=== PATIENT | male | born 1945 | race Caucasian/White ===

== ENCOUNTER 2019-12-17 10:03 | Outpatient (CLI) | payer MEDICARE, SELFPAY ==
--- NOTE | ~2019-12-17 | CT_ITS ---
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 The dose-length product (DLP) was 268.22 mGy-cm. Ite rative reconstruction was used. COMPARISON: 08/22/2019 FINDINGS: There are changes of esophagectomy and gastric pull-through. A 9 mm nodule of the right low er lobe on image 97 demonstrates slight increase in size. There is a stable 5 mm subpleural nodule of the right lower lobe on image 101. Dependent atelectasis is noted. The heart size is normal. There a re no pathologically enlarged thoracic lymph nodes. A left subclavian central venous catheter ends wi th its tip in the superior vena cava. Healed fractures of the right second through sixth ribs are not ed. A healed left fifth rib fracture is also noted. There is mild thoracic spondylosis. The gallblad greta is surgically absent. There is a 5 mm nonobstructing stone of the right kidney upper pole. IMPRESSION: 1. 9 mm nodule of the right lower lobe with slight interval increase in size which remains indetermin ate. Interval PET/CT did not demonstrate associated FDG uptake however that finding could be related to small nodule size. 2. Changes of esophagectomy with gastric pull-through. Reviewed, dictated and finalized at location A. HOUSE ENGINEER IMPRESSION: 1. 9 mm nodule of the right lower lobe with slight interval increase in size wh ich remains indeterminate. Interval PET/CT did not demonstrate associated FDG u ptake however that finding could be related to small nodule size. 2. Changes of esophagectomy with gastric pull-through.
[2019-12-17 10:42] LABS: Blood Urea Nitrogen 19 mg/dL (8-26); Estimated Glomerular Filt Rate 59
== END 2019-12-17 10:04 | disposition home or self-care (01) ==
PROVIDERS: Visit Provider Internal Medicine Hematology & Oncology
DX: C15.5 Malignant neoplasm of lower third of esophagus (principal); R91.1 Solitary pulmonary nodule
CPT/HCPCS: 71260; Q9967

== ENCOUNTER 2020-03-26 08:02 | Outpatient (CLI) | payer MEDICARE, SELFPAY ==
--- NOTE | ~2020-03-26 | CT_ITS ---
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 The dose-length product (DLP) was 457.57 mGy-cm. Ite rative reconstruction was used. COMPARISON: 12/17/2019 FINDINGS: There are changes of esophagectomy and gastric pull-through. There is increasing atelectasi s of the right lower lobe adjacent to the gastric pull-through. The previously described 9 mm nodule of the right lower lobe (image 95) appears stable but the margins are somewhat obscured by the increa sed atelectasis. A stable 5 mm subpleural nodule is present in the right lower lobe on image 99. Ther e are trace pleural effusions. No pneumothorax is identified. No pathologically enlarged thoracic lym ph nodes are identified. The heart size is normal. A left subclavian central venous catheter ends wit h its tip in the superior vena cava. Healed bilateral rib fractures are noted. There is mild thoracic spondylosis. IMPRESSION: 1. Grossly stable 9 mm nodule of the right lower lobe, margins slightly obscured by adjacent atelecta sis. 2. Stable changes of esophagectomy and gastric pull-through. Reviewed, dictated and finalized at location A. IMPRESSION: 1. Grossly stable 9 mm nodule of the right lower lobe, margins slightly obscure d by adjacent atelectasis. 2. Stable changes of esophagectomy and gastric pull-through.
[2020-03-26 08:33] LABS: Estimated Glomerular Filt Rate > 60
== END 2020-03-26 08:03 | disposition home or self-care (01) ==
PROVIDERS: PCP Family Medicine; Visit Provider Internal Medicine Hematology & Oncology
DX: C15.5 Malignant neoplasm of lower third of esophagus (principal); R91.1 Solitary pulmonary nodule
CPT/HCPCS: 36415; 71260; Q9967

== ENCOUNTER 2020-04-05 07:41 | Outpatient (CLI) | payer MEDICARE, SELFPAY ==
--- NOTE | ~2020-04-05 | MR_ITS ---
EXAMINATION: MR lumbar spine wo/w con DATE: 04/05/2020 09:31 INDICATION: Back pain. Postlaminectomy syndrome. TECHNIQUE: Magnetic resonance imaging (MRI) of the lumbar spine was performed without and with 16 mL MultiHance intravenous contrast. Sequences included sagittal T2-weighted FSE, sagittal T2-weighted FS FSE, and sagittal and axial T1-weighted FSE. Postcontrast sequences included axial T2-weighted FSE a nd axial and sagittal T1-weighted FS FSE. COMPARISON: Lumbar spine MRI 08/11/2016 FINDINGS: There is 9 degrees dextrocurvature of lumbar spine. There is 3 mm anterolisthesis of L4 on L5 and 4 mm retrolisthesis of L5 on S1. There is interbody fusion at L3-L4. Vertebral body heights ar e normal. Again seen is a benign bone island in the sacrum. There is severely decreased disc height a t L2-L3, L4-L5, and L5-S1. The distal spinal cord signal intensity is normal. The conus medullaris is at T12-L1. The following disc levels are specifically discussed: L1-L2: The disc is bulging. There is mild bilateral facet joint osteoarthritis. There is no neural fo raminal stenosis. There is no central canal stenosis. L2-L3: The disc is bulging and has an annular fissure. There is mild bilateral facet joint osteoarthr itis. There is mild right and moderate left neural foraminal stenosis. There is mild central canal st enosis. L3-L4: There is severe bilateral facet joint hypertrophy. There is moderate right and mild left neura l foraminal stenosis. There is mild central canal stenosis. L4-L5: The disc is bulging and has an annular fissure. There is severe bilateral facet joint osteoart hritis. There is moderate bilateral neural foraminal stenosis. There is mild central canal stenosis. L5-S1: The disc is bulging and has an annular fissure. There is mild right and severe left facet join t osteoarthritis. There is moderate bilateral neural foraminal stenosis. There is mild central canal stenosis. IMPRESSION: 1. Severe lumbar spondylosis, stable from 08/11/2016. Reviewed, dictated and finalized at location A.
--- NOTE | ~2020-04-05 | MR_ITS ---
EXAMINATION: MR thoracic spine wo con DATE: 04/05/2020 09:31 INDICATION: Postlaminectomy syndrome. Other spondylosis and radiculopathy. TECHNIQUE: Magnetic resonance imaging (MRI) of the thoracic spine was performed without intravenous c ontrast. Sagittal localizer T1-weighted FSE of the cervical spine was obtained. Thoracic spine sequen anatoly included sagittal T2-weighted FSE, sagittal T1-weighted FSE, sagittal STIR FSE, and axial T2-weig hted FSE. COMPARISON: Chest CT 03/26/2020 FINDINGS: There is 8 degrees dextrocurvature of thoracic spine. There are Schmorl's nodes at most lev els. There is mildly decreased disc height at T5-T6 and T6-T7. At T1-T2, there is a central protrusio n with mild central canal stenosis. At T3-T4, there is a right central extrusion with mild central ca nal stenosis. At T4-T5, there is a left central protrusion with mild central canal stenosis. At T5-T6 , there is a right central protrusion with mild central canal stenosis. At T6-T7, there is a right ce ntral protrusion with mild central canal stenosis. At T9-T10, there is a central protrusion with mild central canal stenosis. At T10-T11, there is a central extrusion with mild central canal stenosis. T here is multilevel mild facet joint osteoarthritis. No neural foraminal stenosis. The spinal cord sig nal intensity is normal. There are changes of esophagectomy and gastric pull-through procedure. IMPRESSION: 1. Mild thoracic spondylosis. Reviewed, dictated and finalized at location A.
[2020-04-05 08:25] LABS: Estimated Glomerular Filt Rate > 60
== END 2020-04-05 07:42 | disposition home or self-care (01) ==
PROVIDERS: PCP Family Medicine
DX: M96.1 Postlaminectomy syndrome, not elsewhere classified (principal); M47.27 Other spondylosis with radiculopathy, lumbosacral region; M47.814 Spondylosis without myelopathy or radiculopathy, thoracic region; M47.816 Spondylosis without myelopathy or radiculopathy, lumbar region
CPT/HCPCS: 36415; 72146; 72158; A9577

== ENCOUNTER 2020-05-08 10:24 | Outpatient (CLI) | payer MEDICARE, SELFPAY ==
--- NOTE | 2020-05-08 | ECG_ITS ---
Measurements Intervals [place] Rate: 57 P: -15 MN: 140 QRS: -29 QRSD: 97 T: -18 QT: 412 QTc: 402 Interpretive Statements SINUS BRADYCARDIA INFERIOR INFARCT, AGE INDETERMINATE BASELINE ARTIFACT- V6 ABNORMAL ECG Electronically Signed On 05-08-2020 12:10:12 CDT by Kenji Bucio D.O.
[2020-05-08 11:01] LABS: Basophils Absolute Auto 0.1 K/mm3 (0.0-0.1); Basophils Percent Auto 0.9 % (0.2-1.2); Eosinophils Absolute Auto 0.3 K/mm3 (0-0.3); Eosinophils Percent Auto 4.2 % (0-4.4); Hematocrit 40.4 % (42.0-52.0); Hemoglobin 13.1 g/dL (14.0-18.0); Immature Granulocyte Absolute 0.02 K/mm3 (0.00-0.031); Immature Granulocyte Percent A 0.3 % (0-0.5); Lymphocytes Absolute Auto 1.17 K/mm3 (0.9-3.2); Lymphocytes Percent Auto 18.2 % (18.3-44.2); Mean Corpuscular HGB Conc 32.4 g/dl (32-36); Mean Corpuscular Hemoglobin 30.1 pg (26-34); Mean Corpuscular Volume 92.9 fl (80-100); Mean Platelet Volume 12.7 fl (7.4-10.4); Monocytes Absolute Auto 0.9 K/mm3 (0.1-0.6); Monocytes Percent Auto 13.2 % (2.6-8.5); Neutrophils Absolute Auto 4.1 K/mm3 (1.3-6.7); Neutrophils Percent Auto 63.2 % (45.5-73.1); Platelet Count Result 103 k/mm3 (150-375); Red Blood Count 4.35 M/mm3 (4.6-6.20); Red Cell Distribution Width 13.1 % (11.5-14.5); White Blood Count 6.4 K/mm3 (4.5-10.0)
[2020-05-08 11:10] LABS: Add Urine Microscopic? YES; Appearance Urine Cloudy (Clear); Bacteria Urine Trace /hpf; Bilirubin Urine Negative (Negative); Blood Urine 2+ (Negative); Color Urine Yellow (Yellow); Glucose Urine UA 1+ mg/dL (Negative); Ketones Urine Negative (Negative); Leukocyte Esterase Ur 3+ LEU/UL (NEGATIVE); Mucus Urine Rare /lpf; Nitrate Urine Negative (Negative); Protein Urine Negative (Negative); RBC Urine 21-50 /hpf (0-2); Specific Grav Ur 1.018 (1.001-1.035); Squamous Epithelial Cell Urine Rare /hpf (Few); Urobilinogen Urine Negative mg/dL (<2.0); WBC Clumps Urine Present /HPF; WBC Urine >75 /hpf (0-3)
[2020-05-08 11:13] LABS: Alanine Aminotransferase 34 U/L (4-50); Albumin Level 3.2 g/dL (3.5-5.1); Alkaline Phosphatase 192 U/L (38-126); Aspartate Amino Transferase 52 U/L (17-59); Bilirubin,Total 0.3 mg/dL (0.2-1.3); Blood Urea Nitrogen 19 mg/dL (9-20); Calcium 8.5 mg/dL (8.4-10.2); Carbon Dioxide 27 mmol/L (22-30); Chloride 104 mmol/L (98-107); Estimated Glomerular Filt Rate > 60; Glucose 168 mg/dL (75-110); Potassium 4.2 mmol/L (3.4-5.0); Sodium 138 mmol/L (137-145)
[2020-05-12 15:55] LABS: Reference Lab Test Result Not Detected
== END 2020-05-08 10:25 | disposition home or self-care (01) ==
PROVIDERS: PCP Family Medicine
DX: M96.1 Postlaminectomy syndrome, not elsewhere classified (principal); R94.31 Abnormal electrocardiogram [ECG] [EKG]
CPT/HCPCS: 36415; 80053; 81001; 85025; 87641; 93005

== ENCOUNTER 2020-09-30 12:01 | Outpatient (NON) | payer MEDICARE, SELFPAY ==
[2020-10-03 17:04] LABS: SARS-CoV-2 RNA PCR Negative
== END 2020-09-30 12:02 ==
LOC: ANHCOVIDDT 12:02
PROVIDERS: PCP Family Medicine; Visit Provider Family Medicine
DX: Z20.828 Contact with and (suspected) exposure to other viral communicable diseases (principal); R05 Cough
CPT/HCPCS: 87635; C9803; U0003

== ENCOUNTER 2020-10-07 09:36 | Outpatient (CLI) | payer MEDICARE, SELFPAY ==
--- NOTE | ~2020-10-07 | CT_ITS ---
EXAMINATION: CT chest w con DATE: 10/07/2020 10:19 INDICATION: Pulmonary nodule TECHNIQUE: Computed tomography (CT) of the chest was performed with 75 cc Omnipaque 350 intravenous c ontrast. The dose-length product was 257.36 mGy-cm. Automated exposure control and iterative reconstr uction technique were employed. COMPARISON: None FINDINGS: There are stable surgical changes of esophagectomy with gastric pull-through. There is automotive worker foreman brittani right lower lobe atelectasis/scarring. No endobronchial lesions. The right lower lobe nodule seen on prior examination is not appreciated on the current study. There is crowding of the pulmonary vas culature in the right lower lobe. No significant pleural or pericardial effusion. No mediastinal lymp hadenopathy. No evidence for aortic aneurysm or dissection. There is renal atrophy. There are nonobst ructing bilateral renal stones. Stable 3-4 mm right lower lobe nodule, image 87. There are a few patc hy areas of groundglass opacification in the right upper lobe, likely small airway disease. There is right apical pleural thickening with pleural calcifications, nonspecific. There are scattered calcifi ed granulomas. There are healed bilateral rib fractures. Mild thoracic spondylosis. IMPRESSION: 1. Stable 3-4 mm subpleural right lower lobe nodule, image 87. 2: Stable changes of esophagectomy with gastric pull-through. Reviewed, dictated and finalized at location B. RVISOR/PORT DIRECTOR
[2020-10-07 10:16] LABS: Estimated Glomerular Filt Rate > 60
== END 2020-10-07 09:37 | disposition home or self-care (01) ==
PROVIDERS: PCP Family Medicine; Visit Provider Nurse Practitioner Adult Health
DX: R91.1 Solitary pulmonary nodule (principal); J98.11 Atelectasis; N20.0 Calculus of kidney; M47.814 Spondylosis without myelopathy or radiculopathy, thoracic region
CPT/HCPCS: 71260; Q9967

== ENCOUNTER 2020-10-15 11:17 | Outpatient (CLI) | payer MEDICARE, SELFPAY ==
[2020-10-15 11:39] LABS: Basophils Absolute Auto 0.1 K/mm3 (0.0-0.1); Basophils Percent Auto 0.8 % (0.2-1.2); Eosinophils Absolute Auto 0.8 K/mm3 (0-0.3); Hematocrit 38.1 % (42.0-52.0); Hemoglobin 12.3 g/dL (14.0-18.0); Immature Granulocyte Absolute 0.06 K/mm3 (0.00-0.031); Immature Granulocyte Percent A 0.6 % (0-0.5); Lymphocytes Absolute Auto 1.99 K/mm3 (0.9-3.2); Lymphocytes Percent Auto 18.6 % (18.3-44.2); Mean Corpuscular HGB Conc 32.3 g/dl (32-36); Mean Corpuscular Hemoglobin 29.6 pg (26-34); Mean Corpuscular Volume 91.8 fl (80-100); Mean Platelet Volume 11.7 fl (7.4-10.4); Monocytes Absolute Auto 1.2 K/mm3 (0.1-0.6); Neutrophils Absolute Auto 6.6 K/mm3 (1.3-6.7); Platelet Count Result 125 k/mm3 (150-375); Red Blood Count 4.15 M/mm3 (4.6-6.20); Red Cell Distribution Width 13.6 % (11.5-14.5); White Blood Count 10.7 K/mm3 (4.5-10.0)
[2020-10-15 12:28] LABS: Alanine Aminotransferase 40 U/L (4-50); Albumin Level 2.8 g/dL (3.5-5.1); Alkaline Phosphatase 175 U/L (38-126); Anion Gap 5 mmol/L (8-16); Aspartate Amino Transferase 53 U/L (17-59); Bilirubin,Total 0.4 mg/dL (0.2-1.3); Blood Urea Nitrogen 16 mg/dL (9-20); Calcium 8.7 mg/dL (8.4-10.2); Carbon Dioxide 32 mmol/L (22-30); Chloride 102 mmol/L (98-107); Estimated Glomerular Filt Rate > 60; Glucose 91 mg/dL (75-110); Potassium 4.2 mmol/L (3.4-5.0); Sodium 139 mmol/L (137-145)
[2020-10-15 12:33] LABS: Hemoglobin A1C 7.1 % (<5.7)
[2020-10-16 10:01] LABS: Blood Urea Nitrogen 14 mg/dL (8-26); Carbon Dioxide 32 mmol/L (22-30); Chloride 101 mmol/L (98-109); Estimated Glomerular Filt Rate > 60; Glucose 91 mg/dL (70-105); Potassium 4.3 mmol/L (3.5-4.9); Sodium 141 mmol/L (138-146)
== END 2020-10-15 11:18 | disposition home or self-care (01) ==
PROVIDERS: PCP Family Medicine; Referring Provider Internal Medicine Hematology & Oncology; Visit Provider Family Medicine
DX: C15.5 Malignant neoplasm of lower third of esophagus (principal); E11.9 Type 2 diabetes mellitus without complications; I10 Essential (primary) hypertension
CPT/HCPCS: 36415; 80048; 80053; 83036; 85025

== ENCOUNTER 2021-01-13 09:37 | Outpatient (CLI) | payer MEDICARE, SELFPAY ==
--- NOTE | ~2021-01-13 | CT_ITS ---
EXAMINATION: CT diagnostic chest w con EXAM DATE: 01/13/2021 10:18 INDICATION: Cancer of the distal 3rd of esophagus. TECHNIQUE: Spiral CT of the chest following intravenous injection of 75 mL Omnipaque 350. Axial, cor onal and sagittal images were reviewed. Coronal maximum intensity pixel images of chest reviewed. Micky hamlin dose-length product (DLP) for this examination was 349.92 mGy-cm. The exposure was tailored accor ding to patient size (auto mA exposure control), and iterative reconstruction (ASIR) was used as greta tional dose reduction technique. Comparison is made to prior examination from 10/07/2020. FINDINGS: Surgical changes from gastric pull-through. There is a left-sided Chemo-Port. Multi segmen jeanne right lower lobe atelectasis, compressive from the thoracic stomach. Small chronic right pleural effusion. Unchanged right lower lobe pleural-based 3 mm nodule. Some other scattered postinfectious r esidua. Mild emphysema. There are no pleural or pericardial effusions. Tracheobronchial tree is patent. There is no media stinal, hilar or axillary lymphadenopathy. There is no pneumothorax. Heart normal in size. Ther e is mild to moderate coronary arterial calcification, arterial sclerosis. There are cholecystectomy clips. Bilateral nephrolithiasis. There is mild thoracic spondylosis without osteoblastic or osteo lytic lesions identified. Spine stimulator lead tips at thoracic level. IMPRESSION: 1. Stable surgical changes, gastric pull-through with adjacent right lower lobe multisegmental atele ctasis. 2. Mild emphysema. 3. Nephrolithiasis Reviewed, dictated and finalized at location B. ER TEACHER IMPRESSION: 1. Stable surgical changes, gastric pull-through with adjacent right lower lob e multisegmental atelectasis. 2. Mild emphysema. 3. Nephrolithiasis
[2021-01-13 10:10] LABS: Estimated Glomerular Filt Rate > 60
== END 2021-01-13 09:38 | disposition home or self-care (01) ==
PROVIDERS: PCP Family Medicine; Visit Provider Internal Medicine Hematology & Oncology
DX: C15.5 Malignant neoplasm of lower third of esophagus (principal); J43.9 Emphysema, unspecified; N20.0 Calculus of kidney; Z98.890 Other specified postprocedural states
CPT/HCPCS: 71260; Q9967

== ENCOUNTER → 2021-01-31 02:08 | Outpatient (CLI) | payer MEDICARE, SELFPAY ==
[2021-01-31 20:23] LABS: SARS-CoV-2 RNA PCR Negative
== END ==
PROVIDERS: PCP Family Medicine; Visit Provider Neurological Surgery
DX: Z01.812 Encounter for preprocedural laboratory examination (principal); Z20.822 Contact with and (suspected) exposure to COVID-19
CPT/HCPCS: C9803; U0003; U0005

== ENCOUNTER 2021-02-04 08:57 | Outpatient (CLI) | payer MEDICARE, SELFPAY ==
[2021-01-30 11:08] VITALS: BMI 24.4
[2021-02-04] VITALS (9 sets, daily range): BP systolic 123–144; BP diastolic 61–71; PULSE 56–70; RESP 14–20; O2SAT 94–99
--- NOTE | ~2021-02-04 | XR_ITS ---
EXAMINATION: XR_MY2+_CR EXAM DATE: 02/04/2021 10:48 INDICATION: Cervical, thoracic and lumbar spondylosis with out myelopathy. TECHNIQUE: Informed consent was obtained from the patient for doing this procedure. I discussed alicia efits and risks including bleeding, infection, backache, headache and seizure. Alternatives also disc ussed. The DAP for this procedure was 0.8 Gycm2. Pulsed dose reduction fluoroscopy was used with fluo roscopic time of 0.3 minutes. A total of 22 images obtained for the exam. Correlation made with CT c ervical, thoracic and lumbar spine obtained immediately following this. Time out procedure was performed. Thermal Intelligence Analyst radiograph was obtained. An entry site was chosen at the L4 -5 level. A left paracentral approach was used. Standard sterile prep was done with Betadine. Entr y site was infiltrated with 5 cc 1% lidocaine. A 3.5 22G spinal needle was then inserted into the s vick canal. 10 milliliters Omnipaque 300 were then injected into the thecal sac. The table was placed in Trendelenburg position to allow contrast to flow to the cervical region. Limited frontal images of the lumbar, thoracic and cervical spine were obtained. Patient had difficul ty rotating on the table for any oblique or lateral images of the spine. There are no immediate compl ications. FINDINGS: There are 12 rib-bearing thoracic vertebral bodies. There are 5 nonrib-bearing lumbar verte bral bodies. Images demonstrate no myelographic block. Contrast did reach the cervical region. Spine stimulator device with leads at 2 different midthoracic levels, the T7-8 endplate level in the T9-10 endplate level. IMPRESSION: Successful intrathecal injection of Omnipaque with contrast confirmed at cervical, thora cic and lumbar regions. Reviewed, dictated and finalized at location A. IMPRESSION: Successful intrathecal injection of Omnipaque with contrast confir med at cervical, thoracic and lumbar regions.
--- NOTE | ~2021-02-04 | CT_ITS ---
EXAMINATION: CT thoracic lumbar w con EXAM DATE: 02/04/2021 11:05 INDICATION: Cervical, thoracici and lumbar spondylosis w/o myelopathy. TECHNIQUE: Spiral CT thoracic spine was performed with intrathecal contrast. Axial, coronal and sagit jeanne images of the thoracic spine were reviewed. The amount of intrathecal contrast in the thoracic spine was assessed. Patient was then asked to sit for a minute to allow more contrast down to the lumbar region. Spiral CT lumbar spine was performed w ith intrathecal contrast. Axial, coronal and sagittal images of the lumbar spine were reviewed. The dose-length product (DLP) for this examination was 2613.36 mGy-cm. The exposure was tailored acc ording to patient size (auto mA exposure control), and iterative reconstruction (ASIR) was used as ad ditional dose reduction technique. A total of 10 mL Omnipaque 300 solution was injected. Correlation was made with lumbar and thoracic MR examination 04/05/2020. FINDINGS: THORACIC SPINE: There are 12 rib-bearing vertebral bodies. Spine stimulator lead tips in the posterio r epidural space at the T7-8 level and the T9-10 level. There is good intrathecal opacification. Ther e is mild diffuse thoracic disc disease and facet arthropathy. Only minimal disc bulges are present, Central canal is widely patent throughout the thoracic spine. The neural foramen also appear widely p atent. Vertebral body heights relatively well-maintained. Surgical changes from gastric pull-through. Small right pleural effusion. Large left nephrolithiasis. LUMBAR SPINE: Good intrathecal opacification. There is osseous fusion of the L3-4 levels. There is ri ght L4 hemilaminotomy. Left sacral all of bone island. No sacral insufficiency fractures. There is se orlando disc disease at L4-5 and L5-S1. There is 6 mm retrolisthesis L5 on S1. The vertebral bodies are otherwise aligned. Conus terminates at the L1-2 level. This is also a level at which the epidural spi ne stimulator leads enter. Moderate disc disease at L2-3, and mild at L1-2. Mild lumbar scoliosis. Level by level evaluation: T12-L1: Disc does not extend beyond the endplate margin. Facet arthropathy: None. Neural foraminal stenosis: No stenosis. Central canal stenosis: No stenosis. L1-L2: There is a minimal diffuse disc bulge. Facet arthropathy: Mild. Neural foraminal stenosis: No stenosis. Central canal stenosis: No stenosis. L2-L3: There is a mild to moderate diffuse disc bulge. Facet arthropathy: Mild to moderate. Neural foraminal stenosis: Mild to moderate left, mild right. Central canal stenosis: Mild. L3-L4: There is osseous fusion of these vertebral bodies. Facet arthropathy: Moderate to severe. Neural foraminal stenosis: Moderate right, mild to moderate left. Central canal stenosis: Mild to moderate. L4-L5: There is a moderate diffuse disc bulge. Facet arthropathy: Severe right, moderate left. Neural foraminal stenosis: Severe right, mild to moderate left. Central canal stenosis: Mild. L5-S1: There is a mild to moderate diffuse disc bulge. Facet arthropathy: Moderate to severe left, moderate right. Neural foraminal stenosis: Severe bilateral. Central canal stenosis: Mild. IMPRESSION: 1. L5-S1 grade 1 retrolisthesis, severe bilateral neural foraminal stenosis. 2. L4-5 severe right neural foraminal stenosis. 3. Advanced lumbar spondylosis as above. Reviewed, dictated and finalized at location A.
--- NOTE | ~2021-02-04 | CT_ITS ---
EXAMINATION: CT cervical spine w con EXAM DATE: 02/04/2021 11:05 INDICATION: Cervical, thoracici and lumbar spondylosis w/o myelopathy . TECHNIQUE: Spiral CT of the cervical spine was performed with contrast (a total of 10 mL Omnipaque 30 0). Axial images were reviewed. Coronal and sagittal reformatted images were also reviewed. The dos e-length product (DLP) for this examination was 501.38 mGy-cm. The exposure was tailored according t o patient size (auto mA exposure control), and iterative reconstruction (ASIR) was used as additional dose reduction technique. There is no prior study for comparison. FINDINGS: There is good intrathecal opacification within the spinal canal. There is moderate to sever e disc disease C5-T1, moderate at C3-4. Patient has had bilateral laminectomies at the C3 and C4 leve ls. No endplate erosive change. The vertebral bodies are aligned in the AP dimension. There are no ac camille fractures identified. Left-sided portacatheter. Level by level evaluation: C2-C3: Disc does not extend beyond the endplate margin. Uncovertebral joint arthropathy: Mild bilateral. Facet joint arthropathy: Moderate to severe right, mild to moderate left. Neural foraminal stenosis: No stenosis. Central canal stenosis: No stenosis. C3-C4: There is posterior disc osteophyte complex. Uncovertebral joint arthropathy: Moderate bilateral. Facet joint arthropathy: Severe right, moderate left. Neural foraminal stenosis: Moderate to severe right, moderate left. Central canal stenosis: No stenosis. Posterior decompression. C4-C5: There is posterior disc osteophyte complex. Uncovertebral joint arthropathy: Mild to moderate right, mild left. Facet joint arthropathy: Severe bilateral. Neural foraminal stenosis: Mild to moderate bilateral. Central canal stenosis: No stenosis. Posterior decompression C5-C6: There is posterior disc osteophyte complex. Uncovertebral joint arthropathy: Moderate to severe left, moderate right. Facet joint arthropathy: Mild to moderate bilateral. Neural foraminal stenosis: Mild bilateral. Central canal stenosis: Mild. C6-C7: There is posterior disc osteophyte complex. Uncovertebral joint arthropathy: Moderate to severe bilateral. Facet joint arthropathy: Moderate bilateral. Neural foraminal stenosis: Moderate bilateral. Central canal stenosis: Mild. C7-T1: There is posterior disc osteophyte complex. Uncovertebral joint arthropathy: Moderate to severe left, moderate right. Facet joint arthropathy: Mild to moderate bilateral. Neural foraminal stenosis: Mild left. Central canal stenosis: No stenosis. IMPRESSION: Advanced cervical spondylosis with the neural foramen most narrowed at C3-4. Reviewed, dictated and finalized at location A.
[2021-02-04 09:26] LABS: Basophils Absolute Auto 0.1 K/mm3 (0.0-0.1); Basophils Percent Auto 0.9 % (0.2-1.2); Eosinophils Absolute Auto 1.3 K/mm3 (0-0.3); Eosinophils Percent Auto 11.6 % (0-4.4); Hematocrit 36.4 % (42.0-52.0); Hemoglobin 11.7 g/dL (14.0-18.0); Immature Granulocyte Absolute 0.09 K/mm3 (0.00-0.031); Immature Granulocyte Percent A 0.8 % (0-0.5); Lymphocytes Percent Auto 13.9 % (18.3-44.2); Mean Corpuscular HGB Conc 32.1 g/dl (32-36); Mean Corpuscular Hemoglobin 30.1 pg (26-34); Mean Corpuscular Volume 93.6 fl (80-100); Monocytes Absolute Auto 1.3 K/mm3 (0.1-0.6); Monocytes Percent Auto 12.4 % (2.6-8.5); Neutrophils Absolute Auto 6.5 K/mm3 (1.3-6.7); Neutrophils Percent Auto 60.4 % (45.5-73.1); Platelet Count Result 114 k/mm3 (150-375); Red Blood Count 3.89 M/mm3 (4.6-6.20); Red Cell Distribution Width 14.3 % (11.5-14.5); White Blood Count 10.8 K/mm3 (4.5-10.0)
[2021-02-04 12:52] LABS: Glucose Point of Care 124 (65-105)
--- NOTE | 2021-02-04 13:05 | SUR.PHASEII ---
1240 dr estes at bedside to see pt and give him disk for doctor. pt vss, no pain on roomair. pt ok for discharge per dr estes
== END 2021-02-04 08:58 | disposition home or self-care (01) ==
PROVIDERS: Radiology Diagnostic Radiology; PCP Family Medicine; Visit Provider Neurological Surgery
DX: M47.812 Spondylosis without myelopathy or radiculopathy, cervical region (principal); M47.816 Spondylosis without myelopathy or radiculopathy, lumbar region; M47.814 Spondylosis without myelopathy or radiculopathy, thoracic region
CPT/HCPCS: 36415; 62305; 72126; 72129; 72132; 85025; 85610; Q9967

== ENCOUNTER 2021-03-17 11:45 | Outpatient (CLI) | payer MEDICARE, SELFPAY ==
--- NOTE | ~2021-03-17 | US_ITS ---
EXAMINATION: US venous doppler LE RT DATE: 03/17/2021 12:08 INDICATION: Right lower limb swelling. TECHNIQUE: Grayscale ultrasound images without and with compression and Doppler ultrasound images of the right lower extremity veins were obtained. COMPARISON: None. FINDINGS: The visualized portions of right common femoral vein, profunda (deep) femoral vein, femoral vein, pop liteal vein, peroneal veins, posterior tibial veins, and greater saphenous vein outflow are patent. IMPRESSION: 1. No deep venous thrombosis. Reviewed, dictated and finalized at location B.
[2021-03-17 13:50] LABS: Basophils Absolute Auto 0.1 K/mm3 (0.0-0.1); Basophils Percent Auto 0.8 % (0.2-1.2); Eosinophils Percent Auto 7.8 % (0-4.4); Hematocrit 33.9 % (42.0-52.0); Hemoglobin 10.8 g/dL (14.0-18.0); Immature Granulocyte Absolute 0.14 K/mm3 (0.00-0.031); Immature Granulocyte Percent A 1.1 % (0-0.5); Lymphocytes Absolute Auto 1.59 K/mm3 (0.9-3.2); Lymphocytes Percent Auto 12.6 % (18.3-44.2); Mean Corpuscular HGB Conc 31.9 g/dl (32-36); Mean Corpuscular Hemoglobin 28.9 pg (26-34); Mean Corpuscular Volume 90.6 fl (80-100); Mean Platelet Volume 12.4 fl (7.4-10.4); Monocytes Absolute Auto 1.6 K/mm3 (0.1-0.6); Monocytes Percent Auto 12.4 % (2.6-8.5); Neutrophils Absolute Auto 8.2 K/mm3 (1.3-6.7); Neutrophils Percent Auto 65.3 % (45.5-73.1); Platelet Count Result 144 k/mm3 (150-375); Red Blood Count 3.74 M/mm3 (4.6-6.20); Red Cell Distribution Width 14.4 % (11.5-14.5); White Blood Count 12.6 K/mm3 (4.5-10.0)
[2021-03-17 14:02] LABS: Alanine Aminotransferase 27 U/L (4-50); Albumin Level 2.7 g/dL (3.5-5.1); Alkaline Phosphatase 165 U/L (38-126); Anion Gap 3 mmol/L (8-16); Aspartate Amino Transferase 40 U/L (17-59); Bilirubin,Total 0.3 mg/dL (0.2-1.3); Blood Urea Nitrogen 17 mg/dL (9-20); Calcium 8.7 mg/dL (8.4-10.2); Carbon Dioxide 32 mmol/L (22-30); Chloride 102 mmol/L (98-107); Cholesterol 66 mg/dL (0-200); Estimated Glomerular Filt Rate > 60; Glucose 135 mg/dL (75-110); HDL Direct 20 mg/dL; Potassium 4.4 mmol/L (3.4-5.0); Sodium 137 mmol/L (137-145); Triglycerides 63 mg/dL (<150)
[2021-03-17 14:13] LABS: LDL Cholesterol Direct 37 mg/dL
[2021-03-17 14:15] LABS: Hemoglobin A1C 6.4 % (<5.7)
[2021-03-17 14:30] LABS: Prostate Specific Antigen 4.3 ng/mL (< OR = 4.0)
[2021-03-17 14:37] LABS: Creatinine Urine 104.3 mg/dL
[2021-03-17 14:43] LABS: MALB Creatinine Ratio 18.8 mg/g (0-30); Microalbumin Urine Random 19.6 mg/L (0-16.7)
[2021-03-17 15:01] LABS: Vitamin B12 > 1000.0 pg/mL (239-931)
[2021-03-17 16:12] LABS: Vitamin D 25 Hydroxy 49.1 ng/mL
[2021-03-17 17:04] LABS: Iron 36 ug/dL (49-181)
[2021-03-17 17:12] LABS: Percent Iron Saturation 15 % (20-50)
== END 2021-03-17 11:46 | disposition home or self-care (01) ==
PROVIDERS: PCP Family Medicine; Visit Provider Family Medicine
DX: Z12.5 Encounter for screening for malignant neoplasm of prostate (principal); E11.9 Type 2 diabetes mellitus without complications; E78.5 Hyperlipidemia, unspecified; I10 Essential (primary) hypertension; E53.8 Deficiency of other specified B group vitamins; E55.9 Vitamin D deficiency, unspecified; D64.9 Anemia, unspecified; M79.89 Other specified soft tissue disorders; Z00.00 Encounter for general adult medical examination without abnormal findings
CPT/HCPCS: 36415; 80053; 80061; 82043; 82306; 82607; 82728; 83036; 83540; 83550; 84153; 84443; 85025; 93971; G0103

== ENCOUNTER 2021-04-17 08:32 | Outpatient (CLI) | payer MEDICARE, SELFPAY ==
--- NOTE | 2021-04-17 08:49 | ECHO_ITS ---
Patient Info Name: Nilo Barney Age: 76 years : 1945 Gender: Male Ht: 72 in Wt: 180 lbs BSA: 2.04 m2 HR: 64 bpm BP: 134 / 68 mmHg Heart Rhythm: Sinus Rhythm Exam Date: 04/17/2021 9:00 AM Exam Location: [facility] Patient Status: Outpatient Admit Date: 04/17/2021 Staff Ordering Physician: Brenna Rosario MD Importer Exporter: Mayra Harp RDCS Attending Provider: Brenna Rosario MD Exam Type: CA echo doppler color flow Study Info Indications I10 - Essential (primary) hypertension Complete two-dimensional, color flow and Doppler transthoracic echocardiogram is performed. Summary 1. Complete two-dimensional, color flow and Doppler transthoracic echocardiogram is performed. 2. Left ventricular chamber dimension is normal. 3. Left ventricular systolic function is normal, estimated at 60-65%. 4. The left ventricular diastolic function is grade I diastolic dysfunction. 5. E/e' 7 is not elevated. 6. There is mild aortic valve sclerosis. Left Ventricle E/e' 7 is not elevated. Left ventricular chamber dimension is normal. Left ventricular systolic function is normal, estimated at 60-65%. The left ventricular diastolic function is grade I diastolic dysfunction. Right Ventricle Right ventricular systolic function is normal with normal TAPSE 2.9 cm. Right ventricular chamber dimension is normal. Left Atria Left atrial chamber dimension is normal. Right Atria Right atrial chamber dimension is normal. Aortic Valve The aortic valve is trileaflet. There is mild aortic valve sclerosis. There is no aortic valve stenosis. There is no aortic valve regurgitation. Pulmonic Valve There is no pulmonic regurgitation. Mitral Valve There is no mitral valve stenosis. There is no mitral valve regurgitation. Tricuspid Valve There is no tricuspid valve regurgitation. Pericardium/Pleural There is no pericardial effusion. Inferior Vena Cava Normal inferior vena cava with >50% collapse upon inspiration consistent with normal right atrial pressure, 5 mmHg. Aorta The aortic root size at the sinus of Valsalva is normal. Left Ventricular Outflow Tract Name Value Normal LVOT 2D LVOT Diameter 1.8 cm LVOT Doppler LVOT Peak Gradient 2 mmHg LVOT Mean Gradient 1 mmHg LVOT VTI 18 cm LVOT VTI/AV VTI Ratio 0.7 LVOT Stroke Volume 48 ml LVOT CO 2.7 l/min LVOT CI 1.3 l/min/m2 Pulmonic Valve Name Value Normal RVOT Doppler RVOT Peak Gradient 1 mmHg PV Doppler PV Peak Gradient 3 mmHg Mitral Valve ------
== END 2021-04-17 08:33 | disposition home or self-care (01) ==
PROVIDERS: PCP Family Medicine; Visit Provider Family Medicine
DX: R60.0 Localized edema (principal); I10 Essential (primary) hypertension; I35.8 Other nonrheumatic aortic valve disorders
CPT/HCPCS: 93306

== ENCOUNTER 2021-05-22 07:23 | Outpatient (CLI) | payer MEDICARE, SELFPAY ==
--- NOTE | ~2021-05-22 | CT_ITS ---
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 Automated exposure control and iterative reconstruction technique were employed. Exam dose: 744.39 mGy-cm total exam DLP. COMPARISON: 01/13/2021 CT chest PET/CT scan 01/01/2019 CT chest abdomen pelvis FINDINGS: CHEST CT: Status post esophagectomy and gastric pull-through procedure. Left Port-A-Cath catheter in superior v shanika cava. There is interval circumferential soft tissue thickening of the esophagus, measuring up to 6 to 7 mm with compared to approximately 2.5 mm width on 01/13/2021. Differential diagnosis includes esophagitis or tumor recurrence. Consider endoscopic correlation with biopsy if necessary. There is mild to moderate right pleural effusion, increased since 01/13/2021, with compressive atelecta sis of the right lower lobe. There is minimal infiltrate or atelectasis at the left lung base, left lower lobe. Stable approximately 11 mm hypoenhancing lesion of the lower pole of the right lobe of the thyroid gl and. No interval hilar or mediastinal lymph node enlargement since 01/13/2021. Normal heart size. No pericardial effusion. There is coronary artery calcification. No thoracic aortic aneurysm or dissection. ABDOMEN/PELVIS CT: Status post cholecystectomy. No hepatic, splenic, pancreatic, adrenal space-occupying mass lesion. Bi lateral nephrolithiasis, particularly prominent on the left, with lower pole staghorn prominent calcu axel. 1.4 cm lower pole left renal cyst. No ureteral calculus or hydroureteronephrosis. Normal caliber of the abdominal aorta. No intraperitoneal or retroperitoneal or pelvic mass lesion or adenopathy or ascites. There is prostate enlargement and minimal calcification. There is moderate thickening of the urinary bladder wall. Minimal diverticulosis of the colon. No evidence of bowel obstruction, small or large bowel wall thic kening, pneumatosis or intraperitoneal free air. Status post right total hip arthroplasty. 10 x 16 mm osteosclerotic lesion of the left sacrum, unchanged since 01/01/2019, most consistent with prominent bone island. Old healed anterior left second rib fracture deformity. Old healed anterior right second, third, four th, fifth and sixth rib fractures. Severe degenerative disease at C7-T1. Diffuse idiopathic skeletal hyperostosis of the mid to lower th oracic spine. Fusion of the third and fourth lumbar vertebral bodies. There is severe degenerative disease at L2-3, L4-5 and L5-S1 with retrolisthesis at the L5-S1 level. Prominent degenerative changes apophyseal joints of the lumbar and lumbosacral spine. IMPRESSION: Status post gastric pull-through procedure for esophageal cancer; left Port-A-Cath again noted Interval prominent circumferential soft tissue thickening of the wall of the esophagus since 01/13/2021 , measuring up to 7 mm thickness versus 2.5 mm on 01/13/2021; differential diagnosis includes esophagit is, recurrent esophageal malignancy. Consider endoscopic visualization and possible biopsy as clinica lly appropriate Reviewed, dictated and finalized at [facility]. Reviewed, dictated and finalized at [facility]. IMPRESSION: Status post gastric pull-through procedure for esophageal cancer; left Port-A-Cath again noted Interval prominent circumferential soft tissue thickening of the wall of the es ophagus since 01/13/2021, measuring up to 7 mm thickness versus 2.5 mm on ; differential diagnosis includes esophagitis, recurrent esophageal malignancy . Consider endoscopic visualiza
== END 2021-05-22 07:24 | disposition home or self-care (01) ==
LOC: ANHIMG 07:24
PROVIDERS: PCP Family Medicine; Visit Provider Internal Medicine Hematology & Oncology
DX: C15.5 Malignant neoplasm of lower third of esophagus (principal); Z98.890 Other specified postprocedural states; Z95.828 Presence of other vascular implants and grafts
CPT/HCPCS: 71260; 74177; Q9967

== ENCOUNTER 2021-06-25 07:58 | Outpatient (CLI) | payer MEDICARE, SELFPAY ==
--- NOTE | 2021-06-25 | ECG_ITS ---
Measurements Intervals [place] Rate: 70 P: 51 TX: 142 QRS: -15 QRSD: 92 T: 23 QT: 388 QTc: 421 Interpretive Statements SINUS RHYTHM POSSIBLE LEFT ATRIAL ENLARGEMENT BORDERLINE ECG Electronically Signed On 06-25-2021 8:34:32 CDT by Kenji Bucio D.O.
== END 2021-06-25 07:59 | disposition home or self-care (01) ==
LOC: ANHCARD 08:01
PROVIDERS: PCP Family Medicine; Visit Provider Anesthesiology
DX: M96.1 Postlaminectomy syndrome, not elsewhere classified (principal)
CPT/HCPCS: 93005

== ENCOUNTER 2021-07-16 16:22 | Outpatient (CLI) | payer MEDICARE, SELFPAY ==
--- NOTE | ~2021-07-16 | XR_ITS ---
XR foot RT min 3V 07/16/2021 17:07 Indication: Right foot pain after recent trauma Procedure: 4 views right foot Comparison: No prior studies for comparison. Findings: There is a probable nondisplaced fracture first distal phalanx. There is advanced osteoarth ritis of the first MTP joint. There is a nondisplaced fracture of the medial malleolus. Lisfranc join t intact. There are degenerative calcaneal enthesophytes. Osteopenia. Impression: 1: Nondisplaced fracture of the medial malleolus. 2: Probable nondisplaced fracture right first distal phalanx. Reviewed, dictated and finalized at [facility]. Impression: 1: Nondisplaced fracture of the medial malleolus. 2: Probable nondisplaced fracture right first distal phalanx.
--- NOTE | ~2021-07-16 | US_ITS ---
EXAMINATION:US venous doppler LE RT INDICATION:Right lower extremity wound. Swelling. TECHNIQUE: Multiple grayscale, color flow and Doppler images of the right lower extremity deep venous systems were obtained and reviewed. COMPARISON:03/17/2021 FINDINGS: The common femoral, superficial femoral and popliteal veins demonstrate normal respiratory variation, augmentation and compressibility. Color flow is also seen within the posterior tibial, pe roneal, greater saphenous and profunda veins. IMPRESSION: 1: No lower extremity deep venous thrombosis. Reviewed, dictated and finalized at location [facility].
== END 2021-07-16 16:23 | disposition home or self-care (01) ==
LOC: ANHIMG 16:23
PROVIDERS: PCP Family Medicine; Visit Provider Family Medicine
DX: M79.89 Other specified soft tissue disorders (principal); S82.54XA Nondisplaced fracture of medial malleolus of right tibia, initial encounter for closed fracture
CPT/HCPCS: 73630; 93971

== ENCOUNTER 2021-07-18 18:36 | Observation (INO) | payer MEDICARE, SELFPAY ==
--- NOTE | ~2021-07-18 | XR_ITS ---
EXAMINATION: XR retrograde pyelo w/stent RT DATE: 07/19/2021 10:46 INDICATION: An internal ureteral stent placement TECHNIQUE: Fluoroscopic images from a right internal ureteral stent placement are submitted for jameson martínez. 75 seconds of fluoroscopy of fluoroscopy time. 5 fluoroscopic images. FINDINGS: There is a right double-J internal ureteral stent projecting in expected position, with proximal [place] loop at the level of the renal pelvis and distal loop in the pelvis within the bladder lumen. IMPRESSION: 1. Right internal ureteral stent placement. Please refer to real-time procedural findings for pratibha ls. Reviewed, dictated and finalized at location [facility]. IMPRESSION: 1. Right internal ureteral stent placement. Please refer to real-time procedu ral findings for details.
--- NOTE | ~2021-07-18 | CT_ITS ---
EXAMINATION: CT abdomen pelvis w con DATE: 07/18/2021 21:01 INDICATION: Nausea and vomiting TECHNIQUE: Computed tomography (CT) of the abdomen and pelvis was performed without intravenous contr ast. The dose-length product was 1133.77 mGy-cm. Automated exposure control and iterative reconstruct ion technique were employed. COMPARISON: CT dated 05/22/2021. FINDINGS: There are changes of esophagectomy with gastric pull-through. There is a right pleural effu srikanth with underlying airspace consolidation in the right lower lobe. Heart size normal. Status post cholecystectomy. The spleen, pancreas, adrenal glands are unremarkable. There are nonobst ructing bilateral renal stones. There is a right UPJ stone measuring 8 x 5 mm. Colonic diverticulosis without evidence for diverticulitis. Moderate atherosclerosis of the aorta. There are low-density le sions in the kidneys, most likely benign cysts. Nonobstructive bowel gas pattern. There is a right to jeanne hip arthroplasty. There is severe degenerative change of the lumbar spine there is a sclerotic le srikanth in the left ilium, unchanged, likely bone island. IMPRESSION: 1. Right UPJ stone measuring 8 x 5 mm. 2: Bilateral nonobstructing nephrolithiasis. 3: Surgical changes of esophagectomy with gastric pull-through. 4: Right basilar airspace disease which may represent atelectasis or pneumonia. 5: Small right pleural effusion. Reviewed, dictated and finalized at location [facility].
--- NOTE | ~2021-07-18 | XR_ITS ---
EXAMINATION: XR abdomen/kub 1V INDICATION: Urolithiasis TECHNIQUE: Supine views of the abdomen were obtained on 2 radiographs. COMPARISON: CT, 07/18/2021 FINDINGS: A right internal ureteral stent is in expected position. There appears to be an 8 mm stone projecting near the coiled aspect of the stent. Stones measuring up to 3 mm are present in the right kidney. No stones are identified along the course of the right internal ureteral stent. There are sto adeel measuring up to 2.4 cm in lower pole calyces of the left kidney. A bone island is noted in the le ft sacrum. There is severe lumbar spondylosis. Patchy opacities are noted in the lung bases. There ar e changes of right hip arthroplasty. IMPRESSION: 1. Right internal ureteral stent in expected position with apparent stone projecting near the coiled portion in the renal pelvis. 2. Bilateral nephrolithiasis. Reviewed, dictated and finalized at location [facility]. IMPRESSION: 1. Right internal ureteral stent in expected position with apparent stone proje cting near the coiled portion in the renal pelvis. 2. Bilateral nephrolithiasis.
[2021-07-18 18:29] VITALS: BP 145/66; PULSE 96; RESP 30; TEMP 36.6; O2SAT 100
[2021-07-18 18:35] VITALS: BP 145/66; PULSE 96; RESP 30; TEMP 36.6; O2SAT 100
[2021-07-18 18:49] VITALS: BP 137/58; PULSE 82; RESP 20; O2SAT 100
[2021-07-18 19:03] LABS: Basophils Absolute Auto 0.1 K/mm3 (0.0-0.1); Basophils Percent Auto 0.5 % (0.2-1.2); Eosinophils Absolute Auto 0.2 K/mm3 (0-0.3); Eosinophils Percent Auto 1.9 % (0-4.4); Hematocrit 31.2 % (42.0-52.0); Hemoglobin 10.1 g/dL (14.0-18.0); Immature Granulocyte Absolute 0.11 K/mm3 (0.00-0.031); Immature Granulocyte Percent A 1.1 % (0-0.5); Immature Platelet Fraction Pct 10.8 % (0.9-11.2); Lymphocytes Absolute Auto 1.27 K/mm3 (0.9-3.2); Lymphocytes Percent Auto 12.6 % (18.3-44.2); Mean Corpuscular HGB Conc 32.4 g/dl (32-36); Mean Corpuscular Hemoglobin 29.6 pg (26-34); Mean Corpuscular Volume 91.5 fl (80-100); Mean Platelet Volume 12.1 fl (7.4-10.4); Monocytes Absolute Auto 1.2 K/mm3 (0.1-0.6); Monocytes Percent Auto 11.6 % (2.6-8.5); Neutrophils Absolute Auto 7.3 K/mm3 (1.3-6.7); Neutrophils Percent Auto 72.3 % (45.5-73.1); Platelet Count Result 146 k/mm3 (150-375); Red Blood Count 3.41 M/mm3 (4.6-6.20); Red Cell Distribution Width 15.9 % (11.5-14.5); White Blood Count 10.1 K/mm3 (4.5-10.0)
[2021-07-18 19:14] LABS: Alanine Aminotransferase 18 U/L (4-50); Albumin Level 2.7 g/dL (3.5-5.1); Alkaline Phosphatase 147 U/L (38-126); Anion Gap 9 mmol/L (8-16); Aspartate Amino Transferase 30 U/L (17-59); Bilirubin,Total 0.6 mg/dL (0.2-1.3); Blood Urea Nitrogen 14 mg/dL (9-20); Calcium 7.8 mg/dL (8.4-10.2); Carbon Dioxide 23 mmol/L (22-30); Chloride 104 mmol/L (98-107); Estimated CRCL calculation 85 ml/min; Estimated Glomerular Filt Rate > 60; Glucose 141 mg/dL (65-110); Potassium 3.4 mmol/L (3.4-5.0); Sodium 136 mmol/L (137-145)
[2021-07-18 19:39] LABS: Lipase < 10 U/L (23-300)
[2021-07-18] MEDS: SODIUM CHLORIDE 0.9% IV 1,000 ML 999 ML IV CONT (20:30)
[2021-07-18] MEDS: ONDANSETRON INJ 4 MG/2 ML VIAL IV PUSH ×2 (20:31→23:55)
[2021-07-18 20:32] VITALS: BP 124/50; PULSE 85; RESP 20; O2SAT 99
[2021-07-18 20:45] LABS: Magnesium 1.7 mg/dL (1.6-2.3)
[2021-07-18 20:46] LABS: Lactic Acid Reflex 2.1 mmol/L (0.7-2.1)
[2021-07-18 20:58] LABS: Troponin I < 0.012 ng/mL (0.000-0.034)
[2021-07-18 22:32] VITALS: BP 155/80; PULSE 117; RESP 18; O2SAT 100
[2021-07-18 22:53] LABS: Add Urine Microscopic? YES; Appearance Urine Clear (Clear); Bacteria Urine Trace /hpf; Bilirubin Urine Negative (Negative); Blood Urine 2+ (Negative); Color Urine Yellow (Yellow); Glucose Urine UA Negative (Negative); Ketones Urine 1+ mg/dL (Negative); Leukocyte Esterase Ur Negative LEU/UL (Negative); Mucus Urine Rare /lpf; Nitrate Urine Negative (Negative); Protein Urine 1+ mg/dL (Negative); RBC Urine 51-75 /hpf (0-2); Specific Grav Ur 1.027 (1.001-1.035); Squamous Epithelial Cell Urine Rare /hpf (Few)
[2021-07-18 23:32] LABS: Reflex Lactic Acid Yes or No Add Lactic
[2021-07-18] MEDS: PROCHLORPERAZINE EDISYLATE 10 MG/2 ML VIAL IV PUSH (23:56)
[2021-07-18 23:59] VITALS: BP 102/62; PULSE 90; RESP 24; O2SAT 98
[2021-07-19] VITALS (13 sets, daily range): BP systolic 117–150; BP diastolic 49–67; PULSE 79–116; RESP 16–23; TEMP 36.2–36.8; O2SAT 92–100; BMI 24.1
--- NOTE | 2021-07-19 | ED.GENADULT ---
HPI - General Adult General Chief complaint: Nausea/Vomiting/Diarrhea Stated complaint: n/v chills Time Seen by Provider: 07/18/21 20:02 History of Present Illness HPI narrative: Patient 76-year-old gentleman who presents the emergency department with chief complaint of nausea and vomiting. Patient reports that he started having nausea and vomiting today and reports he has been unable to keep anything down the patient states that she is also not really much over the last several days denies diarrhea states that he has chronic back pain and has not really had any new pain that is developed in his back. Patient states that he has had prior surgery where he had a portion of his esophagus removed. Patient reports symptoms are not improved by anything. Related Data Home Medications Medication Instructions Recorded Confirmed ferrous sulfate 325 mg (65 mg 325 mg PO BID tablet 09/30/20 07/18/21 iron) tablet ascorbate calcium (vitamin C) 500 500 mg PO DAILY 02/12/21 07/18/21 mg tablet glucosamine sulf dipot 1 cap PO DAILY cap 02/12/21 07/18/21 chlr,msm,chond 550 mg-C 30 mg-mich 1 mg capsule loratadine 10 mg tablet 10 mg PO DAILY 02/12/21 07/18/21 aspirin 81 mg tablet,delayed 81 mg PO DAILY 03/17/21 07/18/21 release cholecalciferol (vitamin D3) 50 2,000 unit PO DAILY 03/17/21 07/18/21 mcg (2,000 unit) capsule cyanocobalamin (vitamin B-12) 1,000 mcg PO DAILY 03/17/21 07/18/21 1,000 mcg tablet metoprolol tartrate 50 mg tablet 50 mg PO BID tablet 03/17/21 07/18/21 peg 400-propylene glycol (PF) 0.4 1 drp OPHTHALMIC (EYE) .M,W,F ea 03/17/21 07/18/21 %-0.3 % eye drops in a dropperette prednisolone acetate 1 % eye 1 drp OPHTHALMIC (EYE) DIRECTED 03/17/21 07/18/21 drops,suspension Allergies Allergy/AdvReac Type Severity Reaction Status Date / Time No Known Allergies Allergy Verified 07/18/21 20:19 Review of Systems Review of Systems: A 10 system review of systems was completed on the patient and is negative except for what is stated in the HPI. Nursing and ancillary documentation was reviewed. PMFSH Past Medical History Medical History Chronic back pain CKD (chronic kidney disease) stage 3, GFR 30-59 ml/min Closed fracture of thigh Depression due to physical illness Dyslipidemia Edema of both lower legs due to peripheral venous insufficiency Essential (primary) hypertension GERD (gastroesophageal reflux disease) History of nephrolithiasis History of stasis dermatitis both feet Hx of cataract 2010 & 2012 Insomnia, unspecified Malignant neoplasm of lower third of esophagus TOM (obstructive sleep apnea) Osteoarthritis Type 2 diabetes mellitus with hyperglycemia, with long-term current use of insulin Venous insufficiency (chronic) (peripheral) 03/02/2018 Vitamin B12 deficiency Vitamin D deficiency Surgical History Surgical History H/O esophagectomy (~05/2018) History of cholecystectomy (~1999) History of lumbar laminectomy (~2015) 2015 History of open reduction and internal fixation (ORIF) procedure (~07/12/17) 07/12/2017 History of total hip arthroplasty (~2013) 2014 Hx of cornea transplant (~2013) 2014 Hx of neck surgery (~2008) 2009 Spinal cord stimulator status 06/2020 Family History Family History Sibling Carcinoma of colon Malignant neoplasm of prostate Family history of malignant neoplasm of urinary bladder Social History Social History Smoking packs per day: 2 Smoking cigarettes per day: 40.0 Years smoked: 20 Smoking pack-years: 40.00 Smoking status: Former smoker Second hand tobacco smoke exposure: No Smoking end date: 11/07/84 Alcohol intake: never Substance use: never Substance use type: does not
--- NOTE | 2021-07-19 01:21 | PM.IMHP ---
H&P: HPI History of Present Illness Date/Time: 07/19/21 01:21 Chief Complaint: Nausea and vomiting Narrative: 76-year-old lives with his male with past medical history of diabetes, she states hypertension, obstructive sleep apnea, esophageal cancer, kidney stones, chronic kidney disease and chronic back pain who presented to the ER with nausea vomiting and chills. Source of information is past medical records, patient report and report from patient's . Patient's reports that the patient has been having low-grade temperatures of 100.1 at home with his last temperature on the . The patient began having nausea on the morning of the . He has been having emesis when he does try to eat food. He he has been having some chills. He denies any dysuria or changes in urinary frequency. He has chronic back pain. He has had decreased appetite for the last several days. He denies any diarrhea. He has not noticed any new back pain or flank pain. He recently tripped and ?slipped? injuring his right great toe. Since he injured his right great toe he has not been able to use his support stockings to help with his chronic venous stasis dermatitis subsequently he has had some mild increased swelling. He went to his primary care physician in a venous Doppler couple of days ago that was negative for DVT. He has developed the open dermatitis to his left buttock they have been told is due to yeast. He ambulates with a walker. His reports that he becomes confused when he gets an infection. At the time of my evaluation the patient is alert oriented to person month, place and recent events but thought the year was 2001. He has been having some mild headache. His glucoses have been within his normal range which he reports his between 89 and 250. He did not receive his evening insulin. Review of Systems Review of Systems: 12 systems were reviewed with pertinent positives and negatives per HPI. Except as documented in the HPI, all other systems were reviewed and are negative. [facility] Past Medical History Medical History (Updated 07/19/21 @ 01:33 by Marian Villagomez DO) Chronic back pain CKD (chronic kidney disease) stage 3, GFR 30-59 ml/min Closed fracture of thigh Depression due to physical illness Diabetic peripheral neuropathy Dyslipidemia Edema of both lower legs due to peripheral venous insufficiency Essential (primary) hypertension GERD (gastroesophageal reflux disease) History of nephrolithiasis History of stasis dermatitis both feet Insomnia, unspecified Malignant neoplasm of lower third of esophagus TOM (obstructive sleep apnea) Osteoarthritis Psoriasis Type 2 diabetes mellitus with hyperglycemia, with long-term current use of insulin Vitamin B12 deficiency Vitamin D deficiency Surgical History Surgical History (Updated 07/19/21 @ 01:33 by Marian Villagomez DO) H/O esophagectomy (~05/2018) History of cholecystectomy (~1999) History of lumbar laminectomy (~2015) History of open reduction and internal fixation (ORIF) procedure (~07/12/17) History of total hip arthroplasty (~2013) Hx of cornea transplant (~2013) Hx of neck surgery (~2008) S/P cystoscopy with ureteral stent placement (~2010) Spinal cord stimulator status (06/2020) Status post cataract extraction of both eyes with insertion of intraocular lens 2010 and 2012 Status post laser lithotripsy of ureteral calculus (~2013) Family History Family History Sibling Carcinoma of colon Malignant neoplasm of prostate Family history of malignant neoplasm of urinary bladder Social History Social History (Updated 07/19/21 @ 01:34 by Marian Villagomez DO) Social History: Primary care physician: Dr. Leeroy Rosario Code status: Full code Surrogate decision maker: Smoking packs per day: 2 Smoking cigarettes per day: 40.0 Years smoked: 20 Smoking pack-years: 40.00 Smoking status
--- NOTE | 2021-07-19 02:45 | ADMGEN ---
This patient, Nilo Barney, was admitted to Medical Room 242-01. Patient/family oriented to hospital policies and general routines including ID bracelet, bed and alarms, visiting hours, pain management, procedures, bathroom and other care routines, personal items, smoking policy, room service/diet, and visiting hours. Information on how to activate the Rapid Response Team has been discussed. Patient/Family are encouraged to report perceived risks to care and to ask questions if they do not understand what they are told or what they should do.
[2021-07-19] MEDS: SODIUM CHLORIDE 0.9% IV 1,000 ML 125 ML IV CONT (02:53)
[2021-07-19] MEDS: ONDANSETRON INJ 4 MG/2 ML VIAL IV PUSH ×3 (03:56→11:27)
[2021-07-19 08:10] LABS: Hematocrit 29.9 % (42.0-52.0); Hemoglobin 9.5 g/dL (14.0-18.0); Mean Corpuscular HGB Conc 31.8 g/dl (32-36); Mean Corpuscular Hemoglobin 29.9 pg (26-34); Mean Platelet Volume 12.5 fl (7.4-10.4); Platelet Count Result 130 k/mm3 (150-375); Red Blood Count 3.18 M/mm3 (4.6-6.20); Red Cell Distribution Width 16.2 % (11.5-14.5); White Blood Count 11.4 K/mm3 (4.5-10.0)
[2021-07-19 08:25] LABS: Anion Gap 7 mmol/L (8-16); Blood Urea Nitrogen 13 mg/dL (9-20); Calcium 7.8 mg/dL (8.4-10.2); Carbon Dioxide 23 mmol/L (22-30); Chloride 108 mmol/L (98-107); Estimated CRCL calculation 85 ml/min; Estimated Glomerular Filt Rate > 60; Glucose 131 mg/dL (65-110); Potassium 3.6 mmol/L (3.4-5.0); Sodium 138 mmol/L (137-145)
--- NOTE | 2021-07-19 08:48 | PM.IMPN ---
Progress Note: A&P Assessment and Plan (1) Urinary tract obstruction by kidney stone: Code(s): N20.0 - Calculus of kidney; N13.8 - Other obstructive and reflux uropathy Status: Acute Assessment and Plan: Continue ceftriaxone initiated in the emergency department (07/19- Urine culture ordered Urology consult Pain control Antiemetics as needed Given recurrence of stones, will need stone analysis if extracted and will need evaluation in outpatient by nephrology for risk factor modification, [employer]ol[employer], and education. (2) Nausea: Code(s): R11.0 - Nausea Status: Acute Assessment and Plan: Antiemetics Gentle hydration (3) Type 2 diabetes mellitus with hyperglycemia, with long-term current use of insulin: Code(s): E11.65 - Type 2 diabetes mellitus with hyperglycemia; Z79.4 - manager strategic alliances (current) use of insulin Status: Acute Assessment and Plan: Long-acting insulin decreased to 10 units daily while NPO. Adjust as needed. Moderate sliding scale insulin with Accu-Cheks q.6 hours while NPO and hypoglycemia protocol as needed. (4) Hypertension: Code(s): I10 - Essential (primary) hypertension Status: Acute Assessment and Plan: Continue metoprolol (5) Dyslipidemia: Code(s): E78.5 - Hyperlipidemia, unspecified Status: Acute Assessment and Plan: Continue home atorvastatin (6) Anemia: Code(s): D64.9 - Anemia, unspecified Status: Acute Assessment and Plan: Normocytic, chronic, dating back at least to 2019. Stable. Monitor and outpatient follow-up. (7) Thrombocytopenia: Code(s): D69.6 - Thrombocytopenia, unspecified Status: Acute Assessment and Plan: Chronic, dating back at least to 2019. Stable. Monitor and outpatient follow-up. (8) Cellulitis: Code(s): L03.90 - Cellulitis, unspecified Status: Acute Assessment and Plan: His right lower extremity is erythematous, edematous, tender to palpation. Consistent with cellulitis. Ultrasound assessment on 07/16 showed no DVT. Currently covered with ceftriaxone that was started to cover urine organisms. Will do MRSA swab. Consider Bactrim orally when he tolerates oral intake, to cover both urine and his skin infection. (9) Decubital ulcer: Code(s): L89.90 - Pressure ulcer of unspecified site, unspecified stage Status: Acute Assessment and Plan: Present on admission Wound care consult Q 2 turn and position Additional Plan Code status: DNR DVT proph: SCDs Subjective Date/time seen: 07/19/21 08:48 Since he has been here reports feeling more comfortable. Abdominal pain better. Hemodynamically stable, afebrile. Slightly tachycardic with heart rate around 100. Review of Systems Review of Systems: All systems reviewed & are unremarkable except as noted in HPI and below Exam Narrative: Gen: Alert, NAD Abd: Soft, mildly tender to palpation diffusely. Heart: RRR Lungs: CTAB Ext: RLE 1+ edema. Objective Data Vital Signs Vital Signs: Vital Signs - 24 hr 07/18/21 18:29 07/18/21 18:35 07/18/21 18:49 Temperature 97.8 F 97.8 F Pulse Rate 96 96 82 Respiratory Rate 30 H 30 H 20 Blood Pressure 145/66 H 145/66 H 137/58 L Pulse Oximetry 100 100 100 07/18/21 20:32 07/18/21 22:32 07/18/21 23:59 Temperature Pulse Rate 85 117 H 90 Respiratory Rate 20 18 24 H Blood Pressure 124/50 L 155/80 H 102/62 Pulse Oximetry 99 100 98 07/19/21 02:20 07/19/21 02:29 07/19/21 06:00 Temperature 98.0 F 97.2 F L Pulse Rate 102 H 99 105 H Respiratory Rate 16 20 16 Blood Pressure 122/55 L 135/54 L 147/60 H Pulse Oximetry 98 98 94 Intake/Output Intake/Output: Intake & Output 07/16/21 07/17/21 07/18/21 07/19/21 23:59 23:59 23:59 23:59 Intake Total 1000 50 Balance 1000 50 Meds/Results Medications: Active Medications Generic Name Dose Route Start Last Admin Trade Name Freq PRN Reason Stop D
[2021-07-19 09:11] LABS: Glucose Point of Care 128 mg/dl (65-105)
--- NOTE | 2021-07-19 09:19 | WPDANESEPP ---
Anes - Eval Pre Procedure Procedure: cysto Date/Time: 07/19/21 09:19 Surgeon: sandy Pre Op Diagnosis: Right-sided kidney stone, persistent n/v Patient Data Age: 76 Gender: M Height: 1.83 m Weight: 80.8 kg Last Vital Signs Temp 36.2 C L 07/19/21 06:00 Pulse 105 H 07/19/21 06:00 Resp 16 07/19/21 06:00 BP 147/60 H 07/19/21 06:00 Pulse Ox 94 07/19/21 06:00 Allergies Allergy/AdvReac Type Severity Reaction Status Date / Time No Known Allergies Allergy Verified 07/19/21 03:12 Home Medications Medication Instructions Recorded Confirmed Type ferrous sulfate 325 mg (65 mg 325 mg PO BID tablet 09/30/20 07/18/21 History iron) tablet blood sugar diagnostic See Rx Instructions .ROUTE 12/10/20 07/19/21 Rx .COMPLEX #400 strip ascorbate calcium (vitamin C) 500 500 mg PO DAILY 02/12/21 07/18/21 History mg tablet glucosamine sulf dipot 1 cap PO DAILY cap 02/12/21 07/18/21 History chlr,msm,chond 550 mg-C 30 mg-mich 1 mg capsule loratadine 10 mg tablet 10 mg PO DAILY 02/12/21 07/18/21 History pen needle, diabetic 33 gauge x #100 ea 03/05/21 07/19/21 Rx 1/4 aspirin 81 mg tablet,delayed 81 mg PO DAILY 03/17/21 07/18/21 History release cholecalciferol (vitamin D3) 50 2,000 unit PO DAILY 03/17/21 07/18/21 History mcg (2,000 unit) capsule cyanocobalamin (vitamin B-12) 1,000 mcg PO DAILY 03/17/21 07/18/21 History 1,000 mcg tablet metoprolol tartrate 50 mg tablet 50 mg PO BID tablet 03/17/21 07/18/21 History peg 400-propylene glycol (PF) 0.4 1 drp OPHTHALMIC (EYE) .M,W,F ea 03/17/21 07/18/21 History %-0.3 % eye drops in a dropperette prednisolone acetate 1 % eye 1 drp OPHTHALMIC (EYE) DIRECTED 03/17/21 07/18/21 History drops,suspension blood-glucose meter #1 ea 05/05/21 07/19/21 Rx atorvastatin 10 mg tablet 10 mg PO QHS #90 tablet 05/12/21 07/18/21 Rx insulin degludec 100 unit/mL (3 20 unit SUBCUT DAILY #15 ml 05/12/21 07/18/21 Rx mL) subcutaneous pen insulin lispro 100 unit/mL 10 unit SUBCUT TID #15 syr 05/12/21 07/18/21 Rx subcutaneous pen pen needle, diabetic 31 gauge x #100 ea 05/12/21 07/19/21 Rx 3/16 sertraline 100 mg tablet 100 mg PO DAILY #90 tablet 05/12/21 07/18/21 Rx Lyrica 100 mg capsule 100 mg PO TID #270 cap NS 06/17/21 07/18/21 Rx triamcinolone acetonide 0.5 % 1 applic TOPICAL DAILY #15 g 07/16/21 07/18/21 Rx topical cream pantoprazole 40 mg PO DAILY 07/19/21 07/19/21 History Laboratory Tests 07/18/21 07/18/21 07/18/21 18:56 18:56 18:58 WBC 10.1 K/mm3 H K/mm3 (4.5-10.0) RBC 3.41 M/mm3 L M/mm3 (4.6-6.20) Hgb 10.1 g/dL L g/dL (14.0-18.0) Hct 31.2 % L % (42.0-52.0) MCV 91.5 fl fl (80-100) MCH 29.6 pg pg (26-34) MCHC 32.4 g/dl g/dl (32-36) RDW 15.9 % H % (11.5-14.5) Plt Count 146 k/mm3 L k/mm3 (150-375) MPV 12.1 fl H fl (7.4-10.4) Immature Gran % (Auto) 1.1 % H % (0-0.5) Neut % (Auto) 72.3 % % (45.5-73.1) Lymph % (Auto) 12.6 % L % (18.3-44.2) [place] % (Auto) 11.6 % H % (2.6-8.5) Eos % (Auto) 1.9 % % (0-4.4) Baso % (Auto) 0.5 % % (0.2-1.2) Lymph # (Auto) 1.27 K/mm3 K/mm3 (0.9-3.2) [place] # (Auto) 1.2 K/mm3 H K/mm3 (0.1-0.6) Eos # (Auto) 0.2 K/mm3 K/mm3 (0-0.3) Baso # (Auto) 0.1 K/mm3 K/mm3 (0.0-0.1) Abs Immat Gran (auto) 0.11 K/mm3 H K/mm3 (0.00-0.031) Absolute Neuts (auto) 7.3 K/mm3 H K/mm3 (1.3-6.7) Absolute Nucleated RBC 0.0 K/mm3 K/mm3 (0.0-0.012) Nucleated RBC % 0.0 % % (0.0-0.2) % Immature Plt Fraction 10.8 % % (0.9-11.2) Sodium 136 mmol/L L mmol/L (137-145) Potassium 3.4 mmol/L mmol/L (3.4-5.0) Chloride 104 mmol/L mmol/L (98-107) Carbon Dioxide 23 mmol/L mmol/L (22-30) Anion Gap 9 mmol/L mmol/L
--- NOTE | 2021-07-19 09:28 | WPDURCON ---
Assessment and Plan Assessment and plan (1) Urinary tract obstruction by kidney stone: Code(s): N20.0 - Calculus of kidney; N13.8 - Other obstructive and reflux uropathy Status: Acute Assessment and Plan: he has a left staghorn stone which may require further treatment in future, non obstructing at this time (2) Ureterolithiasis: Code(s): N20.1 - Calculus of ureter Status: Acute Assessment and Plan: right 8 mm stone -plan for cystosocpy, RPG and stent placement -pt understands we are not trating stone today and he will require stone treatment in uture -risks, benefits, alternatives, nature of procedure and potential complications discussed including but not limited to bleeding, inection, trauma to surrounding/adjacent structures, inability to place stent and need for PCN tube by IR, the side effects and temporary nature of the stent was emphasized ( irritative voiding symptoms, pain, need for stent removal otherwise he may experience permanent kidney injury), in addition to anesthesia and positioning complication of PR, stroke blood clots, disability and other unforeseen complications have been discussed and he is agreeable to proceed, all ? answered, he voiced understanding. (3) Nausea: Code(s): R11.0 - Nausea Status: Acute Urology Consult Note HPI Date Seen: 07/19/21 Requesting Physician: Marian Villagomez DO Primary Care Provider: Leeroy Rosario MD Consult Narrative Narrative: Nilo Barney is a 76 year old male with multiple medical problems, esophageal issues, history o kidney stones ( Sees Dr Kuo), admitted from ER for abdominal pain, nausea and vomiting. on CT he has a left staghorn stone and a right 8 mm proximal ureter stone. He has persistent pain, nausea and vomiting.Pain is generalied epigastirc and adiates to the flank. He denies fevers/chills, hematuria or dysuria. Nausea is improved with IV anti-emetics. He has had multiple prior stones treated by Dr Kuo. Last ate yesterday, has been NPO. Review of Systems Constitutional: Constitutional: Reports no additional constitutional complaints Eyes: Eyes: Reports no additional eye complaints ENT: Denies ear discharge and Denies nasal discharge Cardiovascular: Cardiovascular: Denies chest pain and Denies dyspnea Respiratory: Respiratory: Denies dyspnea on exertion and Denies wheezing Gastrointestinal: Gastrointestinal: Reports as per HPI Genitourinary: Genitourinary: Reports no additional male genitourinary complaints and Reports as per HPI Musculoskeletal: Musculoskeletal: Denies back pain and Denies arthralgias Integumentary/Breasts: Skin/Breast: Reports system reviewed and no additional complaints, except as docu Neurologic: Reports system reviewed and no additional complaints, except as documented Psychiatric: Psychiatric: Reports no additional psychiatric complaints Endocrine: Endocrine: Reports no additional endocrine complaints Hematologic/Lymphatic: Hematologic/Lymphatic: Reports no additional hematologic/lymphatic complaints Allergic/Immunologic: Allergic/Immunologic: Reports no additional allergic/immunologic complaints [facility] Past Medical History Medical History (Updated 07/19/21 @ 08:57 by Connor Hair MD) Chronic back pain CKD (chronic kidney disease) stage 3, GFR 30-59 ml/min Closed fracture of thigh Depression due to physical illness Diabetic peripheral neuropathy Dyslipidemia Edema of both lower legs due to peripheral venous insufficiency Essential (primary) hypertension GERD (gastroesophageal reflux disease) History of nephrolithiasis History of stasis dermatitis both feet Insomnia, unspecified Malignant neoplasm of lower third of esophagus TOM (obstructive sleep apnea) Osteoarthritis Psoriasis Type 2 diabetes mellitus with hyperglycemia, with long-term current use of insulin Vitamin B12 deficiency Vitamin D deficiency Surgical History Nicci
--- NOTE | 2021-07-19 09:37 | WPDHPUPDATE1 ---
History and Physical Update Update Date/Time: 07/19/21 09:37 History and Physical has been reviewed, including an updated exam of the patient. There are NO changes in the patient's condition. Risks, benefits, and alternatives have been discussed and questions answered. Patient agrees to proceed with procedure.
--- NOTE | 2021-07-19 10:05 | PC.NURSE ---
To OR per bed, IV left hand. Report given to Katharina ALAN
--- NOTE | 2021-07-19 10:14 | WPDANESEFPP ---
Anes - Eval Final PreProcedure Day of Procedure 07/19/21 10:14 Patient weight: normal Heart: regular rate and rhythm Lungs: clear to auscultation Airway: Mallampati scale class III and special considerations poor dentition Neurological: alert and oriented Last oral intake: >/= 8 hours ASA classification: III Emergent: no Anesthetic plan: proceed Anesthesia type and monitoring: general ETT and standard monitoring Informed Consent: The patient's anesthetic plan and its attendant risks and benefits were discussed with the patient/family/POA. Questions were solicited and answers provided to the satisfaction of the patient/family/POA.
[2021-07-19] MEDS: LIDOCAINE HCL 2% GEL UROJET 10 ML PKG MUCOUS MEM (10:34)
[2021-07-19] MEDS: LACTATED RINGERS 1,000 ML 30 ML IV CONT (10:50)
--- NOTE | 2021-07-19 10:51 | W.PM.PROC2 ---
Procedure Note - Detailed Date of Procedure 07/19/21 Pre-op Diagnosis Right-sided kidney stone, persistent n/v Post-op Diagnosis same Procedure Performed cystoscopy, right retrograde pyelogram, right ureteral stent placement Surgeon Oscar Ramirez MD Anesthesia general Indications right ureter stone, persisent colic Findings expected/anticipated Description of Procedure Patient was brought back to the OR, he was given GETA, he had received IV antibiotics prior with IV rocephin. He was prepped and draped in standard fashion in the dorsal lithotomy position with betadine scrub the the genitalia. After appropriate timeout and pt identifiers were used a 22 Fr cystoscope was inserted into the urethra. The urethra was grossly normal. The prostate had bilobar hyperplasia. He had single ureteral orifices, effluxing clear yellow urine. Medical Billing Representative fluoro showed old contrast from prior CT in the urinary bladder. The bladder had moderate trabeculation, was free of tumor mass or lesion. A [employer] wire was placed up the right ureteral orifice past the stone under fluoroscopy, a 5 Fr open ended catheter was placed over this and a gentle retrograde was performed to outline the collecting system, he had mild to moderate hydronephrosis and hydroureter to the level of the UPJ. A 4.8 Fr variable length stent was then deployed, good curl was seen fluoroscopically in the kidney and both fluoroscopically and endoscopically in the bladder, bladder was drained all instruments and wires removed, patient was awoken and transferred to recovery in stable condition. He will be admitted back to the floor for further management. I discussed with findings and plan over the phone, she understands the stones will need to be treated in the future. Implants right 4.8 Fr variable length ureter stent Estimated Blood Loss 0 Drains No Packing No Pathology none sent Complications No immediate complications Condition stable Disposition PACU
[2021-07-19 11:00] LABS: Glucose Point of Care 124 mg/dl (65-105)
--- NOTE | 2021-07-19 12:08 | PC.NURSE ---
To OR per bed, IV left hand. Report given to Katharina ALAN.
--- NOTE | 2021-07-19 12:10 | PC.NURSE ---
Returned from OR per bed. Report received from Katharina.
[2021-07-19] MEDS: TRIAMCINOLONE ACET 0.5% CREAM 15 GM TUBE 1 APPLIC TOPICAL (12:30)
[2021-07-19] MEDS: ASPIRIN 81 MG ENTERIC TABLET PO (13:10)
[2021-07-19] MEDS: PREGABALIN (*CRX) 50 MG CAPSULE 100 MG PO ×2 (13:10→16:55)
[2021-07-19] MEDS: LORATADINE 10 MG TABLET PO (13:10)
[2021-07-19] MEDS: METOPROLOL TARTRATE 50 MG TAB PO ×2 (13:10→16:56)
[2021-07-19] MEDS: PANTOPRAZOLE 40 MG TABLET PO (13:10)
[2021-07-19] MEDS: CHOLECALCIFEROL 1,000 UNITS TABLET 2000 UNITS PO (13:10)
[2021-07-19] MEDS: SERTRALINE HCL 50 MG TABLET 100 MG PO (13:11)
[2021-07-19] MEDS: CYANOCOBALAMIN 1,000 MCG TABLET 1000 MCG PO (13:11)
[2021-07-19] MEDS: SODIUM CHLORIDE 0.9% IV 1,000 ML 75 ML IV CONT (13:14)
[2021-07-19 13:28] LABS: Glucose Point of Care 142 mg/dl (65-105)
[2021-07-19] MEDS: FERROUS SULFATE 324 MG TABLET PO (16:56)
[2021-07-19 18:10] LABS: Glucose Point of Care 140 mg/dl (65-105)
[2021-07-19] MEDS: MELATONIN 3 MG TABLET PO (21:41)
[2021-07-19] MEDS: ATORVASTATIN 10 MG TABLET PO (21:41)
[2021-07-19 22:30] LABS: Glucose Point of Care 128 mg/dl (65-105)
[2021-07-20] VITALS (8 sets, daily range): BP systolic 109–144; BP diastolic 53–68; PULSE 63–74; RESP 16–18; TEMP 36.2–36.7; O2SAT 94–98
[2021-07-20] MEDS: SODIUM CHLORIDE 0.9% IV 1,000 ML 75 ML IV CONT ×2 (00:30→17:37)
[2021-07-20 05:55] LABS: Basophils Percent Auto 0.4 % (0.2-1.2); Eosinophils Absolute Auto 0.2 K/mm3 (0-0.3); Eosinophils Percent Auto 1.9 % (0-4.4); Hematocrit 27.8 % (42.0-52.0); Hemoglobin 8.5 g/dL (14.0-18.0); Immature Granulocyte Absolute 0.13 K/mm3 (0.00-0.031); Immature Granulocyte Percent A 1.3 % (0-0.5); Lymphocytes Absolute Auto 1.02 K/mm3 (0.9-3.2); Lymphocytes Percent Auto 10.1 % (18.3-44.2); Mean Corpuscular HGB Conc 30.6 g/dl (32-36); Mean Corpuscular Hemoglobin 29.2 pg (26-34); Mean Corpuscular Volume 95.5 fl (80-100); Mean Platelet Volume 11.9 fl (7.4-10.4); Monocytes Absolute Auto 1.4 K/mm3 (0.1-0.6); Neutrophils Absolute Auto 7.3 K/mm3 (1.3-6.7); Neutrophils Percent Auto 72.3 % (45.5-73.1); Platelet Count Result 124 k/mm3 (150-375); Red Blood Count 2.91 M/mm3 (4.6-6.20); Red Cell Distribution Width 16.6 % (11.5-14.5); White Blood Count 10.1 K/mm3 (4.5-10.0)
[2021-07-20 06:06] LABS: Anion Gap 2 mmol/L (8-16); Blood Urea Nitrogen 14 mg/dL (9-20); Calcium 7.7 mg/dL (8.4-10.2); Carbon Dioxide 27 mmol/L (22-30); Chloride 109 mmol/L (98-107); Estimated CRCL calculation 85 ml/min; Estimated Glomerular Filt Rate > 60; Glucose 88 mg/dL (65-110); Potassium 3.5 mmol/L (3.4-5.0); Sodium 138 mmol/L (137-145)
[2021-07-20 07:30] LABS: Glucose Point of Care 81 mg/dl (65-105)
[2021-07-20] MEDS: ARTIFICIAL TEARS OPHTH SOLN 15 ML BOTTLE 1 DROP EACH EYE (08:05)
[2021-07-20] MEDS: ASPIRIN 81 MG ENTERIC TABLET PO (08:06)
[2021-07-20] MEDS: METOPROLOL TARTRATE 50 MG TAB PO ×2 (08:06→16:39)
[2021-07-20] MEDS: LORATADINE 10 MG TABLET PO (08:06)
[2021-07-20] MEDS: CHOLECALCIFEROL 1,000 UNITS TABLET 2000 UNITS PO (08:06)
[2021-07-20] MEDS: CYANOCOBALAMIN 1,000 MCG TABLET 1000 MCG PO (08:06)
[2021-07-20] MEDS: FERROUS SULFATE 324 MG TABLET PO ×2 (08:06→16:38)
[2021-07-20] MEDS: TRIAMCINOLONE ACET 0.5% CREAM 15 GM TUBE 1 APPLIC TOPICAL (08:07)
[2021-07-20] MEDS: SERTRALINE HCL 50 MG TABLET 100 MG PO (08:07)
[2021-07-20] MEDS: PANTOPRAZOLE 40 MG TABLET PO (08:07)
[2021-07-20] MEDS: PREGABALIN (*CRX) 50 MG CAPSULE 100 MG PO ×3 (08:17→17:37)
--- NOTE | 2021-07-20 10:49 | WPDANESPN ---
Anes - Prog Note Post-Op Date/Time: 07/20/21 10:49 Cardiovascular status: normal Respiratory status: normal Airway patency: baseline Mental status: baseline Post-Op hydration status: normal Vital Signs: Last Vital Signs Temp 36.2 C L 07/20/21 05:50 Pulse 74 07/20/21 08:06 Resp 16 07/20/21 08:03 BP 109/58 L 07/20/21 05:50 Pulse Ox 94 07/20/21 10:08 Pain Score (VAS): 0 I/O: Intake & Output 07/19/21 07/20/21 07/20/21 23:59 07:59 15:59 Intake Total 0 1100 Output Total 350 400 Balance -350 700 Laboratory Tests 07/20/21 05:10 07/20/21 05:10 07/19/21 07/19/21 07/19/21 10:58 12:29 16:55 WBC RBC Hgb Hct MCV MCH MCHC RDW Plt Count MPV Immature Gran % (Auto) Neut % (Auto) Lymph % (Auto) [place] % (Auto) Eos % (Auto) Baso % (Auto) Lymph # (Auto) [place] # (Auto) Eos # (Auto) Baso # (Auto) Abs Immat Gran (auto) Absolute Neuts (auto) Absolute Nucleated RBC Nucleated RBC % Sodium Potassium Chloride Carbon Dioxide Anion Gap BUN Creatinine Estim Creat Clear Calc Estimated GFR Glucose POC Capillary Glucose 124 H 142 H 140 H Calcium 07/19/21 07/20/21 07/20/21 22:26 05:10 05:10 WBC 10.1 H RBC 2.91 L Hgb 8.5 L Hct 27.8 L MCV 95.5 MCH 29.2 MCHC 30.6 L RDW 16.6 H Plt Count 124 L MPV 11.9 H Immature Gran % (Auto) 1.3 H Neut % (Auto) 72.3 Lymph % (Auto) 10.1 L [place] % (Auto) 14.0 H Eos % (Auto) 1.9 Baso % (Auto) 0.4 Lymph # (Auto) 1.02 [place] # (Auto) 1.4 H Eos # (Auto) 0.2 Baso # (Auto) 0.0 Abs Immat Gran (auto) 0.13 H Absolute Neuts (auto) 7.3 H Absolute Nucleated RBC 0.0 Nucleated RBC % 0.0 Sodium 138 Potassium 3.5 Chloride 109 H Carbon Dioxide 27 Anion Gap 2 L BUN 14 Creatinine 0.70 Estim Creat Clear Calc 85 Estimated GFR > 60 Glucose 88 POC Capillary Glucose 128 H Calcium 7.7 L 07/20/21 07:10 WBC RBC Hgb Hct MCV MCH MCHC RDW Plt Count MPV Immature Gran % (Auto) Neut % (Auto) Lymph % (Auto) [place] % (Auto) Eos % (Auto) Baso % (Auto) Lymph # (Auto) [place] # (Auto) Eos # (Auto) Baso # (Auto) Abs Immat Gran (auto) Absolute Neuts (auto) Absolute Nucleated RBC Nucleated RBC % Sodium Potassium Chloride Carbon Dioxide Anion Gap BUN Creatinine Estim Creat Clear Calc Estimated GFR Glucose POC Capillary Glucose 81 Calcium Post-procedural complaints: none Patient Feedback: Patient satisfied with anesthetic care.
[2021-07-20 11:56] LABS: Glucose Point of Care 128 mg/dl (65-105)
[2021-07-20 13:04] LABS: Hematocrit 29.8 % (42.0-52.0); Hemoglobin 9.2 g/dL (14.0-18.0)
--- NOTE | 2021-07-20 14:30 | PM.IMPN ---
Progress Note: A&P Assessment and Plan (1) Urinary tract obstruction by kidney stone: Code(s): N20.0 - Calculus of kidney; N13.8 - Other obstructive and reflux uropathy Status: Acute Assessment and Plan: urinalysis negative, no leukocytosis, or symptoms, recovering well after procedure can probably hold antibiotics at this time continue tamsulosin urology on board, appreciate recs (2) Nausea: Code(s): R11.0 - Nausea Status: Acute Assessment and Plan: Antiemetics Gentle hydration (3) Type 2 diabetes mellitus with hyperglycemia, with long-term current use of insulin: Code(s): E11.65 - Type 2 diabetes mellitus with hyperglycemia; Z79.4 - equipment operator [employer] (current) use of insulin Status: Acute Assessment and Plan: Long-acting insulin decreased to 10 units daily while NPO. Adjust as needed. Moderate sliding scale insulin with Accu-Cheks q.6 hours while NPO and hypoglycemia protocol as needed. (4) Hypertension: Code(s): I10 - Essential (primary) hypertension Status: Acute Assessment and Plan: Continue metoprolol (5) Dyslipidemia: Code(s): E78.5 - Hyperlipidemia, unspecified Status: Acute Assessment and Plan: Continue home atorvastatin (6) Anemia: Code(s): D64.9 - Anemia, unspecified Status: Acute Assessment and Plan: Normocytic, chronic, dating back at least to 2019. Stable. Monitor and outpatient follow-up. (7) Thrombocytopenia: Code(s): D69.6 - Thrombocytopenia, unspecified Status: Acute Assessment and Plan: Chronic, dating back at least to 2019. Stable. Monitor and outpatient follow-up. (8) Cellulitis: Code(s): L03.90 - Cellulitis, unspecified Status: Acute Assessment and Plan: His right lower extremity is erythematous, edematous, tender to palpation. Consistent with cellulitis. Ultrasound assessment on 07/16 showed no DVT. Currently covered with ceftriaxone that was started to cover urine organisms. Will do MRSA swab. Consider Bactrim orally when he tolerates oral intake, to cover both urine and his skin infection. (9) Decubital ulcer: Code(s): L89.90 - Pressure ulcer of unspecified site, unspecified stage Status: Acute Assessment and Plan: Present on admission Wound care consult Q 2 turn and position Additional Plan considering discharge today, maybe later if ok with urology only mitigating factor would be continued hematuria & will follow pm hemoglobin to ensure stable Time Spent With Patient Time with patient: less than 15 minutes Subjective Date/time seen: 07/20/21 14:30 Resting comfortably in bed, recovering well from procedure breathing on RA & tolerating diet Review of Systems Review of Systems: All systems reviewed & are unremarkable except as noted in HPI and below Exam Const: General: no acute distress Resp: Effort & Inspection: normal respiratory effort Auscultation: clear to auscultation bilaterally Cardio: Rate: regular rate Rhythm: regular rhythm GI: GI Palp: Yes Soft to palpation and No Tenderness to palpation present (GI) Objective Data Vital Signs Vital Signs: Vital Signs - 24 hr 07/19/21 16:56 07/19/21 21:22 07/20/21 05:50 Temperature 97.3 F L 97.1 F L Pulse Rate 85 79 68 Respiratory Rate 16 16 Blood Pressure 117/67 109/58 L Pulse Oximetry 97 94 07/20/21 08:03 07/20/21 08:06 07/20/21 10:08 Temperature Pulse Rate 68 74 Respiratory Rate 16 Blood Pressure Pulse Oximetry 94 94 Intake/Output Intake/Output: Intake & Output 07/17/21 07/18/21 07/19/21 07/20/21 23:59 23:59 23:59 23:59 Intake Total 1000 1750 1100 Output Total 350 400 Balance 1000 1400 700 Meds/Results Medications: Active Medications Generic Name Dose Route Start Last Admin Trade Name Freq PRN Reason Stop Dose Admin Artificial Tears 1 drop 07/20/21 09:00 07/20/21 08:05 Artificial Tears Oph
--- NOTE | 2021-07-20 16:45 | WPDUROPN2 ---
Progress Note: A&P Assessment and Plan (1) Urinary tract obstruction by kidney stone: Code(s): N20.0 - Calculus of kidney; N13.8 - Other obstructive and reflux uropathy Status: Acute Assessment and Plan: Patient to follow up after discharge to repeat urine culture, will plan to do a right ESWL when infection is cleared. KUB shows stone near the stent coil in the right kidney. Continue IV antibiotics, tailor to culture results. No further evaluation at this time. (2) Ureterolithiasis: Code(s): N20.1 - Calculus of ureter Status: Acute Subjective Subjective Date/Time Seen: 07/20/21 16:45 POD #1 Cystoscope right stent placement Patient doing well, states pain is resolved but seeing some hematuria. Review of Systems Cardiovascular: Cardiovascular: Denies chest pain Respiratory: Respiratory: Reports no additional respiratory complaints Gastrointestinal: Gastrointestinal: Denies abdominal pain, Denies nausea and Denies vomiting Genitourinary: Genitourinary: Denies hematuria, Denies dysuria, Denies flank pain, Denies urinary frequency and Denies urinary urgency Exam Resp: Effort & Inspection: normal respiratory effort Cardio: Rate: regular rate GI: GI Palp: Yes Soft to palpation and No Tenderness to palpation present (GI) : General: Yes no CVA tenderness Extrem: General: no edema Objective Data Vital Signs Vital Signs: Vital Signs - 24 hr 07/19/21 16:56 07/19/21 21:22 07/20/21 05:50 Temperature 97.3 F L 97.1 F L Pulse Rate 85 79 68 Respiratory Rate 16 16 Blood Pressure 117/67 109/58 L Pulse Oximetry 97 94 07/20/21 08:03 07/20/21 08:06 07/20/21 10:08 Temperature Pulse Rate 68 74 Respiratory Rate 16 Blood Pressure Pulse Oximetry 94 94 07/20/21 14:00 07/20/21 16:39 Temperature 97.2 F L Pulse Rate 63 72 Respiratory Rate 18 Blood Pressure 144/68 H Pulse Oximetry 96 Intake/Output Intake/Output: Intake & Output 07/17/21 07/18/21 07/19/21 07/20/21 23:59 23:59 23:59 23:59 Intake Total 1000 1750 1580 Output Total 350 400 Balance 1000 1400 1180 Meds/Results Medications: Active Medications Generic Name Dose Route Start Last Admin Trade Name Freq PRN Reason Stop Dose Admin Artificial Tears 1 drop 07/20/21 09:00 07/20/21 08:05 Artificial Tears Ophth Soln 15 Ml Bottle EACH EYE 1 drop [id number] MIHIR Administration Aspirin 81 mg 07/19/21 09:00 07/20/21 08:06 Aspirin 81 Mg Enteric Tablet PO 81 mg DAILY MIHIR Administration Atorvastatin Calcium 10 mg 07/19/21 21:00 07/19/21 21:41 Atorvastatin 10 Mg Tablet PO 10 mg HS MIHIR Administration Cyanocobalamin 1,000 mcg 07/19/21 09:00 07/20/21 08:06 Cyanocobalamin 1,000 Mcg Tablet PO 1,000 mcg DAILY MIHIR Administration Dextrose 12.5 gm 07/19/21 05:55 Dextrose 50% 25 Gm/50 Ml Syringe IV PUSH PRN PRN Hypoglycemia Protocol Ferrous Sulfate 324 mg 07/19/21 09:00 07/20/21 16:38 Ferrous Sulfate 324 Mg Tablet PO 324 mg BID MIHIR Administration Glucagon 1 mg 07/19/21 05:55 Glucagon For Inj 1 Mg Vial IM PRN PRN Hypoglycemia Protocol Glucose 15 gm 07/19/21 05:55 Glucose Oral Gel 15 Gm Of Glucse In 37.5 Gm Tube PO PRN PRN Hypoglycemia Protocol Ceftriaxone Sodium/Dextrose 1 gm in 50 mls @ 100 mls/hr 07/20/21 01:00 07/20/21 00:25 Rocephin 1 Gm/D5w 50 Ml IVPB 100 mls/hr Q24H MIHIR Administration Sodium Chloride 1,000 mls @ 75 mls/hr 07/19/21 01:05 07/20/21 00:30 Normal Saline Iv IV CONT 75 mls/hr .[id number] MIHIR Administration Dextrose 1,000 mls @ 100 mls/hr 07/19/21 05:55 Dextrose 5% 1,000 Ml IVPB PRN PRN Hypoglycemia Protocol Insulin Aspart 3 - 6 units 07/19/21 08:00 07/20/21 16:38 Insulin Aspart (*Bkc) 100 Units/Ml SUB-Q Not Given TIDWM MIHIR Protocol Loratadine 10 mg 07/19/21 09:00 07/20/21 08:06 Loratadine 10 Mg Tablet P
[2021-07-20 17:35] LABS: Glucose Point of Care 137 mg/dl (65-105)
[2021-07-20] MEDS: ATORVASTATIN 10 MG TABLET PO (21:35)
[2021-07-20] MEDS: MELATONIN 3 MG TABLET PO (21:35)
[2021-07-20 22:58] LABS: Glucose Point of Care 170 mg/dl (65-105)
[2021-07-21 05:09] VITALS: BP 130/50; PULSE 66; RESP 16; TEMP 36.9; O2SAT 93
[2021-07-21 06:09] LABS: Basophils Absolute Auto 0.1 K/mm3 (0.0-0.1); Basophils Percent Auto 0.6 % (0.2-1.2); Eosinophils Absolute Auto 0.5 K/mm3 (0-0.3); Eosinophils Percent Auto 4.8 % (0-4.4); Hematocrit 29.4 % (42.0-52.0); Hemoglobin 9.2 g/dL (14.0-18.0); Immature Granulocyte Absolute 0.12 K/mm3 (0.00-0.031); Immature Granulocyte Percent A 1.3 % (0-0.5); Lymphocytes Absolute Auto 1.11 K/mm3 (0.9-3.2); Lymphocytes Percent Auto 11.6 % (18.3-44.2); Mean Corpuscular HGB Conc 31.3 g/dl (32-36); Mean Corpuscular Hemoglobin 30.2 pg (26-34); Mean Corpuscular Volume 96.4 fl (80-100); Mean Platelet Volume 12.5 fl (7.4-10.4); Monocytes Absolute Auto 1.3 K/mm3 (0.1-0.6); Monocytes Percent Auto 13.3 % (2.6-8.5); Neutrophils Absolute Auto 6.6 K/mm3 (1.3-6.7); Neutrophils Percent Auto 68.4 % (45.5-73.1); Platelet Count Result 116 k/mm3 (150-375); Red Blood Count 3.05 M/mm3 (4.6-6.20); Red Cell Distribution Width 16.5 % (11.5-14.5); White Blood Count 9.6 K/mm3 (4.5-10.0)
[2021-07-21] MEDS: SODIUM CHLORIDE 0.9% IV 1,000 ML 75 ML IV CONT ×2 (06:49→20:48)
[2021-07-21 06:53] LABS: Glucose Point of Care 124 mg/dl (65-105)
[2021-07-21] MEDS: PANTOPRAZOLE 40 MG TABLET PO (08:54)
[2021-07-21] MEDS: PREGABALIN (*CRX) 50 MG CAPSULE 100 MG PO ×3 (08:54→16:57)
[2021-07-21] MEDS: CYANOCOBALAMIN 1,000 MCG TABLET 1000 MCG PO (08:54)
[2021-07-21] MEDS: SERTRALINE HCL 50 MG TABLET 100 MG PO (08:54)
[2021-07-21] MEDS: CHOLECALCIFEROL 1,000 UNITS TABLET 2000 UNITS PO (08:54)
[2021-07-21 08:55] VITALS: PULSE 40
[2021-07-21] MEDS: ASPIRIN 81 MG ENTERIC TABLET PO (08:55)
[2021-07-21] MEDS: METOPROLOL TARTRATE 50 MG TAB PO ×2 (08:55→16:57)
[2021-07-21] MEDS: FERROUS SULFATE 324 MG TABLET PO ×2 (08:55→16:57)
[2021-07-21] MEDS: TRIAMCINOLONE ACET 0.5% CREAM 15 GM TUBE 1 APPLIC TOPICAL (08:56)
[2021-07-21] MEDS: LORATADINE 10 MG TABLET PO (08:56)
[2021-07-21] MEDS: prednisoLONE ACETATE 1% OPHTH 5 ML 1 DROP RIGHT EYE (11:42)
[2021-07-21 12:44] LABS: Glucose Point of Care 150 mg/dl (65-105)
[2021-07-21 14:00] VITALS: BP 152/66; PULSE 63; RESP 18; TEMP 36.7; O2SAT 95
--- NOTE | 2021-07-21 15:36 | PM.IMPN ---
Progress Note: A&P Assessment and Plan (1) Urinary tract obstruction by kidney stone: Code(s): N20.0 - Calculus of kidney; N13.8 - Other obstructive and reflux uropathy Status: Acute Assessment and Plan: urinalysis negative, no leukocytosis, or symptoms, recovering well after procedure can probably hold antibiotics at this time continue tamsulosin urology on board, appreciate recs (2) Nausea: Code(s): R11.0 - Nausea Status: Acute Assessment and Plan: Antiemetics Gentle hydration (3) Type 2 diabetes mellitus with hyperglycemia, with long-term current use of insulin: Code(s): E11.65 - Type 2 diabetes mellitus with hyperglycemia; Z79.4 - long term care pharmacist (current) use of insulin Status: Acute Assessment and Plan: Long-acting insulin decreased to 10 units daily while NPO. Adjust as needed. Moderate sliding scale insulin with Accu-Cheks q.6 hours while NPO and hypoglycemia protocol as needed. (4) Hypertension: Code(s): I10 - Essential (primary) hypertension Status: Acute Assessment and Plan: Continue metoprolol (5) Dyslipidemia: Code(s): E78.5 - Hyperlipidemia, unspecified Status: Acute Assessment and Plan: Continue home atorvastatin (6) Anemia: Code(s): D64.9 - Anemia, unspecified Status: Acute Assessment and Plan: Normocytic, chronic, dating back at least to 2019. Stable. Monitor and outpatient follow-up. (7) Thrombocytopenia: Code(s): D69.6 - Thrombocytopenia, unspecified Status: Acute Assessment and Plan: Chronic, dating back at least to 2019. Stable. Monitor and outpatient follow-up. (8) Cellulitis: Code(s): L03.90 - Cellulitis, unspecified Status: Acute Assessment and Plan: His right lower extremity is erythematous, edematous, tender to palpation. Consistent with cellulitis. Ultrasound assessment on 07/16 showed no DVT. Currently covered with ceftriaxone that was started to cover urine organisms. Will do MRSA swab. Consider Bactrim orally when he tolerates oral intake, to cover both urine and his skin infection. (9) Decubital ulcer: Code(s): L89.90 - Pressure ulcer of unspecified site, unspecified stage Status: Acute Assessment and Plan: Present on admission Wound care consult Q 2 turn and position Additional Plan plan for discharge early tomorrow, may transition to po abx vs d/c aw/o abx based on clinical picture follow hgb discussed csae with urology today Subjective Date/time seen: 07/21/21 15:36 resting comfortably in bed. denies dysuria hematuria, lower abdominal pain Review of Systems Review of Systems: All systems reviewed & are unremarkable except as noted in HPI and below Exam Neck: Neck: no JVD Resp: Effort & Inspection: normal respiratory effort Auscultation: clear to auscultation bilaterally Cardio: Rate: regular rate Rhythm: regular rhythm GI: GI Palp: Yes Soft to palpation and No Tenderness to palpation present (GI) Objective Data Vital Signs Vital Signs: Vital Signs - 24 hr 07/20/21 16:39 07/20/21 20:00 07/20/21 21:33 Temperature 98.1 F Pulse Rate 72 71 71 Respiratory Rate 16 16 Blood Pressure 127/53 L Pulse Oximetry 98 98 07/21/21 05:09 07/21/21 08:55 Temperature 98.4 F Pulse Rate 66 40 L Respiratory Rate 16 Blood Pressure 130/50 L Pulse Oximetry 93 Intake/Output Intake/Output: Intake & Output 07/18/21 07/19/21 07/20/21 07/21/21 23:59 23:59 23:59 23:59 Intake Total 1000 1750 3820 1830 Output Total 350 1500 400 Balance 1000 1400 2320 1430 Meds/Results Medications: Active Medications Generic Name Dose Route Start Last Admin Trade Name Freq PRN Reason Stop Dose Admin Artificial Tears 1 drop 07/20/21 09:00 07/20/21 08:05 Artificial Tears Ophth Soln 15 Ml Bottle EACH EYE 1 drop MoWeFr@0900 MIHIR Administration Aspirin 81 mg 07/19/21 09:00 07/21/21
[2021-07-21 16:57] VITALS: PULSE 84
[2021-07-21 17:06] LABS: Glucose Point of Care 131 mg/dl (65-105)
[2021-07-21] MEDS: ATORVASTATIN 10 MG TABLET PO (20:36)
[2021-07-21 22:29] VITALS: BP 138/65; PULSE 71; RESP 16; TEMP 36.6; O2SAT 98
[2021-07-21 22:47] LABS: Glucose Point of Care 156 mg/dl (65-105)
[2021-07-22 05:00] VITALS: BP 140/56; PULSE 74; RESP 16; TEMP 36.8; O2SAT 95
[2021-07-22 05:32] LABS: Basophils Absolute Auto 0.1 K/mm3 (0.0-0.1); Basophils Percent Auto 0.5 % (0.2-1.2); Eosinophils Absolute Auto 0.7 K/mm3 (0-0.3); Eosinophils Percent Auto 5.9 % (0-4.4); Hematocrit 29.6 % (42.0-52.0); Hemoglobin 9.3 g/dL (14.0-18.0); Immature Granulocyte Absolute 0.12 K/mm3 (0.00-0.031); Immature Platelet Fraction Pct 9.3 % (0.9-11.2); Lymphocytes Absolute Auto 1.16 K/mm3 (0.9-3.2); Lymphocytes Percent Auto 10.1 % (18.3-44.2); Mean Corpuscular HGB Conc 31.4 g/dl (32-36); Mean Corpuscular Hemoglobin 29.3 pg (26-34); Mean Corpuscular Volume 93.4 fl (80-100); Monocytes Absolute Auto 1.4 K/mm3 (0.1-0.6); Monocytes Percent Auto 11.8 % (2.6-8.5); Neutrophils Absolute Auto 8.1 K/mm3 (1.3-6.7); Neutrophils Percent Auto 70.7 % (45.5-73.1); Platelet Count Result 132 k/mm3 (150-375); Red Blood Count 3.17 M/mm3 (4.6-6.20); White Blood Count 11.5 K/mm3 (4.5-10.0)
[2021-07-22 05:52] LABS: Alanine Aminotransferase 19 U/L (4-50); Albumin Level 2.1 g/dL (3.5-5.1); Alkaline Phosphatase 99 U/L (38-126); Anion Gap 3 mmol/L (8-16); Aspartate Amino Transferase 45 U/L (17-59); Bilirubin,Total 0.4 mg/dL (0.2-1.3); Blood Urea Nitrogen 10 mg/dL (9-20); Calcium 7.2 mg/dL (8.4-10.2); Carbon Dioxide 27 mmol/L (22-30); Chloride 104 mmol/L (98-107); Estimated CRCL calculation 98 ml/min; Estimated Glomerular Filt Rate > 60; Glucose 138 mg/dL (65-110); Magnesium 1.3 mg/dL (1.6-2.3); Phosphorus 2.6 mg/dL (2.5-4.5); Potassium 3.7 mmol/L (3.4-5.0); Sodium 134 mmol/L (137-145)
[2021-07-22 07:32] LABS: Glucose Point of Care 123 mg/dl (65-105)
[2021-07-22 08:11] LABS: Glucose Point of Care 118 mg/dl (65-105)
[2021-07-22] MEDS: LORATADINE 10 MG TABLET PO (08:41)
[2021-07-22] MEDS: SERTRALINE HCL 50 MG TABLET 100 MG PO (08:41)
[2021-07-22] MEDS: CHOLECALCIFEROL 1,000 UNITS TABLET 2000 UNITS PO (08:41)
[2021-07-22] MEDS: FERROUS SULFATE 324 MG TABLET PO (08:41)
[2021-07-22 08:42] VITALS: PULSE 74
[2021-07-22] MEDS: METOPROLOL TARTRATE 50 MG TAB PO (08:42)
[2021-07-22] MEDS: PANTOPRAZOLE 40 MG TABLET PO (08:42)
[2021-07-22] MEDS: CYANOCOBALAMIN 1,000 MCG TABLET 1000 MCG PO (08:42)
[2021-07-22] MEDS: ASPIRIN 81 MG ENTERIC TABLET PO (08:42)
[2021-07-22] MEDS: ARTIFICIAL TEARS OPHTH SOLN 15 ML BOTTLE 1 DROP EACH EYE (08:43)
[2021-07-22] MEDS: TRIAMCINOLONE ACET 0.5% CREAM 15 GM TUBE 1 APPLIC TOPICAL (08:43)
[2021-07-22] MEDS: PREGABALIN (*CRX) 50 MG CAPSULE 100 MG PO ×2 (08:49→12:32)
[2021-07-22] MEDS: SODIUM CHLORIDE 0.9% IV 1,000 ML 75 ML IV CONT (08:50)
[2021-07-22] MEDS: MAGNESIUM SULF 2 GM/WATER 50ML 2 GM/50 ML BAG IVPB (10:07)
[2021-07-22] MEDS: INSULIN GLARGINE (*BKC) 100 UNITS/ML 10 UNITS SUB-Q (10:08)
[2021-07-22 12:13] LABS: Glucose Point of Care 157 mg/dl (65-105)
--- NOTE | 2021-08-02 18:27 | PM.DS ---
DS: Admitting Diagnosis Discharge Date 07/22/21 Admitting Diagnosis Right-sided flank pain DS: Discharge Diagnosis Discharge Diagnosis (1) Ureterolithiasis: Code(s): N20.1 - Calculus of ureter Status: Acute DS: Summary Hospital Course Hospital Course: patient is a 76-year-old male with, diabetes, hypertension, dyslipidemia, chronic anemia presenting with flank pain. Imaging showing 8 mm stone with ureteral Obstruction. Urology was consulted, patient was started on broad-spectrum IV antibiotics, cystoscopy performed along with a right retrograde pyelogram, and right ureteral stent placement. Patient is scheduled for shockwave lithotripsy as an outpatient. At the time of discharge, patient was able to ambulate comfortably. Pain well controlled. Also some concern for lower extremity infection, versus DVT, which was ruled out by ultrasound. Patient on Bactrim to treat suspected cellulitis, however the symptoms had abated at time of discharge. Several chronic medical comorbidities including but not limited to thrombocytopenia, anemia, diabetes, dyslipidemia, hypertension. Discussed with patient importance of outpatient follow-up to manage E things. Also discussed time line of shockwave lithotripsy for which she will follow-up with urologist. Instructed to come back to the ER if patient's symptoms return or worsen. Status at Discharge Functional status at discharge: uses cane/walker Time Spent with Patient Time attestation: Total time spent providing and/or coordinating discharge services: Time spent: Less than 30 minutes Exam Const: General: no acute distress Neck: Neck: no JVD Resp: Effort & Inspection: normal respiratory effort Auscultation: clear to auscultation bilaterally Cardio: Rate: regular rate Rhythm: regular rhythm GI: GI Palp: Yes Soft to palpation and No Tenderness to palpation present (GI) Discharge Plan Discharge Attending physician on discharge: Ad Sheppard Consulting providers: Oscar Ramirez ; Roldan Browne ; Daron Vaz ; Waleska Salazar ; Connor Hair Discharging Clinician: Ad Sheppard Patient Disposition: Home Health Service Activity: no shower Diet: as tolerated, heart healthy, diabetic, low sodium and low fat Discharge Instructions: Urology Instructions: You should expect some burning and blood with urination, you may also experience back pain with your stent in place. Call the office to schedule your f/u appt in 1 week to repeat your urine culture and to schedule your stone removal surgery. Call the office or go to the ER if you develop a fever, chills, nausea or vomiting. Per Care Coordination: [facility] will follow at discharge. [facility] will contact you prior to their first visit. [facility] will follow for RN and PT/OT eval and treat. [facility] can be contacted at [phone]. Patient Instructions: Antibiotic Form Stand Alone Forms: General Discharge Information Follow-up/Referrals: Brenna Rosario MD [Primary Care Provider] - Call for Appointment Oscar Ramirez MD [Physician] - Discharge Medications: Continued aspirin [Aspir-81] 81 mg tablet,delayed release (DR/EC) 81 mg PO DAILY RF: 0 cholecalciferol (vitamin D3) 50 mcg (2,000 unit) capsule 2,000 unit PO DAILY RF: 0 cyanocobalamin (vitamin B-12) 1,000 mcg tablet 1,000 mcg PO DAILY RF: 0 Systane (PF) 0.4-0.3 % dropperette 1 drp OPHTHALMIC (EYE) .M,W,F RF: 0 prednisolone acetate 1 % drops,suspension 1 drp ophthalmic (eye) DIRECTED RF: 0 ascorbate calcium (vitamin C) 500 mg tablet 500 mg PO DAILY RF: 0 Glucosamine Chondroitin 550-30-1 mg capsule 1 cap PO DAILY RF: 0 loratadine [Allergy Relief (loratadine)] 10 mg tablet 10 mg PO DAILY RF: 0 (DME) blood-glucose meter [OneTouch Ultra2 Meter] Kit See Rx Instructions .Route Qty: 1 RF: 0 ferrous sulfate 325 mg (65 mg iro
== END 2021-07-22 17:07 | disposition home health service (06) ==
LOC: ANHED 07-19 01:12 → ANH2MED 07-19 09:27
PROVIDERS: Emergency Medicine; Internal Medicine Nephrology; Urology; Admitting Provider Internal Medicine; Emergency Provider Emergency Medicine; PCP Family Medicine; Visit Provider Internal Medicine
PROC: (CPT 52352; principal; 2021-07-19 10:30)
DX: N20.2 Calculus of kidney with calculus of ureter (principal); N13.8 Other obstructive and reflux uropathy; R11.0 Nausea; E11.65 Type 2 diabetes mellitus with hyperglycemia; D64.9 Anemia, unspecified; D69.6 Thrombocytopenia, unspecified; L03.115 Cellulitis of right lower limb; L89.90 Pressure ulcer of unspecified site, unspecified stage; I12.9 Hypertensive chronic kidney disease with stage 1 through stage 4 chronic kidney disease, or unspecified chronic kidney disease; N18.30 Chronic kidney disease, stage 3 unspecified; E78.5 Hyperlipidemia, unspecified; K21.9 Gastro-esophageal reflux disease without esophagitis; G47.33 Obstructive sleep apnea (adult) (pediatric); E11.22 Type 2 diabetes mellitus with diabetic chronic kidney disease; I87.2 Venous insufficiency (chronic) (peripheral); E55.9 Vitamin D deficiency, unspecified; E53.8 Deficiency of other specified B group vitamins; Z87.891 Personal history of nicotine dependence; Z79.4 Long term (current) use of insulin; Z85.01 Personal history of malignant neoplasm of esophagus; Z90.49 Acquired absence of other specified parts of digestive tract; Z79.82 Long term (current) use of aspirin; Z66 Do not resuscitate
CPT/HCPCS: 52332; 36415; 51701; 74018; 74177; 74420; 80048; 80053; 81001; 82948; 83605; 83690; 83735; 84100; 84484; 85014; 85018; 85025; 85027; 85055; 87081; 87086; 96361; 96365; 96375; 96376; 97110; 97116; 97161; 97165; 97530; 99285; A9270; C1758; C1769; C2617; G0378; J0330; J0696; J0780; J1815; J2405; J2704; J3010; J3475; J7030; J7120; Q9966; Q9967

== ENCOUNTER 2021-07-30 10:34 | Outpatient (NON) | payer MEDICARE, SELFPAY ==
[2021-07-30 10:50] LABS: Basophils Absolute Auto 0.1 K/mm3 (0.0-0.1); Basophils Percent Auto 0.6 % (0.2-1.2); Eosinophils Absolute Auto 0.3 K/mm3 (0-0.3); Eosinophils Percent Auto 2.6 % (0-4.4); Hematocrit 31.7 % (42.0-52.0); Hemoglobin 10.4 g/dL (14.0-18.0); Immature Granulocyte Absolute 0.21 K/mm3 (0.00-0.031); Immature Granulocyte Percent A 1.6 % (0-0.5); Lymphocytes Absolute Auto 1.73 K/mm3 (0.9-3.2); Mean Corpuscular HGB Conc 32.8 g/dl (32-36); Mean Corpuscular Hemoglobin 31.1 pg (26-34); Mean Corpuscular Volume 94.9 fl (80-100); Mean Platelet Volume 12.6 fl (7.4-10.4); Monocytes Absolute Auto 1.7 K/mm3 (0.1-0.6); Monocytes Percent Auto 12.6 % (2.6-8.5); Neutrophils Absolute Auto 9.2 K/mm3 (1.3-6.7); Neutrophils Percent Auto 69.6 % (45.5-73.1); Platelet Count Result 123 k/mm3 (150-375); Red Blood Count 3.34 M/mm3 (4.6-6.20); Red Cell Distribution Width 16.9 % (11.5-14.5); White Blood Count 13.3 K/mm3 (4.5-10.0)
[2021-07-30 10:59] LABS: Alanine Aminotransferase 20 U/L (4-50); Albumin Level 2.5 g/dL (3.5-5.1); Alkaline Phosphatase 122 U/L (38-126); Anion Gap 2 mmol/L (8-16); Aspartate Amino Transferase 28 U/L (17-59); Bilirubin,Total 0.4 mg/dL (0.2-1.3); Blood Urea Nitrogen 15 mg/dL (9-20); Calcium 8.1 mg/dL (8.4-10.2); Carbon Dioxide 29 mmol/L (22-30); Chloride 102 mmol/L (98-107); Estimated Glomerular Filt Rate > 60; Glucose 109 mg/dL (65-110); Sodium 133 mmol/L (137-145)
[2021-07-30 11:09] LABS: Add Urine Microscopic? YES; Appearance Urine Clear (Clear); Bilirubin Urine Negative (Negative); Blood Urine 3+ (Negative); Color Urine Yellow (Yellow); Glucose Urine UA Negative (Negative); Ketones Urine Negative (Negative); Leukocyte Esterase Ur 1+ LEU/UL (Negative); Mucus Urine Rare /lpf; Nitrate Urine Negative (Negative); Protein Urine 1+ mg/dL (Negative); RBC Urine >75 /hpf (0-2); Specific Grav Ur 1.013 (1.001-1.035); Squamous Epithelial Cell Urine Rare /hpf (Few); Urobilinogen Urine Negative mg/dL (<2.0)
== END 2021-07-30 10:35 | disposition home or self-care (01) ==
PROVIDERS: PCP Family Medicine; Visit Provider Family Medicine
DX: T85.192A Other mechanical complication of implanted electronic neurostimulator of spinal cord electrode (lead), initial encounter (principal); Z51.81 Encounter for therapeutic drug level monitoring; Z79.899 Other long term (current) drug therapy
CPT/HCPCS: 80053; 81001; 85025; 87086; 87088

== ENCOUNTER 2021-08-12 01:50 | Day surgery (SDC) | payer MEDICARE, SELFPAY ==
[2021-08-06 14:38] VITALS: BMI 24.8
--- NOTE | 2021-08-11 13:02 | WPDANESEPPF ---
Anes - Initial Pre Proc Eval Procedure: Operation Date: 08/12/21 09:30 Proposed Procedures p Esophagogastroduodenoscopy - Artemio Fajardo MD Date/Time: 08/11/21 13:02 Surgeon: Artemio Fajardo MD Pre Op Diagnosis: hx of esophageal ca Patient Data Age: 76 Gender: M Height: 1.83 m Weight: 83.2 kg Allergies Allergy/AdvReac Type Severity Reaction Status Date / Time No Known Allergies Allergy Verified 08/12/21 09:16 Home Medications Medication Instructions Recorded Confirmed Type ferrous sulfate 325 mg (65 mg 325 mg PO BID tablet 09/30/20 08/12/21 History iron) tablet blood sugar diagnostic See Rx Instructions .ROUTE 12/10/20 07/19/21 Rx .COMPLEX #400 strip ascorbate calcium (vitamin C) 500 500 mg PO DAILY 02/12/21 08/12/21 History mg tablet glucosamine sulf dipot 1 cap PO DAILY cap 02/12/21 08/12/21 History chlr,msm,chond 550 mg-C 30 mg-mich 1 mg capsule loratadine 10 mg tablet 10 mg PO DAILY 02/12/21 08/06/21 History pen needle, diabetic 33 gauge x #100 ea 03/05/21 07/19/21 Rx 1/4 aspirin 81 mg tablet,delayed 81 mg PO DAILY 03/17/21 08/12/21 History release cholecalciferol (vitamin D3) 50 2,000 unit PO DAILY 03/17/21 08/12/21 History mcg (2,000 unit) capsule cyanocobalamin (vitamin B-12) 1,000 mcg PO DAILY 03/17/21 08/12/21 History 1,000 mcg tablet metoprolol tartrate 50 mg tablet 50 mg PO BID tablet 03/17/21 08/06/21 History peg 400-propylene glycol (PF) 0.4 1 drp OPHTHALMIC (EYE) .M,W,F ea 03/17/21 08/06/21 History %-0.3 % eye drops in a dropperette prednisolone acetate 1 % eye 1 drp OPHTHALMIC (EYE) DIRECTED 03/17/21 08/06/21 History drops,suspension blood-glucose meter #1 ea 05/05/21 07/19/21 Rx insulin degludec 100 unit/mL (3 20 unit SUBCUT DAILY #15 ml 05/12/21 08/12/21 Rx mL) subcutaneous pen insulin lispro 100 unit/mL 10 unit SUBCUT TID #15 syr 05/12/21 08/06/21 Rx subcutaneous pen pen needle, diabetic 31 gauge x #100 ea 05/12/21 07/19/21 Rx 3/16 sertraline 100 mg tablet 100 mg PO DAILY #90 tablet 05/12/21 08/06/21 Rx Lyrica 100 mg capsule 100 mg PO TID #270 cap NS 06/17/21 08/06/21 Rx triamcinolone acetonide 0.5 % 1 applic TOPICAL DAILY #15 g 07/16/21 08/06/21 Rx topical cream pantoprazole 40 mg PO DAILY 07/19/21 08/06/21 History metoclopramide HCl 10 mg tablet 10 mg PO .tid ac PRN #90 tablet 08/14/21 Rx Patient hx anesthesia problems: none Family hx anesthesia problems: none Results Review: All pre-operative results and documents have been reviewed as part of the pre-operative evaluation. [facility] Past Medical History Medical History (Updated 08/14/21 @ 12:58 by Artemio Fajardo MD) Chronic back pain CKD (chronic kidney disease) stage 3, GFR 30-59 ml/min Closed fracture of thigh COPD (chronic obstructive pulmonary disease) Depression due to physical illness Diabetic peripheral neuropathy Dyslipidemia Edema of both lower legs due to peripheral venous insufficiency Essential (primary) hypertension GERD (gastroesophageal reflux disease) History of nephrolithiasis History of stasis dermatitis both feet Insomnia, unspecified Malignant neoplasm of lower third of esophagus TOM (obstructive sleep apnea) Osteoarthritis Psoriasis Type 2 diabetes mellitus with hyperglycemia, with long-term current use of insulin Vitamin B12 deficiency Vitamin D deficiency Surgical History Surgical History (Updated 07/19/21 @ 01:33 by Marian Villagomez DO) H/O esophagectomy (~05/2018) History of cholecystectomy (~1999) History of lumbar laminectomy (~2015) History of open reduction and internal fixation (ORIF) procedure (~07/12/17) History of total hip arthroplasty (~2013) Hx of cornea transplant (~2013) Hx of neck surgery (~2008) S/P cystoscopy with ureteral stent placement (~2010) Spinal cord stimulator status (06/2020) Status post cataract extraction of both eyes with insertion of intraocular lens 2010 and 2012 Status post laser lithotripsy o
[2021-08-12] MEDS: LACTATED RINGERS 1,000 ML 150 ML IV CONT (09:08)
[2021-08-12] MEDS: DEXTROSE 50% 25 GM/50 ML SYRINGE IV PUSH (09:13)
[2021-08-12 09:18] VITALS: BP 135/64; PULSE 95; RESP 18; TEMP 37.6; O2SAT 96
--- NOTE | 2021-08-12 09:22 | WPDGICN ---
Assessment and Plan Assessment and plan (1) Malignant neoplasm of lower third of esophagus: Code(s): C15.5 - Malignant neoplasm of lower third of esophagus Status: Acute Assessment and Plan: Patient has a history of cancer in the lower esophagus status post chemotherapy radiation and subsequent resection. He presents today for surveillance EGD. Further recommendations will be given after EGD. (2) H/O esophagectomy: Onset Date: ~05/2018 Code(s): Z98.890 - Other specified postprocedural states; Z90.49 - Acquired absence of other specified parts of digestive tract Status: Acute GI Consult Note Consult date/time: 08/12/21 09:22 HPI: Nilo Barney is a 76 year old male Presents for follow-up EGD. Patient has a history of esophageal cancer initially diagnosed in December 2018. He was treated with chemotherapy radiation therapy and subsequent resection of this tumor. He presents today for follow-up examination. He complains of early satiety. Denies any bleeding. His weight apparently has been fairly stable. He was recently hospitalized with a kidney stone. EGD is anticipated to assess current status of esophagus. Review of Systems Review of Systems: All systems reviewed & are unremarkable except as noted in HPI and below PMFSH Past Medical History Medical History (Updated 08/11/21 @ 13:02 by Hi Rosa DO) Chronic back pain CKD (chronic kidney disease) stage 3, GFR 30-59 ml/min Closed fracture of thigh COPD (chronic obstructive pulmonary disease) Depression due to physical illness Diabetic peripheral neuropathy Dyslipidemia Edema of both lower legs due to peripheral venous insufficiency Essential (primary) hypertension GERD (gastroesophageal reflux disease) History of nephrolithiasis History of stasis dermatitis both feet Insomnia, unspecified Malignant neoplasm of lower third of esophagus TOM (obstructive sleep apnea) Osteoarthritis Psoriasis Type 2 diabetes mellitus with hyperglycemia, with long-term current use of insulin Vitamin B12 deficiency Vitamin D deficiency Surgical History Surgical History (Updated 07/19/21 @ 01:33 by Marian Villagomez DO) H/O esophagectomy (~05/2018) History of cholecystectomy (~1999) History of lumbar laminectomy (~2015) History of open reduction and internal fixation (ORIF) procedure (~07/12/17) History of total hip arthroplasty (~2013) Hx of cornea transplant (~2013) Hx of neck surgery (~2008) S/P cystoscopy with ureteral stent placement (~2010) Spinal cord stimulator status (06/2020) Status post cataract extraction of both eyes with insertion of intraocular lens 2010 and 2012 Status post laser lithotripsy of ureteral calculus (~2013) Family History Family History Sibling Carcinoma of colon Malignant neoplasm of prostate Family history of malignant neoplasm of urinary bladder Social History Social History (Updated 07/19/21 @ 08:01 by Marian Villagomez DO) Social History: Primary care physician: Dr. Leeroy Rosario Code status: DNR/DNI Surrogate decision maker: Smoking packs per day: 1 Smoking cigarettes per day: 20.0 Years smoked: 20 Smoking pack-years: 20.00 Smoking status: Former smoker Second hand tobacco smoke exposure: No Smoking end date: 11/07/84 Alcohol intake: never Substance use: never Substance use type: does not use Living arrangements: with family Additional living arrangements comments: He lives with his of 50 years. He ambulates with a walker. 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 Gender identity (if verbalized by the patient): Male Sexual Orientation (if Verbalized by the Patient): Straight or Heterosexual Spiritual care concerns: No Meds Home Medications and Allergies Home Medications Medication Instructions Recorded Confir
[2021-08-12 09:26] LABS: Glucose Point of Care 60 mg/dl (65-105)
[2021-08-12 09:26] LABS: Glucose Point of Care 118 mg/dl (65-105)
[2021-08-12 09:55] VITALS: BP 124/84; PULSE 86; RESP 24; O2SAT 84
[2021-08-12 10:05] VITALS: BP 130/64; PULSE 86; RESP 20; O2SAT 96
[2021-08-12 10:15] VITALS: BP 126/68; PULSE 81; RESP 22; O2SAT 96
[2021-08-12 10:18] LABS: Glucose Point of Care 110 mg/dl (65-105)
[2021-08-12 10:25] VITALS: BP 122/62; PULSE 84; RESP 18; O2SAT 95
[2021-08-12 10:40] VITALS: BP 111/60; PULSE 86; RESP 22; O2SAT 92
--- NOTE | 2021-08-12 11:51 | SUR.PHASEII ---
Reviewed Oxygen Saturations on and off o2 with Dr. Rosa. No new orders received.
== END 2021-08-12 11:20 | disposition home or self-care (01) ==
PROVIDERS: PCP Family Medicine; Visit Provider Internal Medicine Gastroenterology
PROC: 0DJ08ZZ Inspection of Upper Intestinal Tract, Via Natural or Artificial Opening Endoscopic (ICD-10-PCS; CPT 43235; principal; 2021-08-12 09:30)
DX: Z08 Encounter for follow-up examination after completed treatment for malignant neoplasm (principal); K31.84 Gastroparesis; Z98.0 Intestinal bypass and anastomosis status; Z85.01 Personal history of malignant neoplasm of esophagus; Z90.49 Acquired absence of other specified parts of digestive tract; Z92.21 Personal history of antineoplastic chemotherapy; Z92.3 Personal history of irradiation; I12.9 Hypertensive chronic kidney disease with stage 1 through stage 4 chronic kidney disease, or unspecified chronic kidney disease; N18.30 Chronic kidney disease, stage 3 unspecified; E11.22 Type 2 diabetes mellitus with diabetic chronic kidney disease; E11.42 Type 2 diabetes mellitus with diabetic polyneuropathy; E11.51 Type 2 diabetes mellitus with diabetic peripheral angiopathy without gangrene; E78.5 Hyperlipidemia, unspecified; J44.9 Chronic obstructive pulmonary disease, unspecified; K21.9 Gastro-esophageal reflux disease without esophagitis; G47.33 Obstructive sleep apnea (adult) (pediatric); E55.9 Vitamin D deficiency, unspecified; E53.8 Deficiency of other specified B group vitamins; L40.9 Psoriasis, unspecified; Z98.42 Cataract extraction status, left eye; Z98.41 Cataract extraction status, right eye; Z96.1 Presence of intraocular lens; Z87.891 Personal history of nicotine dependence; Z79.82 Long term (current) use of aspirin; Z79.4 Long term (current) use of insulin
CPT/HCPCS: 43235; 82948; J2001; J2704; J7120

== ENCOUNTER 2021-09-08 16:04 | Inpatient (IN) | payer MEDICARE, SELFPAY ==
[2021-08-28 10:52] VITALS: BMI 22.4
[2021-09-08] VITALS (20 sets, daily range): BP systolic 76–134; BP diastolic 30–84; PULSE 78–112; RESP 20–34; TEMP 36.1–37.4; O2SAT 76–100
--- NOTE | ~2021-09-08 | XR_ITS ---
EXAMINATION: XR chest 1V portable DATE: 09/08/2021 13:38 INDICATION: Post extubation coughing. TECHNIQUE: frontal view of the chest was obtained. COMPARISON: Chest radiograph dated 06/18/[address] dated 05/22/2021 FINDINGS: Left subclavian central venous port catheter with distal tip at the caudal superior vena cava. Simila r appearance and configuration to a gastric pull-through for prior esophagectomy which projects over the medial half of the right mid and lower lung zones. Persistent small right pleural effusion which results in blunting at the right costophrenic angle, capping of the right apex and with small amount of loculated fluid along the major fissure image projection of the lateral right midlung zone. New op acities and bronchial wall thickening in the left mid to lower lung zone. No left-sided pleural effus ion. No pneumothorax. Heart size is normal. IMPRESSION: 1. New opacities and bronchial wall thickening the left mid and lower lung zone which could represent aspiration, pneumonia or less likely asymmetric pulmonary edema. 2. Chronic small right pleural effusion small portion of which remain loculated at the apex and along the major fissure. 3. Stable appearance in the right hemithorax of changes of a prior esophagectomy and gastric pull-thr ough in the right hemithorax. Reviewed, dictated and finalized at location A. IMPRESSION: 1. New opacities and bronchial wall thickening the left mid and lower lung zone which could represent aspiration, pneumonia or less likely asymmetric pulmonar y edema. 2. Chronic small right pleural effusion small portion of which remain loculated at the apex and along the major fissure. 3. Stable appearance in the right hemithorax of changes of a prior esophagectom y and gastric pull-through in the right hemithorax.
--- NOTE | ~2021-09-08 | XR_ITS ---
EXAMINATION: XR barium swallow modified EXAM DATE: 09/09/2021 14:50 INDICATION: Aspiration pneumonia. TECHNIQUE: Modified barium esophagram was performed by speech pathologist with radiologist Dr. Cory Rodrigues present to administered fluoroscopy. Speech pathologist administered barium in varying consis tencies as per speech pathologist documentation. This was recorded on tape. There was total fluorosc opic time of 0.7 minutes. The DAP for this procedure was 0.5 Gycm2. A total of 2 images sent to PAC S from the exam. FINDINGS: Oral stage: Adequate function. Pharyngeal phase: Adequate function. Laryngeal penetration: Demonstrated, cleared. Aspiration: None. IMPRESSION: Penetration without aspiration; Please refer to speech pathologist findings and specific feeding recommendations. Reviewed, dictated and finalized at location A.
--- NOTE | ~2021-09-08 | XR_ITS ---
XR abdomen/kub 1V DATE: 09/11/2021 17:03 INDICATION: Abdominal distention and vomiting TECHNIQUE: Portable supine AP views COMPARISON: 09/26/2021 CT chest abdomen pelvis FINDINGS: Infiltrate and/atelectasis in the lower lung zones, including air bronchograms in the right lower lobe, and possible pleural effusions are suggested. There is radiopaque contrast material within the stomach and the lower right chest (status post gastr ic pull-through procedure). Status post cholecystectomy. There is barium in the left and right colon. No bowel obstruction is evident. Right internal urinary stent. There is evidence of a right renal calcified calculus. Bilateral urinar y tract calculi are better demonstrated on 09/09/2021 CT abdomen pelvis examination. Degenerative change of the thoracic and lumbar spine. Status post right hip replacement. IMPRESSION: No bowel obstruction is evident Status post gastric pull-through procedure Bilateral nephrolithiasis Right internal urinary stent Status post cholecystectomy Reviewed, dictated and finalized at Location A. Reviewed, dictated and finalized at location A.
--- NOTE | ~2021-09-08 | US_ITS ---
EXAMINATION: US venous doppler LE EXAM DATE: 09/09/2021 13:16 INDICATION: Bilateral leg edema. TECHNIQUE: Multiple grayscale, color flow and Doppler images of the lower extremity deep venous syste ms bilaterally were obtained and reviewed. Comparison is made to prior examination from 07/16/2021. FINDINGS: Right side: The right common femoral, femoral and profunda veins demonstrate normal color flow, respi ratory variation, augmentation and compressibility. Compressibility, color flow confirmed within the right popliteal, posterior tibial, peroneal, and greater saphenous veins. Left side: The left common femoral, femoral and profunda veins demonstrate normal color flow, respira tory variation, augmentation and compressibility. Compressibility, color flow confirmed within the l eft popliteal, posterior tibial, peroneal, and greater saphenous veins. IMPRESSION: No lower extremity deep venous thrombosis bilaterally. Reviewed, dictated and finalized at location A.
--- NOTE | ~2021-09-08 | CT_ITS ---
EXAMINATION: CT chest abdomen w con DATE: 09/09/2021 12:48 INDICATION: Gastric mass, history of esophageal cancer TECHNIQUE: Transaxial computed tomographic images of the chest and abdomen were obtained after the ad ministration of 100 cc of Omnipaque 350 intravenous contrast. The dose-length product (DLP) was 1028. 94 mGy-cm. Automated exposure control and iterative reconstruction technique were employed. COMPARISON: 07/18/2021 FINDINGS: CHEST CT: There are changes of esophagectomy with gastric pull-through. There are small pleural effusions, left greater than right. There is loculated pleural fluid. The right lung apex. No pneumothorax is identi fied. There are patchy airspace opacities in the mid and upper lung zones, left greater than right. T here is passive dependent atelectasis in the lower lobes. A left subclavian Port-A-Cath ends with its tip in the distal superior vena cava. There is mild mediastinal lymphadenopathy which is likely reac tive. No definite gastric mass is identified. There is mild thoracic spondylosis. Severe lower cervic al spondylosis is noted. There is moderate bilateral gynecomastia. An 11 mm nodule is noted in the ri ght thyroid lobe. ABDOMEN CT: The gallbladder is surgically absent. Punctate calcifications in an otherwise normal spleen likely re present healed granulomatous disease. The liver, pancreas, and adrenal glands are normal. There is a 4 mm nonobstructing stone of the left kidney upper pole. A 1.9 cm stone is present in a lower pole ca lyx of the left kidney. A partially imaged right internal ureteral stent is in expected position. The re are is a 6 mm nonobstructing stone of the right kidney lower pole. A 5 mm stone is present in the right renal pelvis adjacent to the stent. There is a 1.6 cm cyst of the left kidney. There are no pat hologically enlarged abdominal lymph nodes. There is no free intraperitoneal gas or evidence of bowel obstruction. There is severe lumbar spondylosis with anterior fusion L3-4. IMPRESSION: 1. Changes of esophagectomy and gastric pull-through without definite gastric mass identified. 2. Small pleural effusions with passive atelectasis. 3. Patchy opacities of the lungs, likely infectious or inflammatory. 4. Bilateral nephrolithiasis with 5 mm stone in the right renal pelvis adjacent to a right internal u reteral stent. Reviewed, dictated and finalized at location B. IMPRESSION: 1. Changes of esophagectomy and gastric pull-through without definite gastric m ass identified. 2. Small pleural effusions with passive atelectasis. 3. Patchy opacities of the lungs, likely infectious or inflammatory. 4. Bilateral nephrolithiasis with 5 mm stone in the right renal pelvis adjacent to a right internal ureteral stent.
--- NOTE | ~2021-09-08 | XR_ITS ---
EXAMINATION: XR chest 1V portable DATE: 09/15/2021 13:00 INDICATION: Shortness of breath. TECHNIQUE: A single frontal view of the chest was obtained. COMPARISON: Chest single view 09/12/2021, chest CT 09/09/2021 FINDINGS: There are small pleural effusions, loculated on the right. There are patchy airspace opacit ies involving all lung zones, worst in the lower lung zones and right midlung zone. No pneumothorax. The heart size is normal. There are changes of esophagectomy and gastric pull-through procedure. Ther e is a left subclavian port with tip in superior vena cava. There is an old healed fracture of right fifth rib. IMPRESSION: 1. Stable small pleural effusions, loculated on the right. 2. Stable diffuse lung disease, likely pneumonia. Reviewed, dictated and finalized at location A. E FEEDER
--- NOTE | ~2021-09-08 | US_ITS ---
EXAMINATION: US venous doppler UE LT DATE: 09/14/2021 08:39 INDICATION: Left upper limb swelling TECHNIQUE: Grayscale ultrasound images without and with compression and Doppler ultrasound images of the left upper extremity veins were obtained. COMPARISON: None. FINDINGS: The left internal jugular vein, subclavian vein, axillary vein, brachial veins, basilic vein, cephali c vein, radial vein, and ulnar vein are patent. IMPRESSION: 1. No evidence of deep venous thrombosis. Reviewed, dictated and finalized at location B. S VENDOR
--- NOTE | ~2021-09-08 | XR_ITS ---
EXAMINATION: XR chest 1V portable DATE: 09/12/2021 14:06 INDICATION: Tachycardia and tachypnea. TECHNIQUE: frontal view of the chest was obtained. COMPARISON: Chest radiograph dated 09/08/2021 FINDINGS: Airspace opacities throughout both lungs relatively sparing the right upper lung zone. Small bilatera l pleural effusions in the lower lung zones. No pneumothorax. Cardiomegaly. Left subclavian central v enous port catheter with distal tip at the caudal superior vena cava. Postoperative change of prior e sophagectomy with gastric pull-through with residual oral contrast material from the barium swallow s tudy performed 2 days prior within the intrathoracic portion of the stomach. There are bridging osteo phytes at multiple levels in the spine, consistent with diffuse idiopathic skeletal hyperostosis (DIS H). IMPRESSION: 1. Diffuse bilateral lung disease consistent with pneumonia, pulmonary edema, atelectasis or some com bination thereof. 2. Small bilateral pleural effusions. 3. Cardiomegaly. Reviewed, dictated and finalized at location A. IMPRESSION: 1. Diffuse bilateral lung disease consistent with pneumonia, pulmonary edema, a telectasis or some combination thereof. 2. Small bilateral pleural effusions. 3. Cardiomegaly.
--- NOTE | 2021-09-08 11:45 | WPDGICN ---
Assessment and Plan Assessment and plan (1) H/O esophagectomy: Onset Date: ~05/2018 Code(s): Z98.890 - Other specified postprocedural states; Z90.49 - Acquired absence of other specified parts of digestive tract Status: Acute Assessment and Plan: Patient has a history of esophagectomy because of cancer of the esophagus. Plan is for surveillance EGD at this time. Also because of early satiety and nausea. (2) Cancer of distal third of esophagus: Code(s): C15.5 - Malignant neoplasm of lower third of esophagus Status: Acute Assessment and Plan: Patient status post resection of distal esophageal cancer in 2019. (3) Type 2 diabetes mellitus with hyperglycemia, with long-term current use of insulin: Code(s): E11.65 - Type 2 diabetes mellitus with hyperglycemia; Z79.4 - lobsterman (current) use of insulin Status: Acute (4) Nausea: Code(s): R11.0 - Nausea Status: Acute Assessment and Plan: Patient has ongoing nausea, occasional vomiting. In early satiety. Recent EGD limited by delayed gastric emptying and gastric retention. Plan is for follow-up EGD today he has had limited oral intake for several days in anticipation of endoscopy. Further recommendations will be given after EGD. GI Consult Note Consult date/time: 09/08/21 11:45 HPI: Nilo Barney is a 76 year old male Presents for follow-up EGD. Patient has a history of esophageal cancer diagnosed in December 2018. He underwent chemotherapy and radiation followed by resection of the distal esophagus. Most recently is complained of early satiety. A follow-up EGD was scheduled several weeks ago but limited because of marked amount retained food. Visualizing the body of the stomach and the mucosa was not possible. Patient returns today for follow-up EGD. He continues to have some nausea. He denies any overt pain. He has had no vomiting. He has had no bleeding. His weight has been stable Review of Systems Review of Systems: All systems reviewed & are unremarkable except as noted in HPI and below PMFSH Past Medical History Medical History (Updated 08/27/21 @ 13:10 by Brenna Rosario MD) Anxiety Chronic back pain CKD (chronic kidney disease) stage 3, GFR 30-59 ml/min Closed fracture of thigh COPD (chronic obstructive pulmonary disease) Depression due to physical illness Diabetic peripheral neuropathy Dyslipidemia Edema of both lower legs due to peripheral venous insufficiency Essential (primary) hypertension GERD (gastroesophageal reflux disease) History of nephrolithiasis History of stasis dermatitis both feet Insomnia, unspecified Malignant neoplasm of lower third of esophagus TOM (obstructive sleep apnea) Osteoarthritis Psoriasis Type 2 diabetes mellitus with hyperglycemia, with long-term current use of insulin Vitamin B12 deficiency Vitamin D deficiency Surgical History Surgical History (Updated 07/19/21 @ 01:33 by Marian Villagmoez DO) H/O esophagectomy (~05/2018) History of cholecystectomy (~1999) History of lumbar laminectomy (~2015) History of open reduction and internal fixation (ORIF) procedure (~07/12/17) History of total hip arthroplasty (~2013) Hx of cornea transplant (~2013) Hx of neck surgery (~2008) S/P cystoscopy with ureteral stent placement (~2010) Spinal cord stimulator status (06/2020) Status post cataract extraction of both eyes with insertion of intraocular lens 2010 and 2012 Status post laser lithotripsy of ureteral calculus (~2013) Family History Family History Sibling Carcinoma of colon Malignant neoplasm of prostate Family history of malignant neoplasm of urinary bladder Social History Social History (Updated 07/19/21 @ 08:01 by Marian Villagomez DO) Social History: Primary care physician: Dr. Leeroy Rosario Code status: DNR/DNI Surrogate decision maker: S
[2021-09-08] MEDS: LACTATED RINGERS 1,000 ML 150 ML IV CONT (12:03)
[2021-09-08 12:07] LABS: Glucose Point of Care 73 mg/dl (65-105)
--- NOTE | 2021-09-08 12:16 | WPDANESEPPF ---
Anes - Initial Pre Proc Eval Procedure: Operation Date: 09/08/21 13:00 Proposed Procedures p Esophagogastroduodenoscopy - Artemio Fajardo MD Date/Time: 09/08/21 12:16 Surgeon: Artemio Fajardo MD Pre Op Diagnosis: gastric retention / hx of esophageal ca Patient Data Age: 76 Gender: M Height: 1.83 m Weight: 74.2 kg Allergies Allergy/AdvReac Type Severity Reaction Status Date / Time No Known Allergies Allergy Verified 09/08/21 11:59 Home Medications Medication Instructions Recorded Confirmed Type ferrous sulfate 325 mg (65 mg 325 mg PO BID tablet 09/30/20 08/28/21 History iron) tablet blood sugar diagnostic See Rx Instructions .ROUTE 12/10/20 08/28/21 Rx .COMPLEX #400 strip ascorbate calcium (vitamin C) 500 500 mg PO DAILY 02/12/21 08/28/21 History mg tablet glucosamine sulf dipot 1 cap PO DAILY cap 02/12/21 08/28/21 History chlr,msm,chond 550 mg-C 30 mg-mich 1 mg capsule pen needle, diabetic 33 gauge x #100 ea 03/05/21 07/19/21 Rx 1/4 aspirin 81 mg tablet,delayed 81 mg PO DAILY 03/17/21 08/28/21 History release cholecalciferol (vitamin D3) 50 2,000 unit PO DAILY 03/17/21 08/28/21 History mcg (2,000 unit) capsule cyanocobalamin (vitamin B-12) 1,000 mcg PO DAILY 03/17/21 08/28/21 History 1,000 mcg tablet peg 400-propylene glycol (PF) 0.4 1 drp OPHTHALMIC (EYE) .M,W,F karma 03/17/21 08/28/21 History %-0.3 % eye drops in a dropperette prednisolone acetate 1 % eye 1 drp OPHTHALMIC (EYE) DIRECTED 03/17/21 08/28/21 History drops,suspension blood-glucose meter #1 ea 05/05/21 07/19/21 Rx insulin lispro 100 unit/mL 10 unit SUBCUT TID #15 syr 05/12/21 08/28/21 Rx subcutaneous pen pen needle, diabetic 31 gauge x #100 ea 05/12/21 07/19/21 Rx 3/16 sertraline 100 mg tablet 100 mg PO DAILY #90 tablet 05/12/21 08/28/21 Rx Lyrica 100 mg capsule 100 mg PO TID #270 cap NS 06/17/21 08/28/21 Rx pantoprazole 40 mg PO DAILY 07/19/21 08/28/21 History metoclopramide HCl 10 mg tablet 10 mg PO .tid ac PRN #90 tablet 08/14/21 08/28/21 Rx alprazolam 0.5 mg tablet 0.5 mg PO BID PRN #30 tablet 08/27/21 08/28/21 Rx Tresiba FlexTouch U-100 15 unit SUBCUT DAILY 08/28/21 08/28/21 History atorvastatin 10 mg PO DAILY 08/28/21 08/28/21 History lactobacillus combination no.8 2 cell PO DAILY 08/28/21 08/28/21 History [Adult Probiotic] triamcinolone acetonide 1 applic TOPICAL PRN PRN 08/28/21 08/28/21 History metoprolol tartrate 50 mg tablet 50 mg PO BID #180 tablet 09/07/21 09/08/21 Rx Laboratory Tests 09/08/21 12:04 POC Capillary Glucose 73 mg/dl mg/dl (65-105) Patient hx anesthesia problems: none Family hx anesthesia problems: none Results Review: All pre-operative results and documents have been reviewed as part of the pre-operative evaluation. [facility] Past Medical History Medical History (Updated 08/27/21 @ 13:10 by Brenna Rosario MD) Anxiety Chronic back pain CKD (chronic kidney disease) stage 3, GFR 30-59 ml/min Closed fracture of thigh COPD (chronic obstructive pulmonary disease) Depression due to physical illness Diabetic peripheral neuropathy Dyslipidemia Edema of both lower legs due to peripheral venous insufficiency Essential (primary) hypertension GERD (gastroesophageal reflux disease) History of nephrolithiasis History of stasis dermatitis both feet Insomnia, unspecified Malignant neoplasm of lower third of esophagus TOM (obstructive sleep apnea) Osteoarthritis Psoriasis Type 2 diabetes mellitus with hyperglycemia, with long-term current use of insulin Vitamin B12 deficiency Vitamin D deficiency Surgical History Surgical History (Updated 07/19/21 @ 01:33 by Marian Villagomez DO) H/O esophagectomy (~05/2018) History of cholecystectomy (~1999) History of lumbar laminectomy (~2015) History of open reduction and internal fixation (ORIF) procedure (~07/12/17) History of total hip arthroplasty (~2013) Hx of cornea transplant (~2013) Hx of nec
[2021-09-08 13:44] LABS: Glucose Point of Care 86 mg/dl (65-105)
--- NOTE | 2021-09-08 13:55 | SUR.PHASEII ---
Gabriel Benavides CRNA, consulted with anesthesiologist inspector water pollution control. Read the report from the chest x-ray and pt is 96% on 2L face mask. Requested that the patient stay another hour and get an incentive spirometer from respiratory.
--- NOTE | 2021-09-08 14:08 | SUR.PHASEII ---
1406- Respiratory here. Instructed in incentive spirometer use. Verbalizes understanding.
--- NOTE | 2021-09-08 14:20 | SUR.PHASEII ---
1420- Temi Benavides CRNA, in room talking with patient and spouse.
--- NOTE | 2021-09-08 14:58 | SUR.PHASEII ---
1445- Dr. Lowry in room with patient. Continue to monitor patient for another hour. Continue to encourage incentive spirometer and coughing.
--- NOTE | 2021-09-08 15:28 | SUR.PHASEII ---
1508- Sofia Alcantar spoke with house detective about possible admission for patient. Will talk with hospitalist & Dr. Lowry.
[2021-09-08 16:12] LABS: Glucose Point of Care 75 mg/dl (65-105)
--- NOTE | 2021-09-08 16:15 | PM.IMHP ---
H&P: HPI History of Present Illness Date/Time: 09/08/21 16:15 Chief Complaint: Suspected aspiration. Narrative: This is a pleasant 76-year-old male with history of esophageal cancer status post chemoradiation and esophagectomy in 2019, insulin-dependent diabetes, hypertension, hyperlipidemia, sleep apnea, and several other comorbidities who is being directly admitted to the hospitalist service from the GI lab for further treatment evaluation of suspected aspiration. Given his history of esophageal cancer he was scheduled for a surveillance EGD on 08/12/2021 after reports of early satiety and intermittent nausea and vomiting. Stomach and duodenum were not visualized at that time due to a large amount of retained food in the body of the stomach and his EGD was rescheduled for today. He has been on a liquid diet for the past 48 hours in anticipation, to hopefully avoid retention. Unfortunately Dr. Fajardo found malignant appearing gastric masses consistent with recurrent malignancy. He became hypoxic post intubation and a subsequent chest x-ray showed new opacities and bronchial wall thickening of the mid left and lower lung zone which may very well be related to aspiration, and he is being admitted in this setting. At the time my evaluation he reports feeling weak but attributes that to his liquid diet over the past several days. He is feeling perhaps a bit short of breath at this time but not significantly so. He has had a mild cough since his procedure though it is been nonproductive. He reports frequent chills but he has not had fever or sweats. No cold or flu symptoms. No sick contacts. He denies dysphagia and concerns for aspiration with eating and drinking. Review of Systems Review of Systems: Twelve systems were reviewed. He has lost a little bit await but nothing significant. He has been increasingly more weak over the last couple of months and he admits that he spends a lot of time in his recliner, where he sleeps at night since his esophagectomy. More recently he has noticed swelling of his lower legs, right greater than left and he was encouraged to wear compression hose. He endorses some breakdown of the buttocks and on the right heel. He does have discomfort in the buttock region when sitting due to these wounds. He denies melena and hematochezia. Glucose has been stable however he was a bit low post EGD today. No blurry vision, polydipsia, or polyuria. Patient has fallen out of the habit of using his CPAP at nighttime. Except as documented, all other systems were reviewed and are negative. [facility] Past Medical History Medical History (Updated 09/08/21 @ 18:53 by Genet Stearns PA-C) Anxiety Chronic back pain Chronic kidney disease, stage 3 Chronic obstructive pulmonary disease Depression due to physical illness Diabetic peripheral neuropathy Dyslipidemia Essential (primary) hypertension Gastroesophageal reflux disease Insomnia, unspecified Malignant neoplasm of lower third of esophagus Nephrolithiasis Obstructive sleep apnea Osteoarthritis Psoriasis Type 2 diabetes mellitus with hyperglycemia, with long-term current use of insulin Vitamin B12 deficiency Vitamin D deficiency Surgical History Surgical History (Updated 09/08/21 @ 18:48 by Genet Stearns PA-C) History of cholecystectomy (~1999) History of esophagectomy (12/2018) History of lumbar laminectomy (~2015) History of open reduction and internal fixation (ORIF) procedure (~07/12/17) History of total hip arthroplasty (~2013) Hx of cornea transplant (~2013) Hx of neck surgery (~2008) S/P cystoscopy with ureteral stent placement (~2010) Spinal cord stimulator status (06/2020) Status post cataract extraction of both eyes with insertion of intraocular lens 2010 and 2012 Status post laser lithotripsy of ureteral calculus (~2013) Family History Family History Sibling Carcinoma of colon Malignant neoplasm of prostate
--- NOTE | 2021-09-08 16:20 | SUR.PHASEII ---
Pt will be admitted under hospitalist service to room 252. VSS. Pt on O2 at 1L NC to keep O2 sats >92%. Pt's has left hospital; made aware of room pt will be going to. Report called to DAYANNA Mcneill will all questions answered prior to pt transfer. DAYANNA Leahy
[2021-09-08] MEDS: AMPICILLIN SULB 1.5 GM/NS 50ML 1.5 GM/50 ML VIAL IVPB (17:26)
[2021-09-08 17:28] LABS: Lactic Acid Reflex 1.9 mmol/L (0.7-2.1)
[2021-09-08 17:29] LABS: Alanine Aminotransferase 19 U/L (4-50); Albumin Level 2.3 g/dL (3.5-5.1); Alkaline Phosphatase 117 U/L (38-126); Anion Gap 6 mmol/L (8-16); Aspartate Amino Transferase 33 U/L (17-59); Bilirubin,Total 0.7 mg/dL (0.2-1.3); Blood Urea Nitrogen 12 mg/dL (9-20); Calcium 8.2 mg/dL (8.4-10.2); Carbon Dioxide 30 mmol/L (22-30); Chloride 101 mmol/L (98-107); Estimated CRCL calculation 81 ml/min; Estimated Glomerular Filt Rate > 60; Glucose 98 mg/dL (65-110); Magnesium 1.5 mg/dL (1.6-2.3); Potassium 4.5 mmol/L (3.4-5.0); Sodium 137 mmol/L (137-145)
[2021-09-08 17:33] LABS: CRP 6.6 mg/dL (<1.0)
[2021-09-08 17:36] LABS: Glucose Point of Care 70 mg/dl (65-105)
[2021-09-08 17:51] LABS: Glucose Point of Care 69 mg/dl (65-105)
[2021-09-08] MEDS: DEXTROSE 50% 25 GM/50 ML SYRINGE IV PUSH (17:53)
[2021-09-08 18:22] LABS: Hemoglobin A1C 4.9 % (<5.7)
[2021-09-08 18:24] LABS: Glucose Point of Care 109 mg/dl (65-105)
--- NOTE | 2021-09-08 18:49 | ADMGEN ---
This patient, Nilo Barney, was admitted to Medical Room 252-01. Patient/family oriented to hospital policies and general routines including ID bracelet, bed and alarms, visiting hours, pain management, procedures, bathroom and other care routines, personal items, smoking policy, room service/diet, and visiting hours. Information on how to activate the Rapid Response Team has been discussed. Patient/Family are encouraged to report perceived risks to care and to ask questions if they do not understand what they are told or what they should do. Report received from DAYANNA Brunner
[2021-09-08 19:08] LABS: Basophils Absolute Auto 0.1 K/mm3 (0.0-0.1); Basophils Percent Auto 0.5 % (0.2-1.2); Eosinophils Absolute Auto 0.2 K/mm3 (0-0.3); Eosinophils Percent Auto 1.1 % (0-4.4); Hematocrit 31.3 % (42.0-52.0); Hemoglobin 10.5 g/dL (14.0-18.0); Immature Granulocyte Absolute 0.16 K/mm3 (0.00-0.031); Immature Granulocyte Percent A 0.9 % (0-0.5); Lymphocytes Absolute Auto 1.94 K/mm3 (0.9-3.2); Lymphocytes Percent Auto 10.9 % (18.3-44.2); Mean Corpuscular HGB Conc 33.5 g/dl (32-36); Mean Corpuscular Volume 92.3 fl (80-100); Mean Platelet Volume 13.2 fl (7.4-10.4); Monocytes Absolute Auto 1.5 K/mm3 (0.1-0.6); Monocytes Percent Auto 8.6 % (2.6-8.5); Neutrophils Absolute Auto 13.8 K/mm3 (1.3-6.7); Platelet Count Result 162 k/mm3 (150-375); Red Blood Count 3.39 M/mm3 (4.6-6.20); Red Cell Distribution Width 15.2 % (11.5-14.5); White Blood Count 17.7 K/mm3 (4.5-10.0)
[2021-09-08] MEDS: MAGNESIUM SULF 2 GM/WATER 50ML 2 GM/50 ML BAG IVPB (19:54)
[2021-09-08] MEDS: ONDANSETRON INJ 4 MG/2 ML VIAL IV PUSH (19:54)
[2021-09-08] MEDS: SODIUM CHLORIDE 0.9% IV 1,000 ML 75 ML IV CONT (19:54)
[2021-09-08] MEDS: WATER FOR IRRIGATION, STERILE 1,000 ML BOTTLE 1000 ML (20:28)
--- NOTE | 2021-09-08 20:29 | PC.NURSE ---
Patient arrived to the unit at 1627. The SCOREBOARD OPERATOR notified me at 1710 that the patient's oxygen level on 1 L NC was 76%. I increased the patient's oxygen to 5 L NC. The patient's oxygen on 5L NC was only 82%. I then placed the patient on a non-rebreather. I titrated the patient's oxygen up on the non-rebreather to 10L. On 10 L non-rebreather the patient's oxygen was 94%. The patient was very pale and shaky. I obtained a blood sugar at 1721. The reading was 70 so I gave the patient a 4 oz apple juice. The patient was able to be weaned down to 3L non-rebreather; however, when attempting to change patient from non-rebreather to nasal cannula the patient continued to drop into the 70's. I left the patient on a non-rebreather at this time. I rechecked the patient's blood sugar after the 4 oz of apple juice and the blood sugar was 69. At this time I called Genet Stearns for a status update and additional medications. I notified her of the patient's oxygen requirements, blood sugar and physical symptoms. The patient is lightheaded, shaky, pale and nauseated. The patient continues to have emesis. The patient is also having difficulty swallowing and coughs with thin liquids. She requested we make the patient NPO and she will insert hypoglycemic protocol for the patient. She stated I may administer the 12.5gm of dextrose at this time. As for the oxygen, she requested we continue the patient's non-rebreather until the patient's blood sugar is better and the patient is not so shaky and nauseated. She stated that she will come assess the patient shortly. Patient's blood pressure at this time is 140/62 with a heart rate of 109. I administered the 12.5gm dextrose 50% at 1753. I placed the patient on a nasal cannula at 5L at this time. The patient's oxygen was doing well at the 5 L with oxygen saturations around 93%. The patient began vomiting again. With this episode the patient's oxygen dropped to 82%. The patient was placed back on a non-rebreather once the emesis episode was over while we waited for a high flow nasal cannula to be delivered. The patient was then placed on 10 L high flow nasal cannula at 1850. Genet Stearns was paged again at 185 for additional orders for nausea medications and an update on oxygenation status. At 1910 the patient was able to be weaned to 5L high flow nasal cannula and the oxygen is 94% on 5L. While I was in the room with the patient the charge nurse was able to get ahold of Genet and get orders for telemetry, continuous pulse ox, nausea medication and a few additional orders. Genet stated she will come see the patient. Patient stable at this time. Report was given to nightshift.
[2021-09-08 21:34] LABS: Glucose Point of Care 125 mg/dl (65-105)
[2021-09-08] MEDS: SODIUM CHLORIDE 0.9% IV 1,000 ML 999 ML IV CONT (22:53)
[2021-09-09] VITALS (14 sets, daily range): BP systolic 92–140; BP diastolic 30–68; PULSE 97–110; RESP 16–20; TEMP 36.1–36.9; O2SAT 93–99; BMI 24.4
[2021-09-09] MEDS: AMPICILLIN SULB 1.5 GM/NS 50ML 1.5 GM/50 ML VIAL IVPB ×2 (00:23→05:04)
[2021-09-09 00:40] LABS: Glucose Point of Care 119 mg/dl (65-105)
[2021-09-09 00:40] LABS: Glucose Point of Care 109 mg/dl (65-105)
[2021-09-09] MEDS: SODIUM CHLORIDE 0.9% IV 1,000 ML 75 ML IV CONT (01:46)
[2021-09-09 05:15] LABS: Hematocrit 24.1 % (42.0-52.0); Hemoglobin 7.8 g/dL (14.0-18.0); Mean Corpuscular HGB Conc 32.4 g/dl (32-36); Mean Corpuscular Hemoglobin 31.6 pg (26-34); Mean Corpuscular Volume 97.6 fl (80-100); Mean Platelet Volume 12.8 fl (7.4-10.4); Platelet Count Result 122 k/mm3 (150-375); Red Blood Count 2.47 M/mm3 (4.6-6.20); Red Cell Distribution Width 15.4 % (11.5-14.5)
[2021-09-09 05:47] LABS: Band Neutrophils Percent 6 % (0-6); Monocytes Absolute Manual 0.78 K/mm3 (0.1-0.90); Monocytes Percent Manual 3 % (3-9); Neutrophils Absolute Manual 25.22 K/mm3 (1.3-6.7); Neutrophils Percent Manual 91 % (46-73); Total Cells Counted 100
[2021-09-09 05:48] LABS: Platelet Estimate Decreased (Adequate)
[2021-09-09 06:28] LABS: Glucose Point of Care 114 mg/dl (65-105)
--- NOTE | 2021-09-09 07:11 | SUR.PHASEII ---
09/09/21 0700 Transferring nurse last evening enquired with patient if his took his belongings home and he said they went home with his . Patient's belongings discovered this morning in the Endoscopy patient lockers. Belongings brought to patient's room on 2 Med. Glasses given to patient per his request.
--- NOTE | 2021-09-09 07:51 | WPDGIPROGNO ---
Progress Note: A&P Assessment and Plan (1) Gastric mass: Code(s): K31.89 - Other diseases of stomach and duodenum Status: Acute Assessment and Plan: Malignant-appearing gastric mass identified at endoscopy yesterday. Histology pending. Patient will need oncology follow-up. He states he does not wish additional surgery. CT scan of the abdomen would be prudent to evaluate for metastatic disease. Will proceed with this. Consider Oncology evaluation if patient remains hospitalized otherwise this should be accomplished as an outpatient. (2) Malignant neoplasm of lower third of esophagus: Code(s): C15.5 - Malignant neoplasm of lower third of esophagus Status: Acute Assessment and Plan: Patient is status post distal esophagectomy for cancer in 2019. Anastomosis in mid chest. After gastric pull up. (3) Aspiration pneumonia: Code(s): J69.0 - Pneumonitis due to inhalation of food and vomit Status: Acute Assessment and Plan: Infiltrates on x-ray along with leukocytosis suggest patient has pneumonia. Likely on the basis of aspiration. He has frequent vomiting and poor gastric emptying. He should have the head of his bed elevated. Soft diet. Modified barium swallow has been ordered. He would be best remain on soft to liquid diet because of poor stomach emptying with his tumor. (4) Chronic obstructive pulmonary disease: Code(s): J44.9 - Chronic obstructive pulmonary disease, unspecified Status: Acute Subjective Date/time seen: 09/09/21 07:51 Patient alert and comfortable this morning. Has a history of early satiety along with nausea and vomiting. History of distal esophageal carcinoma resected 2019. EGD yesterday performed with preventative intubation to protect his airway. Patient continued to be hypoxic after procedure prompting him to be admitted for observation. Patient was found to have large ulcerated mass in the stomach consistent with recurrent cancer. No obstruction encountered. Suspicion patient may have aspirated. He does have an underlying history of chronic lung disease. Infiltrates were identified on his chest x-ray. Patient now hungry and anxious to eat. Liquid diet advised. Review of Systems Review of Systems: All systems reviewed & are unremarkable except as noted in HPI and below Exam Narrative: Physical exam reveals patient be alert comfortable at rest. HEENT exam reveals no icterus. Lungs reveal a few rhonchi. Heart without murmur. Abdomen bowel sounds present soft nontender with no obvious organomegaly. Objective Data Vital Signs Vital Signs: Vital Signs - 24 hr 09/08/21 13:14 09/08/21 13:24 09/08/21 13:34 Temperature 97.0 F L Pulse Rate 84 88 78 Respiratory Rate 27 H 34 H 30 H Blood Pressure 134/65 133/52 L 124/58 L Pulse Oximetry 92 98 100 09/08/21 13:44 09/08/21 14:04 09/08/21 14:15 Temperature 97.5 F L Pulse Rate 84 83 Respiratory Rate 31 H 28 H Blood Pressure 131/56 L 131/57 L Pulse Oximetry 96 96 92 09/08/21 14:39 09/08/21 14:45 09/08/21 14:54 Temperature Pulse Rate Respiratory Rate 31 H 28 H 26 H Blood Pressure 115/56 L 105/48 L 115/61 Pulse Oximetry 88 L 89 L 87 L 09/08/21 15:05 09/08/21 15:36 09/08/21 16:10 Temperature Pulse Rate Respiratory Rate 21 H 28 H Blood Pressure 100/32 L 114/58 L Pulse Oximetry 95 97 98 09/08/21 17:00 09/08/21 17:10 09/08/21 17:40 Temperature 98.7 F Pulse Rate 102 H Respiratory Rate 20 Blood Pressure 103/73 Pulse Oximetry 76 L 94 09/08/21 18:00 09/08/21 19:00 09/08/21 20:00 Temperature 99.3 F Pulse Rate 112 H 103 H Respiratory Rate 20 20 Blood Pressure 114/84 Pulse Oximetry 94 97 09/08/21 21:58 09/08/21 21:59 09/09/21 00:00 Temperature 97.2 F L 97.0 F L Pulse Rate 84 99 Respiratory Rate 20 20 Blood Pressure 92/30 L 76/43 L 98/30 L Pulse Oximetry 94 96 09/09/21 00:34 09/09/21 02:07 09/09/21 04
[2021-09-09] MEDS: ONDANSETRON INJ 4 MG/2 ML VIAL IV PUSH ×2 (09:25→17:34)
--- NOTE | 2021-09-09 09:26 | WPDANESPN ---
Anes - Prog Note Post-Op Date/Time: 09/09/21 09:26 Cardiovascular status: normal Respiratory status: other (4l nc) Airway patency: baseline Mental status: baseline Post-Op hydration status: normal Vital Signs: Last Vital Signs Temp 36.9 C 09/09/21 09:00 Pulse 100 09/09/21 09:00 Resp 20 09/09/21 09:00 BP 140/68 09/09/21 09:00 Pulse Ox 97 09/09/21 09:00 Pain Score (VAS): 0 I/O: Intake & Output 09/08/21 09/09/21 09/09/21 23:59 07:59 15:59 Intake Total 1550 100 Output Total 150 50 Balance 1400 50 Laboratory Tests 09/09/21 04:33 09/08/21 16:50 09/08/21 09/08/21 09/08/21 12:04 13:42 16:09 WBC RBC Hgb Hct MCV MCH MCHC RDW Plt Count MPV Immature Gran % (Auto) Neut % (Auto) Lymph % (Auto) Clinton % (Auto) Eos % (Auto) Baso % (Auto) Lymph # (Auto) Clinton # (Auto) Eos # (Auto) Baso # (Auto) Abs Immat Gran (auto) Absolute Neuts (auto) Absolute Nucleated RBC Total Counted Neutrophils % (Manual) Band Neutrophils % Monocytes % (Manual) Nucleated RBC % Abs Neuts (Manual) Abs Monocytes (Manual) Platelet Estimate Sodium Potassium Chloride Carbon Dioxide Anion Gap BUN Creatinine Estim Creat Clear Calc Estimated GFR Glucose POC Capillary Glucose 73 86 75 Hemoglobin A1c Lactic Acid Calcium Magnesium Total Bilirubin AST ALT Alkaline Phosphatase C-Reactive Protein Total Protein Albumin 09/08/21 09/08/21 09/08/21 16:49 16:50 16:50 WBC 17.7 H RBC 3.39 L Hgb 10.5 L Hct 31.3 L MCV 92.3 MCH 31.0 MCHC 33.5 RDW 15.2 H Plt Count 162 MPV 13.2 H Immature Gran % (Auto) 0.9 H Neut % (Auto) 78.0 H Lymph % (Auto) 10.9 L Clinton % (Auto) 8.6 H Eos % (Auto) 1.1 Baso % (Auto) 0.5 Lymph # (Auto) 1.94 Clinton # (Auto) 1.5 H Eos # (Auto) 0.2 Baso # (Auto) 0.1 Abs Immat Gran (auto) 0.16 H Absolute Neuts (auto) 13.8 H Absolute Nucleated RBC 0.0 Total Counted Neutrophils % (Manual) Band Neutrophils % Monocytes % (Manual) Nucleated RBC % 0.0 Abs Neuts (Manual) Abs Monocytes (Manual) Platelet Estimate Sodium 137 Potassium 4.5 Chloride 101 Carbon Dioxide 30 Anion Gap 6 L BUN 12 Creatinine 0.70 Estim Creat Clear Calc 81 Estimated GFR > 60 Glucose 98 POC Capillary Glucose Hemoglobin A1c 4.9 Lactic Acid Calcium 8.2 L Magnesium 1.5 L Total Bilirubin 0.7 AST 33 ALT 19 Alkaline Phosphatase 117 C-Reactive Protein Total Protein 6.0 L Albumin 2.3 L 09/08/21 09/08/21 09/08/21 16:50 16:50 17:21 WBC RBC Hgb Hct MCV MCH MCHC RDW Plt Count MPV Immature Gran % (Auto) Neut % (Auto) Lymph % (Auto) Clinton % (Auto) Eos % (Auto) Baso % (Auto) Lymph # (Auto) Clinton # (Auto) Eos # (Auto) Baso # (Auto) Abs Immat Gran (auto) Absolute Neuts (auto) Absolute Nucleated RBC Total Counted Neutrophils % (Manual) Band Neutrophils % Monocytes % (Manual) Nucleated RBC % Abs Neuts (Manual) Abs Monocytes (Manual) Platelet Estimate Sodium Potassium Chloride Carbon Dioxide Anion Gap BUN Creatinine Estim Creat Clear Calc Estimated GFR Glucose POC Capillary Glucose 70 Hemoglobin A1c Lactic Acid 1.9 Calcium Magnesium Total Bilirubin AST ALT Alkaline Phosphatase C-Reactive Protein 6.6 H Total Protein Albumin 09/08/21 09/08/21 09/08/21 17:41 18:19 20:27 WBC RBC Hgb Hct MCV MCH MCHC RDW Plt Count MPV Immature Gran % (Auto) Neut % (Auto) Lymph % (Auto) Clinton % (Auto) Eos % (Auto) Baso % (Auto) Lymph # (Auto) Clinton # (Auto) Eos # (Auto)
--- NOTE | 2021-09-09 10:56 | ECG_ITS ---
Measurements Intervals [place] Rate: 93 P: 54 VT: 137 QRS: -16 QRSD: 84 T: 14 QT: 368 QTc: 459 Interpretive Statements SINUS RHYTHM DELAYED PRECORDIAL R/S TRANSITION BASELINE ARTIFACT- AVR, AVL, AVF, V3 BORDERLINE ECG Electronically Signed On 09-09-2021 11:18:24 CDT by Kenji Bucio D.O.
[2021-09-09] MEDS: prednisoLONE ACETATE 1% OPHTH 5 ML 1 DROP RIGHT EYE (11:51)
[2021-09-09] MEDS: METOCLOPRAMIDE HCL INJ 10 MG/2 ML VIAL 5 MG IV PUSH (12:15)
[2021-09-09 12:34] LABS: Glucose Point of Care 118 mg/dl (65-105)
--- NOTE | 2021-09-09 12:57 | PDONCCN ---
HPI - Date of Consult Date/Time: 09/09/21 12:57 Requesting Physician: Nathan Sandoval MD Primary Care Provider: Leeroy Rosario MD - Consult Narrative Reason for consult: History of esophageal cancer Narrative: Nilo Barney is a 76 year old male with history of esophageal cancer status post chemoradiation therapy and esophagectomy in 2019. Patient has been having difficulty eating and swallowing with almost 20 lb weight loss along with intermittent nausea vomiting. He has been feeling tired and fatigued. Patient had EGD done on September 08 that showed infiltrative mass in the gastric cardia and biopsies were taken. This mass does have some stigmata of bleeding. Pathology report is pending. Labs showed hemoglobin of 7.8. He looks quite tired and fatigued. He denies any bleeding but according to the nursing staff patient has vomitus which is dark brown colored. Review of Systems - Review of Systems All systems reviewed & are unremarkable except as noted in HPI and [facility] Medical History: Medical History (Last Updated 09/08/21 @ 18:48 by Genet Stearns PA-C) Anxiety Chronic back pain Chronic kidney disease, stage 3 Chronic obstructive pulmonary disease Depression due to physical illness Diabetic peripheral neuropathy Dyslipidemia Essential (primary) hypertension Gastroesophageal reflux disease Insomnia, unspecified Malignant neoplasm of lower third of esophagus Nephrolithiasis Obstructive sleep apnea Osteoarthritis Psoriasis Type 2 diabetes mellitus with hyperglycemia, with long-term current use of insulin Vitamin B12 deficiency Vitamin D deficiency Surgical History: Surgical History (Last Updated 09/08/21 @ 18:48 by Genet Stearns PA-C) History of cholecystectomy Onset Date: ~1999 History of esophagectomy Onset Date: 12/2018 History of lumbar laminectomy Onset Date: ~2015 History of open reduction and internal fixation (ORIF) procedure Onset Date: ~07/12/17 History of total hip arthroplasty Onset Date: ~2013 Hx of cornea transplant Onset Date: ~2013 Hx of neck surgery Onset Date: ~2008 S/P cystoscopy with ureteral stent placement Onset Date: ~2010 Spinal cord stimulator status Onset Date: 06/2020 Status post cataract extraction of both eyes with insertion of intraocular lens 2010 and 2012 Status post laser lithotripsy of ureteral calculus Onset Date: ~2013 Family History: Family History (Last Reviewed 09/08/21 @ 18:48 by Genet Stearns PA-C) Sibling Carcinoma of colon Malignant neoplasm of prostate Family history of malignant neoplasm of urinary bladder - Social History Social History: Social History (Last Updated 09/08/21 @ 18:48 by Genet Stearns PA-C) Alcohol Use: Alcohol intake: never Substance Use: Substance use: never Substance use type: does not use Others: Spiritual care concerns: No Living Arrangements: Living arrangements: with family Smoking Status: Smoking status: Former smoker Tobacco type: cigarettes Second hand tobacco smoke exposure: No Smoking end date: 11/07/84 Approximate Smoking End Date: 35 years ago Smoking Pack-years: Smoking packs per day: 1 Smoking cigarettes per day: 20.0 Years smoked: 20 Smoking pack-years: 20.00 Meds Home Medications Medication Instructions Recorded Confirmed Type ferrous sulfate 325 mg (65 mg 325 mg PO BID tablet 09/30/20 08/28/21 History iron) tablet blood sugar diagnostic See Rx Instructions .ROUTE 12/10/20 08/28/21 Rx .COMPLEX #400 strip ascorbate calcium (vitamin C) 500 500 mg PO DAILY 02/12/21 08/28/21 History mg tablet glucosamine sulf dipot 1 cap PO DAILY cap 02/12/21 08/28/21 History chlr,msm,chond 550 mg-C 30 mg-mich 1 mg capsule pen needle, diabetic 33 gauge x #100 ea 03/05/21 09/08/21 Rx 11/10 aspirin 81 mg tablet,delayed 81 mg PO DAILY 03/17/21 08/28/21 Histor
--- NOTE | 2021-09-09 15:04 | PCSTNOTE ---
Please refer to the Modified Barium Swallow Evaluation in the EMR.
[2021-09-09 18:07] LABS: Glucose Point of Care 119 mg/dl (65-105)
--- NOTE | 2021-09-09 19:13 | PM.IMPN ---
Progress Note: A&P Assessment and Plan (1) Aspiration pneumonia: Code(s): J69.0 - Pneumonitis due to inhalation of food and vomit Status: Acute Assessment and Plan: The patient became hypoxic post intubation after EGD today. Chest x-ray shows findings concerning for aspiration for which he has been started on Unasyn. Several hours post EGD he attempted to drink some juice and had difficulties thus he will be NPO for swallow study tomorrow. Aspiration precautions have been initiated. Keep head of bed elevated. (2) Gastric mass: Code(s): K31.89 - Other diseases of stomach and duodenum Status: Acute Assessment and Plan: Malignant appearing gastric masses noted on EGD today. Pathology pending. (3) Edema of both lower extremities: Code(s): R60.0 - Localized edema Status: Acute Assessment and Plan: The patient spends lot of time sitting in his recliner thus there is likely a component of dependent edema however given his history of malignancy I will go ahead an order venous Doppler ultrasounds of the lower legs to rule out clot. (4) Type 2 diabetes mellitus with hyperglycemia, with long-term current use of insulin: Code(s): E11.65 - Type 2 diabetes mellitus with hyperglycemia; Z79.4 - custodial (current) use of insulin Status: Acute Assessment and Plan: Hold basal insulin as he is NPO in his Accu-Cheks have been in the 60s to 70s. Initiate sliding scale insulin, Accu-Cheks, and hypoglycemic protocol. Check hemoglobin A1c. (5) Essential (primary) hypertension: Code(s): I10 - Essential (primary) hypertension Status: Acute Assessment and Plan: Blood pressures were reviewed and they are stable. His antihypertensives will be reviewed and resumed as appropriate. (6) Protein calorie malnutrition: Code(s): E46 - Unspecified protein-calorie malnutrition Status: Acute Assessment and Plan: His oral intake has dropped off quite a bit recently. Dietitian consulted. Additional Plan 09/09/21 History of esophageal cancer status post chemoradiation therapy and esophagectomy in 2019. Patient now came into the hospital with 20 lb weight loss nausea vomiting and poor appetite. MBS cleared for [facility] EGD finding noted that showed mass of the gastric cardia and pathology report from the biopsies pending. CT abdomen and chest was ordered and results are pending. Changes of esophagectomy and gastric pull-through without definite gastric mass identified wet, Small pleural effusions with passive atelectasis, Patchy opacities of the lungs, likely infectious or inflammatory, Bilateral nephrolithiasis with 5 mm stone in the right renal pelvis adjacent to a right internal ureteral stent. antiemetic PRN aspiration precautions Patient will follow-up with oncology outpatient for any further treatment. DNR Subjective Date/time seen: 09/09/21 19:13 pt states that he feels unwell, cont w nausea and vomiting would like to be DNR Exam Narrative: General: chronically ill-appearing male in the semi-Francis position in bed in no acute distress. HEENT: EOMI. Sclerae anicteric. Conjunctiva mildly injected. Oropharynx poorly visualized. Neck: Supple. No adenopathy or JVD. Respiratory: Respirations are even and nonlabored. He is speaking in full sentences. Currently on a2 L nasal cannula. Crackles and scattered rhonchi at the left base. Cardiovascular: Regular rate and rhythm with S1-S2. Gastrointestinal: Abdomen is soft, nontender, and nondistended with positive bowel sounds. Skin: Warm and dry. Generalized pallor. Stasis dermatitis of the lower legs, right greater than left. There are few areas of fluid-filled blisters on the right anterior fajardo. Extremities: No cyanosis or clubbing. 2+ bilateral lower extremity edema, right greater than left. Peripheral pulses intact. Neurological: Alert. Cranial nerves 2-12 are grossly intact. No
[2021-09-09 20:41] LABS: Glucose Point of Care 159 mg/dl (65-105)
[2021-09-10] VITALS (8 sets, daily range): BP systolic 129–133; BP diastolic 48–62; PULSE 79–115; RESP 18; TEMP 36.1–36.8; O2SAT 92–97
[2021-09-10] MEDS: ONDANSETRON INJ 4 MG/2 ML VIAL IV PUSH ×3 (05:05→22:17)
[2021-09-10 05:33] LABS: Basophils Percent Auto 0.3 % (0.2-1.2); Eosinophils Absolute Auto 0.1 K/mm3 (0-0.3); Eosinophils Percent Auto 0.5 % (0-4.4); Hemoglobin 7.8 g/dL (14.0-18.0); Immature Granulocyte Absolute 0.14 K/mm3 (0.00-0.031); Lymphocytes Absolute Auto 1.13 K/mm3 (0.9-3.2); Lymphocytes Percent Auto 8.1 % (18.3-44.2); Mean Corpuscular HGB Conc 31.2 g/dl (32-36); Mean Corpuscular Hemoglobin 31.1 pg (26-34); Mean Corpuscular Volume 99.6 fl (80-100); Mean Platelet Volume 12.8 fl (7.4-10.4); Monocytes Absolute Auto 1.4 K/mm3 (0.1-0.6); Neutrophils Absolute Auto 11.2 K/mm3 (1.3-6.7); Neutrophils Percent Auto 80.1 % (45.5-73.1); Platelet Count Result 120 k/mm3 (150-375); Red Blood Count 2.51 M/mm3 (4.6-6.20); Red Cell Distribution Width 15.9 % (11.5-14.5)
[2021-09-10 05:39] LABS: Alanine Aminotransferase 16 U/L (4-50); Alkaline Phosphatase 102 U/L (38-126); Anion Gap 7 mmol/L (8-16); Aspartate Amino Transferase 30 U/L (17-59); Bilirubin,Total 0.4 mg/dL (0.2-1.3); Blood Urea Nitrogen 19 mg/dL (9-20); Calcium 7.5 mg/dL (8.4-10.2); Carbon Dioxide 25 mmol/L (22-30); Chloride 106 mmol/L (98-107); Estimated CRCL calculation 75 ml/min; Estimated Glomerular Filt Rate > 60; Glucose 134 mg/dL (65-110); Magnesium 1.9 mg/dL (1.6-2.3); Potassium 3.9 mmol/L (3.4-5.0); Sodium 138 mmol/L (137-145)
--- NOTE | 2021-09-10 07:55 | PM.IMPN ---
Progress Note: A&P Assessment and Plan (1) Aspiration pneumonia: Code(s): J69.0 - Pneumonitis due to inhalation of food and vomit Status: Acute Assessment and Plan: . (2) Gastric mass: Code(s): K31.89 - Other diseases of stomach and duodenum Status: Acute (3) Edema of both lower extremities: Code(s): R60.0 - Localized edema Status: Acute (4) Type 2 diabetes mellitus with hyperglycemia, with long-term current use of insulin: Code(s): E11.65 - Type 2 diabetes mellitus with hyperglycemia; Z79.4 - senior care (current) use of insulin Status: Acute (5) Essential (primary) hypertension: Code(s): I10 - Essential (primary) hypertension Status: Acute (6) Protein calorie malnutrition: Code(s): E46 - Unspecified protein-calorie malnutrition Status: Acute Additional Plan 09/08/21 The patient became hypoxic post intubation after EGD today. Chest x-ray shows findings concerning for aspiration for which he has been started on Unasyn. Several hours post EGD he attempted to drink some juice and had difficulties thus he will be NPO for swallow study tomorrow. Aspiration precautions have been initiated. Keep head of bed elevated. The patient spends lot of time sitting in his recliner thus there is likely a component of dependent edema however given his history of malignancy I will go ahead an order venous Doppler ultrasounds of the lower legs to rule out clot. Malignant appearing gastric masses noted on EGD today. Pathology pending. Hold basal insulin as he is NPO in his Accu-Cheks have been in the 60s to 70s. Initiate sliding scale insulin, Accu-Cheks, and hypoglycemic protocol. Check hemoglobin A1c. Blood pressures were reviewed and they are stable. His antihypertensives will be reviewed and resumed as appropriate. His oral intake has dropped off quite a bit recently. Dietitian consulted 09/09/21 History of esophageal cancer status post chemoradiation therapy and esophagectomy in 2019. Patient now came into the hospital with 20 lb weight loss nausea vomiting and poor appetite. MBS cleared for [facility] EGD finding noted that showed mass of the gastric cardia and pathology report from the biopsies pending. CT abdomen and chest shows : Changes of esophagectomy and gastric pull-through without definite gastric mass identified wet, Small pleural effusions with passive atelectasis, Patchy opacities of the lungs, likely infectious or inflammatory, Bilateral nephrolithiasis with 5 mm stone in the right renal pelvis adjacent to a right internal ureteral stent. antiemetic PRN aspiration precautions Patient will follow-up with oncology outpatient for any further treatment. DNR 09/10/21 WBCs down trending reglan for nausea outpt onc follow up calorie count cont abx full liq diet Subjective Date/time seen: 09/10/21 07:55 pt doing ok, daughter is bedside we discussed plan of care. oncology visits during our discussion agrees to calorie count and patient will have ongoing outpatient workup. Anticipate discharge home tomorrow Exam Narrative: General: chronically ill-appearing male sitting up in bed in no acute distress. HEENT: EOMI. Sclerae anicteric. Conjunctiva clear Neck: Supple. No adenopathy or JVD. Respiratory: Respirations are even and nonlabored. He is speaking in full sentences. Currently on a2 L nasal cannula. Crackles and scattered rhonchi at the left base. Cardiovascular: Regular rate and rhythm with S1-S2. Skin: Warm and dry. Extremities: No cyanosis or clubbing. 1+ bilateral lower extremity edema, right greater than left. Peripheral pulses intact. Neurological: Alert. Cranial nerves 2-12 are grossly intact. No gross focal deficits to casual conversation. Psychiatric: Pleasant and cooperative. Appropriate mood and affect Objective Data Vital Signs Vital Signs: Vital Signs - 24 hr 09/09/21 08:00 09/09/21 09:00 09/09/21 09:22 Temperature 98
[2021-09-10] MEDS: IRON SUCROSE COMPLEX 500 MG in SODIUM CHLORIDE 0.9% IV 250 ML 78.57 MG IVPB (07:56)
[2021-09-10 08:37] LABS: Glucose Point of Care 134 mg/dl (65-105)
--- NOTE | 2021-09-10 09:26 | WPDGIPROGNO ---
Progress Note: A&P Assessment and Plan (1) Gastric mass: Code(s): K31.89 - Other diseases of stomach and duodenum Status: Acute Assessment and Plan: Gastric mass identified by endoscopy. Appears to be recurrence of his previous cancer. Patient has been seen by Oncology in should follow up with them after discharge. CT scan fails to identified this suggesting it is early rather than late. Although relatively large size endoscopically. (2) H/O esophagectomy: Onset Date: ~05/2018 Code(s): Z98.890 - Other specified postprocedural states; Z90.49 - Acquired absence of other specified parts of digestive tract Status: Acute Assessment and Plan: Patient has distal esophagectomy for esophageal cancer. Will have him follow up with Oncology as appears to have a recurrence in the stomach. (3) Aspiration pneumonia: Code(s): J69.0 - Pneumonitis due to inhalation of food and vomit Status: Acute Assessment and Plan: Aspiration pneumonia suggested. Likely because of poor gastric emptying. Will continue Reglan for nausea. Soft a liquid diet advised. Elevate head of bed at her eating. Discharge with antibiotics per primary care service. (4) Chronic obstructive pulmonary disease: Code(s): J44.9 - Chronic obstructive pulmonary disease, unspecified Status: Acute Subjective Date/time seen: 09/10/21 09:26 Patient alert comfortable this morning. Nausea appear at [facility] has improved with Reglan. Patient anxious to go home. Review of Systems Review of Systems: All systems reviewed & are unremarkable except as noted in HPI and below Exam Narrative: Physical exam reveals patient to be alert comfortable at rest. HEENT exam reveals anicteric. Lungs are clear. Few rhonchi noted. Heart without murmur. Abdomen is soft nontender with no organomegaly. Objective Data Vital Signs Vital Signs: Vital Signs - 24 hr 09/09/21 12:00 09/09/21 14:20 09/09/21 15:18 Temperature 97.6 F Pulse Rate 97 104 H Respiratory Rate 18 Blood Pressure 111/43 L Pulse Oximetry 99 96 09/09/21 16:00 09/09/21 20:00 09/09/21 22:00 Temperature 98.1 F Pulse Rate 104 H 104 H 110 H Respiratory Rate 16 Blood Pressure 108/44 L Pulse Oximetry 96 97 09/10/21 00:00 09/10/21 04:00 09/10/21 05:59 Temperature 98.3 F Pulse Rate 104 H 111 H 109 H Respiratory Rate 18 Blood Pressure 129/51 L Pulse Oximetry 97 Intake/Output Intake/Output: Intake & Output 09/07/21 09/08/21 09/09/21 09/10/21 23:59 23:59 23:59 23:59 Intake Total 1550 920 500 Output Total 150 225 300 Balance 1400 695 200 Meds/Results Medications: Active Medications Generic Name Dose Route Start Last Admin Trade Name Freq PRN Reason Stop Dose Admin Dextrose 12.5 gm 09/08/21 17:46 09/08/21 17:53 Dextrose 50% 25 Gm/50 Ml Syringe IV PUSH 12.5 gm PRN PRN Administration Hypoglycemia Protocol Glucagon 1 mg 09/08/21 17:46 Glucagon For Inj 1 Mg Vial IM PRN PRN Hypoglycemia Protocol Glucose 15 gm 09/08/21 17:46 Glucose Oral Gel 15 Gm Of Glucse In 37.5 Gm Tube PO PRN PRN Hypoglycemia Protocol Dextrose 1,000 mls @ 100 mls/hr 09/08/21 17:46 Dextrose 5% 1,000 Ml IVPB PRN PRN Hypoglycemia Protocol Piperacillin/Tazobactam/Dextrose 3.375 gm in 50 mls @ 100 mls/hr 09/09/21 12:00 09/10/21 06:29 Zosyn 3.375 Gm/D5w 50ml Pm IVPB Infused Q6HR MIHIR Infusion Iron Sucrose 500 mg/ Sodium 275 mls @ 78.571 mls/hr 09/10/21 09:00 09/10/21 07:56 Chloride IVPB 09/12/21 08:59 78.57 mls/hr DAILY MIHIR Administration Miconazole Nitrate 1 applic 09/09/21 09:00 09/10/21 08:00 Miconazole 2% Antifungal Ointment 56 Gm TOPICAL 1 applic Q12HR MIHIR Administration Ondansetron HCl 4 mg 09/08/21 19:19 09/10/21 05:05 Ondansetron Inj 4 Mg/2 Ml Vial IV PUSH 4 mg Q6H PRN Administration Nausea And V
[2021-09-10 11:44] LABS: Glucose Point of Care 163 mg/dl (65-105)
--- NOTE | 2021-09-10 12:45 | WPDONCPN ---
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 HER2/ragini status pending. CT scan showed changes of esophagectomy with small pleural effusion and no evidence of metastatic disease or enlarged lymphadenopathy. I plan to perform PET scan as an outpatient. Patient is not a good candidate for surgery and he is also not interested. I will refer him for radiation therapy consultation. He would possibly need radiation therapy along with some chemotherapy treatment. Anemia. Patient is receiving IV iron infusion. We will follow-up in the office. - Time Spent With Patient Total time spent is greater than 50% in coordination of care (as documented) at patient's floor/unit and/or counseling patient: 15 - 25 minutes Subjective Interval history: Relapse esophageal cancer Review of Systems - Review of Systems Patient is eating lunch and looks comfortable. Complain of swelling in the left upper extremity. Complain of tiredness and fatigue but denies any diarrhea and constipation. Denies any chest pain and abdominal pain. No other new complaints Exam Vital signs: Temp Pulse Resp BP Pulse Ox 36.8 C 106 H 18 129/51 L 97 09/10/21 05:59 09/10/21 08:00 09/10/21 05:59 09/10/21 05:59 09/10/21 05:59 Narrative: Lungs are clear to auscultation bilaterally Cardiovascular regular rate rhythm no murmurs Abdomen soft nontender nondistended bowel sounds are positive Extremities mild left upper extremity edema PN: Objective Data - Labs CBC & Chem 7: 09/10/21 04:41 09/10/21 04:41 Labs: Laboratory Results - last 24 hr 09/09/21 09/09/21 09/10/21 18:05 20:23 04:41 WBC 14.0 H RBC 2.51 L Hgb 7.8 L Hct 25.0 L MCV 99.6 MCH 31.1 MCHC 31.2 L RDW 15.9 H Plt Count 120 L MPV 12.8 H Immature Gran % (Auto) 1.0 H Neut % (Auto) 80.1 H Lymph % (Auto) 8.1 L Levy % (Auto) 10.0 H Eos % (Auto) 0.5 Baso % (Auto) 0.3 Lymph # (Auto) 1.13 Levy # (Auto) 1.4 H Eos # (Auto) 0.1 Baso # (Auto) 0.0 Abs Immat Gran (auto) 0.14 H Absolute Neuts (auto) 11.2 H Absolute Nucleated RBC 0.0 Nucleated RBC % 0.0 Sodium Potassium Chloride Carbon Dioxide Anion Gap BUN Creatinine Estim Creat Clear Calc Estimated GFR Glucose POC Capillary Glucose 119 H 159 H Calcium Magnesium Total Bilirubin AST ALT Alkaline Phosphatase Total Protein Albumin 09/10/21 09/10/21 09/10/21 04:41 07:51 11:37 WBC RBC Hgb Hct MCV MCH MCHC RDW Plt Count MPV Immature Gran % (Auto) Neut % (Auto) Lymph % (Auto) Levy % (Auto) Eos % (Auto) Baso % (Auto) Lymph # (Auto) Levy # (Auto) Eos # (Auto) Baso # (Auto) Abs Immat Gran (auto) Absolute Neuts (auto) Absolute Nucleated RBC Nucleated RBC % Sodium 138 Potassium 3.9 Chloride 106 Carbon Dioxide 25 Anion Gap 7 L BUN 19 Creatinine 0.80 Estim Creat Clear Calc 75 Estimated GFR > 60 Glucose 134 H POC Capillary Glucose 134 H 163 H Calcium 7.5 L Magnesium 1.9 Total Bilirubin 0.4 AST 30 ALT 16 Alkaline Phosphatase 102 Total Protein 5.0 L Albumin 2.0 L
--- NOTE | 2021-09-10 14:09 | PCOTNOTE ---
Pt. demonstrated poor tolerance, unable to maintain safe O2 saturation due to frequent need to cough. Pt. frequency reduced to .2-3x/wk until demonstration of increased tolerance for therapy
[2021-09-10] MEDS: METOCLOPRAMIDE HCL 5 MG TABLET PO ×2 (15:46→20:20)
[2021-09-10] MEDS: LIDOCAINE/PRILOCAINE CREAM 2.5-2.5% TUBE 1 EACH TOPICAL (15:48)
[2021-09-10] MEDS: BISACODYL 10 MG SUPPOSITORY RECTAL (16:22)
[2021-09-10 16:50] LABS: Glucose Point of Care 169 mg/dl (65-105)
[2021-09-10] MEDS: CENTRAL LINE FLUSH 10 ML IV PUSH ×2 (18:13→20:20)
[2021-09-10 20:43] LABS: Glucose Point of Care 192 mg/dl (65-105)
[2021-09-11] VITALS (10 sets, daily range): BP systolic 135–147; BP diastolic 69–82; PULSE 96–121; RESP 18–20; TEMP 36.6–37; O2SAT 93–97
[2021-09-11] MEDS: ALPRAZolam (*CRX) 0.5 MG TABLET PO ×2 (00:30→16:35)
[2021-09-11] MEDS: ACETAMINOPHEN 325 MG TABLET 650 MG PO (00:30)
[2021-09-11] MEDS: CENTRAL LINE FLUSH 10 ML IV PUSH ×3 (06:08→21:04)
[2021-09-11] MEDS: METOCLOPRAMIDE HCL 5 MG TABLET PO ×4 (06:08→20:56)
[2021-09-11 06:48] LABS: Basophils Absolute Auto 0.1 K/mm3 (0.0-0.1); Basophils Percent Auto 0.6 % (0.2-1.2); Eosinophils Absolute Auto 0.2 K/mm3 (0-0.3); Eosinophils Percent Auto 1.7 % (0-4.4); Hematocrit 25.1 % (42.0-52.0); Immature Granulocyte Absolute 0.11 K/mm3 (0.00-0.031); Lymphocytes Absolute Auto 1.12 K/mm3 (0.9-3.2); Lymphocytes Percent Auto 10.3 % (18.3-44.2); Mean Corpuscular HGB Conc 31.9 g/dl (32-36); Mean Corpuscular Hemoglobin 32.1 pg (26-34); Mean Corpuscular Volume 100.8 fl (80-100); Mean Platelet Volume 12.3 fl (7.4-10.4); Monocytes Absolute Auto 1.4 K/mm3 (0.1-0.6); Neutrophils Percent Auto 73.4 % (45.5-73.1); Platelet Count Result 116 k/mm3 (150-375); Red Blood Count 2.49 M/mm3 (4.6-6.20); White Blood Count 10.9 K/mm3 (4.5-10.0)
[2021-09-11 06:58] LABS: Anion Gap 2 mmol/L (8-16); Blood Urea Nitrogen 15 mg/dL (9-20); Calcium 7.8 mg/dL (8.4-10.2); Carbon Dioxide 31 mmol/L (22-30); Chloride 106 mmol/L (98-107); Estimated CRCL calculation 85 ml/min; Estimated Glomerular Filt Rate > 60; Glucose 150 mg/dL (65-110); Magnesium 1.8 mg/dL (1.6-2.3); Potassium 3.5 mmol/L (3.4-5.0); Sodium 139 mmol/L (137-145)
[2021-09-11 07:54] LABS: Glucose Point of Care 137 mg/dl (65-105)
--- NOTE | 2021-09-11 07:56 | PM.IMPN ---
Progress Note: A&P Assessment and Plan (1) Aspiration pneumonia: Code(s): J69.0 - Pneumonitis due to inhalation of food and vomit Status: Acute Assessment and Plan: . (2) Gastric mass: Code(s): K31.89 - Other diseases of stomach and duodenum Status: Acute (3) Edema of both lower extremities: Code(s): R60.0 - Localized edema Status: Acute (4) Type 2 diabetes mellitus with hyperglycemia, with long-term current use of insulin: Code(s): E11.65 - Type 2 diabetes mellitus with hyperglycemia; Z79.4 - city superintendent (current) use of insulin Status: Acute (5) Essential (primary) hypertension: Code(s): I10 - Essential (primary) hypertension Status: Acute (6) Protein calorie malnutrition: Code(s): E46 - Unspecified protein-calorie malnutrition Status: Acute Additional Plan 09/08/21 The patient became hypoxic post intubation after EGD today. Chest x-ray shows findings concerning for aspiration for which he has been started on Unasyn. Several hours post EGD he attempted to drink some juice and had difficulties thus he will be NPO for swallow study tomorrow. Aspiration precautions have been initiated. Keep head of bed elevated. The patient spends lot of time sitting in his recliner thus there is likely a component of dependent edema however given his history of malignancy I will go ahead an order venous Doppler ultrasounds of the lower legs to rule out clot. Malignant appearing gastric masses noted on EGD today. Pathology pending. Hold basal insulin as he is NPO in his Accu-Cheks have been in the 60s to 70s. Initiate sliding scale insulin, Accu-Cheks, and hypoglycemic protocol. Check hemoglobin A1c. Blood pressures were reviewed and they are stable. His antihypertensives will be reviewed and resumed as appropriate. His oral intake has dropped off quite a bit recently. Dietitian consulted 09/09/21 History of esophageal cancer status post chemoradiation therapy and esophagectomy in 2019. Patient now came into the hospital with 20 lb weight loss nausea vomiting and poor appetite. MBS cleared for [facility] EGD finding noted that showed mass of the gastric cardia and pathology report from the biopsies pending. CT abdomen and chest shows : Changes of esophagectomy and gastric pull-through without definite gastric mass identified wet, Small pleural effusions with passive atelectasis, Patchy opacities of the lungs, likely infectious or inflammatory, Bilateral nephrolithiasis with 5 mm stone in the right renal pelvis adjacent to a right internal ureteral stent. antiemetic PRN aspiration precautions Patient will follow-up with oncology outpatient for any further treatment. DNR 09/10/21 WBCs down trending reglan for nausea outpt onc follow up calorie count cont abx full liq diet 09/11/21 pt unimproved continues to have vomiting and pain poorly controlled Will try p.o. liquid morphine in place of tablets for appropriate pain control that can be continued in the outpatient setting Will continue with Reglan Patient is very resistant to PEG tube. He is discussing with me today comfort care/ hospice. We have agreed to table this discussion until his symptoms are a little bit better controlled to allow him to make his decision with less bias anticipate home on liq PO abx augmentin when discharged Subjective Date/time seen: 09/11/21 07:56 Patient reports that he is in a lot of pain and is suffering. He does not want a PEG tube and he has been unable to tolerate p.o. today. Ongoing vomiting and pain we discussed hospice and patient thinks that he would like to pursue hospice at this time. I advised him that I will try to control his pain on p.o. morphine. And nausea with Reglan and once he started to feel a little bit better we will revisit the topic of hospice. Patient is in agreement. Exam Narrative: General: chronically ill-appearing male sitting up in bed in mild distre
[2021-09-11] MEDS: IRON SUCROSE COMPLEX 500 MG in SODIUM CHLORIDE 0.9% IV 250 ML 79 MG IVPB (08:36)
[2021-09-11] MEDS: prednisoLONE ACETATE 1% OPHTH 5 ML 1 DROP RIGHT EYE (08:37)
[2021-09-11] MEDS: ONDANSETRON INJ 4 MG/2 ML VIAL IV PUSH ×3 (09:15→21:03)
[2021-09-11 11:48] LABS: Glucose Point of Care 150 mg/dl (65-105)
--- NOTE | 2021-09-11 13:10 | PCNFU ---
Nutrition Follow-Up Complete: Swallowing Difficulties as related to hx of esophageal cancer as evidenced by NPO Goal: Meet estimated nutritional needs Patient has limited progress towards goal. We will continue current goal. Pt current nutrition is Full liquids with Ensure Compact BID. Last recorded weight is 87.8 kg, up from 81.8 kg on admit. Bowel Motility:Last BM reported 09/07 Labs Reviewed:Glu 150,Hct 25.1,Hgb 8.0 Meds Noted:Reglan, Heparin, Xanax, Zosyn, Pred Forte, Reglan. Additional Nutritional Information: Patient had MBS on 09/09 recommending Pureed or Minced and Moist diet however he may have difficulty masticating the Minced and Moist Diet. Patient had Calorie Count ordered on 09/10. Only ticket left for evaluation-09/11 breakfast, approx. 30 kcals. Patient vomiting today, not feeling well. Diet supplements of Ensure compact will continue providing patient with an additional 220 kcals and 9 gms protein. Skin: stage 2-coccyx. Agree with diet orders at this time. Monitoring: Will monitor every 3 days.
--- NOTE | 2021-09-11 14:10 | PCPTNOTE ---
Per RN patient is having continues vomiting, and patient is not appropriate for therapy this date.
[2021-09-11] MEDS: MORPHINE SULFATE (*CRX) 2 MG/ML INJ IV PUSH (16:34)
[2021-09-11 17:28] LABS: Glucose Point of Care 160 mg/dl (65-105)
[2021-09-11] MEDS: MORPHINE SULFATE ORAL CONC SOL (*CRX) 10 MG/0.5 ML SYRINGE 5 MG PO (21:04)
[2021-09-11 21:51] LABS: Glucose Point of Care 140 mg/dl (65-105)
[2021-09-12] VITALS (21 sets, daily range): BP systolic 132–151; BP diastolic 61–79; PULSE 96–172; RESP 18–25; TEMP 36.1–36.8; O2SAT 93–100
[2021-09-12] MEDS: CENTRAL LINE FLUSH 10 ML IV PUSH ×3 (05:45→20:32)
[2021-09-12] MEDS: METOCLOPRAMIDE HCL 5 MG TABLET PO ×4 (05:45→20:32)
[2021-09-12 06:12] LABS: Basophils Absolute Auto 0.1 K/mm3 (0.0-0.1); Basophils Percent Auto 0.5 % (0.2-1.2); Eosinophils Absolute Auto 0.2 K/mm3 (0-0.3); Eosinophils Percent Auto 1.3 % (0-4.4); Hematocrit 26.7 % (42.0-52.0); Hemoglobin 8.4 g/dL (14.0-18.0); Immature Granulocyte Absolute 0.22 K/mm3 (0.00-0.031); Immature Granulocyte Percent A 1.8 % (0-0.5); Lymphocytes Absolute Auto 0.92 K/mm3 (0.9-3.2); Lymphocytes Percent Auto 7.7 % (18.3-44.2); Mean Corpuscular HGB Conc 31.5 g/dl (32-36); Mean Corpuscular Hemoglobin 31.3 pg (26-34); Mean Corpuscular Volume 99.6 fl (80-100); Mean Platelet Volume 11.9 fl (7.4-10.4); Monocytes Absolute Auto 1.4 K/mm3 (0.1-0.6); Monocytes Percent Auto 12.1 % (2.6-8.5); Neutrophils Absolute Auto 9.1 K/mm3 (1.3-6.7); Neutrophils Percent Auto 76.6 % (45.5-73.1); Platelet Count Result 125 k/mm3 (150-375); Red Blood Count 2.68 M/mm3 (4.6-6.20); Red Cell Distribution Width 15.9 % (11.5-14.5); White Blood Count 11.9 K/mm3 (4.5-10.0)
[2021-09-12 06:25] LABS: Alanine Aminotransferase 18 U/L (4-50); Albumin Level 2.1 g/dL (3.5-5.1); Alkaline Phosphatase 87 U/L (38-126); Anion Gap 3 mmol/L (8-16); Aspartate Amino Transferase 37 U/L (17-59); Bilirubin,Total 0.3 mg/dL (0.2-1.3); Blood Urea Nitrogen 13 mg/dL (9-20); Calcium 7.3 mg/dL (8.4-10.2); Carbon Dioxide 31 mmol/L (22-30); Chloride 106 mmol/L (98-107); Estimated CRCL calculation 98 ml/min; Estimated Glomerular Filt Rate > 60; Glucose 126 mg/dL (65-110); Magnesium 1.5 mg/dL (1.6-2.3); Phosphorus 2.4 mg/dL (2.5-4.5); Potassium 3.3 mmol/L (3.4-5.0); Sodium 140 mmol/L (137-145)
[2021-09-12 08:43] LABS: Glucose Point of Care 131 mg/dl (65-105)
[2021-09-12] MEDS: ONDANSETRON INJ 4 MG/2 ML VIAL IV PUSH ×2 (08:53→17:12)
[2021-09-12] MEDS: MORPHINE SULFATE ORAL CONC SOL (*CRX) 10 MG/0.5 ML SYRINGE 5 MG PO ×2 (08:53→17:43)
[2021-09-12] MEDS: ALPRAZolam (*CRX) 0.5 MG TABLET PO ×2 (08:54→17:43)
[2021-09-12] MEDS: MAGNESIUM SULF 2 GM/WATER 50ML 2 GM/50 ML BAG IVPB (08:56)
--- NOTE | 2021-09-12 10:05 | PM.IMPN ---
Progress Note: A&P Assessment and Plan (1) Aspiration pneumonia: Code(s): J69.0 - Pneumonitis due to inhalation of food and vomit Status: Acute Assessment and Plan: . (2) Gastric mass: Code(s): K31.89 - Other diseases of stomach and duodenum Status: Acute (3) Edema of both lower extremities: Code(s): R60.0 - Localized edema Status: Acute (4) Type 2 diabetes mellitus with hyperglycemia, with long-term current use of insulin: Code(s): E11.65 - Type 2 diabetes mellitus with hyperglycemia; Z79.4 - terminologist (current) use of insulin Status: Acute (5) Essential (primary) hypertension: Code(s): I10 - Essential (primary) hypertension Status: Acute (6) Protein calorie malnutrition: Code(s): E46 - Unspecified protein-calorie malnutrition Status: Acute Additional Plan 09/08/21 The patient became hypoxic post intubation after EGD today. Chest x-ray shows findings concerning for aspiration for which he has been started on Unasyn. Several hours post EGD he attempted to drink some juice and had difficulties thus he will be NPO for swallow study tomorrow. Aspiration precautions have been initiated. Keep head of bed elevated. The patient spends lot of time sitting in his recliner thus there is likely a component of dependent edema however given his history of malignancy I will go ahead an order venous Doppler ultrasounds of the lower legs to rule out clot. Malignant appearing gastric masses noted on EGD today. Pathology pending. Hold basal insulin as he is NPO in his Accu-Cheks have been in the 60s to 70s. Initiate sliding scale insulin, Accu-Cheks, and hypoglycemic protocol. Check hemoglobin A1c. Blood pressures were reviewed and they are stable. His antihypertensives will be reviewed and resumed as appropriate. His oral intake has dropped off quite a bit recently. Dietitian consulted 09/09/21 History of esophageal cancer status post chemoradiation therapy and esophagectomy in 2019. Patient now came into the hospital with 20 lb weight loss nausea vomiting and poor appetite. MBS cleared for [facility] EGD finding noted that showed mass of the gastric cardia and pathology report from the biopsies pending. CT abdomen and chest shows : Changes of esophagectomy and gastric pull-through without definite gastric mass identified wet, Small pleural effusions with passive atelectasis, Patchy opacities of the lungs, likely infectious or inflammatory, Bilateral nephrolithiasis with 5 mm stone in the right renal pelvis adjacent to a right internal ureteral stent. antiemetic PRN aspiration precautions Patient will follow-up with oncology outpatient for any further treatment. DNR 09/10/21 WBCs down trending reglan for nausea outpt onc follow up calorie count cont abx full liq diet 09/11/21 pt unimproved continues to have vomiting and pain poorly controlled Will try p.o. liquid morphine in place of tablets for appropriate pain control that can be continued in the outpatient setting Will continue with Reglan Patient is very resistant to PEG tube. He is discussing with me today comfort care/ hospice. We have agreed to table this discussion until his symptoms are a little bit better controlled to allow him to make his decision with less bias anticipate home on liq PO abx augmentin when discharged 09/12/21 vomiting improved but not controlled pain improved by not controlled cont current care will add low dose fentanyl patch family meeting this afternoon to discuss plan of care and goals of care Subjective Date/time seen: 09/12/21 10:05 pt unable to tolerate any significant amount of food. Pain is improved w oral morphine and nausea w antiemetic today but neither have resolved. Pt does discuss w me again today hospice. He asks me to call his and speak with her. I have called to his to explain to her that he doesn't want to live in pain, and that he does not want anot
[2021-09-12 12:38] LABS: Glucose Point of Care 142 mg/dl (65-105)
--- NOTE | 2021-09-12 13:46 | ECG_ITS ---
Measurements Intervals [place] Rate: 102 P: 29 MI: 139 QRS: -4 QRSD: 88 T: 34 QT: 345 QTc: 450 Interpretive Statements SINUS TACHYCARDIA LOW QRS VOLTAGE- DIFFUSE LEADS CANNOT RULE OUT SEPTAL INFARCT, AGE INDETERMINATE ABNORMAL ECG Electronically Signed On 09-12-2021 16:26:02 CDT by Kenji Bucio D.O.
[2021-09-12] MEDS: METOPROLOL TARTRATE INJ 5 MG/5 ML VIAL 2.5 MG IV PUSH (13:50)
[2021-09-12] MEDS: ACETAMINOPHEN 325 MG TABLET 650 MG PO (20:31)
[2021-09-12 20:54] LABS: Glucose Point of Care 145 mg/dl (65-105)
[2021-09-12] MEDS: METOPROLOL TARTRATE INJ 5 MG/5 ML VIAL IV PUSH (22:55)
[2021-09-13] VITALS (12 sets, daily range): BP systolic 124–150; BP diastolic 60–64; PULSE 99–112; RESP 18–20; TEMP 36–36.3; O2SAT 91–99
--- NOTE | 2021-09-13 01:14 | PC.NURSE ---
Daylight Savings Time For Daylight Savings Time Ending in the Fall - Clocks are moved back. For Daylight Savings Time Beginning in the Spring - Clocks are moved ahead. For [facility], the time of change occurs at 0200 hrs. Time is taken from the cocktail server. This entry on the patient's chart recognizes the change in time reflected during documentation. Example: 2 entries for vital signs may be charted for 0200 hrs.
[2021-09-13] MEDS: METOCLOPRAMIDE HCL 5 MG TABLET PO ×4 (06:07→20:44)
[2021-09-13] MEDS: CENTRAL LINE FLUSH 10 ML IV PUSH ×3 (06:07→21:22)
[2021-09-13] MEDS: ONDANSETRON INJ 4 MG/2 ML VIAL IV PUSH ×2 (06:11→12:29)
[2021-09-13] MEDS: ALPRAZolam (*CRX) 0.5 MG TABLET PO (07:56)
[2021-09-13 08:36] LABS: Glucose Point of Care 134 mg/dl (65-105)
[2021-09-13 11:59] LABS: Glucose Point of Care 143 mg/dl (65-105)
--- NOTE | 2021-09-13 15:38 | PC.NURSE ---
pt's family is very concerned that the PCP will not be kept in the loop. I was asked to make sure that Dr. Rosario be provided with copies and status updates on pt's condition.
--- NOTE | 2021-09-13 16:23 | PM.IMPN ---
Progress Note: A&P Assessment and Plan (1) Aspiration pneumonia: Code(s): J69.0 - Pneumonitis due to inhalation of food and vomit Status: Acute Assessment and Plan: . (2) Gastric mass: Code(s): K31.89 - Other diseases of stomach and duodenum Status: Acute (3) Edema of both lower extremities: Code(s): R60.0 - Localized edema Status: Acute (4) Type 2 diabetes mellitus with hyperglycemia, with long-term current use of insulin: Code(s): E11.65 - Type 2 diabetes mellitus with hyperglycemia; Z79.4 - terminal make up operator (current) use of insulin Status: Acute (5) Essential (primary) hypertension: Code(s): I10 - Essential (primary) hypertension Status: Acute (6) Protein calorie malnutrition: Code(s): E46 - Unspecified protein-calorie malnutrition Status: Acute Additional Plan 09/08/21 The patient became hypoxic post intubation after EGD today. Chest x-ray shows findings concerning for aspiration for which he has been started on Unasyn. Several hours post EGD he attempted to drink some juice and had difficulties thus he will be NPO for swallow study tomorrow. Aspiration precautions have been initiated. Keep head of bed elevated. The patient spends lot of time sitting in his recliner thus there is likely a component of dependent edema however given his history of malignancy I will go ahead an order venous Doppler ultrasounds of the lower legs to rule out clot. Malignant appearing gastric masses noted on EGD today. Pathology pending. Hold basal insulin as he is NPO in his Accu-Cheks have been in the 60s to 70s. Initiate sliding scale insulin, Accu-Cheks, and hypoglycemic protocol. Check hemoglobin A1c. Blood pressures were reviewed and they are stable. His antihypertensives will be reviewed and resumed as appropriate. His oral intake has dropped off quite a bit recently. Dietitian consulted 09/09/21 History of esophageal cancer status post chemoradiation therapy and esophagectomy in 2019. Patient now came into the hospital with 20 lb weight loss nausea vomiting and poor appetite. MBS cleared for [facility] EGD finding noted that showed mass of the gastric cardia and pathology report from the biopsies pending. CT abdomen and chest shows : Changes of esophagectomy and gastric pull-through without definite gastric mass identified wet, Small pleural effusions with passive atelectasis, Patchy opacities of the lungs, likely infectious or inflammatory, Bilateral nephrolithiasis with 5 mm stone in the right renal pelvis adjacent to a right internal ureteral stent. antiemetic PRN aspiration precautions Patient will follow-up with oncology outpatient for any further treatment. DNR 09/10/21 WBCs down trending reglan for nausea outpt onc follow up calorie count cont abx full liq diet 09/11/21 pt unimproved continues to have vomiting and pain poorly controlled Will try p.o. liquid morphine in place of tablets for appropriate pain control that can be continued in the outpatient setting Will continue with Reglan Patient is very resistant to PEG tube. He is discussing with me today comfort care/ hospice. We have agreed to table this discussion until his symptoms are a little bit better controlled to allow him to make his decision with less bias anticipate home on liq PO abx augmentin when discharged 09/12/21 vomiting improved but not controlled pain improved by not controlled cont current care will add low dose fentanyl patch family meeting this afternoon to discuss plan of care and goals of care 09/13/21 Vomiting has improved however patient still unable to meet caloric requirements Consult surg for feeding tube insertion evaluation (J tube per GI d/t surgical history) Oral morphine q.4 hours p.r.n. (poor PO tolerance) scheduled low-dose fentanyl patch for dx of cancer associated pain antiemetic supportive care Subjective Date/time seen: 09/13/21 12:23 Patient h
[2021-09-13 16:29] LABS: Glucose Point of Care 164 mg/dl (65-105)
[2021-09-13] MEDS: fentaNYL (*CRX) 12 MCG PATCH TRANSDERM (17:07)
[2021-09-13] MEDS: METOPROLOL TARTRATE 12.5 MG TABLET PO (20:44)
[2021-09-13 21:25] LABS: Glucose Point of Care 192 mg/dl (65-105)
[2021-09-14] VITALS (9 sets, daily range): BP systolic 143–160; BP diastolic 73–91; PULSE 92–104; RESP 16–18; TEMP 36.3–37; O2SAT 96–97
[2021-09-14] MEDS: ONDANSETRON INJ 4 MG/2 ML VIAL IV PUSH ×2 (03:18→12:02)
[2021-09-14] MEDS: METOCLOPRAMIDE HCL 5 MG TABLET PO ×4 (05:28→20:01)
[2021-09-14] MEDS: CENTRAL LINE FLUSH 10 ML IV PUSH ×3 (05:28→21:10)
--- NOTE | 2021-09-14 07:27 | ECG_ITS ---
Measurements Intervals [place] Rate: 102 P: 47 GA: 143 QRS: -9 QRSD: 86 T: 30 QT: 344 QTc: 449 Interpretive Statements SINUS TACHYCARDIA LOW QRS VOLTAGE- DIFFUSE LEADS CANNOT RULE OUT SEPTAL INFARCT, AGE INDETERMINATE BASELINE ARTIFACT- I, III, AVR, AVL, AVF, V2 ABNORMAL ECG Electronically Signed On 09-14-2021 9:23:30 PRINCIPAL ADMINISTRATIVE CLERK by Kenji Bucio D.O.
[2021-09-14 08:11] LABS: Glucose Point of Care 181 mg/dl (65-105)
[2021-09-14 08:44] LABS: Basophils Absolute Auto 0.1 K/mm3 (0.0-0.1); Basophils Percent Auto 0.4 % (0.2-1.2); Eosinophils Absolute Auto 0.1 K/mm3 (0-0.3); Eosinophils Percent Auto 0.7 % (0-4.4); Hematocrit 26.9 % (42.0-52.0); Hemoglobin 8.4 g/dL (14.0-18.0); Immature Granulocyte Absolute 0.21 K/mm3 (0.00-0.031); Immature Granulocyte Percent A 1.7 % (0-0.5); Lymphocytes Absolute Auto 0.77 K/mm3 (0.9-3.2); Lymphocytes Percent Auto 6.2 % (18.3-44.2); Mean Corpuscular HGB Conc 31.2 g/dl (32-36); Mean Corpuscular Hemoglobin 31.2 pg (26-34); Monocytes Absolute Auto 1.1 K/mm3 (0.1-0.6); Monocytes Percent Auto 8.7 % (2.6-8.5); Neutrophils Absolute Auto 10.2 K/mm3 (1.3-6.7); Neutrophils Percent Auto 82.3 % (45.5-73.1); Platelet Count Result 143 k/mm3 (150-375); Red Blood Count 2.69 M/mm3 (4.6-6.20); White Blood Count 12.4 K/mm3 (4.5-10.0)
[2021-09-14] MEDS: METOPROLOL TARTRATE 12.5 MG TABLET PO ×2 (08:56→20:00)
[2021-09-14] MEDS: prednisoLONE ACETATE 1% OPHTH 5 ML 1 DROP RIGHT EYE (08:56)
[2021-09-14 09:05] LABS: Alanine Aminotransferase 20 U/L (4-50); Albumin Level 2.2 g/dL (3.5-5.1); Alkaline Phosphatase 91 U/L (38-126); Anion Gap 3 mmol/L (8-16); Aspartate Amino Transferase 34 U/L (17-59); Bilirubin,Total 0.4 mg/dL (0.2-1.3); Blood Urea Nitrogen 17 mg/dL (9-20); Carbon Dioxide 34 mmol/L (22-30); Chloride 102 mmol/L (98-107); Estimated CRCL calculation 115 ml/min; Estimated Glomerular Filt Rate > 60; Glucose 181 mg/dL (65-110); Magnesium 1.7 mg/dL (1.6-2.3); Phosphorus 1.8 mg/dL (2.5-4.5); Potassium 3.4 mmol/L (3.4-5.0); Sodium 139 mmol/L (137-145)
--- NOTE | 2021-09-14 09:27 | PCOTNOTE ---
Attempted to see patient for OT treatment this AM. Patient undergoing various testing - ECG and US. In the meantime he is trying to get some breakfast in. Will continue to attempt.
--- NOTE | 2021-09-14 11:31 | WPDGIPROGNO ---
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 Oncology now following. Because of mass in the wall of the stomach PEG tube is not feasible. If G-tube required than surgical jejunostomy would be necessary. (2) Aspiration pneumonia: Code(s): J69.0 - Pneumonitis due to inhalation of food and vomit Status: Acute (3) H/O esophagectomy: Onset Date: ~05/2018 Code(s): Z98.890 - Other specified postprocedural states; Z90.49 - Acquired absence of other specified parts of digestive tract Status: Acute Assessment and Plan: Patient has previous esophageal cancer status post esophagectomy with gastroesophageal anastomosis in mid chest. This would preclude PEG tube placement. Subjective Date/time seen: 09/14/21 11:31 Patient alert. Has had continued nausea. Difficulty maintaining oral intake. Review of Systems Review of Systems: All systems reviewed & are unremarkable except as noted in HPI and below Exam Narrative: Physical exam reveals lungs have a few rhonchi. Heart without murmur. Abdomen is soft and nontender. Objective Data Vital Signs Vital Signs: Vital Signs - 24 hr 09/13/21 12:00 09/13/21 14:00 09/13/21 16:00 Temperature 97.3 F L Pulse Rate 107 H 112 H 103 H Respiratory Rate 20 Blood Pressure 124/60 Pulse Oximetry 99 09/13/21 19:32 09/13/21 20:00 09/13/21 20:44 Temperature 96.8 F L Pulse Rate 105 H 99 105 H Respiratory Rate 18 18 Blood Pressure 150/61 H Pulse Oximetry 91 92 09/13/21 23:03 09/14/21 00:00 09/14/21 03:06 Temperature 97.5 F L Pulse Rate 96 104 H Respiratory Rate 18 Blood Pressure 147/73 H Pulse Oximetry 92 96 09/14/21 04:00 09/14/21 08:00 Temperature Pulse Rate 98 103 H Respiratory Rate Blood Pressure Pulse Oximetry Intake/Output Intake/Output: Intake & Output 09/12/21 09/13/21 09/13/21 09/14/21 00:59 00:59 23:59 23:59 Intake Total 610 Output Total Balance 610 Meds/Results Medications: Active Medications Generic Name Dose Route Start Last Admin Trade Name Natalia PRN Reason Stop Dose Admin Acetaminophen 650 mg 09/11/21 00:22 09/12/21 20:31 Acetaminophen 325 Mg Tablet PO 650 mg Q4H PRN Administration Mild Pain (1-3) or Fever Alprazolam 0.5 mg 09/11/21 00:22 09/13/21 07:56 Alprazolam (*Crx) 0.5 Mg Tablet PO 0.5 mg BID PRN Administration Anxiety Dextrose 12.5 gm 09/08/21 17:46 09/08/21 17:53 Dextrose 50% 25 Gm/50 Ml Syringe IV PUSH 12.5 gm PRN PRN Administration Hypoglycemia Protocol Fentanyl 12 mcg 09/13/21 16:35 09/13/21 17:07 Fentanyl (*Crx) 12 Mcg Patch TRANSDERM 12 mcg Q72HR MIHIR Administration Glucagon 1 mg 09/08/21 17:46 Glucagon For Inj 1 Mg Vial IM PRN PRN Hypoglycemia Protocol Glucose 15 gm 09/08/21 17:46 Glucose Oral Gel 15 Gm Of Glucse In 37.5 Gm Tube PO PRN PRN Hypoglycemia Protocol Heparin Sodium (Beef Lung) 50 units 09/11/21 09:00 09/14/21 09:02 Heparin Flush 50 Units/5 Ml Syringe IV PUSH 50 units QAM MIHIR Administration Heparin Sodium (Beef Lung) 50 units 09/10/21 12:50 Heparin Flush 50 Units/5 Ml Syringe IV PUSH PRN PRN after intermittent infusion Heparin Sodium (Beef Lung) 50 units 09/10/21 12:50 Heparin Flush 50 Units/5 Ml Syringe IV PUSH PRN PRN after blood draws Heparin Sodium (Porcine) 500 units 09/10/21 12:50 Heparin Sodium Lock Flush 500 Units/5 Ml Vial IV PUSH PRN PRN see comments below Dextrose 1,000 mls @ 100 mls/hr 09/08/21 17:46 Dextrose 5% 1,000 Ml IVPB PRN PRN Hypoglycemia Protocol Piperacillin/Tazobactam/Dextrose 3.375 gm in 50 mls @ 100 mls/hr 09/09/21 12:00 09/14/21 05:57 Zosyn
[2021-09-14 11:51] LABS: Glucose Point of Care 169 mg/dl (65-105)
--- NOTE | 2021-09-14 12:50 | PM.IMPN ---
Progress Note: A&P Assessment and Plan (1) Aspiration pneumonia: Code(s): J69.0 - Pneumonitis due to inhalation of food and vomit Status: Acute (2) Malignant neoplasm of lower third of esophagus: Code(s): C15.5 - Malignant neoplasm of lower third of esophagus Status: Acute (3) Gastric mass: Code(s): K31.89 - Other diseases of stomach and duodenum Status: Acute (4) Edema of both lower extremities: Code(s): R60.0 - Localized edema Status: Acute (5) Type 2 diabetes mellitus with hyperglycemia, with long-term current use of insulin: Code(s): E11.65 - Type 2 diabetes mellitus with hyperglycemia; Z79.4 - terminal carman (current) use of insulin Status: Acute (6) Essential (primary) hypertension: Code(s): I10 - Essential (primary) hypertension Status: Acute (7) Protein calorie malnutrition: Code(s): E46 - Unspecified protein-calorie malnutrition Status: Acute Additional Plan Pathology has returned for the biopsies of the gastric mass and this showing 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 Patient's oral intake is unable to meet his caloric requirements and general surgery has been consulted by the prior provider for possible J-tube placement. Hospice was discussed patient and family do not want pursue this at this time according to the notes. Patient still requiring 3 L O2 nasal cannula. Continue Zosyn for now for the aspiration. Wean oxygen as tolerated. Replace Phos Subjective Date/time seen: 09/14/21 12:50 Interval history: 76yo male with hx of esophageal CA here for aspiration PNA after an EGD. Assuming care. Chart reviewed. Patient denies any chest pain. Still having abdominal pain. He is voiding normally. He does have a urinary stent placed about 1-2 weeks ago. He denies any dysuria or hematuria. He still feeling nauseous with vomiting. No diarrhea. His complaint is left hand swelling which has been present for the past 5-6 days. He is currently on 3 L nasal cannula. Does not wear oxygen at home. Exam Narrative: AF 97.5 147/73 103 18 96% 3L Gen - NARD sitting up in bed Chest -decreased breath sounds bibasilar with egophony. Port that is accessed in the left upper chest. CV - RRR S1/S2. Telemetry showing PVCs. Abd -soft. Nondistended. Mild diffuse tenderness but no guarding. Ext -left upper extremity pitting edema. Record in left lower extremity edema. Psych - Nml mood and affect Skin - Warm and dry Objective Data Vital Signs Vital Signs: Vital Signs - 24 hr 09/13/21 14:00 09/13/21 16:00 09/13/21 19:32 Temperature 97.3 F L 96.8 F L Pulse Rate 112 H 103 H 105 H Respiratory Rate 20 18 Blood Pressure 124/60 150/61 H Pulse Oximetry 99 91 09/13/21 20:00 09/13/21 20:44 09/13/21 23:03 Temperature Pulse Rate 99 105 H Respiratory Rate 18 Blood Pressure Pulse Oximetry 92 92 09/14/21 00:00 09/14/21 03:06 09/14/21 04:00 Temperature 97.5 F L Pulse Rate 96 104 H 98 Respiratory Rate 18 Blood Pressure 147/73 H Pulse Oximetry 96 09/14/21 08:00 Temperature Pulse Rate 103 H Respiratory Rate Blood Pressure Pulse Oximetry Intake/Output Intake/Output: Intake & Output 09/12/21 09/13/21 09/13/21 09/14/21 00:59 00:59 23:59 23:59 Intake Total 610 Output Total Balance 610 Meds/Results Medications: Active Medications Generic Name Dose Route Start Last Admin Trade Name Freq PRN Reason Stop Dose Admin Acetaminophen 650 mg 09/11/21 00:22 09/12/21 20:31 Acetaminophen 325 Mg Tablet PO 650 mg Q4H PRN Administration Mild Pain (1-3) or Fever Alprazolam 0.5 mg 09/11/21 00:22 09/13/21 07:56 Alprazolam (*Crx) 0.5 Mg Tablet PO 0.5 mg BID PRN Administration Anxiety Dextrose 12.5 gm 09/08/21 17:46 09/08/21 17:53 Dextrose 50% 25 Gm/50 Ml Syringe IV PUSH 12.5 gm PRN PRN Administration Hypoglyce
--- NOTE | 2021-09-14 13:31 | PM.CNGS ---
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 He has been dealing with vomiting prior to discharge and continues to vomit daily even with medical treatment. He is not meeting his caloric needs and the Hospitalist has now asked our service to place a jejunostomy tube that would allow to aid in feeding/nutrition. GI feels he is not a candidate for PEG placement and recommends jejunostomy tube placement instead. Per the nurse, the patient and his family agreed on continuing with aggressive treatment of the recurrent cancer and are not considering Hospice. With the patient's permission, I attempted to call his to discuss the option of surgery without an answer, and I left a voicemail. The patient wants to talk with his before making a decision to proceed. I spoke with him about the surgery, description of the procedure, risks, and expected outcomes. He does have multiple co-morbidities that increases his risks for surgery as well. Once the patient makes a decision, we can proceed accordingly. Thank you for allowing us to see the patient in consultation. (2) Protein calorie malnutrition: Code(s): E46 - Unspecified protein-calorie malnutrition Status: Acute Assessment and Plan: See plan above. (3) Aspiration pneumonia: Code(s): J69.0 - Pneumonitis due to inhalation of food and vomit Status: Acute (4) Gastric mass: Code(s): K31.89 - Other diseases of stomach and duodenum Status: Acute Assessment and Plan: Found on recent EGD (09/08/21) with biopsies confirming recurrent adenocarcinoma. GI feels he would not be a candidate for PEG placement. (5) TOM (obstructive sleep apnea): Code(s): G47.33 - Obstructive sleep apnea (adult) (pediatric) Status: Acute (6) Chronic obstructive pulmonary disease: Code(s): J44.9 - Chronic obstructive pulmonary disease, unspecified Status: Acute (7) Hypertension: Code(s): I10 - Essential (primary) hypertension Status: Acute (8) Type 2 diabetes mellitus with hyperglycemia, with long-term current use of insulin: Code(s): E11.65 - Type 2 diabetes mellitus with hyperglycemia; Z79.4 - joint terminal attack controller (current) use of insulin Status: Acute (9) Anemia: Code(s): D64.9 - Anemia, unspecified Status: Acute (10) Thrombocytopenia: Code(s): D69.6 - Thrombocytopenia, unspecified Status: Acute Assessment and Plan: Stable with platelets at 143,000 today. (11) H/O esophagectomy: Onset Date: ~05/2018 Code(s): Z98.890 - Other specified postprocedural states; Z90.49 - Acquired absence of other specified parts of digestive tract Status: Acute Assessment and Plan: 2019 underwent an esophagectomy with chemoradiation therapy for esophageal cancer, and appears to have likely had a jejunostomy tube at that time that has since been removed. (12) CKD (chronic kidney disease) stage 3, GFR 30-59 ml/min: Code(s): N18.3 - Chronic kidney disease, stage 3 (moderate) Status: Acute Additional Plan I have discussed the patient's case and plan of care with Dr. Schmidt. History of Present Illness Consult details Consult date: 09/14/21 Reason for consult: other (Requesting placement of jenunostomy tube) Requesting physician: Anabel Platt MD Narrative: This is a 76-year-old male with a history of esophageal cancer that was treated with chemoradiation therapy and esophagectomy in 2019. He was dealing with nausea, vomiting, weight loss, and fatigue recently, and subsequently underwent an outpatient surveillance EGD on 09/08/21. He became hypoxic post intubation and there was concern for aspiration, therefore he was admitted directly to the hospital from GI lab. The EGD
--- NOTE | 2021-09-14 14:00 | PCNFU ---
Nutrition Follow-Up Complete: Swallowing Difficulties as related to hx of esophageal cancer as evidenced by NPO goal: Meet estimated nutritional needs Patient is having limited progress towards goal. Will continue current goal. Pt current nutrition is Full liquids with ensure compact BID. Last recorded weight is 84.6 kg, up from 81.8 kg on admit. Bowel Motility:Last reported BM 09/07 Labs Reviewed:Glu 150, Hct 25.1,Hgb 8.0 Meds Noted:Heparin, Reglan, Zosyn, Lopressor, Zofran, Pred Forte. Skin: stage 2 PU on coccyx. Additional Notes: Nutrition follow up. Patient has calorie count from the weekend, bites of food reported. No significant intake. Patient continues to vomit. At this time, calore intake is not enough to sustain energy needs. If patient would like to continue aggressive treatment, I would recommend PEG placement to maintain nutritional status. Calorie count has been discontinued. Monitoring: Will monitor every 3 days.
[2021-09-14] MEDS: SODIUM PHOSPHATE 20 MM in DEXTROSE 5% IN WATER 250 ML 50 MM IVPB (14:43)
[2021-09-14] MEDS: MORPHINE SULFATE ORAL CONC SOL (*CRX) 10 MG/0.5 ML SYRINGE 5 MG PO ×2 (16:22→23:02)
[2021-09-14 16:31] LABS: Glucose Point of Care 185 mg/dl (65-105)
[2021-09-14] MEDS: PANTOPRAZOLE SODIUM IV 40 MG VIAL IV PUSH (19:52)
[2021-09-14 21:03] LABS: Glucose Point of Care 196 mg/dl (65-105)
[2021-09-15] VITALS (11 sets, daily range): BP systolic 130–160; BP diastolic 59–77; PULSE 84–100; RESP 17–22; TEMP 36.2–36.7; O2SAT 91–100
[2021-09-15] MEDS: CENTRAL LINE FLUSH 10 ML IV PUSH ×3 (05:45→20:45)
[2021-09-15] MEDS: METOCLOPRAMIDE HCL 5 MG TABLET PO ×3 (05:45→20:34)
[2021-09-15 07:06] LABS: Basophils Absolute Auto 0.1 K/mm3 (0.0-0.1); Basophils Percent Auto 0.5 % (0.2-1.2); Eosinophils Absolute Auto 0.2 K/mm3 (0-0.3); Eosinophils Percent Auto 2.4 % (0-4.4); Hematocrit 24.1 % (42.0-52.0); Hemoglobin 7.7 g/dL (14.0-18.0); Immature Granulocyte Absolute 0.23 K/mm3 (0.00-0.031); Immature Granulocyte Percent A 2.3 % (0-0.5); Lymphocytes Absolute Auto 1.05 K/mm3 (0.9-3.2); Lymphocytes Percent Auto 10.3 % (18.3-44.2); Mean Corpuscular Hemoglobin 30.9 pg (26-34); Mean Corpuscular Volume 96.8 fl (80-100); Mean Platelet Volume 11.5 fl (7.4-10.4); Monocytes Absolute Auto 1.3 K/mm3 (0.1-0.6); Monocytes Percent Auto 12.4 % (2.6-8.5); Neutrophils Absolute Auto 7.4 K/mm3 (1.3-6.7); Neutrophils Percent Auto 72.1 % (45.5-73.1); Platelet Count Result 133 k/mm3 (150-375); Red Blood Count 2.49 M/mm3 (4.6-6.20); Red Cell Distribution Width 16.2 % (11.5-14.5); White Blood Count 10.2 K/mm3 (4.5-10.0)
[2021-09-15 07:17] LABS: Albumin Level 2.2 g/dL (3.5-5.1); Anion Gap 3 mmol/L (8-16); Blood Urea Nitrogen 15 mg/dL (9-20); Calcium 7.6 mg/dL (8.4-10.2); Carbon Dioxide 35 mmol/L (22-30); Chloride 101 mmol/L (98-107); Estimated CRCL calculation 98 ml/min; Estimated Glomerular Filt Rate > 60; Glucose 149 mg/dL (65-110); Magnesium 1.5 mg/dL (1.6-2.3); Phosphorus 2.5 mg/dL (2.5-4.5); Potassium 3.2 mmol/L (3.4-5.0); Sodium 139 mmol/L (137-145)
[2021-09-15 07:53] LABS: Glucose Point of Care 137 mg/dl (65-105)
[2021-09-15] MEDS: METOPROLOL TARTRATE 12.5 MG TABLET PO ×2 (09:45→20:34)
[2021-09-15] MEDS: PANTOPRAZOLE SODIUM IV 40 MG VIAL IV PUSH (09:47)
--- NOTE | 2021-09-15 11:08 | PM.IMPN ---
Progress Note: A&P Assessment and Plan (1) Aspiration pneumonia: Code(s): J69.0 - Pneumonitis due to inhalation of food and vomit Status: Acute (2) Malignant neoplasm of lower third of esophagus: Code(s): C15.5 - Malignant neoplasm of lower third of esophagus Status: Acute (3) Gastric mass: Code(s): K31.89 - Other diseases of stomach and duodenum Status: Acute (4) Edema of both lower extremities: Code(s): R60.0 - Localized edema Status: Acute (5) Type 2 diabetes mellitus with hyperglycemia, with long-term current use of insulin: Code(s): E11.65 - Type 2 diabetes mellitus with hyperglycemia; Z79.4 - manager terminal (current) use of insulin Status: Acute (6) Essential (primary) hypertension: Code(s): I10 - Essential (primary) hypertension Status: Acute (7) Protein calorie malnutrition: Code(s): E46 - Unspecified protein-calorie malnutrition Status: Acute Additional Plan Pathology has returned from the biopsies of the gastric mass and showing adenocarcinoma consistent with recurrent esophageal primary. Patient's oral intake is unable to meet his caloric requirements and general surgery has been consulted for possible J-tube placement. Hospice was discussed but patient and family do not want pursue this at this time. Patient still requiring O2 nasal cannula. Continue Zosyn for now for the aspiration. Wean oxygen as tolerated. Start lasix to try to improve fluid status. Resume some of his home meds via GTube when able. Stop fentanyl patch. Check CXR. Continue maintenance fluids for now. Lovenox. Monitor HH. Subjective Date/time seen: 09/15/21 11:08 Interval history: 76yo male with hx of esophageal CA here for aspiration PNA after an EGD. Feeling okay. Slept well. Mild upper abdominal pain. Not out of bed much. Not walking. Patient not ready for hospice. Oncology will speak with him about next steps for treatment Exam Narrative: AF 97.2 143/72 88 17 97% 2.5L at the wall Gen - NARD sitting up in bed Chest - decreased BS mid and lower lung quesada CV - RRR S1/S2 Abd -soft. mild epigastric pain. Ext - L>R UE edema with trace to 1+ bilateral LE edema Psych - Nml mood and affect neuro - alert, PALA. perseverates on answers. Oriented x3 (except year) Skin - Warm and dry Objective Data Vital Signs Vital Signs: Vital Signs - 24 hr 09/14/21 12:00 09/14/21 15:20 09/14/21 19:46 Temperature 98.6 F 97.4 F L Pulse Rate 100 92 99 Respiratory Rate 18 16 Blood Pressure 160/79 H 143/91 H Pulse Oximetry 97 97 09/14/21 20:00 09/14/21 22:41 09/15/21 03:30 Temperature 97.2 F L Pulse Rate 99 91 Respiratory Rate 16 17 Blood Pressure 143/72 H Pulse Oximetry 97 96 97 09/15/21 09:45 Temperature Pulse Rate 88 Respiratory Rate Blood Pressure Pulse Oximetry Intake/Output Intake/Output: Intake & Output 09/13/21 09/13/21 09/14/21 09/15/21 00:59 23:59 23:59 23:59 Intake Total 946 50 Output Total Balance 946 50 Meds/Results Medications: Active Medications Generic Name Dose Route Start Last Admin Trade Name Freq PRN Reason Stop Dose Admin Acetaminophen 650 mg 09/11/21 00:22 09/12/21 20:31 Acetaminophen 325 Mg Tablet PO 650 mg Q4H PRN Administration Mild Pain (1-3) or Fever Alprazolam 0.5 mg 09/11/21 00:22 09/13/21 07:56 Alprazolam (*Crx) 0.5 Mg Tablet PO 0.5 mg BID PRN Administration Anxiety Dextrose 12.5 gm 09/08/21 17:46 09/08/21 17:53 Dextrose 50% 25 Gm/50 Ml Syringe IV PUSH 12.5 gm PRN PRN Administration Hypoglycemia Protocol Fentanyl 12 mcg 09/13/21 16:35 09/13/21 17:07 Fentanyl (*Crx) 12 Mcg Patch TRANSDERM 12 mcg Q72HR MIHIR Administration Glucagon 1 mg 09/08/21 17:46 Glucagon For Inj 1 Mg Vial IM PRN PRN Hypoglycemia Protocol Glucose 15 gm 09/08/21 17:46 Glucose Oral Gel 15 Gm Of Glucse In 37.5
[2021-09-15] MEDS: KCL 20 MEQ/D5/0.9% SOD CHL 1,000 ML 70 ML IV CONT (11:10)
--- NOTE | 2021-09-15 11:24 | PC.NURSE ---
On 09/15/21, the student, [Gerry Billingsley ], provided care and completed [facility] documentation on this patient. I have reviewed the student's documentation and agree with the findings.
[2021-09-15 11:39] LABS: Glucose Point of Care 138 mg/dl (65-105)
[2021-09-15] MEDS: MAGNESIUM SULF 2 GM/WATER 50ML 2 GM/50 ML BAG IVPB (11:58)
[2021-09-15] MEDS: FUROSEMIDE INJ 40 MG/4 ML VIAL 20 MG IV PUSH (11:58)
--- NOTE | 2021-09-15 12:59 | PC.NURSE ---
To OR per bed, IV intact. Report given to DAYANNA Castillo.
[2021-09-15] MEDS: LACTATED RINGERS 1,000 ML 30 ML IV CONT (13:15)
--- NOTE | 2021-09-15 13:54 | WPDANESEFPP ---
Anes - Eval Final PreProcedure Day of Procedure 09/15/21 13:54 Patient weight: normal Heart: regular rate and rhythm Lungs: clear to auscultation Airway: Mallampati scale class II Neurological: alert and oriented Last oral intake: >/= 8 hours ASA classification: IV Emergent: no Anesthetic plan: proceed Anesthesia type and monitoring: general ETT and standard monitoring Results Review: All pre-operative results and documents have been reviewed as part of the pre-operative evaluation. Informed Consent: The patient's anesthetic plan and its attendant risks and benefits were discussed with the patient/family/POA. Questions were solicited and answers provided to the satisfaction of the patient/family/POA.
--- NOTE | 2021-09-15 14:16 | WPDHPUPDATE1 ---
History and Physical Update Update Date/Time: 09/15/21 14:16 History and Physical has been reviewed, including an updated exam of the patient by Dr. Schmidt. There are NO changes in the patient's condition. Risks, benefits, and alternatives have been discussed and questions answered per Dr. Schmidt. Patient agrees to proceed with procedure.
--- NOTE | 2021-09-15 15:35 | P.OP_ITS ---
Procedure Note - Detailed Date of Procedure 09/15/21 Pre-op Diagnosis recurrent upper GI cancer, malnutrition, failure to thrive Post-op Diagnosis same Procedure Performed open placement jejunostomy tube Surgeon Michelle Schmidt MD Anesthesia general Indications 76-year-old male with recurrent upper GI cancer. The patient had esophageal cancer status post esophagectomy and gastric pull through. The patient is now noted to have recurrent cancer and his gastric pull through. The patient reports very poor p.o. and is malnourished. He also has had failure to thrive. Findings J-tube placed approximately 20 cm from the ligament Treitz Description of Procedure The patient was taken to the operating and placed in the supine position. After adequate induction of general anesthesia, the patient was prepped and draped in the normal sterile fashion. A time-out was then done to verify the patient's identity, as well as the procedure being performed. I began by making a upper midline incision. This incision was carried down into the peritoneal cavity. Upon entering the peritoneum, I was able to find the small intestine. I was able to run the small intestine in its entirety from the ligament of Treitz to the ligament of Treves. No pathology was noted in the small intestine. I then picked an area approximately 20 cm distal to the ligament Treitz. I then placed a 16 Ecuadorean red rubber catheter into the abdominal cavity through an incision in the left upper quadrant. This red rubber catheter was cut to have multiple holes in the distal end including cutting the tip of the catheter. I then placed 2 pursestring sutures around the area of our anticipated enterotomy. An enterotomy was then made and the red rubber catheter was fed through this enterotomy. Once the catheter was in good position, I tied the previously placed sutures. I then made a Witzel tunnel approximately 10 cm. I then sutured the small intestine at the enterotomy site to the anterior abdominal wall. I was able to easily flush and draw back from the jejunostomy catheter. I then closed the fascia of our midline incision with a 0 PDS suture. The skin was closed with 4-0 Monocryl subcuticular suture. Dermabond was placed on the wound. The patient tolerated the procedure well and was extubated in the operating room postoperatively. He will be sent to the recovery room in stable condition. Implants Sixteen Ecuadorean red rubber jejunostomy catheter Estimated Blood Loss 5 Drains No Packing No Pathology none sent Complications No immediate complications Condition stable Disposition PACU
--- NOTE | 2021-09-15 16:45 | PC.NURSE ---
Returned from OR per bed. Report received from DAYANNA Neff.
[2021-09-15] MEDS: FUROSEMIDE INJ 40 MG/4 ML VIAL IV PUSH (17:22)
[2021-09-15 20:54] LABS: Glucose Point of Care 192 mg/dl (65-105)
[2021-09-16] VITALS (10 sets, daily range): BP systolic 101–142; BP diastolic 48–87; PULSE 86–109; RESP 16–18; TEMP 36.3–36.9; O2SAT 91–100
[2021-09-16] MEDS: MORPHINE SULFATE ORAL CONC SOL (*CRX) 10 MG/0.5 ML SYRINGE 5 MG PO ×2 (00:05→05:22)
[2021-09-16] MEDS: CENTRAL LINE FLUSH 10 ML IV PUSH ×3 (05:01→22:20)
[2021-09-16 05:32] LABS: Basophils Percent Auto 0.2 % (0.2-1.2); Hematocrit 26.4 % (42.0-52.0); Hemoglobin 8.6 g/dL (14.0-18.0); Immature Granulocyte Absolute 0.45 K/mm3 (0.00-0.031); Immature Granulocyte Percent A 2.5 % (0-0.5); Lymphocytes Absolute Auto 0.83 K/mm3 (0.9-3.2); Lymphocytes Percent Auto 4.6 % (18.3-44.2); Mean Corpuscular HGB Conc 32.6 g/dl (32-36); Mean Corpuscular Hemoglobin 31.6 pg (26-34); Mean Corpuscular Volume 97.1 fl (80-100); Mean Platelet Volume 11.4 fl (7.4-10.4); Monocytes Absolute Auto 1.6 K/mm3 (0.1-0.6); Monocytes Percent Auto 8.6 % (2.6-8.5); Neutrophils Absolute Auto 15.2 K/mm3 (1.3-6.7); Neutrophils Percent Auto 84.1 % (45.5-73.1); Platelet Count Result 165 k/mm3 (150-375); Red Blood Count 2.72 M/mm3 (4.6-6.20); Red Cell Distribution Width 16.7 % (11.5-14.5); White Blood Count 18.1 K/mm3 (4.5-10.0)
[2021-09-16] MEDS: ONDANSETRON INJ 4 MG/2 ML VIAL IV PUSH (05:33)
[2021-09-16 05:36] LABS: Albumin Level 2.4 g/dL (3.5-5.1); Anion Gap 3 mmol/L (8-16); Blood Urea Nitrogen 14 mg/dL (9-20); Calcium 7.7 mg/dL (8.4-10.2); Carbon Dioxide 37 mmol/L (22-30); Chloride 98 mmol/L (98-107); Estimated CRCL calculation 85 ml/min; Estimated Glomerular Filt Rate > 60; Glucose 261 mg/dL (65-110); Magnesium 1.7 mg/dL (1.6-2.3); Phosphorus 2.3 mg/dL (2.5-4.5); Potassium 3.1 mmol/L (3.4-5.0); Sodium 138 mmol/L (137-145)
[2021-09-16] MEDS: METOCLOPRAMIDE HCL 5 MG TABLET PO ×2 (06:38→11:28)
--- NOTE | 2021-09-16 07:25 | P.PNAN_ITS ---
Anes - Prog Note Post-Op Date/Time: 09/16/21 07:25 Cardiovascular status: normal Respiratory status: other (4l nc) Airway patency: baseline Mental status: baseline Post-Op hydration status: normal Vital Signs: Last Vital Signs Temp 36.5 C 09/16/21 06:00 Pulse 104 H 09/16/21 06:00 Resp 16 09/16/21 06:00 BP 139/86 09/16/21 06:00 Pulse Ox 91 09/16/21 06:00 Pain Score (VAS): 3 I/O: Intake & Output 09/15/21 09/15/21 09/16/21 15:59 23:59 07:59 Intake Total 100 250 100 Output Total 720 650 Balance -620 250 -550 Laboratory Tests 09/16/21 05:11 09/16/21 05:07 09/15/21 09/15/21 09/15/21 07:49 11:36 20:44 WBC RBC Hgb Hct MCV MCH MCHC RDW Plt Count MPV Immature Gran % (Auto) Neut % (Auto) Lymph % (Auto) [place] % (Auto) Eos % (Auto) Baso % (Auto) Lymph # (Auto) [place] # (Auto) Eos # (Auto) Baso # (Auto) Abs Immat Gran (auto) Absolute Neuts (auto) Absolute Nucleated RBC Nucleated RBC % Sodium Potassium Chloride Carbon Dioxide Anion Gap BUN Creatinine Estim Creat Clear Calc Estimated GFR Glucose POC Capillary Glucose 137 H 138 H 192 H Calcium Phosphorus Magnesium Albumin 09/16/21 09/16/21 05:07 05:11 WBC 18.1 H RBC 2.72 L Hgb 8.6 L Hct 26.4 L MCV 97.1 MCH 31.6 MCHC 32.6 RDW 16.7 H Plt Count 165 MPV 11.4 H Immature Gran % (Auto) 2.5 H Neut % (Auto) 84.1 H Lymph % (Auto) 4.[address] [place] % (Auto) 8.6 H Eos % (Auto) 0.0 Baso % (Auto) 0.2 Lymph # (Auto) 0.[address] [place] # (Auto) 1.6 H Eos # (Auto) 0.0 Baso # (Auto) 0.0 Abs Immat Gran (auto) 0.45 H Absolute Neuts (auto) 15.2 H Absolute Nucleated RBC 0.0 Nucleated RBC % 0.0 Sodium 138 Potassium 3.1 L Chloride 98 Carbon Dioxide 37 H Anion Gap 3 L BUN 14 Creatinine 0.70 Estim Creat Clear Calc 85 Estimated GFR > 60 Glucose 261 H POC Capillary Glucose Calcium 7.7 L Phosphorus 2.3 L Magnesium 1.7 Albumin 2.4 L Post-procedural complaints: none Patient Feedback: Patient satisfied with anesthetic care.
[2021-09-16 08:01] LABS: Glucose Point of Care 250 mg/dl (65-105)
[2021-09-16 08:03] LABS: Glucose Point of Care 234 mg/dl (65-105)
[2021-09-16] MEDS: PANTOPRAZOLE SODIUM IV 40 MG VIAL IV PUSH (10:20)
[2021-09-16] MEDS: MAGNESIUM SULF 2 GM/WATER 50ML 2 GM/50 ML BAG IVPB (10:28)
[2021-09-16] MEDS: FUROSEMIDE INJ 40 MG/4 ML VIAL IV PUSH ×2 (10:28→17:15)
[2021-09-16] MEDS: ATORVASTATIN 10 MG TABLET FEED TUBE (10:45)
[2021-09-16] MEDS: METOPROLOL TARTRATE 12.5 MG TABLET PO (10:45)
[2021-09-16] MEDS: POTASSIUM CHLORIDE 20 MEQ PACKET (FOR LIQUID) 40 MEQ FEED TUBE (11:16)
[2021-09-16] MEDS: CHOLECALCIFEROL 1,000 UNITS TABLET 2000 UNITS FEED TUBE (11:27)
[2021-09-16] MEDS: CYANOCOBALAMIN 1,000 MCG TABLET 1000 MCG FEED TUBE (11:27)
[2021-09-16] MEDS: ASCORBIC ACID 500 MG TABLET FEED TUBE (11:28)
[2021-09-16] MEDS: prednisoLONE ACETATE 1% OPHTH 5 ML 1 DROP RIGHT EYE (11:29)
[2021-09-16] MEDS: ENOXAPARIN 40 MG/0.4 ML SYRINGE SUB-Q (11:31)
--- NOTE | 2021-09-16 12:09 | PM.PNGS ---
Progress Note: A&P Assessment and Plan (1) Jejunostomy tube in situ: Code(s): Z93.4 - Other artificial openings of gastrointestinal tract status Status: Acute Assessment and Plan: POD1 and doing well post-operatively. Incision looks good. Not really having any post-operative pain. Okay to start feeding the patient through the J-tube per medicine. Will sign off at this point. Please let us know if there are any future surgical needs. Follow-up with Dr. Schmidt only as needed. (2) Vomiting: Code(s): R11.10 - Vomiting, unspecified Status: Acute (3) Protein calorie malnutrition: Code(s): E46 - Unspecified protein-calorie malnutrition Status: Acute (4) Gastric mass: Code(s): K31.89 - Other diseases of stomach and duodenum Status: Acute Additional Plan I have discussed the plan of care with Dr. Schmidt. Subjective Subjective Date/Time Seen: 09/16/21 11:20 Post Op day: 1 (Open placement of jejunostomy tube) Patient reports: no new complaints, bowel movement, nausea and vomiting Interval history: Patient seen today with no family at the bedside. Nausea has remained about the same. He does report an episode of vomiting after breakfast this morning. No worsening symptoms. No abdominal pain today. His J-tube is currently clamped on my exam. Review of Systems Review of Systems: All systems reviewed & are unremarkable except as noted in HPI and below Exam Const: General: comfortable, no acute distress, awake and ill appearing chronically Orientation/consciousness: confusion (oriented, but confused with some memory loss at times) GI: Inspection: non-distended, incision (midline upper abd incision clean and dry, no erythema or drainage) and other (J-tube clamped with gauze dressing clean and dry) GI Palp: Yes Soft to palpation, Yes Tenderness to palpation present (GI) (incisional) and No Guarding due to palpation present (GI) Auscultation: normal bowel sounds Skin: General skin exam: pallor Neuro: General: moves all extremities and no focal motor deficits Speech: normal speech Extrem: Right lower extremity: edema (trace edema) Left lower extremity: edema (trace edema) Psych: Mental Status: mental status grossly normal Insight: Fair insight present (Psych) Judgement: Fair judgement present (Psych) Objective Data Vital Signs Vital Signs: Vital Signs - 24 hr 09/15/21 13:22 09/15/21 15:32 09/15/21 15:45 Temperature 97.8 F 98.0 F Pulse Rate 84 93 92 Respiratory Rate 18 22 H 18 Blood Pressure 144/70 H 138/77 149/69 H Pulse Oximetry 100 91 96 09/15/21 16:00 09/15/21 16:15 09/15/21 16:30 Temperature Pulse Rate 98 97 97 Respiratory Rate 18 18 18 Blood Pressure 160/76 H 149/71 H 150/70 H Pulse Oximetry 91 93 93 09/15/21 20:00 09/15/21 20:34 09/15/21 22:00 Temperature 98.0 F Pulse Rate 100 99 Respiratory Rate 20 Blood Pressure 130/59 L Pulse Oximetry 93 100 09/16/21 06:00 09/16/21 08:46 09/16/21 09:45 Temperature 97.7 F 98.4 F Pulse Rate 104 H 109 H Respiratory Rate 16 18 Blood Pressure 139/86 142/87 H Pulse Oximetry 91 91 91 09/16/21 10:45 Temperature Pulse Rate 99 Respiratory Rate Blood Pressure Pulse Oximetry Intake/Output Intake/Output: Intake & Output 09/13/21 09/14/21 09/15/21 09/16/21 23:59 23:59 23:59 23:59 Intake Total 946 400 100 Output Total 720 850 Balance 329 -170 -576 Meds/Results Medications: Active Medications Generic Name Dose Route Start Last Admin Trade Name Freq PRN Reason Stop Dose Admin Acetaminophen 650 mg 09/11/21 00:22 09/12/21 20:31 Acetaminophen 325 Mg Tablet PO 650 mg Q4H PRN Administration Mild Pain (1-3) or Fever Alprazolam 0.5 mg 09/11/21 00:22 09/13/21 07:56 Alprazolam (*Crx) 0.5 Mg Tablet PO 0.5 mg BID PRN Administration Anxiety Artificial Tears 1 drop 09/16/21 08:34 Artificial Tears Ophth Soln 15 Ml Bottle EACH EYE QID
[2021-09-16 12:18] LABS: Glucose Point of Care 215 mg/dl (65-105)
--- NOTE | 2021-09-16 12:35 | PCNFU ---
Nutrition Follow-Up Complete: Swallowing Difficulties as related to hx of esophageal cancer as evidenced by NPO Goal: Meet estimated nutritional needs Patient is progressing towards goal. We will continue current goal. Pt current nutrition Clear liquids as well as J tube feedings of Glucerna 1.2 at 20 ml/hr increase by 10 ml q 4 hours to goal rate of 75 ml/hr over 22 hours. Last recorded weight is 80 kg down from 81 kg on admit. Bowel Motility: No BM reported. Labs Reviewed:K 3.1,PO4 2.3, Hct 26.4.Hgb 8.6 Meds Noted:Lasix, Lovenox, Lipitor, Vit C, Protonix, Reglan, Vit D, Protonix, Lopressor, Heparin. Skin:stage 2 pressure ulcer-coccyx. Additional Notes: Nutrition follow up. Patient had J tube placed 09/15. Tube feedings started today of Glucerna 1.2. Goal rate at 75 ml/hr which will provide 1980 kcals/99 gms protein. 30 ml free water flush q 4 hours. Oral diet of clear liquids is being tolerated. Monitoring: Will monitor every Tuesday and Tuesday.
[2021-09-16] MEDS: PREGABALIN (*CRX) 50 MG CAPSULE 100 MG FEED TUBE ×2 (12:47→17:19)
--- NOTE | 2021-09-16 13:54 | PM.IMPN ---
Progress Note: A&P Assessment and Plan (1) Aspiration pneumonia: Code(s): J69.0 - Pneumonitis due to inhalation of food and vomit Status: Acute (2) Jejunostomy tube in situ: Code(s): Z93.4 - Other artificial openings of gastrointestinal tract status Status: Acute (3) Malignant neoplasm of lower third of esophagus: Code(s): C15.5 - Malignant neoplasm of lower third of esophagus Status: Acute (4) Gastric mass: Code(s): K31.89 - Other diseases of stomach and duodenum Status: Acute (5) Edema of both lower extremities: Code(s): R60.0 - Localized edema Status: Acute (6) Type 2 diabetes mellitus with hyperglycemia, with long-term current use of insulin: Code(s): E11.65 - Type 2 diabetes mellitus with hyperglycemia; Z79.4 - assisted (current) use of insulin Status: Acute (7) Essential (primary) hypertension: Code(s): I10 - Essential (primary) hypertension Status: Acute (8) Protein calorie malnutrition: Code(s): E46 - Unspecified protein-calorie malnutrition Status: Acute (9) Chronic obstructive pulmonary disease: Code(s): J44.9 - Chronic obstructive pulmonary disease, unspecified Status: Acute Additional Plan Pathology has returned from the biopsies of the gastric mass and showing adenocarcinoma consistent with recurrent esophageal primary. Patient's oral intake is unable to meet his caloric requirements and general surgery was consulted for placement of a J-tube on 09/15/21. He toelrated the procedure well. Patient still requiring O2 nasal cannula. Continue Zosyn for aspiration PNA. Wean oxygen as tolerated. WBC higher today possibly stress response. Will follow for now but consider broadening the abx coverage if WBC climbs. Consider CDiff as well. Edema better. Continue Lasix for now. Wean o2 as tolerated. Stop IV fluids since TF starting. Start sliding scale insulin. Change meds to [employer]. Continue Lovenox for DVT prophylaxis. Advance lantus Subjective Date/time seen: 09/16/21 13:54 Interval history: 76yo male with hx of esophageal CA here for aspiration PNA after an EGD. Increasing O2 requiriement overnight after the procedure to now 5L. Complains of aborminal pain. No cp. voiding well. Still with nausea and vomiting. Exam Narrative: AF 98.4 142/87 99 18 91% 5L Gen - NARD sitting up in bed Chest - RRR S1/S2 CV - RRR S1/S2. Telemetry showing PVCs. Abd - soft, JTube site dressing clean and dry. JTube secured to bag to gravity with blackish fluid in the bag Ext - Decreased LUE edema. Persistent bilateral LE edema Psych - Nml mood and affect Skin - Warm and dry Objective Data Vital Signs Vital Signs: Vital Signs - 24 hr 09/15/21 15:32 09/15/21 15:45 09/15/21 16:00 Temperature 98.0 F Pulse Rate 93 92 98 Respiratory Rate 22 H 18 18 Blood Pressure 138/77 149/69 H 160/76 H Pulse Oximetry 91 96 91 09/15/21 16:15 09/15/21 16:30 09/15/21 20:00 Temperature Pulse Rate 97 97 Respiratory Rate 18 18 Blood Pressure 149/71 H 150/70 H Pulse Oximetry 93 93 93 09/15/21 20:34 09/15/21 22:00 09/16/21 06:00 Temperature 98.0 F 97.7 F Pulse Rate 100 99 104 H Respiratory Rate 20 16 Blood Pressure 130/59 L 139/86 Pulse Oximetry 100 91 09/16/21 08:46 09/16/21 09:45 09/16/21 10:45 Temperature 98.4 F Pulse Rate 109 H 99 Respiratory Rate 18 Blood Pressure 142/87 H Pulse Oximetry 91 91 Intake/Output Intake/Output: Intake & Output 09/13/21 09/14/21 09/15/21 09/16/21 23:59 23:59 23:59 23:59 Intake Total 495 535 4161 Output Total 720 1235 Balance 946 -320 -85 Meds/Results Medications: Active Medications Generic Name Dose Route Start Last Admin Trade Name Freq PRN Reason Stop Dose Admin Acetaminophen 650 mg 09/11/21 00:22 09/12/21 20:31 Acetaminophen 325 Mg Tablet PO 650 mg Q4H PRN Administration Mild Pain (1-3) or Fever Alprazolam 0.5
--- NOTE | 2021-09-16 15:17 | PC.NURSE ---
Patient transferred to room 253.
[2021-09-16 16:46] LABS: Glucose Point of Care 237 mg/dl (65-105)
[2021-09-16] MEDS: METOCLOPRAMIDE HCL 5 MG TABLET FEED TUBE (17:14)
[2021-09-16] MEDS: INSULIN ASPART (*BKC) 100 UNITS/ML SUB-Q (17:19)
[2021-09-16] MEDS: INSULIN GLARGINE (*BKC) 100 UNITS/ML 10 UNITS SUB-Q (20:22)
[2021-09-16] MEDS: METOPROLOL TARTRATE 12.5 MG TABLET FEED TUBE (20:23)
[2021-09-16 21:29] LABS: Glucose Point of Care 191 mg/dl (65-105)
[2021-09-17] MEDS: METOCLOPRAMIDE HCL 5 MG TABLET FEED TUBE ×4 (00:19→17:00)
[2021-09-17] MEDS: HEPARIN SODIUM LOCK FLUSH 500 UNITS/5 ML VIAL IV PUSH ×2 (02:09→16:56)
[2021-09-17 03:21] VITALS: BP 149/88; PULSE 69; RESP 18; TEMP 36.5; O2SAT 95
[2021-09-17] MEDS: CENTRAL LINE FLUSH 10 ML IV PUSH ×2 (05:24→13:36)
[2021-09-17 05:50] LABS: Basophils Percent Auto 0.4 % (0.2-1.2); Eosinophils Absolute Auto 0.2 K/mm3 (0-0.3); Eosinophils Percent Auto 1.9 % (0-4.4); Hematocrit 24.4 % (42.0-52.0); Hemoglobin 7.8 g/dL (14.0-18.0); Immature Granulocyte Absolute 0.26 K/mm3 (0.00-0.031); Immature Granulocyte Percent A 2.8 % (0-0.5); Lymphocytes Absolute Auto 1.06 K/mm3 (0.9-3.2); Lymphocytes Percent Auto 11.4 % (18.3-44.2); Mean Corpuscular Hemoglobin 31.6 pg (26-34); Mean Corpuscular Volume 98.8 fl (80-100); Mean Platelet Volume 11.5 fl (7.4-10.4); Monocytes Absolute Auto 1.1 K/mm3 (0.1-0.6); Monocytes Percent Auto 11.9 % (2.6-8.5); Neutrophils Absolute Auto 6.7 K/mm3 (1.3-6.7); Neutrophils Percent Auto 71.6 % (45.5-73.1); Platelet Count Result 122 k/mm3 (150-375); Red Blood Count 2.47 M/mm3 (4.6-6.20); Red Cell Distribution Width 17.4 % (11.5-14.5); White Blood Count 9.3 K/mm3 (4.5-10.0)
[2021-09-17 06:03] LABS: Alanine Aminotransferase 19 U/L (4-50); Albumin Level 2.2 g/dL (3.5-5.1); Alkaline Phosphatase 80 U/L (38-126); Aspartate Amino Transferase 24 U/L (17-59); Bilirubin,Total 0.2 mg/dL (0.2-1.3); Blood Urea Nitrogen 14 mg/dL (9-20); Calcium 7.4 mg/dL (8.4-10.2); Carbon Dioxide > 40 mmol/L (22-30); Chloride 95 mmol/L (98-107); Estimated CRCL calculation 75 ml/min; Estimated Glomerular Filt Rate > 60; Glucose 158 mg/dL (65-110); Magnesium 1.8 mg/dL (1.6-2.3); Phosphorus 2.5 mg/dL (2.5-4.5); Potassium 2.9 mmol/L (3.4-5.0); Sodium 138 mmol/L (137-145)
[2021-09-17 06:21] LABS: Glucose Point of Care 158 mg/dl (65-105)
[2021-09-17 08:00] VITALS: O2SAT 94
[2021-09-17] MEDS: MAGNESIUM SULF 2 GM/WATER 50ML 2 GM/50 ML BAG IVPB (08:07)
[2021-09-17 08:16] VITALS: PULSE 92
[2021-09-17] MEDS: PREGABALIN (*CRX) 50 MG CAPSULE 100 MG FEED TUBE ×3 (08:16→16:55)
[2021-09-17] MEDS: FUROSEMIDE INJ 40 MG/4 ML VIAL IV PUSH (08:16)
[2021-09-17] MEDS: METOPROLOL TARTRATE 12.5 MG TABLET FEED TUBE (08:16)
[2021-09-17] MEDS: ENOXAPARIN 40 MG/0.4 ML SYRINGE SUB-Q (08:16)
[2021-09-17] MEDS: CHOLECALCIFEROL 1,000 UNITS TABLET 2000 UNITS FEED TUBE (08:17)
[2021-09-17] MEDS: ATORVASTATIN 10 MG TABLET FEED TUBE (08:17)
[2021-09-17] MEDS: ASCORBIC ACID 500 MG TABLET FEED TUBE (08:17)
[2021-09-17] MEDS: CYANOCOBALAMIN 1,000 MCG TABLET 1000 MCG FEED TUBE (08:17)
[2021-09-17] MEDS: FAMOTIDINE 20 MG TABLET FEED TUBE (08:32)
[2021-09-17 09:27] LABS: Glucose Point of Care 148 mg/dl (65-105)
[2021-09-17 09:29] VITALS: O2SAT 93
[2021-09-17 11:59] LABS: Glucose Point of Care 279 mg/dl (65-105)
[2021-09-17] MEDS: INSULIN ASPART (*BKC) 100 UNITS/ML SUB-Q ×2 (12:10→16:56)
[2021-09-17 14:26] LABS: Magnesium 2.1 mg/dL (1.6-2.3); Potassium 3.4 mmol/L (3.4-5.0)
[2021-09-17 14:35] VITALS: BP 122/65; PULSE 88; RESP 16; TEMP 36.4; O2SAT 95
--- NOTE | 2021-09-17 14:50 | PM.DS ---
DS: Admitting Diagnosis Discharge Date 09/17/21 Admitting Diagnosis Suspected aspiration PNA DS: Discharge Diagnosis Discharge Diagnosis (1) Aspiration pneumonia: Code(s): J69.0 - Pneumonitis due to inhalation of food and vomit Status: Acute Assessment and Plan: . (2) Jejunostomy tube in situ: Code(s): Z93.4 - Other artificial openings of gastrointestinal tract status Status: Acute (3) Malignant neoplasm of lower third of esophagus: Code(s): C15.5 - Malignant neoplasm of lower third of esophagus Status: Acute (4) Gastric mass: Code(s): K31.89 - Other diseases of stomach and duodenum Status: Acute (5) Edema of both lower extremities: Code(s): R60.0 - Localized edema Status: Acute (6) Type 2 diabetes mellitus with hyperglycemia, with long-term current use of insulin: Code(s): E11.65 - Type 2 diabetes mellitus with hyperglycemia; Z79.4 - senior living (current) use of insulin Status: Acute (7) Essential (primary) hypertension: Code(s): I10 - Essential (primary) hypertension Status: Acute (8) Protein calorie malnutrition: Code(s): E46 - Unspecified protein-calorie malnutrition Status: Acute (9) Chronic obstructive pulmonary disease: Code(s): J44.9 - Chronic obstructive pulmonary disease, unspecified Status: Acute DS: Summary Hospital Course Reason for hospitalization: 76yo male with hx of esophageal CA here for aspiration PNA after an EGD. Please see H&P for details. Hospital Course: Given his history of esophageal cancer, patient was scheduled for a surveillance EGD on 08/12/2021 after reports of early satiety and intermittent nausea and vomiting. Stomach and duodenum were not visualized at that time due to a large amount of retained food and his EGD was rescheduled for 09/08/21. The EGD showing a malignant appearing gastric masses consistent with recurrent malignancy. Patient became hypoxic post intubation and a subsequent chest x-ray showed new opacities and bronchial wall thickening of the mid left and lower lung zone which may very well be related to aspiration. Due to this reason, the pateitn was admitted and started on Zosyn. 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 Oncology was consulted and they were aware of the pathology findings. CT Abd/Pelvis showing changes of esophagectomy and gastric pull-through without definite gastric mass identified, small pleural effusions with passive atelectasis and patchy opacities of the lungs. ALso of note is that he has bilateral nephrolithiasis with 5 mm stone in the right renal pelvis adjacent to a right internal ureteral stent. Doppler negative for DVT bilateral lower and left upper extremity. Patient's oral intake was unable to meet his caloric requirements. GI felt they were unable to place a Gtube and, thus, general surgery was consulted. Patient underwent placement of a J-tube on 09/15/21. He tolerated the procedure well and tube feedings stared. Patient was hypoxic on admission but this improved and patient was able to be weaned down to 1L/min. WBC peaked after the procedure but then normalized and felt more likely related to stress response. He was treated with IV Lasix for his edema. Once his Jtube placed, we resumed some of his home medications. He tolerated his tube feedings. PT/OT worked with him but he remained severely weak. Placement discussed and patient able to be discharged to SNF in stable condition 09/17/21 Status at Discharge Cognitive/behavioral status at discharge: Stable Time Spent with Patient Time attestation: Total time spent providing and/or coordinating discharge services: 38 minutes Time spent: Greater than 30 minutes Specific discharge activities: Spoke with patient and later with by phone about discharge plan Exam Narrative: AF 97.7 149/88 92 18 93%
[2021-09-17 17:00] LABS: Glucose Point of Care 209 mg/dl (65-105)
[2021-09-17 20:00] VITALS: O2SAT 98
== END 2021-09-17 20:20 | DRG 178 ==
LOC: ANH2MED 16:10
PROVIDERS: Hospitalist; Internal Medicine Gastroenterology; Physician Assistant; Surgery; Admitting Provider Internal Medicine; PCP Family Medicine; Visit Provider Internal Medicine
PROC: 0DJ08ZZ Inspection of Upper Intestinal Tract, Via Natural or Artificial Opening Endoscopic (ICD-10-PCS; CPT 43235; principal; 2021-09-08 13:00)
PROC: 0DHA0UZ Insertion of Feeding Device into Jejunum, Open Approach (ICD-10-PCS; CPT 49440; principal; 2021-09-15 14:30)
DX: J69.0 Pneumonitis due to inhalation of food and vomit (principal); C16.0 Malignant neoplasm of cardia; C16.2 Malignant neoplasm of body of stomach; E46 Unspecified protein-calorie malnutrition; K31.89 Other diseases of stomach and duodenum; E11.65 Type 2 diabetes mellitus with hyperglycemia; J44.9 Chronic obstructive pulmonary disease, unspecified; R62.7 Adult failure to thrive; E11.42 Type 2 diabetes mellitus with diabetic polyneuropathy; E53.8 Deficiency of other specified B group vitamins; E55.9 Vitamin D deficiency, unspecified; G47.33 Obstructive sleep apnea (adult) (pediatric); M19.90 Unspecified osteoarthritis, unspecified site; K21.9 Gastro-esophageal reflux disease without esophagitis; E78.5 Hyperlipidemia, unspecified; E11.22 Type 2 diabetes mellitus with diabetic chronic kidney disease; N18.30 Chronic kidney disease, stage 3 unspecified; D69.6 Thrombocytopenia, unspecified; R09.02 Hypoxemia; Z66 Do not resuscitate; N20.0 Calculus of kidney; R00.0 Tachycardia, unspecified; L40.9 Psoriasis, unspecified; Z96.649 Presence of unspecified artificial hip joint; Z87.891 Personal history of nicotine dependence; Z93.4 Other artificial openings of gastrointestinal tract status; Z79.4 Long term (current) use of insulin; Z68.23 Body mass index [BMI] 23.0-23.9, adult; Z90.49 Acquired absence of other specified parts of digestive tract; Z98.890 Other specified postprocedural states
CPT/HCPCS: 36415; 71045; 71260; 74018; 74160; 80048; 80053; 80069; 82948; 83036; 83605; 83735; 84100; 84132; 85025; 86140; 88305; 88342; 92611; 93005; 93970; 93971; 97110; 97162; 97165; 97530; 97535; A9270; C9113; G0378; J0295; J0330; J1642; J1650; J1756; J1815; J1940; J2270; J2370; J2405; J2543; J2704; J2765; J3010; J3475; J3480; J7030; J7050; J7060; J7120; Q9967

== ENCOUNTER 2021-09-22 21:57 | Inpatient (IN) | payer MEDICARE, SELFPAY ==
[2021-09-22] VITALS (8 sets, daily range): BP systolic 134–139; BP diastolic 71–82; PULSE 110–114; RESP 12–40; TEMP 36.8; O2SAT 96–100
--- NOTE | ~2021-09-22 | XR_ITS ---
EXAMINATION: XR chest 1V portable INDICATION: Increasing oxygen requirement TECHNIQUE: Portable AP chest at 0525 hours COMPARISON: 09/30/2021 FINDINGS: A left subclavian Port-A-Cath ends with its tip in the superior vena cava. The lungs are hy perinflated. A small loculated right pleural effusion is unchanged. There is no pneumothorax. Patchy bilateral airspace opacities with a mid and lower lung zone predominance persist but have improved. T he heart size is normal. IMPRESSION: 1. Diffuse lung disease with interval improvement, consistent with pneumonia and/or pulmonary edema. 2. Small loculated right pleural effusion, stable. Reviewed, dictated and finalized at location A. L DRILL PRESS OPERATOR IMPRESSION: 1. Diffuse lung disease with interval improvement, consistent with pneumonia an d/or pulmonary edema. 2. Small loculated right pleural effusion, stable.
--- NOTE | ~2021-09-22 | XR_ITS ---
EXAMINATION: XR chest 1V portable INDICATION: Increased oxygen requirement TECHNIQUE: Portable AP chest at 0942 hours COMPARISON: 10/02/2021 FINDINGS: A left subclavian Port-A-Cath ends with its tip in the superior vena cava. A small loculate d right pleural effusion is not significantly changed. Airspace opacities have developed in the mid a nd lower lung zones. The heart size is normal. Changes of esophagectomy and gastric pull-through are noted. There is no pneumothorax. IMPRESSION: 1. Developing airspace opacities of the mid and lower lung zones, consistent with atelectasis versus pneumonia. 2. Small loculated right pleural effusion without significant change. Reviewed, dictated and finalized at location A. DRYER IMPRESSION: 1. Developing airspace opacities of the mid and lower lung zones, consistent wi th atelectasis versus pneumonia. 2. Small loculated right pleural effusion without significant change.
--- NOTE | ~2021-09-22 | XR_ITS ---
EXAMINATION: XR chest 1V portable DATE: 09/30/2021 12:26 INDICATION: Shortness of breath. Increased oxygen requirement. TECHNIQUE: A single frontal view of the chest was obtained. COMPARISON: Chest single view 09/22/2021, chest CT 09/22/2021 FINDINGS: There is a small loculated right pleural effusion. There are airspace opacities in all lung zones bilaterally with a mid and lower lung zone predominance. No pneumothorax. The heart size is no rmal. There are changes of esophagectomy and gastric pull-through procedure. There is a left subclavi an port with tip in superior cavoatrial junction. IMPRESSION: 1. Stable small loculated right pleural effusion. 2. Diffuse lung disease with worsening on the right, consistent with pulmonary edema versus pneumonia . Reviewed, dictated and finalized at location B. LER INSTALLER IMPRESSION: 1. Stable small loculated right pleural effusion. 2. Diffuse lung disease with worsening on the right, consistent with pulmonary edema versus pneumonia.
--- NOTE | ~2021-09-22 | CT_ITS ---
EXAMINATION: CTA chest PE protocol DATE: 09/22/2021 23:30 INDICATION: Shortness of breath. Elevated d-dimer. TECHNIQUE: Computed tomography (CT) pulmonary angiogram of the chest was performed with 100 mL Omnipa que-350 intravenous contrast. Additional 3D reconstructions utilizing coronal maximum intensity proje ction (MIP) were performed. The dose-length product was 287.29 mGy-cm. COMPARISON: 09/09/2021 and 10/07/2020 FINDINGS: Good contrast opacification of the pulmonary arteries. There is mild streak artifact from dense contr ast in the superior vena cava and right atrium. Mild scattered respiratory motion artifact which does not significantly limit evaluation. No pulmonary embolism. Near complete resolution of the prior pat janet airspace opacities throughout the left upper lobe and lingula and prior tree-in-bud opacities in the right upper lobe consistent with resolving pneumonia. Interval increase in size of a still small left pleural effusion. No significant change in a small right pleural effusion predominantly loculate d along the major fissure. Dependent compressive atelectasis in the bilateral lower lobes. Unchanged regions of round atelectasis in the right middle and lower lobes. No new pneumonia or pulmonary edema . Heart size is normal. Atherosclerotic coronary artery calcification. Ectatic ascending thoracic aor ta measuring up to 3.7 cm in maximal diameter. No dissection. Consider postoperative change of prior esophagectomy and gastric pull-through with small amount of oral contrast material within the intrath oracic portion of the stomach. Mild mediastinal lymphadenopathy which appears increased since CT date d 12/17/2019 which could be reactive or metastatic. Mild bilateral gynecomastia. Left subclavian centr al venous port catheter with distal tip at the caudal superior vena cava. There is stenosis of the le ft subclavian artery resulting in collateral extension of contrast from the left upper arm into the a nterior left chest wall. Severe lower cervical and mild to moderate thoracic spondylosis. IMPRESSION: 1. No pulmonary embolism. 2. Resolving bilateral pneumonia with significant improvement since 09/09/2021 3. Unchanged small partially loculated right pleural effusion and slight increase in a still small le ft pleural effusion. 4. Postoperative change of prior esophagectomy and gastric pull-through for reported esophageal cance r. 5. Mild mediastinal lymphadenopathy which is progressed since 12/17/2019 which could be either reactiv e or metastatic. Reviewed, dictated and finalized at location A. CAL EQUIPMENT REPAIR TECHNICIAN IMPRESSION: 1. No pulmonary embolism. 2. Resolving bilateral pneumonia with significant improvement since 09/09/2021 3. Unchanged small partially loculated right pleural effusion and slight increa se in a still small left pleural effusion. 4. Postoperative change of prior esophagectomy and gastric pull-through for rep orted esophageal cancer. 5. Mild mediastinal lymphadenopathy which is progressed since 12/17/2019 which c ould be either reactive or metastatic.
--- NOTE | ~2021-09-22 | US_ITS ---
EXAMINATION: US right upper quadrant DATE: 09/24/2021 10:51 INDICATION: Abnormal liver function tests. TECHNIQUE: Multiple grayscale and Doppler ultrasound images of the abdomen were obtained. COMPARISON: Chest CT 09/22/2021 FINDINGS: The visualized portions of the head and body of the pancreas are normal. The liver is lita l without focal lesion. No liver surface nodularity. There is normal flow in main portal vein. The ga llbladder is absent. The common duct is normal and measures 4 mm. There is a right pleural effusion. IMPRESSION: 1. No etiology for abnormal liver function tests. 2. Right pleural effusion. Reviewed, dictated and finalized at location A. ONOMY TEACHER
--- NOTE | ~2021-09-22 | XR_ITS ---
EXAMINATION: XR abdomen/kub 1V DATE: 10/05/2021 10:34 INDICATION: Abdominal pain and vomiting TECHNIQUE: A supine view of the abdomen on 2 radiographs was obtained. COMPARISON: 09/11/2021 FINDINGS: Cholecystectomy clips in right upper quadrant. Unchanged right internal ureteral stent with loops for med in expected position of the right renal pelvis and bladder. There is a new large bore catheter pr ojecting over the left abdomen possibly a jejunostomy tube with distal tip in the left lower quadrant . Small amount of retained oral contrast material within a likely diverticulum of the transverse colo n. No dilated loops of gas-filled bowel to suggest obstruction. Opacities at the bilateral lung bases . Severe lumbar spondylosis with anterior fusion at L3-L4. Partially visualized right total hip arthr oplasty in expected position. IMPRESSION: 1. No dilated loops of gas-filled bowel to suggest obstruction. 2. Postoperative changes detailed above. Reviewed, dictated and finalized at location A. P LAB TECHNOLOGIST
--- NOTE | ~2021-09-22 | XR_ITS ---
EXAMINATION: XR chest 1V portable DATE: 09/22/2021 22:58 INDICATION: Shortness of breath TECHNIQUE: frontal view of the chest was obtained. COMPARISON: Chest radiograph dated 09/15/2021 FINDINGS: Left subclavian central venous port catheter with distal tip at the caudal superior vena cava. Persis tent opacities in the bilateral mid and lower lung zones which includes small bilateral pleural effus ions. No pneumothorax. Heart size is normal. Persistent small amount of barium at the medial aspect o f the inferior right hemithorax likely residual oral contrast material within the gastric pull-throug h post esophagectomy which is better appreciated on CT dated 09/09/2021. Old healed posterior right fi fth rib fracture. IMPRESSION: 1. Persistent opacities in the bilateral mid and lower lung zones consistent with small bilateral ple ural effusions with associated atelectasis, pneumonia and/or pulmonary edema. Reviewed, dictated and finalized at location A. OELECTRIC PLANT STRUCTURAL ENGINEER IMPRESSION: 1. Persistent opacities in the bilateral mid and lower lung zones consistent wi th small bilateral pleural effusions with associated atelectasis, pneumonia and /or pulmonary edema.
--- NOTE | 2021-09-22 22:22 | ECG_ITS ---
Measurements Intervals [place] Rate: 110 P: 42 NM: 134 QRS: -18 QRSD: 85 T: 35 QT: 314 QTc: 426 Interpretive Statements SINUS TACHYCARDIA POSSIBLE LEFT ATRIAL ENLARGEMENT BASELINE WANDER- II, III ABNORMAL ECG Electronically Signed On 09-23-2021 6:19:02 PAPER MAKER by Kenji Bucio D.O.
[2021-09-22] MEDS: DEXAMETHASONE SOD PHOS INJ 4 MG/ML VIAL 10 MG IV PUSH (22:29)
[2021-09-22 22:38] LABS: Basophils Absolute Auto 0.1 K/mm3 (0.0-0.1); Basophils Percent Auto 0.6 % (0.2-1.2); Eosinophils Percent Auto 0.2 % (0-4.4); Hematocrit 26.2 % (42.0-52.0); Hemoglobin 8.5 g/dL (14.0-18.0); Immature Granulocyte Absolute 0.56 K/mm3 (0.00-0.031); Immature Granulocyte Percent A 4.8 % (0-0.5); Lymphocytes Absolute Auto 0.74 K/mm3 (0.9-3.2); Lymphocytes Percent Auto 6.3 % (18.3-44.2); Mean Corpuscular HGB Conc 32.4 g/dl (32-36); Mean Corpuscular Hemoglobin 31.7 pg (26-34); Mean Corpuscular Volume 97.8 fl (80-100); Mean Platelet Volume 12.9 fl (7.4-10.4); Monocytes Absolute Auto 2.3 K/mm3 (0.1-0.6); Monocytes Percent Auto 19.2 % (2.6-8.5); Neutrophils Absolute Auto 8.1 K/mm3 (1.3-6.7); Neutrophils Percent Auto 68.9 % (45.5-73.1); Platelet Count Result 149 k/mm3 (150-375); Red Blood Count 2.68 M/mm3 (4.6-6.20); Red Cell Distribution Width 19.9 % (11.5-14.5); White Blood Count 11.7 K/mm3 (4.5-10.0)
[2021-09-22 22:39] LABS: Glucose Point of Care 243 mg/dl (65-105)
[2021-09-22 22:45] LABS: Alveolar/Arterial O2 Gradient 12.7 mmHg; Base Excess ABG 1.4 mEq/l (+/-2.0); Fractional Inspired Oxygen 21 %; HCO3 ABG 25.2 mEq/l (22.0-26.0); Oxygen Content ABG 12.2 %vol (16.0-22.0); Oxygen Saturation ABG 97.5 % (95.0-100.0); Oxyhemoglobin 96.1 % THb (90.0-100.0); PCO2 ABG 36.4 mmHg (35.0-45.0); PO2 ABG 93.4 mmHg (80.0-100.0); PO2 FiO2 Ratio Arterial Blood 4.45 %; Total Hemoglobin 8.9 g/dL (12.0-18.0); pH ABG 7.458 (7.350-7.450)
[2021-09-22 22:46] LABS: Device ROOM AIR; Modified Allen's Test Pass; Site Drawn RIGHT RADIAL
[2021-09-22 22:49] LABS: INR 1.1; Prothrombin Time 13.8 Seconds (11.1-14.7)
[2021-09-22 22:50] LABS: Partial Thromboplastin Time 33.7 SECONDS (22.3-36.8)
[2021-09-22] MEDS: ALBUTEROL SULFATE NEB 2.5 MG/0.5 ML INH 5 MG INHALATION (22:54)
[2021-09-22] MEDS: IPRATROPIUM BR 0.02% INH SOLN 0.5 MG/2.5 ML VIAL INHALATION (22:54)
[2021-09-22 23:09] LABS: Alanine Aminotransferase 41 U/L (4-50); Albumin Level 2.4 g/dL (3.5-5.1); Alkaline Phosphatase 492 U/L (38-126); Anion Gap 3 mmol/L (8-16); Aspartate Amino Transferase 72 U/L (17-59); Bilirubin,Total 0.5 mg/dL (0.2-1.3); Blood Urea Nitrogen 27 mg/dL (9-20); Calcium 8.2 mg/dL (8.4-10.2); Carbon Dioxide 27 mmol/L (22-30); Chloride 103 mmol/L (98-107); Estimated CRCL calculation 93 ml/min; Estimated Glomerular Filt Rate > 60; Glucose 240 mg/dL (65-110); Potassium 4.3 mmol/L (3.4-5.0); Sodium 133 mmol/L (137-145)
[2021-09-22 23:21] LABS: NT Pro B Type Natriuretic Pept 696 pg/mL (5-100); Troponin I < 0.012 ng/mL (0.000-0.034)
[2021-09-23] VITALS (32 sets, daily range): BP systolic 108–150; BP diastolic 56–85; PULSE 47–122; RESP 9–24; TEMP 36.3; O2SAT 91–100; BMI 22.4
--- NOTE | 2021-09-23 00:12 | ED.SOB ---
HPI - SOB/Dyspnea General Chief Complaint: Shortness of Breath/Dyspnea Stated Complaint: COVID+/dyspnea Time Seen by Provider: 09/22/21 22:21 Source: patient Mode of arrival: ambulatory Limitations: no limitations History of Present Illness HPI Narrative: Patient is a 76-year-old male complaining of shortness of breath that started tonight. Per EMS oxygen saturation was in the 80s, placed on 4 L by EMS, O2 sat upon arrival to ER was 96%. EMS also states that he just tested positive yesterday for Covid. Patient was recently discharged from this hospital approximately a week ago after being admitted due to aspiration pneumonia. Patient was also recently diagnosed with malignant esophageal cancer. Patient denies any chest pain, abdominal pain, nausea, vomiting, diaphoresis, fever or chills. Related Data Home Medications Medication Instructions Recorded Confirmed aspirin 81 mg tablet,delayed 81 mg PO DAILY 03/17/21 08/28/21 release peg 400-propylene glycol (PF) 0.4 1 drp OPHTHALMIC (EYE) .M,W,F ea 03/17/21 08/28/21 %-0.3 % eye drops in a dropperette prednisolone acetate 1 % eye 1 drp OPHTHALMIC (EYE) DIRECTED 03/17/21 08/28/21 drops,suspension pantoprazole 40 mg PO DAILY 07/19/21 08/28/21 lactobacillus combination no.8 2 cell PO DAILY 08/28/21 08/28/21 triamcinolone acetonide 1 applic TOPICAL PRN PRN 08/28/21 08/28/21 Allergies Allergy/AdvReac Type Severity Reaction Status Date / Time No Known Allergies Allergy Verified 09/22/21 22:06 Review of Systems Review of Systems: All systems reviewed & are unremarkable except as noted in HPI and below Constitutional: Constitutional: Denies body ache(s), Denies chills, Denies excessive sweating, Denies fatigue, Denies fever(s), Denies headache(s), Denies lethargy, Denies malaise, Denies weakness and Denies weight loss Eyes: Eyes: Denies blurry vision, Denies change in vision and Denies loss of vision ENT: Denies dizziness, Denies ear discharge, Denies headache(s), Denies lip swelling, Denies epistaxis, Denies nasal congestion, Denies neck pain, Denies throat swelling and Denies tongue swelling Cardiovascular: Cardiovascular: Denies chest pain, Denies chest pain at rest, Denies chest pain with activity, Denies diaphoresis, Denies rapid heart rate, Denies edema, Denies irregular heart rhythm, Denies lightheadedness and Denies palpitations Respiratory: Respiratory: Denies hemoptysis Gastrointestinal: Gastrointestinal: Denies abdominal pain, Denies melena, Denies hematochezia, Denies diarrhea, Denies nausea, Denies vomiting and Denies hematemesis Musculoskeletal: Musculoskeletal: Denies abnormal gait, Denies deformity, Denies joint swelling, Denies limited range of motion, Denies neck pain and Denies numbness Neurologic: Denies Abnormal speech present, Denies abnormal gait, Denies confusion, Denies dizziness, Denies headache(s), Denies focal weakness, Denies loss of vision, Denies numbness, Denies Other visual disturbances, Denies Sensory deficit (Neuro) and Denies weakness Psychiatric: Psychiatric: Denies confusion, Denies depression, Denies auditory hallucinations, Denies homicidal ideation and Denies suicidal ideation Endocrine: Endocrine: Denies cold intolerance, Denies excessive sweating, Denies fatigue, Denies heat intolerance and Denies palpitations Hematologic/Lymphatic: Hematologic/Lymphatic: Denies easy bleeding and Denies easy bruising Allergic/Immunologic: Allergic/Immunologic: Denies lip swelling, Denies throat swelling and Denies tongue swelling PMFSH Past Medical History Medical History Anxiety Chronic back pain Chronic kidney disease, stage 3 Chronic obstructive pulmonary disease Depression due to physical illness Diabetic peripheral neuropathy Dyslipidemia Essential (primary) hypertension Gastroesophageal reflux disease History of jejunostomy tube placement With his esophagectomy in 2019. No longer i
[2021-09-23] MEDS: PROMETHAZINE HCL 25 MG/ML AMPUL 12.5 MG IV PUSH (01:05)
[2021-09-23] MEDS: LACTATED RINGERS 1,000 ML 125 ML IV CONT (01:11)
--- NOTE | 2021-09-23 02:56 | ED.ALCOHOL ---
HPI - Alcohol General Chief Complaint: Shortness of Breath/Dyspnea Stated Complaint: COVID+/dyspnea Time Seen by Provider: 09/22/21 22:21 Source: patient Mode of arrival: ambulatory Limitations: no limitations Related Data Home Medications Medication Instructions Recorded Confirmed aspirin 81 mg tablet,delayed 81 mg PO DAILY 03/17/21 08/28/21 release peg 400-propylene glycol (PF) 0.4 1 drp OPHTHALMIC (EYE) .M,W,F ea 03/17/21 08/28/21 %-0.3 % eye drops in a dropperette prednisolone acetate 1 % eye 1 drp OPHTHALMIC (EYE) DIRECTED 03/17/21 08/28/21 drops,suspension pantoprazole 40 mg PO DAILY 07/19/21 08/28/21 lactobacillus combination no.8 2 cell PO DAILY 08/28/21 08/28/21 triamcinolone acetonide 1 applic TOPICAL PRN PRN 08/28/21 08/28/21 Allergies Allergy/AdvReac Type Severity Reaction Status Date / Time No Known Allergies Allergy Verified 09/22/21 22:06 [facility] Past Medical History Medical History Anxiety Chronic back pain Chronic kidney disease, stage 3 Chronic obstructive pulmonary disease Depression due to physical illness Diabetic peripheral neuropathy Dyslipidemia Essential (primary) hypertension Gastroesophageal reflux disease History of jejunostomy tube placement With his esophagectomy in 2018. No longer in place. Insomnia, unspecified Malignant neoplasm of lower third of esophagus Nephrolithiasis Obstructive sleep apnea Osteoarthritis Psoriasis Type 2 diabetes mellitus with hyperglycemia, with long-term current use of insulin Vitamin B12 deficiency Vitamin D deficiency Surgical History Surgical History History of cholecystectomy (~1999) History of esophagectomy (12/2018) History of lumbar laminectomy (~2015) History of open reduction and internal fixation (ORIF) procedure (~07/12/17) History of total hip arthroplasty (~2013) Hx of cornea transplant (~2013) Hx of neck surgery (~2008) S/P cystoscopy with ureteral stent placement (~2010) Spinal cord stimulator status (06/2020) Status post cataract extraction of both eyes with insertion of intraocular lens 2010 and 2012 Status post laser lithotripsy of ureteral calculus (~2013) Family History Family History Sibling Carcinoma of colon Malignant neoplasm of prostate Family history of malignant neoplasm of urinary bladder Social History Social History Social History: Surrogate decision maker: Giselle Barney. Code status: Full code. Smoking packs per day: 1 Smoking cigarettes per day: 20.0 Years smoked: 20 Smoking pack-years: 20.00 Smoking status: Former smoker Tobacco type: cigarettes Second hand tobacco smoke exposure: No Smoking end date: 11/07/84 Alcohol intake: never Substance use: never Substance use type: does not use Additional living arrangements comments: He lives with his of 50* years in [place]. He ambulates with a walker. Additional occupation/education comments: He is a retired maintenance journeyman. Spiritual care concerns: No Course Vital Signs Vital signs: Vital Signs Temperature 36.8 C 09/22/21 21:57 Pulse Rate 110 H 09/22/21 21:57 Respiratory Rate 12 09/22/21 21:57 Blood Pressure 134/73 09/22/21 21:57 Pulse Oximetry 96 09/22/21 21:57 Temperature 36.8 C 09/22/21 21:57 Pulse Rate 117 H 09/23/21 02:32 Respiratory Rate 19 09/23/21 02:32 Blood Pressure 146/81 H 09/23/21 02:32 Pulse Oximetry 100 09/23/21 02:32 MDM - Alcohol Lab Data Result diagrams: 09/22/21 22:30 09/22/21 22:31 Labs: Lab Results 09/22/21 09/22/21 09/22/21 Range/Units 22:30 22:31 22:31 WBC 11.7 H (4.5-10.0) K/mm3 RBC 2.68 L (4.6-6.20) M/mm3 Hgb 8.5 L (14.0-18.0) g/dL Hct 26.2 L (42.0-
--- NOTE | 2021-09-23 03:11 | PC.NURSE ---
pt blood glucose 295, EDP clifford notified, no new orders at this time.
[2021-09-23 03:17] LABS: Glucose Point of Care 295 mg/dl (65-105)
--- NOTE | 2021-09-23 08:49 | PM.IMHP ---
H&P: HPI History of Present Illness Date/Time: 09/23/21 08:49 Chief Complaint: shortness breath Narrative: Patient is a 76-year-old male who presents from the longterm recently discharged on 09/17/2021 comes back with shortness of breath that started yesterday. EMS was called and is noted to have oxygen saturation of 80s is placed on a 4 L oxygen by EMS was brought to the ER for evaluation. His saturation has been and 90 eats in the ER with oxygen supplementation. Per history he was tested positive for COVID yesterday . He has a history of esophageal cancer and and had underwent esophagectomy in the past. He however came in last admission for surveillance EGD on 08/12/2021 after reports of early society and intermittent nausea and vomiting. Stomach and duodenum were not visualized at the time due to large amount of retained food and is EGD was rescheduled for 09/08/2021. The EGD showed of management appearing gastric masses consistent with recurrent malignancy. Post EGD he was hypoxic needing intubation. His chest x-ray noted new opacities and bronchial wall thickening of the mid left and lower lung zone. He was started on Zosyn. 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 Oncology was consulted. Due to poor p.o. intake a G-tube was placed for surgery on 09/15/2021. He was then sent to SNF for further rehabilitation. He is planned to follow up with Oncology as an outpatient basis for further treatment. Patient is a history poor historian and most of the history was taken from medical records Review of Systems Review of Systems: ROS unobtainable: Yes unobtainable due to mental status PMFSH Past Medical History Medical History Anxiety Chronic back pain Chronic kidney disease, stage 3 Chronic obstructive pulmonary disease Depression due to physical illness Diabetic peripheral neuropathy Dyslipidemia Essential (primary) hypertension Gastroesophageal reflux disease History of jejunostomy tube placement With his esophagectomy in 2019. No longer in place. Insomnia, unspecified Malignant neoplasm of lower third of esophagus Nephrolithiasis Obstructive sleep apnea Osteoarthritis Psoriasis Type 2 diabetes mellitus with hyperglycemia, with long-term current use of insulin Vitamin B12 deficiency Vitamin D deficiency Surgical History Surgical History History of cholecystectomy (~1999) History of esophagectomy (12/2018) History of lumbar laminectomy (~2015) History of open reduction and internal fixation (ORIF) procedure (~07/12/17) History of total hip arthroplasty (~2013) Hx of cornea transplant (~2013) Hx of neck surgery (~2008) S/P cystoscopy with ureteral stent placement (~2010) Spinal cord stimulator status (06/2020) Status post cataract extraction of both eyes with insertion of intraocular lens 2010 and 2012 Status post laser lithotripsy of ureteral calculus (~2013) Family History Family History Sibling Carcinoma of colon Malignant neoplasm of prostate Family history of malignant neoplasm of urinary bladder Social History Social History Social History: Surrogate decision maker: Giselle Barney. Code status: Full code. Smoking packs per day: 1 Smoking cigarettes per day: 20.0 Years smoked: 20 Smoking pack-years: 20.00 Smoking status: Former smoker Tobacco type: cigarettes Second hand tobacco smoke exposure: No Smoking end date: 11/07/84 Alcohol intake: never Substance use: never Substance use type: does not use Additional living arrangements comments: He lives with his of 50* years in [place]. He ambulates with a walker. Additional occupation/education comments: He is a retir
[2021-09-23] MEDS: LACTATED RINGERS 1,000 ML 100 ML IV CONT (10:10)
[2021-09-23] MEDS: IPRATROPIUM BR 0.02% INH SOLN 0.5 MG/2.5 ML VIAL INHALATION (10:13)
[2021-09-23] MEDS: ALBUTEROL SULFATE NEB 2.5 MG/0.5 ML INH 5 MG INHALATION (10:14)
--- NOTE | 2021-09-23 14:40 | PC.NURSE ---
This patient, Nilo Barney, was admitted to [address] [facility] Surg Room 300-01. Patient/family oriented to hospital policies and general routines including ID bracelet, bed and alarms, visiting hours, pain management, procedures, bathroom and other care routines, personal items, smoking policy, room service/diet, and visiting hours.Report received from Cat RN. Information on how to activate the Rapid Response Team has been discussed. Patient/Family are encouraged to report perceived risks to care and to ask questions if they do not understand what they are told or what they should do.
--- NOTE | 2021-09-23 14:59 | PCRCNOTE ---
Past window of treatment time
[2021-09-23 16:24] LABS: Glucose Point of Care 308 mg/dl (65-105)
[2021-09-23] MEDS: INSULIN ASPART (*BKC) 100 UNITS/ML SUB-Q (16:56)
[2021-09-23] MEDS: SACCHAROMYCES BOULARDII 250 MG CAPSULE FEED TUBE (17:50)
[2021-09-23 18:47] LABS: SARS-CoV-2 RNA PCR Positive
[2021-09-23] MEDS: ATORVASTATIN 10 MG TABLET FEED TUBE (20:22)
[2021-09-23] MEDS: METOPROLOL TARTRATE 12.5 MG TABLET FEED TUBE (20:22)
[2021-09-23] MEDS: ARTIFICIAL TEARS OPHTH SOLN 15 ML BOTTLE 1 DROP EACH EYE (20:23)
--- NOTE | 2021-09-23 22:43 | PCRCNOTE ---
Window of time for administration has passed. See next scheduled administration.
[2021-09-24] VITALS (17 sets, daily range): BP systolic 117–154; BP diastolic 54–67; PULSE 80–112; RESP 20; TEMP 36.2–36.4; O2SAT 96–99; BMI 22.4
[2021-09-24] MEDS: ALBUTEROL SULFATE NEB 2.5 MG/0.5 ML INH 5 MG INHALATION ×4 (02:23→20:41)
[2021-09-24] MEDS: IPRATROPIUM BR 0.02% INH SOLN 0.5 MG/2.5 ML VIAL INHALATION ×4 (02:23→20:41)
[2021-09-24 02:38] LABS: Glucose Point of Care 364 mg/dl (65-105)
[2021-09-24] MEDS: INSULIN ASPART (*BKC) 100 UNITS/ML 10 UNITS SUB-Q (04:09)
[2021-09-24] MEDS: ACETAMINOPHEN 325 MG TABLET 650 MG FEED TUBE ×3 (05:41→18:02)
[2021-09-24] MEDS: LANSOPRAZOLE ORAL SUSP 30 MG/10 ML ORAL.SUSP FEED TUBE (05:43)
[2021-09-24] MEDS: INSULIN ASPART (*BKC) 100 UNITS/ML SUB-Q ×3 (05:50→18:03)
[2021-09-24 06:16] LABS: Glucose Point of Care 340 mg/dl (65-105)
[2021-09-24 06:33] LABS: Basophils Percent Auto 0.1 % (0.2-1.2); Hematocrit 23.4 % (42.0-52.0); Hemoglobin 7.6 g/dL (14.0-18.0); Immature Granulocyte Absolute 0.19 K/mm3 (0.00-0.031); Immature Granulocyte Percent A 1.8 % (0-0.5); Lymphocytes Absolute Auto 0.28 K/mm3 (0.9-3.2); Lymphocytes Percent Auto 2.6 % (18.3-44.2); Mean Corpuscular HGB Conc 32.5 g/dl (32-36); Mean Corpuscular Hemoglobin 31.8 pg (26-34); Mean Corpuscular Volume 97.9 fl (80-100); Mean Platelet Volume 12.6 fl (7.4-10.4); Monocytes Absolute Auto 0.5 K/mm3 (0.1-0.6); Monocytes Percent Auto 4.6 % (2.6-8.5); Neutrophils Absolute Auto 9.7 K/mm3 (1.3-6.7); Neutrophils Percent Auto 90.9 % (45.5-73.1); Platelet Count Result 137 k/mm3 (150-375); Red Blood Count 2.39 M/mm3 (4.6-6.20); White Blood Count 10.7 K/mm3 (4.5-10.0)
[2021-09-24 06:45] LABS: Alanine Aminotransferase 45 U/L (4-50); Albumin Level 2.4 g/dL (3.5-5.1); Alkaline Phosphatase 454 U/L (38-126); Anion Gap 8 mmol/L (8-16); Aspartate Amino Transferase 78 U/L (17-59); Bilirubin,Total 0.2 mg/dL (0.2-1.3); Blood Urea Nitrogen 31 mg/dL (9-20); Carbon Dioxide 25 mmol/L (22-30); Chloride 100 mmol/L (98-107); Estimated CRCL calculation 94 ml/min; Estimated Glomerular Filt Rate > 60; Glucose 349 mg/dL (65-110); Magnesium 1.6 mg/dL (1.6-2.3); Sodium 133 mmol/L (137-145)
[2021-09-24 09:22] LABS: Glucose Point of Care 284 mg/dl (65-105)
[2021-09-24] MEDS: FERROUS SULFATE LIQUID 325 MG/7.4 ML ELIXIR FEED TUBE ×2 (09:45→17:54)
[2021-09-24] MEDS: METOPROLOL TARTRATE 12.5 MG TABLET FEED TUBE ×2 (09:47→20:06)
[2021-09-24] MEDS: ASPIRIN 81 MG CHEWABLE TABLET FEED TUBE (09:48)
[2021-09-24] MEDS: CYANOCOBALAMIN 1,000 MCG TABLET 1000 MCG FEED TUBE (09:48)
[2021-09-24] MEDS: SACCHAROMYCES BOULARDII 250 MG CAPSULE FEED TUBE ×2 (09:48→17:55)
[2021-09-24] MEDS: CHOLECALCIFEROL 1,000 UNITS TABLET 2000 UNITS FEED TUBE (09:48)
[2021-09-24] MEDS: ASCORBIC ACID 500 MG TABLET FEED TUBE (09:48)
[2021-09-24] MEDS: SERTRALINE HCL 50 MG TABLET 100 MG FEED TUBE (09:49)
[2021-09-24] MEDS: INSULIN GLARGINE (*BKC) 100 UNITS/ML 10 UNITS SUB-Q ×3 (09:49→20:07)
[2021-09-24] MEDS: PREGABALIN (*CRX) 50 MG CAPSULE 100 MG FEED TUBE (09:53)
--- NOTE | 2021-09-24 10:21 | PCRCNOTE ---
Window of time for administration has passed. See next scheduled administration.
[2021-09-24 12:43] LABS: Glucose Point of Care 328 mg/dl (65-105)
--- NOTE | 2021-09-24 14:36 | PM.IMPN ---
Progress Note: A&P Assessment and Plan (1) Pleural effusion, bilateral: Code(s): J90 - Pleural effusion, not elsewhere classified Status: Acute (2) Protein calorie malnutrition: Code(s): E46 - Unspecified protein-calorie malnutrition Status: Acute (3) Acute respiratory failure: Qualifiers: Respiratory failure complication: hypoxia Qualified Code(s): J96.01 - Acute respiratory failure with hypoxia Code(s): J96.00 - Acute respiratory failure, unspecified whether with hypoxia or hypercapnia Status: Acute (4) Chronic obstructive pulmonary disease: Code(s): J44.9 - Chronic obstructive pulmonary disease, unspecified Status: Acute (5) Aspiration pneumonia: Code(s): J69.0 - Pneumonitis due to inhalation of food and vomit Status: Acute (6) Type 2 diabetes mellitus with hyperglycemia, with long-term current use of insulin: Code(s): E11.65 - Type 2 diabetes mellitus with hyperglycemia; Z79.4 - jail (current) use of insulin Status: Acute (7) Malignant neoplasm of lower third of esophagus: Code(s): C15.5 - Malignant neoplasm of lower third of esophagus Status: Acute (8) Essential (primary) hypertension: Code(s): I10 - Essential (primary) hypertension Status: Acute (9) Dyslipidemia: Code(s): E78.5 - Hyperlipidemia, unspecified Status: Acute (10) H/O esophagectomy: Onset Date: ~05/2018 Code(s): Z98.890 - Other specified postprocedural states; Z90.49 - Acquired absence of other specified parts of digestive tract Status: Acute (11) Chronic back pain: Qualifiers: Back pain location: back pain in unspecified location Back pain laterality: unspecified Qualified Code(s): M54.9 - Dorsalgia, unspecified; G89.29 - Other chronic pain Code(s): M54.9 - Dorsalgia, unspecified; G89.29 - Other chronic pain Status: Acute (12) CKD (chronic kidney disease) stage 3, GFR 30-59 ml/min: Code(s): N18.3 - Chronic kidney disease, stage 3 (moderate) Status: Acute Additional Plan # acute hypoxic respiratory failure likely due to aspiration pneumonia/ COVID pneumonia. CTA negative for PE. Improving aspiration pneumonia on CT chest is currently off oxygen. COVID test did come back positive on Decadron. Given elevated liver enzymes and also improving oxygen status will not do remdesivir # recent aspiration pneumonia on Augmentin at home post EGD continue Zosyn may be able to change it to Augmentin soon at discharge # recently diagnosed recurrence of esophageal cancer plan for outpatient oncology follow-up EGD and workup done last admission # elevated liver enzymes cholestatic picture and his liver function test could be related to recently started tube feeds. Right upper quadrant ultrasound was unremarkable. Will continue to monitor. # history of esophageal cancer status post chemoradiation therapy and esophagectomy in 2019 # bilateral nephrolithiasis with 5 mm stone in the right renal pelvis adjust to the right internal ureteral stent # status post PEG tube placement for nutrition # COVID pneumonia continue dexamethasone COVID swab positive continue Decadron # chronic kidney disease stage 3 # COPD # chronic anemia # diabetic peripheral neuropathy # dyslipidemia # hyperlipidemia # GERD # obstructive sleep apnea # type 2 diabetes with long-term use of insulin # vitamin B12 deficiency # DVT prophylaxis placed on Lovenox # do not resuscitate Subjective Date/time seen: 09/24/21 14:36 Interval history: No overnight events. He is more awake and alert. He is breathing better. He is off oxygen. He has some loose stools he states sore in his abdomen but no cough Review of Systems Review of Systems: All systems reviewed & are unremarkable except as noted in HPI and below (HPI) Exam Narrative: GENERAL: The patient is well developed, not in acute distress HEENT: Nonicter
[2021-09-24 18:11] LABS: Glucose Point of Care 350 mg/dl (65-105)
[2021-09-24 22:00] LABS: Glucose Point of Care 358 mg/dl (65-105)
[2021-09-24] MEDS: ATORVASTATIN 10 MG TABLET FEED TUBE (22:05)
[2021-09-25] VITALS (15 sets, daily range): BP systolic 109–140; BP diastolic 53–97; PULSE 80–107; RESP 16–20; TEMP 36.6–36.9; O2SAT 95–97
[2021-09-25] MEDS: INSULIN ASPART (*BKC) 100 UNITS/ML SUB-Q ×4 (01:18→18:35)
[2021-09-25 01:37] LABS: Glucose Point of Care 272 mg/dl (65-105)
[2021-09-25] MEDS: ALBUTEROL SULFATE NEB 2.5 MG/0.5 ML INH 5 MG INHALATION ×3 (02:25→21:23)
[2021-09-25] MEDS: IPRATROPIUM BR 0.02% INH SOLN 0.5 MG/2.5 ML VIAL INHALATION ×3 (02:25→21:23)
[2021-09-25 06:18] LABS: Basophils Percent Auto 0.2 % (0.2-1.2); Hematocrit 22.5 % (42.0-52.0); Hemoglobin 7.4 g/dL (14.0-18.0); Immature Granulocyte Absolute 0.19 K/mm3 (0.00-0.031); Lymphocytes Absolute Auto 0.72 K/mm3 (0.9-3.2); Lymphocytes Percent Auto 7.6 % (18.3-44.2); Mean Corpuscular HGB Conc 32.9 g/dl (32-36); Mean Corpuscular Hemoglobin 31.5 pg (26-34); Mean Corpuscular Volume 95.7 fl (80-100); Monocytes Absolute Auto 1.1 K/mm3 (0.1-0.6); Monocytes Percent Auto 11.4 % (2.6-8.5); Neutrophils Absolute Auto 7.4 K/mm3 (1.3-6.7); Neutrophils Percent Auto 78.8 % (45.5-73.1); Platelet Count Result 130 k/mm3 (150-375); Red Blood Count 2.35 M/mm3 (4.6-6.20); White Blood Count 9.5 K/mm3 (4.5-10.0)
[2021-09-25] MEDS: LANSOPRAZOLE ORAL SUSP 30 MG/10 ML ORAL.SUSP FEED TUBE (06:22)
[2021-09-25 06:31] LABS: Alanine Aminotransferase 52 U/L (4-50); Albumin Level 2.1 g/dL (3.5-5.1); Alkaline Phosphatase 462 U/L (38-126); Anion Gap 6 mmol/L (8-16); Aspartate Amino Transferase 76 U/L (17-59); Bilirubin,Total 0.3 mg/dL (0.2-1.3); Blood Urea Nitrogen 26 mg/dL (9-20); Calcium 7.8 mg/dL (8.4-10.2); Carbon Dioxide 27 mmol/L (22-30); Chloride 100 mmol/L (98-107); Estimated CRCL calculation 82 ml/min; Estimated Glomerular Filt Rate > 60; Glucose 253 mg/dL (65-110); Potassium 3.9 mmol/L (3.4-5.0); Sodium 133 mmol/L (137-145)
[2021-09-25 06:57] LABS: Glucose Point of Care 246 mg/dl (65-105)
[2021-09-25] MEDS: prednisoLONE ACETATE 1% OPHTH 5 ML 1 DROP RIGHT EYE (09:48)
[2021-09-25] MEDS: ARTIFICIAL TEARS OPHTH SOLN 15 ML BOTTLE 1 DROP EACH EYE (09:48)
[2021-09-25] MEDS: FERROUS SULFATE LIQUID 325 MG/7.4 ML ELIXIR FEED TUBE ×2 (09:49→18:34)
[2021-09-25] MEDS: SACCHAROMYCES BOULARDII 250 MG CAPSULE FEED TUBE ×2 (09:50→18:34)
[2021-09-25] MEDS: METOPROLOL TARTRATE 12.5 MG TABLET FEED TUBE ×2 (09:50→20:47)
[2021-09-25] MEDS: CHOLECALCIFEROL 1,000 UNITS TABLET 2000 UNITS FEED TUBE (09:50)
[2021-09-25] MEDS: CYANOCOBALAMIN 1,000 MCG TABLET 1000 MCG FEED TUBE (09:50)
[2021-09-25] MEDS: ASCORBIC ACID 500 MG TABLET FEED TUBE (09:50)
[2021-09-25] MEDS: SERTRALINE HCL 50 MG TABLET 100 MG FEED TUBE (09:50)
[2021-09-25] MEDS: INSULIN GLARGINE (*BKC) 100 UNITS/ML 10 UNITS SUB-Q ×2 (09:51→20:55)
[2021-09-25] MEDS: ASPIRIN 81 MG CHEWABLE TABLET FEED TUBE (09:51)
[2021-09-25] MEDS: PREGABALIN (*CRX) 50 MG CAPSULE 100 MG FEED TUBE (09:54)
--- NOTE | 2021-09-25 11:55 | PCNFU ---
Nutrition Follow-Up Complete: Increased protein needs as related to wounds as evidenced by stage 2 PU on sacrum Goal: Meet estimated nutritional needs Pt. is progressing towards goal. No new goal at this time. Pt current nutrition is Glucerna 1.2 at 75 mls per hour over 22 hours per day. Last recorded weight is 75 kg. Recommend re-weighing pt. prior to discharge. Bowel Motility: + BM 09/23/2021. Labs Reviewed: Hgb 7.4, Hct 22.5, Alb 2.1, Na 133, BUN 26, Glu 253 Meds Noted: Albuterol, Vitamin C, Xanax, Lipitor, ferrous sulfate, Vitamin B-12 tablet, Lantus, Novolog, Atrovent Neb, Reglan, Zoloft, Vitamin D, Lyrica Skin: Stage II medial sacral pressure ulcer Additional Notes: Glucerna 1.2 at 75 mls per hour over 22 hours per day provides pt. with 1980 calories, 99 grams of protein and 1328 mls of free water. Pt. is tolerating feeding well with little residuals. Pt. is receiving Cam BID providing an additional 90 calories and 2.5 grams of protein to aid in wound healing. Will monitor every Tuesday and Tuesday
[2021-09-25 12:31] LABS: Glucose Point of Care 235 mg/dl (65-105)
--- NOTE | 2021-09-25 13:37 | PCNSR ---
On 09/25/21, the student, Areli Alanis, provided care and completed [facility] documentation on this patient. I have reviewed the student's documentation and agree with the findings.
--- NOTE | 2021-09-25 15:08 | PM.IMPN ---
Progress Note: A&P Assessment and Plan (1) Pleural effusion, bilateral: Code(s): J90 - Pleural effusion, not elsewhere classified Status: Acute (2) Protein calorie malnutrition: Code(s): E46 - Unspecified protein-calorie malnutrition Status: Acute (3) Acute respiratory failure: Qualifiers: Respiratory failure complication: hypoxia Qualified Code(s): J96.01 - Acute respiratory failure with hypoxia Code(s): J96.00 - Acute respiratory failure, unspecified whether with hypoxia or hypercapnia Status: Acute (4) Chronic obstructive pulmonary disease: Code(s): J44.9 - Chronic obstructive pulmonary disease, unspecified Status: Acute (5) Aspiration pneumonia: Code(s): J69.0 - Pneumonitis due to inhalation of food and vomit Status: Acute (6) Type 2 diabetes mellitus with hyperglycemia, with long-term current use of insulin: Code(s): E11.65 - Type 2 diabetes mellitus with hyperglycemia; Z79.4 - alf (current) use of insulin Status: Acute (7) Malignant neoplasm of lower third of esophagus: Code(s): C15.5 - Malignant neoplasm of lower third of esophagus Status: Acute (8) Essential (primary) hypertension: Code(s): I10 - Essential (primary) hypertension Status: Acute (9) Dyslipidemia: Code(s): E78.5 - Hyperlipidemia, unspecified Status: Acute (10) H/O esophagectomy: Onset Date: ~05/2018 Code(s): Z98.890 - Other specified postprocedural states; Z90.49 - Acquired absence of other specified parts of digestive tract Status: Acute (11) Chronic back pain: Qualifiers: Back pain location: back pain in unspecified location Back pain laterality: unspecified Qualified Code(s): M54.9 - Dorsalgia, unspecified; G89.29 - Other chronic pain Code(s): M54.9 - Dorsalgia, unspecified; G89.29 - Other chronic pain Status: Acute (12) CKD (chronic kidney disease) stage 3, GFR 30-59 ml/min: Code(s): N18.3 - Chronic kidney disease, stage 3 (moderate) Status: Acute Additional Plan # acute hypoxic respiratory failure likely due to aspiration pneumonia/ COVID pneumonia. CTA negative for PE. Improving aspiration pneumonia on CT chest is currently off oxygen. COVID test did come back positive on Decadron. Given elevated liver enzymes and also improving oxygen status will not do remdesivir # recent aspiration pneumonia on Augmentin at home post EGD continue Zosyn may be able to change it to Augmentin soon at discharge # recently diagnosed recurrence of esophageal cancer plan for outpatient oncology follow-up EGD and workup done last admission # elevated liver enzymes cholestatic picture and his liver function test could be related to recently started tube feeds. Right upper quadrant ultrasound was unremarkable. Will continue to monitor. # history of esophageal cancer status post chemoradiation therapy and esophagectomy in 2019 # bilateral nephrolithiasis with 5 mm stone in the right renal pelvis adjust to the right internal ureteral stent # status post PEG tube placement for nutrition # COVID pneumonia continue dexamethasone COVID swab positive continue Decadron # chronic kidney disease stage 3 # COPD # chronic anemia # diabetic peripheral neuropathy # dyslipidemia # hyperlipidemia # GERD # obstructive sleep apnea # type 2 diabetes with long-term use of insulin # vitamin B12 deficiency # DVT prophylaxis placed on Lovenox # do not resuscitate Subjective Date/time seen: 09/25/21 15:08 Interval history: No overnight events. Is feeling better. Remains off oxygen. He is coughing up some phlegm his is. Denies any shortness of breath. Review of Systems Review of Systems: All systems reviewed & are unremarkable except as noted in HPI and below (HPI) Exam Narrative: GENERAL: The patient is well developed, not in acute distress HEENT: Nonicteric sclerae, PERRLA, EOMI. . M
[2021-09-25 18:06] LABS: Glucose Point of Care 297 mg/dl (65-105)
[2021-09-25] MEDS: ATORVASTATIN 10 MG TABLET FEED TUBE (20:46)
[2021-09-26] VITALS (15 sets, daily range): BP systolic 120–157; BP diastolic 50–82; PULSE 92–115; RESP 16–20; TEMP 36.6–37.4; O2SAT 93–95
[2021-09-26] MEDS: INSULIN ASPART (*BKC) 100 UNITS/ML SUB-Q ×4 (00:34→18:14)
[2021-09-26 00:50] LABS: Glucose Point of Care 244 mg/dl (65-105)
[2021-09-26 00:50] LABS: Glucose Point of Care 243 mg/dl (65-105)
[2021-09-26] MEDS: ALBUTEROL SULFATE NEB 2.5 MG/0.5 ML INH 5 MG INHALATION ×3 (02:15→13:39)
[2021-09-26] MEDS: IPRATROPIUM BR 0.02% INH SOLN 0.5 MG/2.5 ML VIAL INHALATION ×3 (02:15→13:40)
[2021-09-26] MEDS: LANSOPRAZOLE ORAL SUSP 30 MG/10 ML ORAL.SUSP FEED TUBE (06:54)
[2021-09-26 07:14] LABS: Glucose Point of Care 258 mg/dl (65-105)
[2021-09-26 08:02] LABS: Glucose Point of Care 225 mg/dl (65-105)
[2021-09-26] MEDS: PREGABALIN (*CRX) 50 MG CAPSULE 100 MG FEED TUBE (08:28)
[2021-09-26] MEDS: INSULIN GLARGINE (*BKC) 100 UNITS/ML 10 UNITS SUB-Q (08:29)
[2021-09-26] MEDS: FERROUS SULFATE LIQUID 325 MG/7.4 ML ELIXIR FEED TUBE ×2 (08:30→18:14)
[2021-09-26] MEDS: METOPROLOL TARTRATE 12.5 MG TABLET FEED TUBE ×2 (08:30→20:58)
[2021-09-26] MEDS: SERTRALINE HCL 50 MG TABLET 100 MG FEED TUBE (08:30)
[2021-09-26] MEDS: SACCHAROMYCES BOULARDII 250 MG CAPSULE FEED TUBE ×2 (08:31→18:14)
[2021-09-26] MEDS: CYANOCOBALAMIN 1,000 MCG TABLET 1000 MCG FEED TUBE (08:31)
[2021-09-26] MEDS: CHOLECALCIFEROL 1,000 UNITS TABLET 2000 UNITS FEED TUBE (08:31)
[2021-09-26] MEDS: ASCORBIC ACID 500 MG TABLET FEED TUBE (08:31)
[2021-09-26] MEDS: ASPIRIN 81 MG CHEWABLE TABLET FEED TUBE (08:31)
[2021-09-26 10:20] LABS: Basophils Percent Auto 0.1 % (0.2-1.2); Hematocrit 22.6 % (42.0-52.0); Hemoglobin 7.7 g/dL (14.0-18.0); Immature Granulocyte Absolute 0.22 K/mm3 (0.00-0.031); Immature Granulocyte Percent A 2.8 % (0-0.5); Lymphocytes Absolute Auto 0.37 K/mm3 (0.9-3.2); Lymphocytes Percent Auto 4.8 % (18.3-44.2); Mean Corpuscular HGB Conc 34.1 g/dl (32-36); Mean Corpuscular Hemoglobin 32.9 pg (26-34); Mean Corpuscular Volume 96.6 fl (80-100); Mean Platelet Volume 11.9 fl (7.4-10.4); Monocytes Absolute Auto 0.6 K/mm3 (0.1-0.6); Monocytes Percent Auto 8.3 % (2.6-8.5); Neutrophils Absolute Auto 6.5 K/mm3 (1.3-6.7); Platelet Count Result 115 k/mm3 (150-375); Red Blood Count 2.34 M/mm3 (4.6-6.20); Red Cell Distribution Width 19.9 % (11.5-14.5); White Blood Count 7.7 K/mm3 (4.5-10.0)
[2021-09-26 12:15] LABS: Glucose Point of Care 226 mg/dl (65-105)
[2021-09-26 14:35] LABS: Alanine Aminotransferase 113 U/L (4-50); Albumin Level 2.5 g/dL (3.5-5.1); Alkaline Phosphatase 584 U/L (38-126); Anion Gap 7 mmol/L (8-16); Aspartate Amino Transferase 156 U/L (17-59); Bilirubin,Total 0.3 mg/dL (0.2-1.3); Blood Urea Nitrogen 26 mg/dL (9-20); Calcium 7.5 mg/dL (8.4-10.2); Carbon Dioxide 25 mmol/L (22-30); Chloride 96 mmol/L (98-107); Estimated CRCL calculation 82 ml/min; Estimated Glomerular Filt Rate > 60; Glucose 168 mg/dL (65-110); Potassium 3.8 mmol/L (3.4-5.0); Sodium 128 mmol/L (137-145)
--- NOTE | 2021-09-26 14:56 | PM.IMPN ---
Progress Note: A&P Assessment and Plan (1) Pleural effusion, bilateral: Code(s): J90 - Pleural effusion, not elsewhere classified Status: Acute (2) Protein calorie malnutrition: Code(s): E46 - Unspecified protein-calorie malnutrition Status: Acute (3) Acute respiratory failure: Qualifiers: Respiratory failure complication: hypoxia Qualified Code(s): J96.01 - Acute respiratory failure with hypoxia Code(s): J96.00 - Acute respiratory failure, unspecified whether with hypoxia or hypercapnia Status: Acute (4) Chronic obstructive pulmonary disease: Code(s): J44.9 - Chronic obstructive pulmonary disease, unspecified Status: Acute (5) Aspiration pneumonia: Code(s): J69.0 - Pneumonitis due to inhalation of food and vomit Status: Acute (6) Type 2 diabetes mellitus with hyperglycemia, with long-term current use of insulin: Code(s): E11.65 - Type 2 diabetes mellitus with hyperglycemia; Z79.4 - prison (current) use of insulin Status: Acute (7) Malignant neoplasm of lower third of esophagus: Code(s): C15.5 - Malignant neoplasm of lower third of esophagus Status: Acute (8) Essential (primary) hypertension: Code(s): I10 - Essential (primary) hypertension Status: Acute (9) Dyslipidemia: Code(s): E78.5 - Hyperlipidemia, unspecified Status: Acute (10) H/O esophagectomy: Onset Date: ~05/2018 Code(s): Z98.890 - Other specified postprocedural states; Z90.49 - Acquired absence of other specified parts of digestive tract Status: Acute (11) Chronic back pain: Qualifiers: Back pain location: back pain in unspecified location Back pain laterality: unspecified Qualified Code(s): M54.9 - Dorsalgia, unspecified; G89.29 - Other chronic pain Code(s): M54.9 - Dorsalgia, unspecified; G89.29 - Other chronic pain Status: Acute (12) CKD (chronic kidney disease) stage 3, GFR 30-59 ml/min: Code(s): N18.3 - Chronic kidney disease, stage 3 (moderate) Status: Acute Additional Plan # acute hypoxic respiratory failure likely due to aspiration pneumonia/ COVID pneumonia. CTA negative for PE. Improving aspiration pneumonia on CT chest is currently off oxygen. COVID test did come back positive on Decadron. Given elevated liver enzymes and also improving oxygen status will not do remdesivir # recent aspiration pneumonia on Augmentin at home post EGD continue Zosyn may be able to change it to Augmentin soon at discharge # recently diagnosed recurrence of esophageal cancer plan for outpatient oncology follow-up EGD and workup done last admission # elevated liver enzymes cholestatic picture and his liver function test could be related to recently started tube feeds. Right upper quadrant ultrasound was unremarkable. Will continue to monitor. # history of esophageal cancer status post chemoradiation therapy and esophagectomy in 2019 # bilateral nephrolithiasis with 5 mm stone in the right renal pelvis adjust to the right internal ureteral stent # status post PEG tube placement for nutrition # COVID pneumonia continue dexamethasone COVID swab positive continue Decadron # chronic kidney disease stage 3 # COPD # chronic anemia # diabetic peripheral neuropathy # dyslipidemia # hyperlipidemia # GERD # obstructive sleep apnea # type 2 diabetes with long-term use of insulin adjust insulin dosing today blood sugar reviewed # vitamin B12 deficiency # DVT prophylaxis placed on Lovenox # do not resuscitate Awaiting insurance authorization for his discharge back to his nursing facility which is [facility] Subjective Date/time seen: 09/26/21 14:56 Interval history: No overnight events. Denies any new complaints. Denies any shortness of breath cough persist with expectoration. No fever or chills Review of Systems Review of Systems: All systems reviewed & are unremarkable excep
[2021-09-26 18:07] LABS: Glucose Point of Care 306 mg/dl (65-105)
[2021-09-26] MEDS: ATORVASTATIN 10 MG TABLET FEED TUBE (20:58)
[2021-09-26] MEDS: INSULIN GLARGINE (*BKC) 100 UNITS/ML 15 UNITS SUB-Q (20:59)
[2021-09-26 21:48] LABS: Glucose Point of Care 274 mg/dl (65-105)
[2021-09-26] MEDS: ALBUTEROL SULFATE (*SP) INHALER 2 PUFF INHALATION (21:51)
[2021-09-27] VITALS (10 sets, daily range): BP systolic 133–156; BP diastolic 65–80; PULSE 76–123; RESP 16–24; TEMP 36.4–37.2; O2SAT 90–98
[2021-09-27] MEDS: INSULIN ASPART (*BKC) 100 UNITS/ML SUB-Q ×3 (00:32→18:21)
[2021-09-27 00:55] LABS: Glucose Point of Care 261 mg/dl (65-105)
--- NOTE | 2021-09-27 04:09 | PCRCNOTE ---
RT unavailable due to emergency to administer 02:00 inhaler treatment to pt.
[2021-09-27] MEDS: LANSOPRAZOLE ORAL SUSP 30 MG/10 ML ORAL.SUSP FEED TUBE (06:13)
[2021-09-27 06:47] LABS: Glucose Point of Care 172 mg/dl (65-105)
[2021-09-27] MEDS: METOCLOPRAMIDE HCL 10 MG/10 ML SOLN UDC FEED TUBE (06:56)
[2021-09-27 06:58] LABS: Basophils Percent Auto 0.3 % (0.2-1.2); Eosinophils Percent Auto 0.1 % (0-4.4); Hematocrit 22.8 % (42.0-52.0); Hemoglobin 7.7 g/dL (14.0-18.0); Immature Granulocyte Absolute 0.22 K/mm3 (0.00-0.031); Immature Granulocyte Percent A 2.8 % (0-0.5); Immature Platelet Fraction Pct 12.3 % (0.9-11.2); Lymphocytes Absolute Auto 0.83 K/mm3 (0.9-3.2); Lymphocytes Percent Auto 10.6 % (18.3-44.2); Mean Corpuscular HGB Conc 33.8 g/dl (32-36); Mean Corpuscular Volume 94.6 fl (80-100); Mean Platelet Volume 13.2 fl (7.4-10.4); Monocytes Absolute Auto 0.8 K/mm3 (0.1-0.6); Monocytes Percent Auto 10.2 % (2.6-8.5); Platelet Count Result 117 k/mm3 (150-375); Red Blood Count 2.41 M/mm3 (4.6-6.20); Red Cell Distribution Width 20.1 % (11.5-14.5); White Blood Count 7.9 K/mm3 (4.5-10.0)
[2021-09-27 07:15] LABS: Alanine Aminotransferase 101 U/L (4-50); Albumin Level 2.4 g/dL (3.5-5.1); Alkaline Phosphatase 599 U/L (38-126); Anion Gap 5 mmol/L (8-16); Aspartate Amino Transferase 133 U/L (17-59); Bilirubin,Total 0.3 mg/dL (0.2-1.3); Blood Urea Nitrogen 25 mg/dL (9-20); Calcium 7.7 mg/dL (8.4-10.2); Carbon Dioxide 27 mmol/L (22-30); Chloride 100 mmol/L (98-107); Estimated CRCL calculation 94 ml/min; Estimated Glomerular Filt Rate > 60; Glucose 174 mg/dL (65-110); Sodium 132 mmol/L (137-145)
[2021-09-27] MEDS: ALBUTEROL SULFATE (*SP) INHALER 2 PUFF INHALATION ×3 (07:51→22:11)
--- NOTE | 2021-09-27 08:17 | PM.IMPN ---
Progress Note: A&P Assessment and Plan (1) Pleural effusion, bilateral: Code(s): J90 - Pleural effusion, not elsewhere classified Status: Acute Assessment and Plan: Likely to be malignant patient with recurrent adenocarcinoma of the esophagus. (2) Protein calorie malnutrition: Code(s): E46 - Unspecified protein-calorie malnutrition Status: Acute Assessment and Plan: Patient with esophageal recurrent Ca (3) Acute respiratory failure: Qualifiers: Respiratory failure complication: hypoxia Qualified Code(s): J96.01 - Acute respiratory failure with hypoxia Code(s): J96.00 - Acute respiratory failure, unspecified whether with hypoxia or hypercapnia Status: Acute Assessment and Plan: Continue supplemental O2 Continue breathing treatment Still wheezing Systemic steroid (4) Chronic obstructive pulmonary disease: Code(s): J44.9 - Chronic obstructive pulmonary disease, unspecified Status: Acute Assessment and Plan: As above (5) Aspiration pneumonia: Code(s): J69.0 - Pneumonitis due to inhalation of food and vomit Status: Acute Assessment and Plan: Patient is on Zosyn (6) Type 2 diabetes mellitus with hyperglycemia, with long-term current use of insulin: Code(s): E11.65 - Type 2 diabetes mellitus with hyperglycemia; Z79.4 - correction (current) use of insulin Status: Acute Assessment and Plan: Accu-Cheks AC and HS (7) Malignant neoplasm of lower third of esophagus: Code(s): C15.5 - Malignant neoplasm of lower third of esophagus Status: Acute Assessment and Plan: Will follow-up in outpatient setting (8) Essential (primary) hypertension: Code(s): I10 - Essential (primary) hypertension Status: Acute Assessment and Plan: Continue home meds (9) Dyslipidemia: Code(s): E78.5 - Hyperlipidemia, unspecified Status: Acute Assessment and Plan: On statin Follow-up in outpatient setting (10) H/O esophagectomy: Onset Date: ~05/2018 Code(s): Z98.890 - Other specified postprocedural states; Z90.49 - Acquired absence of other specified parts of digestive tract Status: Acute Assessment and Plan: However patient has reoccurrence of esophageal CA (11) Chronic back pain: Qualifiers: Back pain location: back pain in unspecified location Back pain laterality: unspecified Qualified Code(s): M54.9 - Dorsalgia, unspecified; G89.29 - Other chronic pain Code(s): M54.9 - Dorsalgia, unspecified; G89.29 - Other chronic pain Status: Acute Assessment and Plan: Tylenol as needed (12) CKD (chronic kidney disease) stage 3, GFR 30-59 ml/min: Code(s): N18.3 - Chronic kidney disease, stage 3 (moderate) Status: Acute Assessment and Plan: Continue to monitor Avoid nephrotoxin BUN and creatinine at patient's baseline Additional Plan # acute hypoxic respiratory failure likely due to aspiration pneumonia/ COVID pneumonia. CTA negative for PE. Improving aspiration pneumonia on CT chest is currently off oxygen. COVID test did come back positive on Decadron. Given elevated liver enzymes and also improving oxygen status will not do remdesivir # recent aspiration pneumonia on Augmentin at home post EGD continue Zosyn may be able to change it to Augmentin soon at discharge # recently diagnosed recurrence of esophageal cancer plan for outpatient oncology follow-up EGD and workup done last admission # elevated liver enzymes cholestatic picture and his liver function test could be related to recently started tube feeds. Right upper quadrant ultrasound was unremarkable. Will continue to monitor. # history of esophageal cancer status post chemoradiation therapy and esophagectomy in 2019 # bilateral nephrolithiasis with 5 mm stone in the right renal pelvis adjust to the right internal ureteral stent # status post PEG
[2021-09-27] MEDS: PREGABALIN (*CRX) 50 MG CAPSULE 100 MG FEED TUBE (08:58)
[2021-09-27] MEDS: SACCHAROMYCES BOULARDII 250 MG CAPSULE FEED TUBE ×2 (08:59→18:19)
[2021-09-27] MEDS: CHOLECALCIFEROL 1,000 UNITS TABLET 2000 UNITS FEED TUBE (08:59)
[2021-09-27] MEDS: METOPROLOL TARTRATE 12.5 MG TABLET FEED TUBE ×2 (08:59→20:43)
[2021-09-27] MEDS: FERROUS SULFATE LIQUID 325 MG/7.4 ML ELIXIR FEED TUBE ×2 (08:59→18:19)
[2021-09-27] MEDS: ASCORBIC ACID 500 MG TABLET FEED TUBE (08:59)
[2021-09-27] MEDS: SERTRALINE HCL 50 MG TABLET 100 MG FEED TUBE (08:59)
[2021-09-27] MEDS: ASPIRIN 81 MG CHEWABLE TABLET FEED TUBE (09:00)
[2021-09-27] MEDS: CYANOCOBALAMIN 1,000 MCG TABLET 1000 MCG FEED TUBE (09:00)
[2021-09-27] MEDS: INSULIN GLARGINE (*BKC) 100 UNITS/ML 15 UNITS SUB-Q ×2 (09:00→20:45)
[2021-09-27 12:05] LABS: Glucose Point of Care 283 mg/dl (65-105)
--- NOTE | 2021-09-27 12:57 | PCPTNOTE ---
Spoke with nursing who said patient is running a fever and very sleepy today. Nursing asked if he could rest at this time. Holding on treatment per nursing.
[2021-09-27 18:02] LABS: Glucose Point of Care 367 mg/dl (65-105)
[2021-09-27] MEDS: ATORVASTATIN 10 MG TABLET FEED TUBE (20:43)
[2021-09-27 20:54] LABS: Glucose Point of Care 348 mg/dl (65-105)
[2021-09-28] VITALS (10 sets, daily range): BP systolic 110–146; BP diastolic 37–75; PULSE 76–120; RESP 18–24; TEMP 36.5–37.9; O2SAT 92–96
[2021-09-28] MEDS: INSULIN ASPART (*BKC) 100 UNITS/ML SUB-Q ×5 (00:48→23:39)
[2021-09-28 01:29] LABS: Glucose Point of Care 311 mg/dl (65-105)
[2021-09-28] MEDS: ALBUTEROL SULFATE (*SP) INHALER 2 PUFF INHALATION ×4 (02:08→19:30)
[2021-09-28] MEDS: LANSOPRAZOLE ORAL SUSP 30 MG/10 ML ORAL.SUSP FEED TUBE (06:29)
[2021-09-28 07:05] LABS: Glucose Point of Care 220 mg/dl (65-105)
[2021-09-28 08:24] LABS: Glucose Point of Care 225 mg/dl (65-105)
[2021-09-28] MEDS: INSULIN GLARGINE (*BKC) 100 UNITS/ML 15 UNITS SUB-Q ×2 (08:44→20:30)
[2021-09-28] MEDS: SACCHAROMYCES BOULARDII 250 MG CAPSULE FEED TUBE ×2 (08:45→17:47)
[2021-09-28] MEDS: CHOLECALCIFEROL 1,000 UNITS TABLET 2000 UNITS FEED TUBE (08:45)
[2021-09-28] MEDS: METOPROLOL TARTRATE 12.5 MG TABLET FEED TUBE ×2 (08:45→20:27)
[2021-09-28] MEDS: CYANOCOBALAMIN 1,000 MCG TABLET 1000 MCG FEED TUBE (08:45)
[2021-09-28] MEDS: ASPIRIN 81 MG CHEWABLE TABLET FEED TUBE (08:45)
[2021-09-28] MEDS: SERTRALINE HCL 50 MG TABLET 100 MG FEED TUBE (08:45)
[2021-09-28] MEDS: ASCORBIC ACID 500 MG TABLET FEED TUBE (08:45)
[2021-09-28] MEDS: FERROUS SULFATE LIQUID 325 MG/7.4 ML ELIXIR FEED TUBE ×2 (08:45→17:47)
[2021-09-28] MEDS: ARTIFICIAL TEARS OPHTH SOLN 15 ML BOTTLE 1 DROP EACH EYE (08:46)
[2021-09-28] MEDS: prednisoLONE ACETATE 1% OPHTH 5 ML 1 DROP RIGHT EYE (08:46)
[2021-09-28] MEDS: PREGABALIN (*CRX) 50 MG CAPSULE 100 MG FEED TUBE (08:49)
--- NOTE | 2021-09-28 09:02 | PM.IMPN ---
Subjective Date/time seen: 09/28/21 09:02 Objective Data Vital Signs Vital Signs: Vital Signs - 24 hr 09/27/21 12:00 09/27/21 16:09 09/27/21 20:00 Temperature 98.6 F 97.6 F 97.5 F L Pulse Rate 100 86 97 Respiratory Rate 16 16 21 H Blood Pressure 156/80 H 140/65 133/74 Pulse Oximetry 90 94 95 09/27/21 20:43 09/27/21 22:11 09/28/21 00:00 Temperature 97.7 F Pulse Rate 76 90 104 H Respiratory Rate 24 H 18 Blood Pressure 110/37 L Pulse Oximetry 96 09/28/21 02:08 09/28/21 04:00 09/28/21 08:45 Temperature 98.0 F Pulse Rate 98 117 H 120 H Respiratory Rate 18 18 Blood Pressure 138/67 Pulse Oximetry 95 Intake/Output Intake/Output: Intake & Output 09/25/21 09/26/21 09/27/21 09/28/21 23:59 23:59 23:59 23:59 Intake Total 2762 1400 2040 1220 Output Total 1 Balance 2762 1399 2040 1220 Meds/Results Medications: Active Medications Generic Name Dose Route Start Last Admin Trade Name Freq PRN Reason Stop Dose Admin Acetaminophen 650 mg 09/26/21 10:55 Acetaminophen Elixir 325 Mg/10.15 Ml Udc FEED TUBE Q4H PRN Mild Pain (1-3) Or Fever Albuterol 2 puff 09/26/21 20:00 09/28/21 02:08 Albuterol Sulfate (*Sp) Inhaler INHALATION 2 puff Q6HRT MIHIR Administration Alprazolam 0.5 mg 09/23/21 16:37 Alprazolam (*Crx) 0.5 Mg Tablet FEED TUBE BID PRN anxiety Artificial Tears 1 drop 09/23/21 21:00 09/28/21 08:46 Artificial Tears Ophth Soln 15 Ml Bottle EACH EYE 1 drop MoWeFr@0900 MIHIR Administration Ascorbic Acid 500 mg 09/24/21 09:00 09/28/21 08:45 Ascorbic Acid 500 Mg Tablet FEED TUBE 500 mg DAILY MIHIR Administration Aspirin 81 mg 09/24/21 09:00 09/28/21 08:45 Aspirin 81 Mg Chewable Tablet FEED TUBE 81 mg DAILY MIHIR Administration Atorvastatin Calcium 10 mg 09/23/21 21:00 09/27/21 20:43 Atorvastatin 10 Mg Tablet FEED TUBE 10 mg HS MIHIR Administration Bisacodyl 10 mg 09/23/21 19:49 Bisacodyl 10 Mg Suppository RECTAL DAILY PRN Constipation Cyanocobalamin 1,000 mcg 09/24/21 09:00 09/28/21 08:45 Cyanocobalamin 1,000 Mcg Tablet FEED TUBE 1,000 mcg DAILY MIHIR Administration Dexamethasone Sodium Phosphate 6 mg 09/23/21 18:00 09/28/21 08:45 Dexamethasone Sod Phos Inj 10 Mg/Ml 1 Ml Vial IV PUSH 10/02/21 09:01 6 mg DAILY MIHIR Administration Dextrose 12.5 gm 09/23/21 16:25 Dextrose 50% 25 Gm/50 Ml Syringe IV PUSH PRN PRN Hypoglycemia Protocol Ferrous Sulfate 325 mg 09/23/21 17:00 09/28/21 08:45 Ferrous Sulfate Liquid 325 Mg/7.4 Ml Elixir FEED TUBE 325 mg BID MIHIR Administration Glucagon 1 mg 09/23/21 16:25 Glucagon For Inj 1 Mg Vial IM PRN PRN Hypoglycemia Protocol Glucose 15 gm 09/26/21 11:00 Glucose Oral Gel 15 Gm Of Glucse In 37.5 Gm Tube FEED TUBE PRN PRN Hypoglycemia Protocol Dextrose 1,000 mls @ 100 mls/hr 09/23/21 16:25 Dextrose 5% 1,000 Ml IVPB PRN PRN Hypoglycemia Protocol Piperacillin/Tazobactam/Dextrose 3.375 gm in 50 mls @ 100 mls/hr 09/23/21 18:00 09/28/21 07:07 Zosyn 3.375 Gm/D5w 50ml Pm IVPB Infused Q6HR MIHIR Infusion Insulin Aspart 4 - 8 units 09/24/21 06:00 09/28/21 07:09 Insulin Aspart (*Bkc) 100 Units/Ml SUB-Q 4 units Q6HR MIHIR Administration Protocol Insulin Glargine 15 units 09/26/21 21:00 09/28/21 08:44 Insulin Glargine (*Bkc) 100 Units/Ml SUB-Q 15 units Q12HR MIHIR Administration Lansoprazole 30 mg 09/24/21 06:30 09/28/21 06:29 Lansoprazole Oral Susp 30 Mg/10 Ml Oral.Susp FEED TUBE 30 mg DAILY@0630 MIHIR Administration Lidocaine/Prilocaine 1 each 09/23/21 16:37 Lidocaine/Prilocaine Cream 2.5-2.5% Tube TOPICAL PRN PRN port access Magnesium Citrate 300 ml 09/26/21 11:00 Magnesium Citrate 300 Ml Btl FEED TUBE DAILY PRN Constipation Metoclopramide HCl 10 mg 09/23/21 17:00 09/27/21 06:56 Me
[2021-09-28 12:27] LABS: Glucose Point of Care 248 mg/dl (65-105)
[2021-09-28 17:17] LABS: Glucose Point of Care 343 mg/dl (65-105)
[2021-09-28 17:33] LABS: Hematocrit 24.2 % (42.0-52.0); Hemoglobin 8.2 g/dL (14.0-18.0); Mean Corpuscular HGB Conc 33.9 g/dl (32-36); Mean Corpuscular Hemoglobin 32.9 pg (26-34); Mean Corpuscular Volume 97.2 fl (80-100); Platelet Count Result 113 k/mm3 (150-375); Red Blood Count 2.49 M/mm3 (4.6-6.20); Red Cell Distribution Width 20.6 % (11.5-14.5); White Blood Count 7.3 K/mm3 (4.5-10.0)
[2021-09-28 17:44] LABS: Anion Gap 3 mmol/L (8-16); Blood Urea Nitrogen 28 mg/dL (9-20); Calcium 7.9 mg/dL (8.4-10.2); Carbon Dioxide 29 mmol/L (22-30); Chloride 96 mmol/L (98-107); Estimated CRCL calculation 94 ml/min; Estimated Glomerular Filt Rate > 60; Glucose 347 mg/dL (65-110); Potassium 4.4 mmol/L (3.4-5.0); Sodium 128 mmol/L (137-145)
[2021-09-28 18:52] LABS: Band Neutrophils Percent 1 % (0-6); Lymphocytes Absolute Manual 0.14 K/mm3 (1.1-4.5); Monocytes Absolute Manual 0.21 K/mm3 (0.1-0.90); Monocytes Percent Manual 3 % (3-9); Neutrophils Absolute Manual 6.93 K/mm3 (1.3-6.7); Neutrophils Percent Manual 94 % (46-73); Total Cells Counted 100
[2021-09-28 18:53] LABS: Anisocytosis 3+ (NORMAL); Platelet Estimate Decreased (Adequate)
[2021-09-28] MEDS: ATORVASTATIN 10 MG TABLET FEED TUBE (20:28)
[2021-09-28 23:48] LABS: Glucose Point of Care 293 mg/dl (65-105)
[2021-09-29] VITALS (11 sets, daily range): BP systolic 115–159; BP diastolic 65–75; PULSE 99–116; RESP 18–24; TEMP 36.2–37.1; O2SAT 89–97
[2021-09-29] MEDS: ALPRAZolam (*CRX) 0.5 MG TABLET FEED TUBE (01:15)
[2021-09-29] MEDS: ACETAMINOPHEN ELIXIR 325 MG/10.15 ML UDC 650 MG FEED TUBE (01:15)
[2021-09-29] MEDS: ALBUTEROL SULFATE (*SP) INHALER 2 PUFF INHALATION ×4 (01:40→20:49)
[2021-09-29] MEDS: LANSOPRAZOLE ORAL SUSP 30 MG/10 ML ORAL.SUSP FEED TUBE (06:01)
[2021-09-29] MEDS: INSULIN ASPART (*BKC) 100 UNITS/ML SUB-Q ×3 (06:02→17:57)
[2021-09-29 06:46] LABS: Glucose Point of Care 252 mg/dl (65-105)
--- NOTE | 2021-09-29 07:48 | PM.IMPN ---
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 CT chest notes improvement of COVID 19 pneumonia but superimposed aspiration pneumonia w/ pneumonitis present. Patient currently off oxygen on zosyn. Leukocytosis resolved. Blood cultures finalized negative. Will change IV antibiotics to oral. -Discontinue zosyn day 6/7 after last night dose -Start augmentin BID tomorrow morning -Plan for discharge to SNF tomorrow (2) Pneumonia due to COVID-19 virus: Code(s): U07.1 - COVID-19; J12.82 - Pneumonia due to coronavirus disease 2018 Status: Acute Assessment and Plan: Intially diagnosed on 09/23/2021. Appears to be resolving on CT chest and patient is clinically improving no longer requiring oxygen. -Discontinue dexamethasone at discharge (3) Transaminitis: Code(s): R74.01 - Elevation of levels of liver transaminase levels Status: Acute Assessment and Plan: Likely due to COVID 19 versus liver metastasis from recurrent cancer. -CMP in morning (4) CKD (chronic kidney disease) stage 3, GFR 30-59 ml/min: Code(s): N18.3 - Chronic kidney disease, stage 3 (moderate) Status: Acute Assessment and Plan: Currently stable. -Avoid nephrotoxic agents -Renally dose medications (5) Type 2 diabetes mellitus with hyperglycemia, with long-term current use of insulin: Code(s): E11.65 - Type 2 diabetes mellitus with hyperglycemia; Z79.4 - long-term (current) use of insulin Status: Acute Assessment and Plan: Uncontrolled due to dexamethasone. Previous home insulin was tresiba 10 units qhs and increased to 15 units BID. Will discharge patient on home dose of tresiba tomorrow. -Continue glargine 15 units BID -Humalog SS with meals/tube feeds (6) GERD (gastroesophageal reflux disease): Qualifiers: Esophagitis presence: without esophagitis Qualified Code(s): K21.9 - Gastro-esophageal reflux disease without esophagitis Code(s): K21.9 - Gastro-esophageal reflux disease without esophagitis Status: Acute Assessment and Plan: On pantoprazole 40 mg po daily at home. Continue home medication. (7) Anemia: Code(s): D64.9 - Anemia, unspecified Status: Acute Assessment and Plan: Chronic and stable. (8) Vitamin B12 deficiency: Code(s): E53.8 - Deficiency of other specified B group vitamins Status: Acute Assessment and Plan: On vitamin b12 supplement. Continue vitamin b12 daily. Subjective Date/time seen: Date of Service 09/29/21 07:48 Patient says he is feeling better and not short of breath. Denies any pain. Review of Systems Respiratory: Respiratory: Reports cough, Denies dyspnea, Denies stridor and Denies wheezing Exam Narrative: GENERAL: NAD, cooperative, sitting in bed HEENT: Normocephalic, atraumatic, anicteric,poor dentition NECK: Supple CV: Normal S1, S2, RRR, No MRG RESP: Coarse breath sounds througout. Abdomen: Soft, non-tender, non-distended, +BS EXTREMITIES: Warm and well perfused, no clubbing, cyanosis, or edema. SKIN: warm, dry and intact. NEURO: CN 2-12 grossly intact. Objective Data Vital Signs Vital Signs: Vital Signs - 24 hr 09/28/21 08:00 09/28/21 08:45 09/28/21 12:54 Temperature 100.3 F H 99.6 F Pulse Rate 117 H 120 H 102 H Respiratory Rate 24 H 20 Blood Pressure 142/62 H 146/72 H Pulse Oximetry 94 95 09/28/21 16:00 09/28/21 19:31 09/28/21 20:00 Temperature 98.1 F 97.7 F Pulse Rate 103 H 101 H 109 H Respiratory Rate 18 20 18 Blood Pressure 133/75 125/63 Pulse Oximetry 92 93 09/28/21 20:27 09/29/21 00:00 09/08
[2021-09-29] MEDS: INSULIN GLARGINE (*BKC) 100 UNITS/ML 15 UNITS SUB-Q ×2 (08:23→22:05)
[2021-09-29] MEDS: FERROUS SULFATE LIQUID 325 MG/7.4 ML ELIXIR FEED TUBE ×2 (08:25→17:56)
[2021-09-29] MEDS: PREGABALIN (*CRX) 50 MG CAPSULE 100 MG FEED TUBE (08:27)
[2021-09-29] MEDS: SACCHAROMYCES BOULARDII 250 MG CAPSULE FEED TUBE ×2 (08:29→17:55)
[2021-09-29] MEDS: ASCORBIC ACID 500 MG TABLET FEED TUBE (08:29)
[2021-09-29] MEDS: TRIAMCINOLONE ACET 0.5% CREAM 15 GM TUBE 1 APPLIC TOPICAL (08:29)
[2021-09-29] MEDS: SERTRALINE HCL 50 MG TABLET 100 MG FEED TUBE (08:30)
[2021-09-29] MEDS: METOPROLOL TARTRATE 12.5 MG TABLET FEED TUBE ×2 (08:30→22:04)
[2021-09-29] MEDS: CYANOCOBALAMIN 1,000 MCG TABLET 1000 MCG FEED TUBE (08:31)
[2021-09-29] MEDS: ASPIRIN 81 MG CHEWABLE TABLET FEED TUBE (08:31)
[2021-09-29] MEDS: CHOLECALCIFEROL 1,000 UNITS TABLET 2000 UNITS FEED TUBE (08:31)
--- NOTE | 2021-09-29 10:57 | PCNFU ---
Nutrition Follow-Up Complete: Increased protein needs as related to wounds as evidenced by stage 2 PU on saccrum Goal: Meet estimated nutritional needs Patient is progressing towards goal. We will continue current goal. Pt current nutrition is Full Liquids/Glucerna 1.2 at 75 ml/hr over 22 hours with Cam BID. Last recorded weight is 75 kg, no new weight to report. Recommend new weight. Bowel Motility:+BM reported 09/28 Labs Reviewed:Glu 347, BUN 28, Cr 0.6,Na 128, Hct 24.2,Hgb 8.2 Meds Noted:Proventil, Vit D, Vit C, Vit B12, Decadron, Lyrica, Florastor, Zoloft, Novolog, Zosyn, Lantus Skin:Stage 2-Saccum Additional Notes: Nutrition follow up. Patient is COVID positive. Spoke with nursing today, patient is eating 20-50% of full liquids. All meds are giving via PEG. Tube feedings continue at Glucerna 1.2 at 75 ml/hr over 22 hours providing 1980 kcals/99 gms protein/1328 ml water. Free water flush 30 ml q hours. Protein Modular of Cam BID for wound healing providing an additional 90 kcals and 2.5 gm protein. Agree with diet orders. Monitoring: Will monitor every Tuesday and Tuesday
[2021-09-29 11:35] LABS: Glucose Point of Care 210 mg/dl (65-105)
[2021-09-29 17:53] LABS: Glucose Point of Care 293 mg/dl (65-105)
[2021-09-29] MEDS: ATORVASTATIN 10 MG TABLET FEED TUBE (22:04)
[2021-09-29] MEDS: ONDANSETRON INJ 4 MG/2 ML VIAL IV PUSH (23:21)
[2021-09-30] VITALS (12 sets, daily range): BP systolic 133–156; BP diastolic 64–79; PULSE 98–107; RESP 20–24; TEMP 36.1–36.9; O2SAT 81–98
[2021-09-30 00:29] LABS: Glucose Point of Care 328 mg/dl (65-105)
--- NOTE | 2021-09-30 00:37 | PC.NURSE ---
When hourly rounding on patient at 2300 patient was found vomiting with oxygen saturations at 81% on room air. Patient was put on 6 L high flow oxygen and is now saturating at 95%. Dr. Schmitt was called and orders were given.
[2021-09-30] MEDS: ALBUTEROL SULFATE (*SP) INHALER 2 PUFF INHALATION ×3 (02:19→14:44)
--- NOTE | 2021-09-30 06:39 | PM.IMPN ---
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 CT chest notes improvement of COVID 19 pneumonia but superimposed aspiration pneumonia w/ pneumonitis present. Patient currently off oxygen on zosyn. Leukocytosis resolved. Blood cultures finalized negative. Patient lung exam worse today and has had increasing oxygen requirement overnight. -Furosemide 40 mg IV x 1 -Augmentin x 2 more days -Azithromycin x 2 more days after giving one dose day -Hold discharge for now (2) Pneumonia due to COVID-19 virus: Code(s): U07.1 - COVID-19; J12.82 - Pneumonia due to coronavirus disease 2018 Status: Acute Assessment and Plan: Intially diagnosed on 09/23/2021. Appears to be resolving on CT chest and patient is clinically improving no longer requiring oxygen. -Continue dexamethasone (3) Transaminitis: Code(s): R74.01 - Elevation of levels of liver transaminase levels Status: Acute Assessment and Plan: Downtrending this morning -CMP every other day until discharge (4) CKD (chronic kidney disease) stage 3, GFR 30-59 ml/min: Code(s): N18.3 - Chronic kidney disease, stage 3 (moderate) Status: Acute Assessment and Plan: Currently stable. -Avoid nephrotoxic agents -Renally dose medications (5) Type 2 diabetes mellitus with hyperglycemia, with long-term current use of insulin: Code(s): E11.65 - Type 2 diabetes mellitus with hyperglycemia; Z79.4 - lobsterman (current) use of insulin Status: Acute Assessment and Plan: Uncontrolled due to dexamethasone. Previous home insulin was tresiba 10 units qhs and increased to 15 units BID. -Continue glargine 15 units BID -Humalog SS with meals/tube feeds (6) GERD (gastroesophageal reflux disease): Qualifiers: Esophagitis presence: without esophagitis Qualified Code(s): K21.9 - Gastro-esophageal reflux disease without esophagitis Code(s): K21.9 - Gastro-esophageal reflux disease without esophagitis Status: Acute Assessment and Plan: On pantoprazole 40 mg po daily at home. Continue home medication. (7) Anemia: Code(s): D64.9 - Anemia, unspecified Status: Acute Assessment and Plan: Chronic and stable. (8) Vitamin B12 deficiency: Code(s): E53.8 - Deficiency of other specified B group vitamins Status: Acute Assessment and Plan: On vitamin b12 supplement. Continue vitamin b12 daily. Subjective Date/time seen: Date of Service 09/30/21 06:39 Patient says he has a productive cough and feels more short of breath. Review of Systems Respiratory: Respiratory: Reports cough and Reports dyspnea Exam Narrative: GENERAL: NAD, cooperative, sitting in bed HEENT: Normocephalic, atraumatic, anicteric,poor dentition NECK: Supple CV: Normal S1, S2, RRR, No MRG RESP: Coarse breath sounds throughout with crackles Abdomen: Soft, non-tender, non-distended, +BS EXTREMITIES: Warm and well perfused, no clubbing, cyanosis, or edema. SKIN: warm, dry and intact. NEURO: CN 2-12 grossly intact. Objective Data Vital Signs Vital Signs: Vital Signs - 24 hr 09/29/21 08:00 09/29/21 08:30 09/29/21 10:09 Temperature 97.8 F Pulse Rate 105 H 116 H Respiratory Rate 22 H Blood Pressure 138/73 Pulse Oximetry 89 L 92 09/29/21 11:55 09/29/21 16:00 09/29/21 20:00 Temperature 98.7 F 97.6 F Pulse Rate 102 H 108 H Respiratory Rate 24 H 22 H Blood Pressure 147/68 H 159/74 H Pulse Oximetry 94 90 95 09/29/21 20:50 09/29/21 22:04 09/29/21 22:56 Temperature Pulse Rate 111 H Respiratory Rate Blood Press
[2021-09-30 06:42] LABS: Basophils Percent Auto 0.5 % (0.2-1.2); Hematocrit 25.7 % (42.0-52.0); Hemoglobin 8.5 g/dL (14.0-18.0); Immature Granulocyte Absolute 0.27 K/mm3 (0.00-0.031); Immature Granulocyte Percent A 4.6 % (0-0.5); Immature Platelet Fraction Pct 13.7 % (0.9-11.2); Lymphocytes Absolute Auto 0.59 K/mm3 (0.9-3.2); Mean Corpuscular HGB Conc 33.1 g/dl (32-36); Mean Corpuscular Hemoglobin 31.3 pg (26-34); Mean Corpuscular Volume 94.5 fl (80-100); Mean Platelet Volume 13.8 fl (7.4-10.4); Monocytes Absolute Auto 0.4 K/mm3 (0.1-0.6); Monocytes Percent Auto 7.1 % (2.6-8.5); Neutrophils Absolute Auto 4.6 K/mm3 (1.3-6.7); Neutrophils Percent Auto 77.8 % (45.5-73.1); Platelet Count Result 88 k/mm3 (150-375); Red Blood Count 2.72 M/mm3 (4.6-6.20); Red Cell Distribution Width 19.4 % (11.5-14.5); White Blood Count 5.9 K/mm3 (4.5-10.0)
[2021-09-30] MEDS: LANSOPRAZOLE ORAL SUSP 30 MG/10 ML ORAL.SUSP FEED TUBE (06:44)
[2021-09-30 07:04] LABS: Alanine Aminotransferase 76 U/L (4-50); Albumin Level 2.7 g/dL (3.5-5.1); Alkaline Phosphatase 455 U/L (38-126); Anion Gap 7 mmol/L (8-16); Aspartate Amino Transferase 72 U/L (17-59); Bilirubin,Total 0.5 mg/dL (0.2-1.3); Blood Urea Nitrogen 32 mg/dL (9-20); Calcium 7.9 mg/dL (8.4-10.2); Carbon Dioxide 26 mmol/L (22-30); Chloride 98 mmol/L (98-107); Estimated CRCL calculation 94 ml/min; Estimated Glomerular Filt Rate > 60; Glucose 247 mg/dL (65-110); Potassium 4.1 mmol/L (3.4-5.0); Sodium 131 mmol/L (137-145)
[2021-09-30 07:32] LABS: Glucose Point of Care 219 mg/dl (65-105)
[2021-09-30] MEDS: INSULIN GLARGINE (*BKC) 100 UNITS/ML 15 UNITS SUB-Q (08:20)
[2021-09-30] MEDS: FERROUS SULFATE LIQUID 325 MG/7.4 ML ELIXIR FEED TUBE ×2 (08:23→17:09)
[2021-09-30] MEDS: prednisoLONE ACETATE 1% OPHTH 5 ML 1 DROP RIGHT EYE (08:23)
[2021-09-30] MEDS: PREGABALIN (*CRX) 50 MG CAPSULE 100 MG FEED TUBE (08:24)
[2021-09-30] MEDS: CHOLECALCIFEROL 1,000 UNITS TABLET 2000 UNITS FEED TUBE (08:25)
[2021-09-30] MEDS: AMOXICILLIN/CLAVULANATE K 875-125 MG TAB 1 TABLET PO ×2 (08:25→21:59)
[2021-09-30] MEDS: METOPROLOL TARTRATE 12.5 MG TABLET FEED TUBE ×2 (08:26→21:59)
[2021-09-30] MEDS: CYANOCOBALAMIN 1,000 MCG TABLET 1000 MCG FEED TUBE (08:26)
[2021-09-30] MEDS: SERTRALINE HCL 50 MG TABLET 100 MG FEED TUBE (08:26)
[2021-09-30] MEDS: ASPIRIN 81 MG CHEWABLE TABLET FEED TUBE (08:27)
[2021-09-30] MEDS: SACCHAROMYCES BOULARDII 250 MG CAPSULE FEED TUBE ×2 (08:27→17:09)
[2021-09-30] MEDS: ASCORBIC ACID 500 MG TABLET FEED TUBE (08:27)
[2021-09-30] MEDS: ARTIFICIAL TEARS OPHTH SOLN 15 ML BOTTLE 1 DROP EACH EYE (08:28)
[2021-09-30 11:53] LABS: Glucose Point of Care 208 mg/dl (65-105)
[2021-09-30] MEDS: INSULIN ASPART (*BKC) 100 UNITS/ML SUB-Q ×2 (12:00→17:09)
[2021-09-30 17:07] LABS: Glucose Point of Care 211 mg/dl (65-105)
[2021-09-30] MEDS: ATORVASTATIN 10 MG TABLET FEED TUBE (21:59)
[2021-09-30] MEDS: AZITHROMYCIN 250 MG TABLET 500 MG PO (22:15)
[2021-09-30] MEDS: FUROSEMIDE INJ 40 MG/4 ML VIAL IV PUSH (22:36)
[2021-09-30 22:47] LABS: Glucose Point of Care 173 mg/dl (65-105)
[2021-09-30 23:00] LABS: Erythrocyte Sedimentation Rate > 140 mm/hr (0-20)
[2021-10-01] VITALS (13 sets, daily range): BP systolic 106–130; BP diastolic 57–66; PULSE 67–112; RESP 18–22; TEMP 36.2–36.5; O2SAT 90–96
[2021-10-01] MEDS: ONDANSETRON INJ 4 MG/2 ML VIAL IV PUSH (01:45)
[2021-10-01] MEDS: HYDROmorphone HCL INJ (*CRX) 1 MG/ML SYR IV PUSH (01:45)
[2021-10-01] MEDS: ALBUTEROL SULFATE (*SP) INHALER 2 PUFF INHALATION ×4 (02:17→20:38)
--- NOTE | 2021-10-01 02:46 | PC.NURSE ---
Patient was saturating at 81% on 3L. Patient is now saturating at 91% on 12L of oxygen. Patients respirations are 42 per minute. Patient is stating his coccyx pain is 9/10 and his stomach is very nauseous. Patient vomited black emesis twice in the past [address] Schmitt was called and new orders were received.
[2021-10-01] MEDS: LANSOPRAZOLE ORAL SUSP 30 MG/10 ML ORAL.SUSP FEED TUBE (06:45)
[2021-10-01 06:55] LABS: Glucose Point of Care 186 mg/dl (65-105)
[2021-10-01 07:11] LABS: Basophils Percent Auto 0.2 % (0.2-1.2); Hematocrit 28.9 % (42.0-52.0); Hemoglobin 9.2 g/dL (14.0-18.0); Immature Granulocyte Absolute 0.27 K/mm3 (0.00-0.031); Immature Platelet Fraction Pct 15.5 % (0.9-11.2); Lymphocytes Absolute Auto 0.59 K/mm3 (0.9-3.2); Lymphocytes Percent Auto 4.5 % (18.3-44.2); Mean Corpuscular HGB Conc 31.8 g/dl (32-36); Mean Corpuscular Hemoglobin 31.7 pg (26-34); Mean Corpuscular Volume 99.7 fl (80-100); Mean Platelet Volume 13.7 fl (7.4-10.4); Monocytes Percent Auto 7.3 % (2.6-8.5); Neutrophils Absolute Auto 11.4 K/mm3 (1.3-6.7); Platelet Count Result 107 k/mm3 (150-375); Red Cell Distribution Width 19.5 % (11.5-14.5); White Blood Count 13.2 K/mm3 (4.5-10.0)
--- NOTE | 2021-10-01 07:12 | PM.IMPN ---
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 CT chest notes improvement of COVID 19 pneumonia but superimposed aspiration pneumonia w/ pneumonitis present. Patient currently off oxygen on zosyn. Leukocytosis resolved. Blood cultures finalized negative. CXR yesterday notes worsening on the right c/w exam. BNP elevated to 800 today. -Furosemide 40 mg IV x 1 now -Furosemide 40 mg IV scheduled for 1200 and 1700 today -Repeat XR in afternoon -Continue Augmentin #2/3 (Zosyn was given for 5 days) -Continue azithromycin #2/3 -Will notify sports analyst (2) Pneumonia due to COVID-19 virus: Code(s): U07.1 - COVID-19; J12.82 - Pneumonia due to coronavirus disease 2018 Status: Acute Assessment and Plan: Initially diagnosed on 09/23/2021. Appears to be stable but respiratory status likely worsening due to volume overload vs worsening pneumonia. -Continue dexamethasone (3) Transaminitis: Code(s): R74.01 - Elevation of levels of liver transaminase levels Status: Acute Assessment and Plan: Downtrending this morning -CMP every other day until discharge (4) CKD (chronic kidney disease) stage 3, GFR 30-59 ml/min: Code(s): N18.3 - Chronic kidney disease, stage 3 (moderate) Status: Acute Assessment and Plan: Currently stable. -Avoid nephrotoxic agents -Renally dose medications (5) Type 2 diabetes mellitus with hyperglycemia, with long-term current use of insulin: Code(s): E11.65 - Type 2 diabetes mellitus with hyperglycemia; Z79.4 - termite exterminator (current) use of insulin Status: Acute Assessment and Plan: Uncontrolled due to dexamethasone. Previous home insulin was tresiba 10 units qhs and increased to 15 units BID. -Continue glargine 15 units BID -Humalog SS with meals/tube feeds (6) GERD (gastroesophageal reflux disease): Qualifiers: Esophagitis presence: without esophagitis Qualified Code(s): K21.9 - Gastro-esophageal reflux disease without esophagitis Code(s): K21.9 - Gastro-esophageal reflux disease without esophagitis Status: Acute Assessment and Plan: On pantoprazole 40 mg po daily at home. Continue home medication. (7) Anemia: Code(s): D64.9 - Anemia, unspecified Status: Acute Assessment and Plan: Chronic and stable. (8) Vitamin B12 deficiency: Code(s): E53.8 - Deficiency of other specified B group vitamins Status: Acute Assessment and Plan: On vitamin b12 supplement. Continue vitamin b12 daily. Subjective Date/time seen: Date of Service 10/01/21 07:12 Patient says he feels great this morning and denies any difficulty breathing. He says he has a cough that is productive. He denies fever, chills. He has some persistent nausea. Per nursing the patient began to desaturate overnight while sleeping and went from 4L to 12L. Nursing reports he had good urine output with the furosemide dose yesterday. Review of Systems Constitutional: Constitutional: Denies fever(s) and Reports weakness Respiratory: Respiratory: Reports cough and Reports dyspnea Exam Narrative: GENERAL: NAD, cooperative, sitting in bed HEENT: Normocephalic, atraumatic, anicteric,poor dentition NECK: Supple CV: Normal S1, S2, RRR, No MRG RESP: Rigtht has crackles that are worse at the base and go almost up the entire lung with some improvement. Left is coarse with minimal crackles at the base. Abdomen: Soft, non-tender, non-distended, +BS EXTREMITIES: Warm and well perfused, no clubbing, cyanosis, or edema. SKIN: warm, dry and intact. NEURO: CN 2-12 grossly int
[2021-10-01 07:23] LABS: Anion Gap 6 mmol/L (8-16); Blood Urea Nitrogen 31 mg/dL (9-20); Calcium 8.7 mg/dL (8.4-10.2); Carbon Dioxide 35 mmol/L (22-30); Chloride 98 mmol/L (98-107); Creatine Kinase < 20 U/L (55-170); Estimated CRCL calculation 82 ml/min; Estimated Glomerular Filt Rate > 60; Glucose 185 mg/dL (65-110); Potassium 3.6 mmol/L (3.4-5.0); Sodium 139 mmol/L (137-145)
[2021-10-01 07:37] LABS: NT Pro B Type Natriuretic Pept 843 pg/mL (5-100)
[2021-10-01] MEDS: INSULIN GLARGINE (*BKC) 100 UNITS/ML 16 UNITS SUB-Q ×2 (09:11→21:19)
[2021-10-01] MEDS: FUROSEMIDE INJ 40 MG/4 ML VIAL IV PUSH ×3 (09:15→18:16)
[2021-10-01] MEDS: POTASSIUM CHLORIDE 20 MEQ PACKET (FOR LIQUID) 40 MEQ FEED TUBE ×2 (09:17→12:10)
[2021-10-01] MEDS: MAGNESIUM SULF 2 GM/WATER 50ML 2 GM/50 ML BAG IVPB (09:18)
[2021-10-01] MEDS: FERROUS SULFATE LIQUID 325 MG/7.4 ML ELIXIR FEED TUBE ×2 (09:18→18:15)
[2021-10-01] MEDS: SACCHAROMYCES BOULARDII 250 MG CAPSULE FEED TUBE ×2 (09:19→18:15)
[2021-10-01] MEDS: PREGABALIN (*CRX) 50 MG CAPSULE 100 MG FEED TUBE (09:20)
[2021-10-01] MEDS: ASPIRIN 81 MG CHEWABLE TABLET FEED TUBE (09:20)
[2021-10-01] MEDS: SERTRALINE HCL 50 MG TABLET 100 MG FEED TUBE (09:20)
[2021-10-01] MEDS: CYANOCOBALAMIN 1,000 MCG TABLET 1000 MCG FEED TUBE (09:20)
[2021-10-01] MEDS: ASCORBIC ACID 500 MG TABLET FEED TUBE (09:22)
[2021-10-01] MEDS: METOPROLOL TARTRATE 12.5 MG TABLET FEED TUBE ×2 (09:22→21:18)
[2021-10-01] MEDS: CHOLECALCIFEROL 1,000 UNITS TABLET 2000 UNITS FEED TUBE (09:23)
[2021-10-01 10:02] LABS: Basophils Percent Auto 0.2 % (0.2-1.2); Hematocrit 27.7 % (42.0-52.0); Hemoglobin 8.8 g/dL (14.0-18.0); Immature Granulocyte Absolute 0.35 K/mm3 (0.00-0.031); Immature Granulocyte Percent A 2.5 % (0-0.5); Lymphocytes Absolute Auto 1.04 K/mm3 (0.9-3.2); Lymphocytes Percent Auto 7.4 % (18.3-44.2); Mean Corpuscular HGB Conc 31.8 g/dl (32-36); Mean Corpuscular Hemoglobin 31.7 pg (26-34); Mean Corpuscular Volume 99.6 fl (80-100); Monocytes Percent Auto 7.4 % (2.6-8.5); Neutrophils Absolute Auto 11.6 K/mm3 (1.3-6.7); Neutrophils Percent Auto 82.5 % (45.5-73.1); Platelet Count Result 94 k/mm3 (150-375); Red Blood Count 2.78 M/mm3 (4.6-6.20); Red Cell Distribution Width 19.4 % (11.5-14.5)
[2021-10-01 10:04] LABS: Prothrombin Time 12.7 Seconds (11.1-14.7)
[2021-10-01 10:05] LABS: Alanine Aminotransferase 70 U/L (4-50); Aspartate Amino Transferase 74 U/L (17-59); Estimated CRCL calculation 73 ml/min; Estimated Glomerular Filt Rate > 60
[2021-10-01] MEDS: AMPICILLIN SULB 3 GM/NS 100 ML 3 GM/100 ML VIAL IVPB ×3 (10:30→23:46)
[2021-10-01] MEDS: BARICITINIB 2 MG TABLET 4 MG PO (11:08)
[2021-10-01] MEDS: REMDESIVIR 200 MG/NS 250 ML 200 MG/250 ML BAG 250 MG IVPB (12:10)
[2021-10-01 12:43] LABS: Glucose Point of Care 232 mg/dl (65-105)
[2021-10-01] MEDS: INSULIN ASPART (*BKC) 100 UNITS/ML SUB-Q ×3 (12:43→23:50)
[2021-10-01] MEDS: ACETAMINOPHEN ELIXIR 325 MG/10.15 ML UDC 650 MG FEED TUBE (18:16)
[2021-10-01 20:23] LABS: Glucose Point of Care 348 mg/dl (65-105)
[2021-10-01] MEDS: ALPRAZolam (*CRX) 0.5 MG TABLET FEED TUBE (21:18)
[2021-10-01] MEDS: ATORVASTATIN 10 MG TABLET FEED TUBE (21:18)
[2021-10-01 23:53] LABS: Glucose Point of Care 333 mg/dl (65-105)
[2021-10-02] VITALS (13 sets, daily range): BP systolic 87–151; BP diastolic 45–69; PULSE 88–112; RESP 18–24; TEMP 36.3–37.2; O2SAT 90–97
[2021-10-02] MEDS: ALBUTEROL SULFATE (*SP) INHALER 2 PUFF INHALATION ×4 (02:15→20:44)
[2021-10-02] MEDS: ACETAMINOPHEN ELIXIR 325 MG/10.15 ML UDC 650 MG FEED TUBE (03:06)
[2021-10-02] MEDS: AMPICILLIN SULB 3 GM/NS 100 ML 3 GM/100 ML VIAL IVPB ×3 (05:18→17:12)
[2021-10-02] MEDS: LANSOPRAZOLE ORAL SUSP 30 MG/10 ML ORAL.SUSP FEED TUBE (06:35)
[2021-10-02] MEDS: INSULIN ASPART (*BKC) 100 UNITS/ML SUB-Q ×2 (06:36→17:12)
[2021-10-02 06:51] LABS: Glucose Point of Care 285 mg/dl (65-105)
[2021-10-02 06:57] LABS: Basophils Percent Auto 0.2 % (0.2-1.2); Hematocrit 25.2 % (42.0-52.0); Hemoglobin 8.1 g/dL (14.0-18.0); Immature Granulocyte Percent A 1.8 % (0-0.5); Immature Platelet Fraction Pct 13.6 % (0.9-11.2); Lymphocytes Percent Auto 7.9 % (18.3-44.2); Mean Corpuscular HGB Conc 32.1 g/dl (32-36); Mean Corpuscular Hemoglobin 31.3 pg (26-34); Mean Corpuscular Volume 97.3 fl (80-100); Mean Platelet Volume 13.1 fl (7.4-10.4); Monocytes Absolute Auto 0.8 K/mm3 (0.1-0.6); Monocytes Percent Auto 6.8 % (2.6-8.5); Neutrophils Absolute Auto 9.5 K/mm3 (1.3-6.7); Neutrophils Percent Auto 83.3 % (45.5-73.1); Platelet Count Result 92 k/mm3 (150-375); Red Blood Count 2.59 M/mm3 (4.6-6.20); Red Cell Distribution Width 19.3 % (11.5-14.5); White Blood Count 11.4 K/mm3 (4.5-10.0)
[2021-10-02 07:07] LABS: Prothrombin Time 12.6 Seconds (11.1-14.7)
[2021-10-02 07:11] LABS: Alanine Aminotransferase 56 U/L (4-50); Anion Gap 7 mmol/L (8-16); Aspartate Amino Transferase 49 U/L (17-59); Blood Urea Nitrogen 48 mg/dL (9-20); Calcium 8.1 mg/dL (8.4-10.2); Carbon Dioxide 32 mmol/L (22-30); Chloride 97 mmol/L (98-107); Estimated CRCL calculation 73 ml/min; Estimated Glomerular Filt Rate > 60; Glucose 322 mg/dL (65-110); Potassium 3.8 mmol/L (3.4-5.0); Sodium 136 mmol/L (137-145)
--- NOTE | 2021-10-02 07:52 | PM.IMPN ---
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 CT chest notes improvement of COVID 19 pneumonia but superimposed aspiration pneumonia w/ pneumonitis present. Patient currently off oxygen on zosyn. Leukocytosis resolved. Blood cultures finalized negative. CXR yesterday notes worsening on the right c/w exam. Started unasyn, remdesivir, baricitinib yesterday and gave furosemide 40 IV X3. CXR improved. -Continue remdesivir, baricitinib, dexamethasone for now -Will monitor volume status -Oxygen as needed (2) Pneumonia due to COVID-19 virus: Code(s): U07.1 - COVID-19; J12.82 - Pneumonia due to coronavirus disease 2018 Status: Acute Assessment and Plan: Initially diagnosed on 09/23/2021. Given improved respiratory status with diuresis, will check COVID 19 PCR today. -Continue dexamethasone -Day #2 remdesivir and baricitinib -COVID 19 PCR (3) Transaminitis: Code(s): R74.01 - Elevation of levels of liver transaminase levels Status: Acute Assessment and Plan: Downtrending. -Trend (4) Thrombocytopenia: Code(s): D69.6 - Thrombocytopenia, unspecified Status: Acute Assessment and Plan: Last normal 06/19/2019. Downtrending. -Hold PPI and substitute famotidine 10 mg BID for now (5) Type 2 diabetes mellitus with hyperglycemia, with long-term current use of insulin: Code(s): E11.65 - Type 2 diabetes mellitus with hyperglycemia; Z79.4 - custodial (current) use of insulin Status: Acute Assessment and Plan: Uncontrolled due to dexamethasone. Previous home insulin was tresiba 10 units qhs.. -Glargine 18 units qAM and 16 units qPM -Humalog 6 units BIDAC HS -Humalog AC HS (6) CKD (chronic kidney disease) stage 3, GFR 30-59 ml/min: Code(s): N18.3 - Chronic kidney disease, stage 3 (moderate) Status: Acute Assessment and Plan: Currently stable. -Avoid nephrotoxic agents -Renally dose medications (7) GERD (gastroesophageal reflux disease): Qualifiers: Esophagitis presence: without esophagitis Qualified Code(s): K21.9 - Gastro-esophageal reflux disease without esophagitis Code(s): K21.9 - Gastro-esophageal reflux disease without esophagitis Status: Acute Assessment and Plan: On pantoprazole 40 mg po daily at home. -Famotidine 10 mg BID (8) Anemia: Code(s): D64.9 - Anemia, unspecified Status: Acute Assessment and Plan: Chronic and stable. (9) Vitamin B12 deficiency: Code(s): E53.8 - Deficiency of other specified B group vitamins Status: Acute Assessment and Plan: On vitamin b12 supplement. Continue vitamin b12 daily. 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 Surveillance EGD 08/12/2021 noted a mass that was biopsied and found to be recurrent adenocarcinoma. Post-surveillance hypoxia required intubation. Subjective Date/time seen: DATE OF SERVICE 10/02/21 07:52 Patient asking questions about a sacral decubitus wound. Says his breathing is better. Review of Systems Respiratory: Respiratory: Denies dyspnea Exam Narrative: General: NAD, cooperative HEENT: anicteric, wearing eyeglasses, normocephalic, atraumatic Neck: supple CV: Normal S1, S2, No MRG, RRR Resp: Coarse breath sounds bilatrally, No crackles, rhonchi Abdomen: soft, NT, ND, g tube in place Extremities: warm well perfused. Skin: warm dry Neuro: CN 2-12 alexandru
[2021-10-02] MEDS: FERROUS SULFATE LIQUID 325 MG/7.4 ML ELIXIR FEED TUBE ×2 (08:23→17:11)
[2021-10-02] MEDS: PREGABALIN (*CRX) 50 MG CAPSULE 100 MG FEED TUBE (08:23)
[2021-10-02] MEDS: prednisoLONE ACETATE 1% OPHTH 5 ML 1 DROP RIGHT EYE (08:23)
[2021-10-02] MEDS: BARICITINIB 2 MG TABLET 4 MG PO (08:24)
[2021-10-02] MEDS: SERTRALINE HCL 50 MG TABLET 100 MG FEED TUBE (08:24)
[2021-10-02] MEDS: ASPIRIN 81 MG CHEWABLE TABLET FEED TUBE (08:24)
[2021-10-02] MEDS: CHOLECALCIFEROL 1,000 UNITS TABLET 2000 UNITS FEED TUBE (08:24)
[2021-10-02] MEDS: ASCORBIC ACID 500 MG TABLET FEED TUBE (08:24)
[2021-10-02] MEDS: CYANOCOBALAMIN 1,000 MCG TABLET 1000 MCG FEED TUBE (08:24)
[2021-10-02] MEDS: SACCHAROMYCES BOULARDII 250 MG CAPSULE FEED TUBE ×2 (08:25→17:12)
[2021-10-02] MEDS: FUROSEMIDE INJ 40 MG/4 ML VIAL IV PUSH ×2 (08:25→17:12)
[2021-10-02] MEDS: METOPROLOL TARTRATE 12.5 MG TABLET FEED TUBE ×2 (08:29→22:56)
[2021-10-02] MEDS: POTASSIUM CHLORIDE 20 MEQ PACKET (FOR LIQUID) 40 MEQ FEED TUBE (08:33)
[2021-10-02] MEDS: INSULIN GLARGINE (*BKC) 100 UNITS/ML 16 UNITS SUB-Q ×2 (08:38→23:00)
[2021-10-02 08:41] LABS: Glucose Point of Care 251 mg/dl (65-105)
[2021-10-02] MEDS: REMDESIVIR 100 MG/NS 250 ML 100 MG/250 ML BAG 250 MG IVPB (10:01)
[2021-10-02] MEDS: ARTIFICIAL TEARS OPHTH SOLN 15 ML BOTTLE 1 DROP EACH EYE (10:02)
[2021-10-02] MEDS: FAMOTIDINE 10 MG TABLET FEED TUBE ×2 (10:02→22:56)
[2021-10-02] MEDS: INSULIN ASPART (*BKC) 100 UNITS/ML 6 UNITS SUB-Q (10:13)
[2021-10-02 12:22] LABS: Glucose Point of Care 186 mg/dl (65-105)
--- NOTE | 2021-10-02 13:54 | PCPTNOTE ---
Attempted to see patient for PT, however patient refused due to just working with OT and patient reported his buttocks hurts too much. Explained the importance and benefits of therapy, patient continued to refuse.
[2021-10-02] MEDS: INSULIN HUMAN NPH (*BKC) 100 UNITS/ML 6 UNITS SUB-Q (17:11)
[2021-10-02 17:24] LABS: Glucose Point of Care 283 mg/dl (65-105)
[2021-10-02] MEDS: POTASSIUM PHOS,M-BASIC-D-BASIC 15 MMOL in SODIUM CHLORIDE 0.9% IV 250 ML 63.75 MMOL IVPB (22:46)
[2021-10-02] MEDS: KCL 40 MEQ/0.9% SOD CHL 1,000 ML 100 ML IV CONT (22:46)
[2021-10-02] MEDS: ATORVASTATIN 10 MG TABLET FEED TUBE (22:56)
[2021-10-02 23:52] LABS: Glucose Point of Care 223 mg/dl (65-105)
[2021-10-03] VITALS (11 sets, daily range): BP systolic 132–160; BP diastolic 61–83; PULSE 78–105; RESP 16–22; TEMP 36.2–36.6; O2SAT 91–96
[2021-10-03 01:42] LABS: Glucose Point of Care 170 mg/dl (65-105)
[2021-10-03] MEDS: ALBUTEROL SULFATE (*SP) INHALER 2 PUFF INHALATION ×4 (02:11→19:42)
[2021-10-03] MEDS: MAGNESIUM SULF 2 GM/WATER 50ML 2 GM/50 ML BAG IVPB (04:41)
[2021-10-03] MEDS: AMPICILLIN SULB 3 GM/NS 100 ML 3 GM/100 ML VIAL IVPB ×3 (06:32→17:13)
[2021-10-03 06:41] LABS: Glucose Point of Care 164 mg/dl (65-105)
[2021-10-03 06:44] LABS: Basophils Percent Auto 0.2 % (0.2-1.2); Eosinophils Percent Auto 0.1 % (0-4.4); Hematocrit 24.4 % (42.0-52.0); Hemoglobin 8.3 g/dL (14.0-18.0); Immature Granulocyte Absolute 0.23 K/mm3 (0.00-0.031); Immature Granulocyte Percent A 2.2 % (0-0.5); Lymphocytes Absolute Auto 1.11 K/mm3 (0.9-3.2); Lymphocytes Percent Auto 10.8 % (18.3-44.2); Mean Corpuscular Hemoglobin 32.2 pg (26-34); Mean Corpuscular Volume 94.6 fl (80-100); Mean Platelet Volume 12.9 fl (7.4-10.4); Monocytes Absolute Auto 0.9 K/mm3 (0.1-0.6); Monocytes Percent Auto 8.3 % (2.6-8.5); Neutrophils Absolute Auto 8.1 K/mm3 (1.3-6.7); Neutrophils Percent Auto 78.4 % (45.5-73.1); Platelet Count Result 104 k/mm3 (150-375); Red Blood Count 2.58 M/mm3 (4.6-6.20); Red Cell Distribution Width 18.7 % (11.5-14.5); White Blood Count 10.3 K/mm3 (4.5-10.0)
[2021-10-03 07:01] LABS: Alanine Aminotransferase 57 U/L (4-50); Anion Gap 3 mmol/L (8-16); Aspartate Amino Transferase 54 U/L (17-59); Blood Urea Nitrogen 43 mg/dL (9-20); Carbon Dioxide 37 mmol/L (22-30); Chloride 96 mmol/L (98-107); Estimated CRCL calculation 82 ml/min; Estimated Glomerular Filt Rate > 60; Glucose 183 mg/dL (65-110); Sodium 136 mmol/L (137-145)
[2021-10-03 07:04] LABS: Prothrombin Time 13.2 Seconds (11.1-14.7)
--- NOTE | 2021-10-03 07:11 | PM.IMPN ---
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 CT chest notes improvement of COVID 19 pneumonia but superimposed aspiration pneumonia w/ pneumonitis present. Patient currently off oxygen on zosyn. Leukocytosis resolved. Blood cultures finalized negative. CXR yesterday notes worsening on the right c/w exam. Started unasyn, remdesivir, baricitinib yesterday and gave furosemide 40 IV X3. CXR improved 10/02. 10/03 Dexamethasone completed the 10 day course. Patient appears clinically stable. Will discontinue COVID 19 therapies if the COVID 19 PCR is negative with plan to discharge to SNF. -Continue remdesivir, baricitinib -COVID 19 PCR pending -Oxygen as needed (2) Pneumonia due to COVID-19 virus: Code(s): U07.1 - COVID-19; J12.82 - Pneumonia due to coronavirus disease 2018 Status: Acute Assessment and Plan: Initially diagnosed on 09/23/2021. Given improved respiratory status with diuresis, will check COVID 19 PCR pending. -Continue dexamethasone -Unasyn day #3 -Day #3 remdesivir and baricitinib -Dexamethasone completed. -COVID 19 PCR (3) Transaminitis: Code(s): R74.01 - Elevation of levels of liver transaminase levels Status: Acute Assessment and Plan: Almost completely resolved. -Trend (4) Thrombocytopenia: Code(s): D69.6 - Thrombocytopenia, unspecified Status: Acute Assessment and Plan: Last normal 06/19/2019. Platelets increased s/p discontinuation of lansoprazole. -Hold PPI and substitute famotidine 10 mg BID for now (5) Type 2 diabetes mellitus with hyperglycemia, with long-term current use of insulin: Code(s): E11.65 - Type 2 diabetes mellitus with hyperglycemia; Z79.4 - buttermaker helper (current) use of insulin Status: Acute Assessment and Plan: Uncontrolled due to dexamethasone. Previous home insulin was tresiba 10 units qhs. Blood glucose will normalize not that dexamethasone has finished. -Discontinue glargine and scheduled humalog -Continue SSI -Humalog AC HS (6) CKD (chronic kidney disease) stage 3, GFR 30-59 ml/min: Code(s): N18.3 - Chronic kidney disease, stage 3 (moderate) Status: Acute Assessment and Plan: Currently stable. -Avoid nephrotoxic agents -Renally dose medications (7) GERD (gastroesophageal reflux disease): Qualifiers: Esophagitis presence: without esophagitis Qualified Code(s): K21.9 - Gastro-esophageal reflux disease without esophagitis Code(s): K21.9 - Gastro-esophageal reflux disease without esophagitis Status: Acute Assessment and Plan: On pantoprazole 40 mg po daily at home. -Famotidine 10 mg BID (8) Anemia: Code(s): D64.9 - Anemia, unspecified Status: Acute Assessment and Plan: Chronic and stable. (9) Vitamin B12 deficiency: Code(s): E53.8 - Deficiency of other specified B group vitamins Status: Acute Assessment and Plan: On vitamin b12 supplement. Continue vitamin b12 daily. 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 Surveillance EGD 08/12/2021 noted a mass that was biopsied and found to be recurrent adenocarcinoma. Post-surveillance hypoxia required intubation. Subjective Date/time seen: Date of service 10/03/21 07:11 Patient says he has an upset stomach this morning. Says it makes him feel nauseated. Says he would like something to help his nausea. Review of Systems
[2021-10-03 08:15] LABS: Glucose Point of Care 177 mg/dl (65-105)
[2021-10-03] MEDS: FERROUS SULFATE LIQUID 325 MG/7.4 ML ELIXIR FEED TUBE ×2 (08:53→17:13)
[2021-10-03] MEDS: METOPROLOL TARTRATE 12.5 MG TABLET FEED TUBE ×2 (08:54→20:17)
[2021-10-03] MEDS: CHOLECALCIFEROL 1,000 UNITS TABLET 2000 UNITS FEED TUBE (08:55)
[2021-10-03] MEDS: ASPIRIN 81 MG CHEWABLE TABLET FEED TUBE (08:55)
[2021-10-03] MEDS: ASCORBIC ACID 500 MG TABLET FEED TUBE (08:55)
[2021-10-03] MEDS: TRIAMCINOLONE ACET 0.5% CREAM 15 GM TUBE 1 APPLIC TOPICAL (08:55)
[2021-10-03] MEDS: FAMOTIDINE 10 MG TABLET FEED TUBE ×2 (08:55→20:17)
[2021-10-03] MEDS: SACCHAROMYCES BOULARDII 250 MG CAPSULE FEED TUBE ×2 (08:55→17:14)
[2021-10-03] MEDS: PREGABALIN (*CRX) 50 MG CAPSULE 100 MG FEED TUBE (08:55)
[2021-10-03] MEDS: CYANOCOBALAMIN 1,000 MCG TABLET 1000 MCG FEED TUBE (08:56)
[2021-10-03] MEDS: SERTRALINE HCL 50 MG TABLET 100 MG FEED TUBE (08:56)
[2021-10-03] MEDS: BARICITINIB 2 MG TABLET 4 MG PO (08:56)
[2021-10-03] MEDS: REMDESIVIR 100 MG/NS 250 ML 100 MG/250 ML BAG 250 MG IVPB (10:31)
--- NOTE | 2021-10-03 10:46 | PCNFU ---
Nutrition Follow-Up Complete: Increased protein needs as related to wounds as evidenced by stage 2 PU on saccrum Goal: Meet estimanted nutritional needs Pt is progressing towards goal. Will continue current goal. No new goal at this time. Pt current nutrition is full liquid diet, TF of glucerna 1.2 running @ 75mL/hr over 22 hours with Cam BID. Last recorded weight is 75 kg. Bowel Motility: LBM reported by nursing 10/02 Labs Reviewed: Hgb 8.3, Hct 24.4, Na 136, BUN 43, Glu 183, ALT 57 Meds Noted: vitamin c, olumiant, vitamin B12, pepcid ac, ferrous sulfate, lopressor, lyrica, florastor, vitamin D Skin: Stage 2-Saccum Additional Notes: Nutrition follow up. Pt is COVID positive. Spoke with nursing who reports that pt is complaining of stomach pains and eating 5 to 10% of full liquids. Per EMR, pt vomited on 09/30. Nursing reports that pt did not vomit but has been having issues with spitting up flem. Tube feeding continues at Glucerna 1.2 at 75mL/hr over 22 hours providing 1980kcals, 99g protein, and 1328ml water. Modular of Cam BID for wound healing providing an additional 90kcals and 2.5g protein. Nursing reports that pt continues to tolerate TF. RDN agrees with current diet orders. Will monitor every Tuesday and Tuesday
[2021-10-03 11:54] LABS: Glucose Point of Care 184 mg/dl (65-105)
[2021-10-03 16:38] LABS: Glucose Point of Care 182 mg/dl (65-105)
[2021-10-03] MEDS: SCOPOLAMINE 1.5 MG PATCH TRANSDERM (17:14)
[2021-10-03] MEDS: INSULIN HUMAN NPH (*BKC) 100 UNITS/ML 6 UNITS SUB-Q (17:15)
[2021-10-03 19:57] LABS: SARS-CoV-2 RNA PCR Positive
[2021-10-03] MEDS: ATORVASTATIN 10 MG TABLET FEED TUBE (20:17)
[2021-10-03] MEDS: KCL 40 MEQ/0.9% SOD CHL 1,000 ML 100 ML IV CONT (21:32)
[2021-10-04] VITALS (11 sets, daily range): BP systolic 156–169; BP diastolic 73–92; PULSE 76–114; RESP 18–22; TEMP 36.2–36.8; O2SAT 90–98
[2021-10-04] MEDS: AMPICILLIN SULB 3 GM/NS 100 ML 3 GM/100 ML VIAL IVPB ×5 (00:41→23:27)
[2021-10-04 01:09] LABS: Glucose Point of Care 166 mg/dl (65-105)
[2021-10-04] MEDS: ALBUTEROL SULFATE (*SP) INHALER 2 PUFF INHALATION ×4 (01:54→20:00)
[2021-10-04 06:47] LABS: Basophils Percent Auto 0.3 % (0.2-1.2); Eosinophils Percent Auto 0.2 % (0-4.4); Hematocrit 26.8 % (42.0-52.0); Hemoglobin 8.8 g/dL (14.0-18.0); Immature Granulocyte Absolute 0.29 K/mm3 (0.00-0.031); Immature Granulocyte Percent A 2.2 % (0-0.5); Lymphocytes Absolute Auto 1.14 K/mm3 (0.9-3.2); Lymphocytes Percent Auto 8.6 % (18.3-44.2); Mean Corpuscular HGB Conc 32.8 g/dl (32-36); Mean Corpuscular Hemoglobin 31.1 pg (26-34); Mean Corpuscular Volume 94.7 fl (80-100); Mean Platelet Volume 13.2 fl (7.4-10.4); Monocytes Percent Auto 7.5 % (2.6-8.5); Neutrophils Absolute Auto 10.8 K/mm3 (1.3-6.7); Neutrophils Percent Auto 81.2 % (45.5-73.1); Platelet Count Result 118 k/mm3 (150-375); Red Blood Count 2.83 M/mm3 (4.6-6.20); Red Cell Distribution Width 18.5 % (11.5-14.5); White Blood Count 13.3 K/mm3 (4.5-10.0)
[2021-10-04 06:54] LABS: Prothrombin Time 13.5 Seconds (11.1-14.7)
[2021-10-04 07:05] LABS: Alanine Aminotransferase 59 U/L (4-50); Anion Gap 4 mmol/L (8-16); Aspartate Amino Transferase 63 U/L (17-59); Blood Urea Nitrogen 36 mg/dL (9-20); Calcium 7.9 mg/dL (8.4-10.2); Carbon Dioxide 30 mmol/L (22-30); Chloride 98 mmol/L (98-107); Estimated CRCL calculation 94 ml/min; Estimated Glomerular Filt Rate > 60; Glucose 170 mg/dL (65-110); Potassium 4.3 mmol/L (3.4-5.0); Sodium 132 mmol/L (137-145)
--- NOTE | 2021-10-04 08:22 | PM.IMPN ---
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 CT chest notes improvement of COVID 19 pneumonia but superimposed aspiration pneumonia w/ pneumonitis present. Patient currently off oxygen on zosyn. Leukocytosis resolved. Blood cultures finalized negative. CXR yesterday notes worsening on the right c/w exam. Started unasyn, remdesivir, baricitinib yesterday and gave furosemide 40 IV X3. CXR improved 10/02. 10/03 Dexamethasone completed the 10 day course. Patient appears clinically stable. Will discontinue COVID 19 PRC positive overnight. Increasing leukocytosis on unasyn and increasing oxygen requirements. Afebirle. Will monitor for today. May need broadening of antibiotics. -Continue remdesivir, baricitinib -Oxygen as needed (2) Pneumonia due to COVID-19 virus: Code(s): U07.1 - COVID-19; J12.82 - Pneumonia due to coronavirus disease 2019 Status: Acute Assessment and Plan: Initially diagnosed on 09/23/2021. Given improved respiratory status with diuresis, will check COVID 19 PCR positive. Dexamethasone completed. -Continue dexamethasone -Unasyn day #4 -Day #4 remdesivir and baricitinib -COVID 19 PCR (3) Transaminitis: Code(s): R74.01 - Elevation of levels of liver transaminase levels Status: Acute Assessment and Plan: Almost completely resolved. -Trend (4) Thrombocytopenia: Code(s): D69.6 - Thrombocytopenia, unspecified Status: Acute Assessment and Plan: Platelet count recovering with discontinuation of lansoprazole. Will plan to continue with famotidine permanently. -Famotidine 10 mg BID (5) Type 2 diabetes mellitus with hyperglycemia, with long-term current use of insulin: Code(s): E11.65 - Type 2 diabetes mellitus with hyperglycemia; Z79.4 - watermaster (current) use of insulin Status: Acute Assessment and Plan: Uncontrolled due to dexamethasone. Previous home insulin was tresiba 10 units qhs. Blood glucose will normalize not that dexamethasone has finished. -Discontinue glargine and scheduled humalog -Continue SSI -Humalog AC HS (6) CKD (chronic kidney disease) stage 3, GFR 30-59 ml/min: Code(s): N18.3 - Chronic kidney disease, stage 3 (moderate) Status: Acute Assessment and Plan: Currently stable. -Avoid nephrotoxic agents -Renally dose medications (7) GERD (gastroesophageal reflux disease): Qualifiers: Esophagitis presence: without esophagitis Qualified Code(s): K21.9 - Gastro-esophageal reflux disease without esophagitis Code(s): K21.9 - Gastro-esophageal reflux disease without esophagitis Status: Acute Assessment and Plan: On pantoprazole 40 mg po daily at home but this will be discontinued at discharge due to thrombocytopenia. -Famotidine 10 mg BID (8) Anemia: Code(s): D64.9 - Anemia, unspecified Status: Acute Assessment and Plan: Chronic and stable. (9) Vitamin B12 deficiency: Code(s): E53.8 - Deficiency of other specified B group vitamins Status: Acute Assessment and Plan: On vitamin b12 supplement. Continue vitamin b12 daily. 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 Surveillance EGD 08/12/2021 noted a mass that was biopsied and found to be recurrent adenocarcinoma. Post-surveillance hypoxia required intubation. Subjective Date/time seen: Date of Service 10/04/21 08:22 Patient vomitin
[2021-10-04 08:43] LABS: Glucose Point of Care 209 mg/dl (65-105)
[2021-10-04] MEDS: KCL 40 MEQ/0.9% SOD CHL 1,000 ML 100 ML IV CONT ×2 (08:52→14:32)
[2021-10-04] MEDS: BARICITINIB 2 MG TABLET 4 MG PO (08:53)
[2021-10-04] MEDS: ASPIRIN 81 MG CHEWABLE TABLET FEED TUBE (08:53)
[2021-10-04] MEDS: FAMOTIDINE 10 MG TABLET FEED TUBE ×2 (08:53→23:23)
[2021-10-04] MEDS: PREGABALIN (*CRX) 50 MG CAPSULE 100 MG FEED TUBE (08:53)
[2021-10-04] MEDS: SACCHAROMYCES BOULARDII 250 MG CAPSULE FEED TUBE ×2 (08:53→17:22)
[2021-10-04] MEDS: FERROUS SULFATE LIQUID 325 MG/7.4 ML ELIXIR FEED TUBE ×2 (08:53→17:22)
[2021-10-04] MEDS: CHOLECALCIFEROL 1,000 UNITS TABLET 2000 UNITS FEED TUBE (08:53)
[2021-10-04] MEDS: METOPROLOL TARTRATE 12.5 MG TABLET FEED TUBE ×2 (08:54→23:23)
[2021-10-04] MEDS: ASCORBIC ACID 500 MG TABLET FEED TUBE (08:54)
[2021-10-04] MEDS: SERTRALINE HCL 50 MG TABLET 100 MG FEED TUBE (08:54)
[2021-10-04] MEDS: CYANOCOBALAMIN 1,000 MCG TABLET 1000 MCG FEED TUBE (08:54)
[2021-10-04] MEDS: REMDESIVIR 100 MG/NS 250 ML 100 MG/250 ML BAG 250 MG IVPB (09:53)
[2021-10-04 12:19] LABS: Glucose Point of Care 255 mg/dl (65-105)
[2021-10-04] MEDS: INSULIN ASPART (*BKC) 100 UNITS/ML SUB-Q (12:29)
[2021-10-04 17:18] LABS: Glucose Point of Care 164 mg/dl (65-105)
--- NOTE | 2021-10-04 20:24 | PCRCNOTE ---
no vest available for vest CPT
[2021-10-04 21:52] LABS: Glucose Point of Care 169 mg/dl (65-105)
[2021-10-04] MEDS: ALPRAZolam (*CRX) 0.5 MG TABLET FEED TUBE (23:23)
[2021-10-04] MEDS: ATORVASTATIN 10 MG TABLET FEED TUBE (23:23)
[2021-10-05] VITALS (11 sets, daily range): BP systolic 124–161; BP diastolic 61–81; PULSE 100–120; RESP 18–28; TEMP 35.8–36.8; O2SAT 93–99
[2021-10-05 01:29] LABS: Glucose Point of Care 190 mg/dl (65-105)
[2021-10-05] MEDS: ONDANSETRON INJ 4 MG/2 ML VIAL IV PUSH (02:08)
[2021-10-05] MEDS: ALBUTEROL SULFATE (*SP) INHALER 2 PUFF INHALATION ×3 (02:08→14:01)
--- NOTE | 2021-10-05 04:29 | PC.NURSE ---
Patient rounded on at 2300 and vomited twice. Tube feeding held. Patient HOB remains at 30 degrees. Gerling was called and orders were given.
[2021-10-05] MEDS: AMPICILLIN SULB 3 GM/NS 100 ML 3 GM/100 ML VIAL IVPB (06:24)
[2021-10-05 06:31] LABS: Glucose Point of Care 96 mg/dl (65-105)
[2021-10-05 06:44] LABS: Hematocrit 24.8 % (42.0-52.0); Hemoglobin 8.1 g/dL (14.0-18.0); Mean Corpuscular HGB Conc 32.7 g/dl (32-36); Mean Corpuscular Hemoglobin 31.4 pg (26-34); Mean Corpuscular Volume 96.1 fl (80-100); Platelet Count Result 129 k/mm3 (150-375); Red Blood Count 2.58 M/mm3 (4.6-6.20); Red Cell Distribution Width 18.1 % (11.5-14.5); White Blood Count 18.8 K/mm3 (4.5-10.0)
[2021-10-05 06:53] LABS: INR 1.1; Prothrombin Time 14.3 Seconds (11.1-14.7)
[2021-10-05 06:58] LABS: Alanine Aminotransferase 50 U/L (4-50); Aspartate Amino Transferase 45 U/L (17-59); Estimated CRCL calculation 94 ml/min; Estimated Glomerular Filt Rate > 60
[2021-10-05 07:19] LABS: Atypical Lymphocytes Present; Band Neutrophils Percent 5 % (0-6); Basophils Absolute Manual 0.18 K/mm3 (0.0-0.1); Basophils Percent Manual 1 % (0-1); Lymphocytes Absolute Manual 0.37 K/mm3 (1.1-4.5); Metamyelocytes Percent 1 %; Monocytes Absolute Manual 0.75 K/mm3 (0.1-0.90); Monocytes Percent Manual 4 % (3-9); Myelocytes Percent 1 %; Neutrophils Percent Manual 86 % (46-73); Platelet Estimate Adequate (Adequate); Total Cells Counted 100
--- NOTE | 2021-10-05 07:38 | PM.IMPN ---
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 CT chest notes improvement of COVID 19 pneumonia but superimposed aspiration pneumonia w/ pneumonitis present. Patient currently off oxygen on zosyn. Leukocytosis resolved. Blood cultures finalized negative. CXR yesterday notes worsening on the right c/w exam. Started unasyn, remdesivir, baricitinib yesterday and gave furosemide 40 IV X3. CXR improved 10/02. 10/03 Dexamethasone completed the 10 day course. Patient appears clinically stable. Will discontinue COVID 19 PRC positive overnight. Leukocytosis worsened w/ increasing oxygen requirements. Remdesivir completed 10/04/2021. Completed 10 days of dexamethasone on 10/02. -Continue baricitinib #6/14 -Consult Pulmonology -D/C unasyn -Start Zosyn and ciprofloxacin -MRSA swab (2) Pneumonia due to COVID-19 virus: Code(s): U07.1 - COVID-19; J12.82 - Pneumonia due to coronavirus disease 2019 Status: Acute Assessment and Plan: Initially diagnosed on 09/23/2021. Given improved respiratory status with diuresis, will check COVID 19 PCR positive. Dexamethasone completed 10/02. Remdesivir completed 10/04. -Continue baricitinib #6/14 -Oxygen as needed (3) Abdominal pain: Code(s): R10.9 - Unspecified abdominal pain Status: Acute Assessment and Plan: LFTs normal. KUB with no evidence of ileus, obstruction or large stool volume. Abdominal pain my be due to high tube feed volume. -Discussed lowering tube feed rate with nutrtitionist -Tylenol for Pain (4) Transaminitis: Code(s): R74.01 - Elevation of levels of liver transaminase levels Status: Acute Assessment and Plan: This has resolved. (5) Thrombocytopenia: Code(s): D69.6 - Thrombocytopenia, unspecified Status: Acute Assessment and Plan: Platelet count recovering with discontinuation of lansoprazole. Will plan to continue with famotidine permanently. -Famotidine 10 mg BID (6) Type 2 diabetes mellitus with hyperglycemia, with long-term current use of insulin: Code(s): E11.65 - Type 2 diabetes mellitus with hyperglycemia; Z79.4 - intermediate school teacher (current) use of insulin Status: Acute Assessment and Plan: Improved off dexamethasone. -Continue SSI -Accu checks (7) CKD (chronic kidney disease) stage 3, GFR 30-59 ml/min: Code(s): N18.3 - Chronic kidney disease, stage 3 (moderate) Status: Acute Assessment and Plan: Currently stable. -Avoid nephrotoxic agents -Renally dose medications (8) GERD (gastroesophageal reflux disease): Qualifiers: Esophagitis presence: without esophagitis Qualified Code(s): K21.9 - Gastro-esophageal reflux disease without esophagitis Code(s): K21.9 - Gastro-esophageal reflux disease without esophagitis Status: Acute Assessment and Plan: On pantoprazole 40 mg po daily at home but this will be discontinued at discharge due to thrombocytopenia. -Famotidine 10 mg BID (9) Anemia: Code(s): D64.9 - Anemia, unspecified Status: Acute Assessment and Plan: Chronic and stable. (10) Vitamin B12 deficiency: Code(s): E53.8 - Deficiency of other specified B group vitamins Status: Acute Assessment and Plan: On vitamin b12 supplement. Continue vitamin b12 daily. 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 Surveillance EGD 08/12/2021 noted a mass th
[2021-10-05 09:56] LABS: Alveolar/Arterial O2 Gradient 187.5 mmHg; Fractional Inspired Oxygen 40 %; HCO3 ABG 22.5 mEq/l (22.0-26.0); Oxygen Saturation ABG 92.4 % (95.0-100.0); Oxyhemoglobin 89.4 % THb (90.0-100.0); PCO2 ABG 32.9 mmHg (35.0-45.0); PO2 ABG 59.9 mmHg (80.0-100.0); Total Hemoglobin 9.5 g/dL (12.0-18.0); pH ABG 7.453 (7.350-7.450)
[2021-10-05 09:57] LABS: Device HIGH FLOW NASAL CANN; Modified Allen's Test Pass; Site Drawn LEFT RADIAL
[2021-10-05] MEDS: ENOXAPARIN 40 MG/0.4 ML SYRINGE SUB-Q (10:06)
[2021-10-05 10:21] LABS: Anion Gap 7 mmol/L (8-16); Blood Urea Nitrogen 35 mg/dL (9-20); Calcium 8.3 mg/dL (8.4-10.2); Carbon Dioxide 25 mmol/L (22-30); Chloride 105 mmol/L (98-107); Estimated CRCL calculation 94 ml/min; Estimated Glomerular Filt Rate > 60; Glucose 235 mg/dL (65-110); Potassium 4.6 mmol/L (3.4-5.0); Sodium 137 mmol/L (137-145)
[2021-10-05] MEDS: REMDESIVIR 100 MG/NS 250 ML 100 MG/250 ML BAG 250 MG IVPB (10:23)
[2021-10-05] MEDS: CYANOCOBALAMIN 1,000 MCG TABLET 1000 MCG FEED TUBE (10:24)
[2021-10-05] MEDS: METOPROLOL TARTRATE 12.5 MG TABLET FEED TUBE ×2 (10:24→23:03)
[2021-10-05] MEDS: SERTRALINE HCL 50 MG TABLET 100 MG FEED TUBE (10:24)
[2021-10-05] MEDS: ASPIRIN 81 MG CHEWABLE TABLET FEED TUBE (10:24)
[2021-10-05] MEDS: FAMOTIDINE 10 MG TABLET FEED TUBE ×2 (10:24→23:03)
[2021-10-05] MEDS: ASCORBIC ACID 500 MG TABLET FEED TUBE (10:25)
[2021-10-05] MEDS: CHOLECALCIFEROL 1,000 UNITS TABLET 2000 UNITS FEED TUBE (10:25)
[2021-10-05] MEDS: SACCHAROMYCES BOULARDII 250 MG CAPSULE FEED TUBE ×2 (10:25→17:41)
[2021-10-05] MEDS: prednisoLONE ACETATE 1% OPHTH 5 ML 1 DROP RIGHT EYE (10:25)
[2021-10-05] MEDS: PREGABALIN (*CRX) 50 MG CAPSULE 100 MG FEED TUBE (10:28)
[2021-10-05] MEDS: FERROUS SULFATE LIQUID 325 MG/7.4 ML ELIXIR FEED TUBE ×2 (10:29→17:41)
[2021-10-05] MEDS: BARICITINIB 2 MG TABLET 4 MG PO (10:30)
[2021-10-05] MEDS: ARTIFICIAL TEARS OPHTH SOLN 15 ML BOTTLE 1 DROP EACH EYE (10:32)
--- NOTE | 2021-10-05 11:33 | PCPTNOTE ---
The patient treatment was not able to be completed today. RN advised to hold PT today due to increased RR and Blood Gas Levels. Will plan to continue treatment per plan of care as condition improves.
[2021-10-05] MEDS: PIPERACILLIN/TAZOBACTAM SOD 4.5 GM in SODIUM CHLORIDE 0.9% IV 100 ML 200 ML IVPB ×3 (11:59→23:31)
[2021-10-05] MEDS: CIPROFLOXACIN 400 MG/D5W 200ML 200 ML 200 MG IVPB ×2 (12:05→17:38)
[2021-10-05 13:14] LABS: Glucose Point of Care 277 mg/dl (65-105)
--- NOTE | 2021-10-05 13:31 | PM.CNPUL ---
Assessment and Plan Assessment and plan (1) Pneumonia due to COVID-19 virus: Code(s): U07.1 - COVID-19; J12.82 - Pneumonia due to coronavirus disease 2019 Status: Acute (2) Aspiration pneumonia: Qualifiers: Aspiration pneumonia type: unspecified Laterality: unspecified laterality Lung location: unspecified part of lung Qualified Code(s): J69.0 - Pneumonitis due to inhalation of food and vomit Code(s): J69.0 - Pneumonitis due to inhalation of food and vomit Status: Acute (3) Acute respiratory failure with hypoxia: Code(s): J96.01 - Acute respiratory failure with hypoxia Status: Acute Assessment and Plan: 76-year-old man with a history of esophageal cancer status post previous surgery for esophageal cancer, recurrence of esophageal cancer on most recent EGD, mediastinal lymphadenopathy on last chest CT, with chronic bilateral pleural effusions, and persistent infiltrates on chest imaging studies. Patient has been treated for COVID 19 infection but most recent PCR was positive. The new leukocytosis could be related to aspiration pneumonitis. on most recent chest imaging studies there is no clear-cut evidence that there is increase in the size of pleural effusions. The case was discussed with the hospitalist. We will do PCR screening for Staph, and if positive then will cover for staph with vancomycin. Otherwise he will continue with the same antibiotics for now and monitor the respiratory status. Monitor CRP. Check with senior network systems engineer to decrease the volume of nutritional solution given during the day in an effort to avoid possible aspiration. (4) Pleural effusion, bilateral: Code(s): J90 - Pleural effusion, not elsewhere classified Status: Acute (5) Jejunostomy tube in situ: Code(s): Z93.4 - Other artificial openings of gastrointestinal tract status Status: Acute (6) Chronic obstructive pulmonary disease: Qualifiers: COPD type: unspecified COPD Qualified Code(s): J44.9 - Chronic obstructive pulmonary disease, unspecified Code(s): J44.9 - Chronic obstructive pulmonary disease, unspecified Status: Acute History of Present Illness History of Present Illness Consult date: 10/05/21 Chief complaint: Acute respiratory failure, COPD exacerbation Narrative: This 76-year-old man was admitted into the hospital approximately 12 days ago after he developed shortness of breath. The patient lives in a custodial. He was found to have shortness of breath and low oxygen saturation and was brought to the emergency room by EMS. Workup showed positive PCR for COVID-19 infection. The patient has history of esophageal cancer status post esophageal cancer surgery with pull-through. Approximately 4 weeks ago the patient underwent EGD which showed recurrence of his esophageal cancer. The patient has received treatment for COVID pneumonia including dexamethasone and remdesivir. Two days ago, repeat PCR testing for COVID 19 infection was again positive. The patient also received treatment with antibiotics for possible pneumonia. Most recently he was found to have leukocytosis and transient worsening of his gas exchange. Patient was placed again on antibiotics for possible nosocomial pneumonia. Upon questioning the patient denied having fever or chills. He has mild coughing and mild shortness of breath. He has been on GI tube feedings at 75 mL/hour during the day. He reports no abdominal pain, chest pain cough or wheezing. most recent chest x-ray showed developing airspace opacities of the mid and lower lung zones, consistent with atelectasis versus pneumonia and small loculated right pleural effusion without significant change. Review of Systems Review of Systems: All systems reviewed & are unremarkable except as noted in HPI and below (H and P and below) PMFSH Past Medical History Medical History (Reviewed 09/23/21 @ 00:17 by Nilo De La Fuente
[2021-10-05 13:51] LABS: Alveolar/Arterial O2 Gradient 300.6 mmHg; Base Excess ABG -1.9 mEq/l (+/-2.0); Device HIGH FLOW NASAL CANN; Fractional Inspired Oxygen 60 %; HCO3 ABG 22.3 mEq/l (22.0-26.0); Modified Allen's Test Pass; Oxygen Content ABG 12.8 %vol (16.0-22.0); Oxygen Saturation ABG 96.9 % (95.0-100.0); Oxyhemoglobin 94.5 % THb (90.0-100.0); PCO2 ABG 35.7 mmHg (35.0-45.0); PO2 ABG 87.9 mmHg (80.0-100.0); PO2 FiO2 Ratio Arterial Blood 1.47 %; Site Drawn RIGHT RADIAL; Total Hemoglobin 9.5 g/dL (12.0-18.0); pH ABG 7.414 (7.350-7.450)
[2021-10-05] MEDS: INSULIN ASPART (*BKC) 100 UNITS/ML SUB-Q ×3 (14:07→23:19)
[2021-10-05 14:12] LABS: Glucose Point of Care 266 mg/dl (65-105)
[2021-10-05 15:07] LABS: CRP 7.4 mg/dL (<1.0)
--- NOTE | 2021-10-05 16:34 | WPDGICN ---
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 This is recurrent after previous esophagectomy a mass in the distal esophagus. This makes it difficult for patient to eat. For this reason a JJ an ostomy tube was placed. Continued monitoring follow-up by Oncology service advised. He may need to be NPO with J-tube feedings. Elevating head of bed at night may help. (2) H/O esophagectomy: Onset Date: ~05/2018 Code(s): Z98.890 - Other specified postprocedural states; Z90.49 - Acquired absence of other specified parts of digestive tract Status: Acute Assessment and Plan: Status post objective me several years ago in an attempt to cure distal esophageal cancer however this was recurrent now with gastric mass. He had a gastric pull-up procedure. (3) Chronic obstructive pulmonary disease: Qualifiers: COPD type: unspecified COPD Qualified Code(s): J44.9 - Chronic obstructive pulmonary disease, unspecified Code(s): J44.9 - Chronic obstructive pulmonary disease, unspecified Status: Acute (4) Pneumonia due to COVID-19 virus: Code(s): U07.1 - COVID-19; J12.82 - Pneumonia due to coronavirus disease 2018 Status: Acute Assessment and Plan: Respiratory difficulties currently with COVID positivity. Pulmonary follow-up advised. (5) Jejunostomy tube in situ: Code(s): Z93.4 - Other artificial openings of gastrointestinal tract status Status: Acute Assessment and Plan: Patient is status post recent surgical placement of a J-tube. Suggest tube feedings as tolerated by patient if at all possible. He likely should be NPO given his regurgitation. GI Consult Note Consult date/time: 10/05/21 16:34 HPI: Nilo Barney is a 76 year old male I am asked to see at the request of the hospitalist service because of increasing respiratory difficulties. Patient known to me as he was diagnosed with distal esophageal cancer within the last several years. More recently he was seen because of frequent nausea vomiting. An EGD revealed recurrent cancer. Patient initially had esophagectomy with a gastric pull up. Most recent EGD revealed cancer at the GE junction and distally into a good portion of the gastric mucosa. This precluded placement of a G-tube. Ultimately patient had a jejunostomy placed by the surgical service. Patient has underlying COPD with significant regurgitation of saliva gastric contents. Apparently has had respiratory issues with vomiting. Review of Systems Review of Systems: ROS unobtainable: Yes unobtainable due to mental status PMFSH Past Medical History Medical History Anxiety Chronic back pain Chronic kidney disease, stage 3 Chronic obstructive pulmonary disease Depression due to physical illness Diabetic peripheral neuropathy Dyslipidemia Essential (primary) hypertension Gastroesophageal reflux disease History of jejunostomy tube placement With his esophagectomy in 2018. No longer in place. Insomnia, unspecified Malignant neoplasm of lower third of esophagus Nephrolithiasis Obstructive sleep apnea Osteoarthritis Psoriasis Type 2 diabetes mellitus with hyperglycemia, with long-term current use of insulin Vitamin B12 deficiency Vitamin D deficiency Surgical History Surgical History History of cholecystectomy (~1999) History of esophagectomy (12/2018) History of lumbar laminectomy (~2015) History of open reduction and internal fixation (ORIF) procedure (~07/12/17) History of total hip arthroplasty (~2013) Hx of cornea transplant (~2013) Hx of neck surgery (~2008) S/P cystoscopy with ureteral stent placement (~2010) Spinal cord stimulator status (06/2020)
[2021-10-05 17:17] LABS: Glucose Point of Care 215 mg/dl (65-105)
[2021-10-05] MEDS: ATORVASTATIN 10 MG TABLET FEED TUBE (23:03)
[2021-10-05] MEDS: ALPRAZolam (*CRX) 0.5 MG TABLET FEED TUBE (23:12)
[2021-10-05 23:27] LABS: Glucose Point of Care 219 mg/dl (65-105)
[2021-10-06] MEDS: ALBUTEROL SULFATE (*SP) INHALER 2 PUFF INHALATION ×2 (01:40→08:17)
[2021-10-06] MEDS: CIPROFLOXACIN 400 MG/D5W 200ML 200 ML 200 MG IVPB ×2 (03:50→09:28)
[2021-10-06 03:52] VITALS: BP 102/48; PULSE 114; RESP 20; TEMP 36.7; O2SAT 91
[2021-10-06] MEDS: HYDROmorphone HCL INJ (*CRX) 1 MG/ML SYR IV PUSH (06:08)
[2021-10-06] MEDS: INSULIN ASPART (*BKC) 100 UNITS/ML SUB-Q (06:09)
[2021-10-06 06:18] LABS: Glucose Point of Care 245 mg/dl (65-105)
[2021-10-06 06:29] LABS: Basophils Absolute Auto 0.1 K/mm3 (0.0-0.1); Basophils Percent Auto 0.3 % (0.2-1.2); Eosinophils Percent Auto 0.1 % (0-4.4); Hematocrit 24.3 % (42.0-52.0); Hemoglobin 7.6 g/dL (14.0-18.0); Immature Granulocyte Absolute 1.68 K/mm3 (0.00-0.031); Immature Granulocyte Percent A 8.7 % (0-0.5); Lymphocytes Absolute Auto 0.29 K/mm3 (0.9-3.2); Lymphocytes Percent Auto 1.5 % (18.3-44.2); Mean Corpuscular HGB Conc 31.3 g/dl (32-36); Mean Corpuscular Hemoglobin 31.8 pg (26-34); Mean Corpuscular Volume 101.7 fl (80-100); Mean Platelet Volume 12.9 fl (7.4-10.4); Monocytes Absolute Auto 0.4 K/mm3 (0.1-0.6); Monocytes Percent Auto 2.2 % (2.6-8.5); Neutrophils Absolute Auto 16.8 K/mm3 (1.3-6.7); Neutrophils Percent Auto 87.2 % (45.5-73.1); Platelet Count Result 107 k/mm3 (150-375); Red Blood Count 2.39 M/mm3 (4.6-6.20); Red Cell Distribution Width 18.2 % (11.5-14.5); White Blood Count 19.3 K/mm3 (4.5-10.0)
[2021-10-06] MEDS: PIPERACILLIN/TAZOBACTAM SOD 4.5 GM in SODIUM CHLORIDE 0.9% IV 100 ML 200 ML IVPB (06:39)
[2021-10-06 06:46] LABS: Anion Gap 7 mmol/L (8-16); Aspartate Amino Transferase 39 U/L (17-59); Blood Urea Nitrogen 48 mg/dL (9-20); Calcium 8.1 mg/dL (8.4-10.2); Carbon Dioxide 23 mmol/L (22-30); Chloride 105 mmol/L (98-107); Estimated CRCL calculation 82 ml/min; Estimated Glomerular Filt Rate > 60; Glucose 261 mg/dL (65-110); Potassium 4.4 mmol/L (3.4-5.0); Sodium 135 mmol/L (137-145)
[2021-10-06 07:06] LABS: Alanine Aminotransferase 39 U/L (4-50)
[2021-10-06 08:00] VITALS: BP 92/42; PULSE 110; RESP 14; TEMP 36.2; O2SAT 95; O2SAT 98
[2021-10-06 08:18] VITALS: O2SAT 95
--- NOTE | 2021-10-06 09:11 | PCOTNOTE ---
Per nursing hold all therapies this date due to increased decline in condition. Physial therapy notified.
[2021-10-06] MEDS: CYANOCOBALAMIN 1,000 MCG TABLET 1000 MCG FEED TUBE (09:47)
[2021-10-06] MEDS: ASCORBIC ACID 500 MG TABLET FEED TUBE (09:47)
[2021-10-06] MEDS: ENOXAPARIN 40 MG/0.4 ML SYRINGE SUB-Q (09:47)
[2021-10-06] MEDS: SACCHAROMYCES BOULARDII 250 MG CAPSULE FEED TUBE (09:47)
[2021-10-06] MEDS: FAMOTIDINE 10 MG TABLET FEED TUBE (09:47)
[2021-10-06] MEDS: CHOLECALCIFEROL 1,000 UNITS TABLET 2000 UNITS FEED TUBE (09:48)
[2021-10-06] MEDS: BARICITINIB 2 MG TABLET 4 MG PO (09:48)
[2021-10-06 09:49] VITALS: PULSE 110
[2021-10-06] MEDS: FERROUS SULFATE LIQUID 325 MG/7.4 ML ELIXIR FEED TUBE (09:49)
[2021-10-06] MEDS: ASPIRIN 81 MG CHEWABLE TABLET FEED TUBE (09:49)
[2021-10-06] MEDS: TRIAMCINOLONE ACET 0.5% CREAM 15 GM TUBE 1 APPLIC TOPICAL (09:50)
[2021-10-06] MEDS: SCOPOLAMINE 1.5 MG PATCH TRANSDERM (09:51)
[2021-10-06] MEDS: PREGABALIN (*CRX) 50 MG CAPSULE 100 MG FEED TUBE (09:53)
--- NOTE | 2021-10-06 09:56 | PM.IMPN ---
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 CT chest notes improvement of COVID 19 pneumonia but superimposed aspiration pneumonia w/ pneumonitis present. Patient currently off oxygen on zosyn. Leukocytosis resolved. Blood cultures finalized negative. CXR notes worsening on the right c/w exam. Status post unasyn, remdesivir, baricitinib furosemide . Remdesivir completed 10/04/2021. Completed 10 days of dexamethasone on 10/02. -Continue baricitinib #05/20 -Consult Pulmonology -reStart Zosyn and ciprofloxacin Poor prognosis recommend hospice (2) Pneumonia due to COVID-19 virus: Code(s): U07.1 - COVID-19; J12.82 - Pneumonia due to coronavirus disease 2018 Status: Acute Assessment and Plan: Initially diagnosed on 09/23/2021. . Dexamethasone completed 10/02. Remdesivir completed 10/04. -Continue baricitinib -Oxygen as needed Poor prognosis worsening (3) Abdominal pain: Code(s): R10.9 - Unspecified abdominal pain Status: Acute Assessment and Plan: LFTs normal. KUB with no evidence of ileus, obstruction or large stool volume. Abdominal pain my be due to high tube feed volume. -daily evaluation for tube feeding -Tylenol for Pain (4) Transaminitis: Code(s): R74.01 - Elevation of levels of liver transaminase levels Status: Acute Assessment and Plan: Monitor CMP (5) Thrombocytopenia: Code(s): D69.6 - Thrombocytopenia, unspecified Status: Acute Assessment and Plan: Platelet count recovering with discontinuation of lansoprazole. Will plan to continue with famotidine permanently. -Famotidine 10 mg BID (6) Type 2 diabetes mellitus with hyperglycemia, with long-term current use of insulin: Code(s): E11.65 - Type 2 diabetes mellitus with hyperglycemia; Z79.4 - assisted (current) use of insulin Status: Acute Assessment and Plan: off dexamethasone. -Continue SSI -Accu checks (7) CKD (chronic kidney disease) stage 3, GFR 30-59 ml/min: Code(s): N18.3 - Chronic kidney disease, stage 3 (moderate) Status: Acute Assessment and Plan: Currently stable. -Avoid nephrotoxic agents -Renally dose medications (8) GERD (gastroesophageal reflux disease): Qualifiers: Esophagitis presence: without esophagitis Qualified Code(s): K21.9 - Gastro-esophageal reflux disease without esophagitis Code(s): K21.9 - Gastro-esophageal reflux disease without esophagitis Status: Acute Assessment and Plan: On pantoprazole 40 mg po daily at home but this will be discontinued at discharge due to thrombocytopenia. -Famotidine 10 mg BID (9) Anemia: Code(s): D64.9 - Anemia, unspecified Status: Acute Assessment and Plan: Monitor CBC (10) Vitamin B12 deficiency: Code(s): E53.8 - Deficiency of other specified B group vitamins Status: Acute Assessment and Plan: On vitamin b12 supplement. Continue vitamin b12 daily. 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 Surveillance EGD 08/12/2021 noted a mass that was biopsied and found to be recurrent adenocarcinoma. Post-surveillance hypoxia required intubation. -GI following -poor prognosis taken with recurrence of cancer and aspiration pneumonia COVID respiratory failure recommended hospice Subjective Date/time seen: 10/06/21 09:56 Interval history: Patient seen and examined Patien
[2021-10-06] MEDS: SERTRALINE HCL 50 MG TABLET 100 MG FEED TUBE (10:54)
--- NOTE | 2021-10-06 11:00 | PCPTNOTE ---
RN advised therapy to hold today due to decreased response. PT will continue to follow per plan of care.
--- NOTE | 2021-10-06 11:44 | PC.NURSE ---
this nurse received report from night nurse this AM that pt has declined in mental status. pt is unresponsive. pt will open eyes when his name is called but will immediately stop responding to nurse. pt will also flutter eye lashes when nurse tried to close eyes for the patient. pt will not respond to questions or signal that he is understanding questions. doctor aware. doctor stated he will call family.
[2021-10-06 12:00] VITALS: BP 89/43; PULSE 109; RESP 12; TEMP 36.3; O2SAT 94
[2021-10-06 12:03] LABS: Glucose Point of Care 250 mg/dl (65-105)
--- NOTE | 2021-10-06 13:06 | PCDIET ---
Comfort care started today. Hospice consult. No further nutritional interventions needed.
[2021-10-06] MEDS: MORPHINE SULFATE (*CRX) 2 MG/ML INJ IV PUSH (14:26)
[2021-10-06] MEDS: LORazepam INJ (*CRX) 2 MG/ML VIAL IV PUSH (14:26)
--- NOTE | 2021-10-06 15:46 | P.DN_ITS ---
Discharge Summary Date and Time Date of : 10/06/21 Probable Cause of Probable Cause of : COVID 19 PNEUMONIA Summary Hospital Course: Assessment and Plan (1) Acute respiratory failure with hypoxia: Code(s): J96.01 - Acute respiratory failure with hypoxia Status: Acute Assessment and Plan: Multifactorial with recent COVID 19 pneumonia, hx of COPD, new pneumonia due to aspiration and likely malignant pleural effusions with recent diagnosis of recurrence of adenocarcinoma. CT chest notes improvement of COVID 19 pneumonia but superimposed aspiration pneumonia w/ pneumonitis present. . Status post unasyn, remdesivir, baricitinib furosemide . Remdesivir completed 10/04/2021. Completed 10 days of dexamethasone on 10/02. - baricitinib #7/14 -Consult Pulmonology - Zosyn and ciprofloxacin patient under comfort care (2) Pneumonia due to COVID-19 virus: Code(s): U07.1 - COVID-19; J12.82 - Pneumonia due to coronavirus disease 2018 Status: Acute (3) Abdominal pain: Code(s): R10.9 - Unspecified abdominal pain Status: Acute Assessment and Plan: LFTs normal. KUB with no evidence of ileus, obstruction or large stool volume. Abdominal pain my be due to high tube feed volume. (4) Transaminitis: Code(s): R74.01 - Elevation of levels of liver transaminase levels Status: Acute (5) Thrombocytopenia: Code(s): D69.6 - Thrombocytopenia, unspecified Status: Acute (6) Type 2 diabetes mellitus with hyperglycemia, with long-term current use of insulin: Code(s): E11.65 - Type 2 diabetes mellitus with hyperglycemia; Z79.4 - half-way (current) use of insulin Status: Acute (7) CKD (chronic kidney disease) stage 3, GFR 30-59 ml/min: Code(s): N18.3 - Chronic kidney disease, stage 3 (moderate) Status: Acute (8) GERD (gastroesophageal reflux disease): Qualifiers: Esophagitis presence: without esophagitis Qualified Code(s): K21.9 - Gastro-esophageal reflux disease without esophagitis Code(s): K21.9 - Gastro-esophageal reflux disease without esophagitis Status: Acute (9) Anemia: Code(s): D64.9 - Anemia, unspecified Status: Acute Assessment and Plan: (10) Vitamin B12 deficiency: Code(s): E53.8 - Deficiency of other specified B group vitamins Status: Acute (11) Esophageal cancer: Code(s): C15.9 - Malignant neoplasm of esophagus, unspecified
== END 2021-10-06 15:35 | disposition expired | DRG 177 ==
LOC: ANHED 09-23 00:58 → ANH3MEDSUR 09-23 08:55
PROVIDERS: Emergency Medicine; Internal Medicine; Internal Medicine Pulmonary Disease; Admitting Provider Internal Medicine; Emergency Provider Emergency Medicine; PCP Family Medicine; Visit Provider Family Medicine
DX: U07.1 COVID-19 (principal); J69.0 Pneumonitis due to inhalation of food and vomit; J96.01 Acute respiratory failure with hypoxia; C15.5 Malignant neoplasm of lower third of esophagus; J44.1 Chronic obstructive pulmonary disease with (acute) exacerbation; E46 Unspecified protein-calorie malnutrition; J91.0 Malignant pleural effusion; Z66 Do not resuscitate; Z51.5 Encounter for palliative care; Z79.82 Long term (current) use of aspirin; F41.9 Anxiety disorder, unspecified; G89.29 Other chronic pain; M54.9 Dorsalgia, unspecified; J44.9 Chronic obstructive pulmonary disease, unspecified; E11.22 Type 2 diabetes mellitus with diabetic chronic kidney disease; I12.9 Hypertensive chronic kidney disease with stage 1 through stage 4 chronic kidney disease, or unspecified chronic kidney disease; N18.30 Chronic kidney disease, stage 3 unspecified; F06.31 Mood disorder due to known physiological condition with depressive features; E11.42 Type 2 diabetes mellitus with diabetic polyneuropathy; E78.5 Hyperlipidemia, unspecified; K21.9 Gastro-esophageal reflux disease without esophagitis; G47.00 Insomnia, unspecified; G47.33 Obstructive sleep apnea (adult) (pediatric); M19.90 Unspecified osteoarthritis, unspecified site; E11.65 Type 2 diabetes mellitus with hyperglycemia; Z79.4 Long term (current) use of insulin; E53.8 Deficiency of other specified B group vitamins; E55.9 Vitamin D deficiency, unspecified; Z87.891 Personal history of nicotine dependence; Z68.22 Body mass index [BMI] 22.0-22.9, adult; Z90.49 Acquired absence of other specified parts of digestive tract; D69.6 Thrombocytopenia, unspecified; D64.9 Anemia, unspecified; Z93.4 Other artificial openings of gastrointestinal tract status
CPT/HCPCS: 36415; 36600; 71045; 71275; 74018; 76705; 80048; 80053; 82550; 82565; 82805; 82948; 83735; 83880; 84450; 84460; 84484; 85025; 85055; 85380; 85610; 85652; 85730; 86140; 87040; 93005; 94640; 96361; 96365; 96375; 96376; 97110; 97161; 97166; 97530; 97535; 99285; A9270; C9803; G0378; J0131; J0295; J0744; J1100; J1170; J1650; J1815; J1940; J2060; J2270; J2405; J2543; J2550; J3475; J7050; J7120; Q9967; U0003; U0005